=== PATIENT | female | born 1940 | race Caucasian/White ===

== ENCOUNTER 2016-10-20 21:30 | Inpatient (IN) ==
[2016-10-20] MEDS ORDERED: Ipratropium/Albuterol Neb 3 ML IH ONE (21:34)
[2016-10-20] MEDS ORDERED: methylPREDNISolone 125 MG/2 ML VIAL IV ONE (21:34)
--- NOTE | 2016-10-20 21:37 | Emergency Department Note ---
Disposition Clinical Impression: Acute exacerbation of chronic obstructive airways disease, Afib, ESRD (end stage renal disease), Dyspnea, Hypoxia Disposition: Admitted As Inpatient Condition: Good Referrals: NO,PCP [Non-Partnered Physician] - Forms: ED Satisfaction Letter Time of Disposition: 22:23 SOB HPI - General Chief Complaint: ED Shortness of Breath/Dyspnea Stated Complaint: MILDRED Time Seen by Provider: 10/20/16 21:35 Source: patient, EMS Mode of arrival: EMS Limitations: no limitations Nursing Notes Reviewed: Yes Vital Signs Reviewed: Yes - History of Present Illness This is a 76-year-old female who presents with increased shortness of breath for the last day. Patient does have a history of COPD and is a current cigarette smoker. Patient states she has been coughing up phlegm but denies any fevers. Patient states she does get dialysis on and she got a treatment today and states getting the fluid off helped slightly but she got short of breath again a few hours after dialysis. Patient is not having abdominal pain, vomiting, diarrhea, or chest pain. Pt Subjective Complaint: shortness of breath, cough Onset (ago): day(s) (1) - Related Data Home Medications Medication Instructions Recorded Confirmed CloNIDine HCl [Clonidine HCl] 0.2 mg PO BID #0 11/12/15 10/20/16 Aspirin Enteric Coated [Aspirin EC] 81 mg PO DAILY #0 02/29/16 10/20/16 Albuterol Sulfate [Proair Hfa] 2 puff IH Q4H PRN 03/23/16 10/20/16 Budesonide/Formoterol 160/4.5 2 puff IH BIDR 03/23/16 10/20/16 [Symbicort 160/4.5] Isosorbide MONOnitrate (24 HR) 60 mg PO DAILY 03/23/16 10/20/16 [Imdur] Oxygen 2 l .ROUTE AD 08/27/16 10/20/16 Furosemide [Lasix] 40 mg PO DAILY 10/20/16 10/20/16 Previous Rx's Medication Instructions Recorded Carvedilol [Coreg] 25 mg PO BID #60 tablet 06/03/16 Diltiazem CD (24hr) [Cardizem CD] 300 mg PO DAILY #30 cap.er.24h 06/03/16 HydrALAZINE 25 mg PO BID #60 tablet 06/03/16 Sevelamer [Renvela] 800 mg PO TIDWM #90 tablet 06/03/16 Allergies Allergy/AdvReac Type Severity Reaction Status Date / Time codeine Allergy Confusion Verified 08/03/16 12:42 All systems ED: reviewed and negative except as stated. Constitutional: Denies: fever, chills, weakness, weight change Eyes: Denies: eye pain, eye discharge, vision change ENT ED: Denies: ear pain, throat pain, dental pain, hearing loss, epistaxis, congestion, dysphagia Cardiovascular: Denies: chest pain, palpitations, dyspnea on exertion, edema, syncope Respiratory: Reports: cough, dyspnea. Denies: wheezes, hemoptysis, stridor Gastrointestinal: Denies: abdominal pain, nausea, vomiting, diarrhea, constipation, hematemesis, melena, hematochezia Genitourinary: Denies: dysuria, frequency, hematuria, discharge Musculoskeletal: Denies: back pain, neck pain, arthralgia, myalgia Integumentary: Denies: rash, abrasion, lesions Neurological: Denies: headache, weakness, numbness, paresthesias, confusion, abnormal gait, vertigo Psychiatric: Denies: anxiety, depression, suicidal thoughts, homicidal thoughts , auditory hallucinations, visual hallucinations Endocrine: Denies: fatigue Hematological/Lymphatic: Denies: easy bleeding, easy bruising Allergic/Immunologic: Denies: facial swelling, urticaria Past Medical History - Past Medical History Attestation: Yes The following information was validated with the patient. Source: patient Medical history: Reports: atrial fibrillation, cancer, CHF, COPD, dialysis, GERD , hypertension, renal disease, other Surgical history: Reports: hysterectomy, other Psychiatric history: Reports: no psych history - Social History Smoking Status: Current every day smoker Smokeless Tobacco Status: No Alcohol use: Reports: none Drug use: Reports: none Physical Exam - General Limitations: no limitations General appearance: alert, in distress - Head Head exam: atraumatic, normocephalic, normal inspection - Eye Eye exam: Present: normal appearance, PERRL, EOMI - ENT ENT exam: normal exam, normal oropharynx, mucous membranes moist - Expanded ENT Exam External ear exam: Present: normal external inspection Mouth exam: Present: normal external inspection Teeth exam: Present: normal inspection Throat exam: Present: normal inspection - Neck Neck exam: Present: normal inspection, full ROM, trachea midline - Chest Chest inspection: Present: normal inspection, symmetric chest wall rise - Respiratory Respiratory exam: Present: other (diminshed b/l) - Cardiovascular Cardiovascular exam: Present: regular rate, normal rhythm, normal heart sounds - Abdominal Exam Abdominal exam: Present: soft, Non-Tender. Absent: tenderness, distention, guarding, rebound, rigidity - Extremities Exam Extremities exam: Present: normal inspection, full ROM. Absent: tenderness, pedal edema - Expanded Upper Extremity Exam Shoulder exam: Present: normal inspection, full ROM Arm exam: Present: normal inspection, full ROM Elbow exam: Present: normal inspection, full ROM Forearm/Wrist exam: Present: normal inspection, full ROM, other (fistula to the L) Hand exam: Present: normal inspection, full ROM Vascular exam: Normal: capillary refill, radial pulse - Expanded Lower Extremity Exam Hip/Pelvis exam: Present: normal inspection, full ROM Upper leg exam: Present: normal inspection, full ROM Knee exam: Present: normal inspection, full ROM Lower leg exam: Present: normal inspection, full ROM Ankle exam: Present: normal inspection, full ROM Foot/toe exam: Present: normal inspection, full ROM Neurovascular/Tendon exam: Absent: motor deficit, sensory deficit, tendon deficit - Back Exam Back exam: Present: normal inspection, full ROM. Absent: tenderness - Neurological Exam Neurological exam: Present: alert, oriented X3 - Expanded Neurological Exam Patient oriented to: Present: person, place, time Coma Scale Eye Opening: Spontaneous Coma Scale Motor Response: Obeys Commands Coma Scale Verbal Response: Oriented Coma Scale Total: 15 - Psychiatric Psychiatric exam: Present: normal affect, normal mood - Skin Skin exam: Present: warm, dry, intact, normal color Course - Consultations Consultation #1: I spoke with Dr. Neel peguero to admit. Time: 22:46 Vital Signs Temperature 98.2 F 10/20/16 21:44 Pulse Rate 81 10/20/16 21:44 Respiratory Rate 10/20/16 21:44 Blood Pressure 148/115 10/20/16 21:44 O2 Sat by Pulse Oximetry 96 10/20/16 21:44 Temperature 98.2 F 10/20/16 21:44 Pulse Rate 81 10/20/16 21:44 Respiratory Rate 10/20/16 21:44 Blood Pressure 148/115 10/20/16 21:44 O2 Sat by Pulse Oximetry 96 10/20/16 21:44 Oxygen Delivery Oxygen Delivery Nasal Cannula Shortness of Breath/Dyspnea - Medical Records Medical records reviewed: Yes I reviewed the patient's medical records. - Lab Data Lab results reviewed: Yes I reviewed the patient's lab results. Result diagrams: 10/20/16 21:53 10/20/16 21:53 Lab Results 10/20/16 10/20/16 10/20/16 Range/Units 21:53 21:53 21:53 WBC 6.7 (4.3-11.1) K/mcL RBC 3.31 L (3.82-4.97) M/mcL Hgb 10.1 L (11.5-15.4) g/dL Hct 31.9 L (35.3-44.9) % MCV 96.4 (83.0-100.0) fL MCH 30.5 (28.0-33.3) pg MCHC 31.7 (31.6-35.5) g/dL RDW 14.1 (11.5-14.5) % Plt Count 161 (140-400) K/mcL MPV 11.3 (9.4-12.4) fL Immature Gran % 0.6 (0-4) % Seg Neutrophils % 80.2 % Lymphocytes % 5.9 % Monocytes % 11.7 % Eosinophils % 1.3 % Basophils % 0.3 % Neutrophils # 5.4 (1.6-8.9) K/mcL Lymphocytes # 0.4 L (0.6-4.6) K/mcL Monocytes # 0.8 (0.0-1.3) K/mcL Eosinophils # 0.1 (0.0-0.6) K/mcL Basophils # 0.0 (0.0-0.2) K/mcL PT 13.6 H (9.4-12.1) Seconds INR 1.3 APTT 33.9 (26.0-36.0) Seconds Sodium 138 (136-145) mEq/L Potassium 4.1 (3.5-4.5) mEq/L Chloride 97 L (98-109) mEq/L Carbon Dioxide 27 (19-29) mEq/L BUN 36 H (7-20) mg/dL Creatinine 4.75 H (0.57-1.11) mg/dL Est GFR ( Amer) 11 L (> 60) Est GFR (Non-Af Amer) 9 L (> 60) BUN/Creatinine Ratio 8 (6-26) Glucose 104 H (70-99) mg/dL Calculated Osmolality 295 (280-300) Calcium 8.9 (8.6-10.8) mg/dL Troponin I (0-0.03) ng/mL B-Natriuretic Peptide (0-100) pg/mL 10/20/16 10/20/16 Range/Units 21:53 21:53 WBC (4.3-11.1) K/mcL RBC (3.82-4.97) M/mcL Hgb (11.5-15.4) g/dL Hct (35.3-44.9) % MCV (83.0-100.0) fL MCH (28.0-33.3) pg MCHC (31.6-35.5) g/dL RDW (11.5-14.5) % Plt Count (140-400) K/mcL MPV (9.4-12.4) fL Immature Gran % (0-4) % Seg Neutrophils % % Lymphocytes % % Monocytes % % Eosinophils % % Basophils % % Neutrophils # (1.6-8.9) K/mcL Lymphocytes # (0.6-4.6) K/mcL Monocytes # (0.0-1.3) K/mcL Eosinophils # (0.0-0.6) K/mcL Basophils # (0.0-0.2) K/mcL PT (9.4-12.1) Seconds INR APTT (26.0-36.0) Seconds Sodium (136-145) mEq/L Potassium (3.5-4.5) mEq/L Chloride (98-109) mEq/L Carbon Dioxide (19-29) mEq/L BUN (7-20) mg/dL Creatinine (0.57-1.11) mg/dL Est GFR ( Amer) (> 60) Est GFR (Non-Af Amer) (> 60) BUN/Creatinine Ratio (6-26) Glucose (70-99) mg/dL Calculated Osmolality (280-300) Calcium (8.6-10.8) mg/dL Troponin I 0.16 H* (0-0.03) ng/mL B-Natriuretic Peptide 4273 H (0-100) pg/mL - Radiology Data Radiology results reviewed: Yes I reviewed the patient's radiology results. - EKG Data EKG attestation: Yes I reviewed and interpreted this EKG. Rate: Reports: normal Rhythm: Reports: A.Fib [place]/QRS: Reports: normal When compared to previous EKG there are: no significant changes Interpretation: Reports: no acute changes
[2016-10-20 22:08] LABS: Basophils % 0.3 %; Eosinophils # 0.1 K/mcL (0.0-0.6); Eosinophils % 1.3 %; Hematocrit 31.9 % (35.3-44.9); Hemoglobin 10.1 g/dL (11.5-15.4); Immature Granulocytes % 0.6 % (0-4); Lymphocytes # 0.4 K/mcL (0.6-4.6); Lymphocytes % 5.9 %; Mean Corpuscular HGB Conc 31.7 g/dL (31.6-35.5); Mean Corpuscular Hemoglobin 30.5 pg (28.0-33.3); Mean Corpuscular Volume 96.4 fL (83.0-100.0); Mean Platelet Volume 11.3 fL (9.4-12.4); Monocytes # 0.8 K/mcL (0.0-1.3); Monocytes % 11.7 %; Neutrophils # 5.4 K/mcL (1.6-8.9); Platelet Count 161 K/mcL (140-400); Red Blood Count 3.31 M/mcL (3.82-4.97); Red Cell Distribution Width 14.1 % (11.5-14.5); Segmented Neutrophils % 80.2 %
[2016-10-20 22:14] LABS: INR 1.3; Prothrombin Time 13.6 Seconds (9.4-12.1)
[2016-10-20 22:17] LABS: Activated Partial Thrombo Time 33.9 Seconds (26.0-36.0)
[2016-10-20 22:21] LABS: Calcium 8.9 mg/dL (8.6-10.8); Potassium 4.1 mEq/L (3.5-4.5)
[2016-10-20] MEDS ORDERED: Levofloxacin 500 MG/100 ML 500 MG/100 ML BAG IVPB ONE (22:46)
[2016-10-21] MEDS ORDERED: Naloxone 0.4 MG/ML INJ IVP PRN (00:21)
[2016-10-21] MEDS ORDERED: Albuterol 2.5 MG/3 ML NEBULIZER IH PRN (00:46)
[2016-10-21] MEDS: Pantoprazole 40 MG VIAL IVP SCH ×2 (01:03→09:07)
--- NOTE | 2016-10-21 01:07 | Internal Med History&Physical ---
Date of Encounter: 10/21/16 Time of Encounter: 00:15 Assessment and Plan (1) Acute exacerbation of chronic obstructive pulmonary disease (COPD) Current visit: No Status: Acute Acute on chronic respiratory failure. COPD exacerbation. Patient was given Duo Neb in the ED as well as solumedrol 125mg and a dose of Levofloxacin. Continue Solumedrol 40mg Q8hr Continue duoneb treatments QIDR Albuterol Q4hr PRN Will monitor off antibiotics at this time as the patient is afebrile and has no white count. (2) Chronic diastolic (congestive) heart failure Current visit: No Status: Acute Not in acute exacerbation. Patient has no pedal edema and no JVD. Continue home lasix 40mg QD (3) HTN (hypertension) Current visit: No Status: Acute Continue home medications Qualifiers: Hypertension type: essential hypertension Qualified Code(s): I10 - Essential (primary) hypertension (4) ESRD (end stage renal disease) Current visit: Yes Status: Acute Patient continues to make urine. ESRD status post left nephrectomy. Continue with scheduled dialysis Sun, Sun, Sun. Consult nephrology on Sunday if patient will not be discharged before her scheduled dialysis on Sunday. (5) Afib Current visit: Yes Status: Chronic Currenly rate controlled with normal rhythm. Continue Cardizem 300mg Qualifiers: Atrial fibrillation type: chronic Qualified Code(s): I48.2 - Chronic atrial fibrillation (6) Renal cancer Current visit: Yes Status: Acute History of renal cancer of the left kidney. Status post nephrectomy. Qualifiers: Laterality: left Qualified Code(s): C64.2 - Malignant neoplasm of left kidney, except renal pelvis (7) Tobacco abuse Current visit: No Status: Chronic Nicotine patches PRN. Counseled on smoking cessation. Patient states that she will quit on her own when she wants to. Smoking cessation education ordered. (8) DVT prophylaxis Current visit: No Status: Resolved Heparin SQ GI prophylaxis: Protonix Internal Medicine - H&P: HPI Chief complaint: dyspnea Admitted From: Emergency Dept Plans for Post Hospital Care: Home History of present illness: Ms. Hedrick is a 76 year old female with PMH of ESRD on dialysis, COPD, A. Fib, renal cancer, CHF, GERD, and HTN who presented to the Emergency Department for shortness of breath. She states that her symptoms started 10/19/15 and she developed a worsening cough that was productive of clear sputum. She received dialysis as scheduled on Sunday morning and states that her symptoms improved slightly, but then returned. She denies chest pain, abdominal pain, nausea, vomiting, diarrhea, and any recent weight changes. She is oxygen dependent at home and recently had to increase to 3L from 2L previously. She continues to smoke a little less than a pack of cigarettes per day, but states that on Sunday she was only able to smoke one cigarette due to her shortness of breath. The patient also complained about a chronic nonhealing wound on her left lower extremity that she states has been there for 2 months. She states she had an arterial study done and will find out the results this coming Sunday. Past Med Surg Social Fam HX - Past Medical History Medical history: atrial fibrillation, cancer (renal), CHF, COPD, dialysis, GERD , hypertension, renal disease, other Psychiatric history: no psych history - Past Surgical History Surgical History: hysterectomy, other (left nephrectomy) - Social History Smoking Status: Current every day smoker Smokeless Tobacco Status: No Alcohol use: none Drug use: none - Family History Mother Living Status: Father Living Status: Hx Family Respiratory Disorders: Yes (emphysema) Brother Living Status: Hx Family Cancer: Yes Internal Medicine - H&P: Meds CloNIDine HCl [Clonidine HCl] 0.2 mg PO BID #0 11/12/15 [History] Aspirin Enteric Coated [Aspirin EC] 81 mg PO DAILY #0 02/29/16 [History] Albuterol Sulfate [Proair Hfa] 2 puff IH Q4H PRN 03/23/16 [History] Budesonide/Formoterol 160/4.5 [Symbicort 160/4.5] 2 puff IH BIDR 03/23/16 [ History] Isosorbide MONOnitrate (24 HR) [Imdur] 60 mg PO DAILY 03/23/16 [History] Carvedilol [Coreg] 25 mg PO BID #60 tablet 06/03/16 [Rx] Diltiazem CD (24hr) [Cardizem CD] 300 mg PO DAILY #30 cap.er.24h 06/03/16 [Rx] HydrALAZINE 25 mg PO BID #60 tablet 06/03/16 [Rx] Sevelamer [Renvela] 800 mg PO TIDWM #90 tablet 06/03/16 [Rx] Oxygen 2 l .ROUTE AD 08/27/16 [History] Furosemide [Lasix] 40 mg PO DAILY 10/20/16 [History] Allergies codeine Allergy (Verified 08/03/16 12:42) Confusion All Systems PM: A 10-system review of systems was performed and is negative for pertinent findings except as documented above in the HPI. - Constitutional Constitutional: no chills, no fever(s), no night sweats - EENT Eyes: no change in vision, no discharge, no pain, no photophobia Ears: no ear discharge, no ear pain, no tinnitus Nose, mouth and throat: no dysphagia, no nasal discharge, no neck pain, no sore throat - Cardiovascular Cardiovascular ROS IM: orthopnea, no chest pain, no diaphoresis, no lightheadedness, no palpitations, no syncope - Respiratory Respiratory: cough, dyspnea, dyspnea on exertion, no hemoptysis, no wheezing, no excessive phlegm production - Gastrointestinal Gastrointestinal: no abdominal pain, no diarrhea, no hematemesis, no hematochezia, no melena, no nausea, no vomiting - Genitourinary Genitourinary: no change in urinary stream, no dysuria, no flank pain, no hematuria - Musculoskeletal Musculoskeletal ROS IM: no numbness, no tingling - Integumentary Integumentary IM: sores (left lower extremity), no rash, no unusual bruising - Neurological Neurological ROS: no confusion, no convulsions, no focal weakness, no numbness, no tingling, no tremor(s) - Hematologic/Lymphatic Hematologic/Lymphatic: no easy bruising - Constitutional Vitals: Temp Pulse Resp BP Pulse Ox 97.6 F 80 18 177/75 92 L 10/20/16 23:59 10/20/16 23:59 10/20/16 23:59 10/20/16 23:59 10/20/16 23:59 General appearance: Present: cachectic, A&O X 3, no acute distress - Head Head exam: Present: atraumatic, normocephalic - Eye Eye exam: Present: EOMI, PERRL, conjuntiva pink, sclera anicteric Pupils: Present: PERRL - Neck Neck exam general surgery: Present: supple, trachea midline. Absent: lymphadenopathy - Respiratory Respiratory exam: Present: decreased breath sounds. Absent: accessory muscle use, rales, rhonchi, wheezes - Cardiovascular Cardiovascular exam: Present: RRR, +S1, +S2. Absent: diastolic murmur, gallop, rubs, systolic murmur - GI/Abdominal GI/Abdominal exam: Present: normal bowel sounds, soft, no peritoneal signs. Absent: distended, tenderness - Extremities Exam Extremities exam: Present: warm, radial pulses palpable and symetrical. Absent : calf tenderness, cyanotic, pedal edema - Neurological Exam Neurological exam: Present: CN II-XII intact, oriented X3, no focal deficits. Absent: pronater drift, facial droop, speech deficit - Skin Skin exam: Present: dry Additional comments: Chronic nonhealing ulcer of the left lower extremity. Internal Med - H&P Results - Labs CBC & Chem 7: 10/20/16 21:53 10/20/16 21:53 - Attending Attestation I examined this patient and my medical decision-making was reviewed with the PROPERTY MAINTENANCE TECHNICIAN/PA/Advanced Practice Nurse/Resident Physician. I agree with the documented findings, disposition and treatment plan as described except to the extent set forth below.
[2016-10-21] MEDS ORDERED: Nicotine 14 MG PATCH.TD24 TD PRN (01:27)
[2016-10-21] MEDS: Ipratropium/Albuterol Neb 3 ML IH SCH ×4 (03:51→22:40)
[2016-10-21] MEDS ORDERED: Ipratropium/Albuterol Neb 3 ML IH SCH (04:00)
[2016-10-21] MEDS: *HR* Heparin 5,000 UNIT/ML VIAL SQ SCH ×2 (06:14→17:12)
[2016-10-21 07:25] LABS: Calcium 8.6 mg/dL (8.6-10.8); Phosphorous 7.1 mg/dL (2.3-4.7); Potassium 4.7 mEq/L (3.5-4.5)
[2016-10-21] MEDS: Isosorbide MONOnitrate (24 HR) 60 MG TAB.ER.24H PO SCH (09:06)
[2016-10-21] MEDS: MethylPREDNISolone 40 MG/ML VIAL IVP SCH ×2 (09:06→17:12)
[2016-10-21] MEDS: Diltiazem CD (24hr) 300 MG CAPSULE PO SCH (09:06)
[2016-10-21] MEDS: Aspirin Enteric Coated 81 MG Tablet PO SCH (09:07)
[2016-10-21] MEDS: hydrALAZINE 25 MG TABLET PO SCH ×2 (09:07→22:10)
[2016-10-21] MEDS: Furosemide 20 MG TABLET PO SCH (09:07)
[2016-10-21] MEDS: cloNIDine HCl 0.1 MG TABLET PO SCH ×2 (09:07→22:10)
--- NOTE | 2016-10-21 09:43 | Event Note ---
<David Muñoz - Last Filed: 10/21/16 12:34> Date of Encounter: 10/21/16 Time of Encounter: 09:29 Patient seen/eval at bedside, H&P and interval events reviewed, discussed with night resident Dr. Ritchie. Briefly, 76 yoF PMH ESRD on HD MWF with Dr. Duran group, RCC s/p Left nephrectomy, COPD on LTOT 2LNC, HFpEF, HTN current smoker. She would present following her HD session Sunday (completed full course), then experienced productive cough with subjective chills, dyspnea over her normal 2L NC, prompting admission at [facility]. She endorses events per above, lives at home with 2 sons, no recent sick contacts. Exam elderly lady appears stated age, NAD, NCAT, mmm, no lesions. Resp with dry crackles all gutirerez, no wheeze or ronchi, no acc muscle use CV S1 S2, no JVD, right forearm AVF with continuous bruit Abd soft nt nd Ext mild chyna LE pitting edema. Left ankle lateral malleolus mild erythema, shallow stage 2 ulcer, appears with signs chronic venous stasis, varicosities, no oozing or exudate. A/P COPD exacerbation Suggested by worsening dyspnea and productive cough. 2-V CXR reviewed, prior RLL blunted, likely scarring. No focal infiltrate, no leukocytosis Cont solumedrol, taper as indicated. ESRD on HD She completed her session on Sunday, is MWF. Would consult Dr. Duran on Sun for regularly scheduled dialysis, sooner if acute electrolye abnormalities arise. Left venous stasis ulcer From 09/28/16, chyna LE venous dopplers negative for DVT. From 10/13/16, Right VON 1.52, Left VON 1.27. bilateral LE moderately abnormal, recommend for risk factor reduction. Clinically appears with chronic venous stasis, she also continues to smoke which impairs wound healing. Cont topical neosporin. <Roderick Anderson - Last Filed: 10/21/16 13:50> Date of Encounter: 10/21/16 I examined this patient and my medical decision-making was reviewed with the AIR QUALITY TECHNICIAN/PA/Advanced Practice Nurse/Resident Physician. I agree with the documented findings, disposition and treatment plan as described except to the extent set forth below. COPD exacerbation, will ocntinue with current management. HD as per nephrology.
[2016-10-21] MEDS: Neosporin OINT 15 GM TUBE TP SCH ×2 (13:33→17:13)
[2016-10-22] MEDS: MethylPREDNISolone 40 MG/ML VIAL IVP SCH ×3 (01:55→17:22)
[2016-10-22] MEDS: Ipratropium/Albuterol Neb 3 ML IH SCH ×4 (04:31→23:38)
[2016-10-22 05:57] LABS: Hematocrit 29.1 % (35.3-44.9); Hemoglobin 9.3 g/dL (11.5-15.4); Immature Granulocytes % 0.6 % (0-4); Lymphocytes # 0.3 K/mcL (0.6-4.6); Lymphocytes % 3.4 %; Mean Corpuscular Hemoglobin 30.6 pg (28.0-33.3); Mean Corpuscular Volume 95.7 fL (83.0-100.0); Mean Platelet Volume 11.5 fL (9.4-12.4); Monocytes # 0.6 K/mcL (0.0-1.3); Monocytes % 7.1 %; Neutrophils # 7.4 K/mcL (1.6-8.9); Platelet Count 170 K/mcL (140-400); Red Blood Count 3.04 M/mcL (3.82-4.97); Red Cell Distribution Width 14.1 % (11.5-14.5); Segmented Neutrophils % 88.9 %
[2016-10-22 06:16] LABS: Calcium 8.9 mg/dL (8.6-10.8); Magnesium 2.1 mg/dL (1.6-2.6); Potassium 5.5 mEq/L (3.5-4.5)
[2016-10-22] MEDS ORDERED: Calcium Gluconate 2,000 MG in D5% in Water 100 ML IVPB ONE (08:49)
[2016-10-22] MEDS: *HR* Heparin 5,000 UNIT/ML VIAL SQ SCH ×2 (09:03→17:22)
[2016-10-22] MEDS: Neosporin OINT 15 GM TUBE TP SCH ×4 (09:03→21:20)
[2016-10-22] MEDS: Pantoprazole 40 MG VIAL IVP SCH (09:04)
[2016-10-22] MEDS: Furosemide 20 MG TABLET PO SCH (09:04)
[2016-10-22] MEDS: Diltiazem CD (24hr) 300 MG CAPSULE PO SCH (09:04)
[2016-10-22] MEDS: hydrALAZINE 25 MG TABLET PO SCH ×2 (09:04→21:16)
[2016-10-22] MEDS: Aspirin Enteric Coated 81 MG Tablet PO SCH (09:05)
[2016-10-22] MEDS: cloNIDine HCl 0.1 MG TABLET PO SCH ×2 (09:05→21:16)
[2016-10-22] MEDS: Isosorbide MONOnitrate (24 HR) 60 MG TAB.ER.24H PO SCH (09:05)
--- NOTE | 2016-10-22 09:28 | Internal Med Progress Note ---
<David Muñoz - Last Filed: 10/22/16 13:44> Date of Encounter: 10/22/16 Time of Encounter: 09:20 - Assessment and plan (1) Acute exacerbation of chronic obstructive airways disease Current Visit: Yes Status: Acute Assessment and plan: Suggested by worsening dyspnea and productive cough. 2-V CXR reviewed, prior RLL blunted, likely scarring. No focal infiltrate, no leukocytosis Cont solumedrol, taper as indicated. (2) ESRD (end stage renal disease) Current Visit: Yes Status: Acute Assessment and plan: ESRD on HD MWF followed by Dr. Duran group. Discussed with Dr. Duran, to resume HD on Sunday. (3) Venous stasis dermatitis Current Visit: Yes Status: Acute Assessment and plan: From 09/28/16, chyna LE venous dopplers negative for DVT. From 10/13/16, Right VON 1.52, Left VON 1.27. bilateral LE moderately abnormal, recommend for risk factor reduction. Clinically appears with chronic venous stasis, she also continues to smoke which impairs wound healing. Cont topical neosporin. Wound care c/s Qualifiers: Laterality: left Qualified Code(s): I83.12 - Varicose veins of left lower extremity with inflammation (4) DVT prophylaxis Current Visit: No Status: Resolved Assessment and plan: Hep 5000 U SC BID - Subjective Interval history: Patient seen/eval, she would relate that her breathing and cough are improved. She denies any chest pain/pressure/palpitations/pause. No pleurisy or chest tightness. Denies any abdominal pain. Denies any undue fatigue, nausea, diaphoresis. Interval EKG obtained for K+ 5.5 would reveal pronouncement of T waves, shifting baseline. - Constitutional Vitals: Temp Pulse Resp BP Pulse Ox 97.5 F L 83 20 150/66 95 10/22/16 06:43 10/22/16 06:43 10/22/16 06:43 10/22/16 06:43 10/22/16 06:43 General appearance: Present: cachectic, A&O X 3, no acute distress - Head Head exam: Present: atraumatic, normocephalic - Eye Eye exam: Present: EOMI, sclera anicteric - ENT ENT exam: Present: mucous membranes moist - Neck Neck exam general surgery: Present: supple, trachea midline - Respiratory Respiratory exam: Present: prolonged expiratory phase, rhonchi (scant end exp ronchi, with dry crackles. Minimal wheeze), wheezes - Cardiovascular Cardiovascular exam: Present: +S1, +S2. Absent: JVD - GI/Abdominal GI/Abdominal exam: Present: soft, no peritoneal signs. Absent: tenderness - Extremities Exam Extremities exam: Present: pedal edema (1+ pitting, left LE lateral malleolus shallow venous stasis ulcer, bandaged), warm, radial pulses palpable and symetrical Additional comments: RFA AVF Internal Medicine: Result - Labs CBC & Chem 7: 10/22/16 05:24 10/22/16 05:24 Labs: Short CBC 10/22/16 Range/Units 05:24 WBC 8.3 (4.3-11.1) K/mcL Hgb 9.3 L (11.5-15.4) g/dL Hct 29.1 L (35.3-44.9) % Plt Count 170 (140-400) K/mcL Neutrophils # 7.4 (1.6-8.9) K/mcL BMP 10/22/16 05:24 Sodium 132 L Potassium 5.5 H Chloride 94 L Carbon Dioxide 22 BUN 69 H D Creatinine 6.42 H Glucose 145 H Calcium 8.9 - ABG Interpretation ABG results: PT/INR, D-dimer PT 13.6 Seconds (9.4-12.1) H 10/20/16 21:53 Consult Discharge Plan - Plan Referrals: Eileen House, PRODUCTION CLOTH CUTTER [Primary Care Provider] - (WEB REQUEST PLACED ON 10/21/16 ) <Roderick Anderson - Last Filed: 10/22/16 15:53> Date of Encounter: 10/22/16 - Constitutional Vitals: Temp Pulse Resp BP Pulse Ox 97.4 F L 88 20 139/77 90 L 10/22/16 11:32 10/22/16 11:32 10/22/16 11:32 10/22/16 11:32 10/22/16 11:32 Internal Medicine: Result - Labs CBC & Chem 7: 10/22/16 05:24 10/22/16 05:24 Labs: Short CBC 10/22/16 Range/Units 05:24 WBC 8.3 (4.3-11.1) K/mcL Hgb 9.3 L (11.5-15.4) g/dL Hct 29.1 L (35.3-44.9) % Plt Count 170 (140-400) K/mcL Neutrophils # 7.4 (1.6-8.9) K/mcL BMP 10/22/16 05:24 Sodium 132 L Potassium 5.5 H Chloride 94 L Carbon Dioxide 22 BUN 69 H D Creatinine 6.42 H Glucose 145 H Calcium 8.9 Cardiac Enzymes 10/22/16 Range/Units 05:24 Troponin I 0.09 H* (0-0.03) ng/mL - ABG Interpretation ABG results: PT/INR, D-dimer PT 13.6 Seconds (9.4-12.1) H 10/20/16 21:53 - Attending Attestation I examined this patient and my medical decision-making was reviewed with the COPY MESSENGER/PA/Advanced Practice Nurse/Resident Physician. I agree with the documented findings, disposition and treatment plan as described except to the extent set forth below. Patient is getting treatment for her COPD exacerbation. Anticipate discharge tomorrow.
[2016-10-22] MEDS ORDERED: Menthol 9.1 MG LOZENGE PO PRN (13:43)
[2016-10-22] MEDS: Chloraseptic Spray 177 ML BOTTLE MM PRN (15:48)
[2016-10-22] MEDS ORDERED: Acetaminophen 325 MG TABLET PO ONE (21:06)
[2016-10-23 04:05] LABS: Hematocrit 29.3 % (35.3-44.9); Hemoglobin 9.3 g/dL (11.5-15.4); Immature Granulocytes % 0.5 % (0-4); Lymphocytes # 0.4 K/mcL (0.6-4.6); Lymphocytes % 3.5 %; Mean Corpuscular HGB Conc 31.7 g/dL (31.6-35.5); Mean Corpuscular Hemoglobin 30.2 pg (28.0-33.3); Mean Corpuscular Volume 95.1 fL (83.0-100.0); Mean Platelet Volume 11.4 fL (9.4-12.4); Monocytes # 0.5 K/mcL (0.0-1.3); Monocytes % 4.5 %; Neutrophils # 9.6 K/mcL (1.6-8.9); Platelet Count 199 K/mcL (140-400); Red Blood Count 3.08 M/mcL (3.82-4.97); Segmented Neutrophils % 91.5 %
[2016-10-23 04:20] LABS: Calcium 8.1 mg/dL (8.6-10.8); Magnesium 2.2 mg/dL (1.6-2.6); Potassium 4.8 mEq/L (3.5-4.5)
[2016-10-23] MEDS: Ipratropium/Albuterol Neb 3 ML IH SCH ×2 (04:22→10:53)
[2016-10-23] MEDS ORDERED: Acetaminophen 325 MG TABLET PO ONE (04:23)
[2016-10-23] MEDS: *HR* Heparin 5,000 UNIT/ML VIAL SQ SCH (06:37)
[2016-10-23] MEDS: MethylPREDNISolone 40 MG/ML VIAL IVP SCH (06:37)
--- NOTE | 2016-10-23 08:04 | Nephrology Consult Note ---
Date of Encounter: 10/23/16 Time of Encounter: 08:02 Assessment and Plan (1) ESRD (end stage renal disease) Current Visit: Yes Status: Acute Patient is end-stage renal disease. She will receive her usual dialysis today. She is on Aranesp for her anemia. We will attempt 4 kg removal to try and improve her lower extremity swelling. She has a ulceration of the left lower extremity which appears to be improving. She is currently on Sensipar for a concern of possible calciphylaxis. Noninvasive vascular studies have been unremarkable. (2) Benign hypertension with chronic kidney disease, stage IV Current Visit: Yes Status: Acute (3) Acute exacerbation of chronic obstructive airways disease Current Visit: Yes Status: Acute (4) Anemia in chronic kidney disease (CKD) Current Visit: No Status: Acute (5) Chronic atrial fibrillation Current Visit: No Status: Acute History of Present Illness - Reason for Consult Consult date: 10/23/16 - History of Present Illness This is a 76-year-old female with end-stage renal disease related to hypertension who receives dialysis injection every Sunday. Patient was admitted with worsening shortness of breath. She had sputum production although her phlegm was clear. She did have some coughing. She has some lower extremity swelling. She is being treated for COPD exacerbation. Patient has a history of recurrent hospital admissions for exacerbation of COPD sometimes associated with pneumonia. Currently says she is feeling better. She was experiencing a sore throat and difficulty swallowing yesterday although today she says that has improved. She is scheduled for her usual dialysis today. Patient has a history of a ulcer on the lateral aspect of the left lower extremity. ABIs were unremarkable. There was concern for calciphylaxis. Patient had been placed on Sensipar as an outpatient. On exam today the ulcer looks like it is improving. Past Med Surg Social Fam HX - Past Medical History Medical history: atrial fibrillation, cancer (renal), CHF, COPD, dialysis, GERD , hypertension, renal disease, other Psychiatric history: no psych history - Past Surgical History Surgical History: hysterectomy, other (left nephrectomy) - Social History Smoking Status: Current every day smoker Packs per day: less than 1 PPD Smokeless Tobacco Status: No Alcohol use: none Drug use: none - Family History Mother Living Status: Father Living Status: Hx Family Respiratory Disorders: Yes (emphysema) Brother Living Status: Hx Family Cancer: Yes Medications and Allergies CloNIDine HCl [Clonidine HCl] 0.2 mg PO BID #0 11/12/15 [History] Aspirin Enteric Coated [Aspirin EC] 81 mg PO DAILY #0 02/29/16 [History] Albuterol Sulfate [Proair Hfa] 2 puff IH Q4H PRN 03/23/16 [History] Budesonide/Formoterol 160/4.5 [Symbicort 160/4.5] 2 puff IH BIDR 03/23/16 [ History] Isosorbide MONOnitrate (24 HR) [Imdur] 60 mg PO DAILY 03/23/16 [History] Carvedilol [Coreg] 25 mg PO BID #60 tablet 06/03/16 [Rx] Diltiazem CD (24hr) [Cardizem CD] 300 mg PO DAILY #30 cap.er.24h 06/03/16 [Rx] HydrALAZINE 25 mg PO BID #60 tablet 06/03/16 [Rx] Sevelamer [Renvela] 800 mg PO TIDWM #90 tablet 06/03/16 [Rx] Oxygen 2 l .ROUTE AD 08/27/16 [History] Furosemide [Lasix] 40 mg PO DAILY 10/20/16 [History] Allergies codeine Allergy (Verified 08/03/16 12:42) Confusion Review of Systems Constitutional: as per HPI Eyes: bilateral: blurred vision (patient denies), diplopia (patient denies) Nose, mouth and throat: no dizziness, no headache(s) Cardiovascular: as per HPI, dyspnea, dyspnea on exertion, edema, irregular heart rhythm Respiratory: cough, dyspnea, dyspnea on exertion, excessive phlegm production Gastrointestinal: no abdominal pain, no change in bowel habits Musculoskeletal: no muscle weakness, no numbness Integumentary: as per HPI, wounds Neurological: as per HPI Psychiatric: no depression, no difficulty concentrating Endocrine: as per HPI Hematologic/Lymphatic: no easy bruising, no lymphadenopathy Exam - Vital Signs Vital signs: Initial Vital Signs Temp Pulse Resp BP Pulse Ox 98.2 F 81 26 148/115 96 10/20/16 21:44 10/20/16 21:44 10/20/16 21:44 10/20/16 21:44 10/20/16 21:44 Vital Signs - Last 8 Hours Temp Pulse Resp BP Pulse Ox 10/23/16 07:29 97.3 F L 81 20 168/73 96 10/23/16 04:23 18 96 10/23/16 03:58 98.1 F 78 18 167/74 97 10/23/16 00:09 97.8 F 81 20 161/76 96 Intake and Output 10/22/16 10/23/16 10/23/16 23:59 07:59 15:59 Intake Total 120 / 120 Balance 120 / 120 Intake: Oral 120 / 120 Other: Meal Dinner Percent of Meal Consumed 50% # Voids 1 # Bowel Movements 1 Weight 79.9 kg Patient Weight 10/23/16 23:59 Weight 79.9 kg - General Appearance Exam: Patient is sitting on the edge of bed eating breakfast. She is in no acute distress. Neck is supple. Carotids no bruits. Lungs diminished breath sounds bilaterally. No wheezing rales or rhonchi. Heart irregular rate and rhythm consistent with atrial fibrillation. Abdomen shows normal bowel sounds bruits masses in a megaly or tenderness. Lower extremities show 1+ lower extremity swelling bilaterally. There is a superficial ulceration on the lateral aspect of the left lower extremity which appears better compared to when it was last seen as an outpatient. There is a functioning AV fistula in the right upper extremity. Results - Lab Results 10/23/16 03:42 10/23/16 03:42 Most recent lab results Calcium 8.1 mg/dL (8.6-10.8) L 10/23/16 03:42 Phosphorus 7.1 mg/dL (2.3-4.7) H 10/21/16 07:05 Magnesium 2.2 mg/dL (1.6-2.6) 10/23/16 03:42 Consult Discharge Plan - Plan Referrals: Eileen House, MOPPER [Primary Care Provider] - (WEB REQUEST PLACED ON 10/21/16 )
[2016-10-23] MEDS ORDERED: 0.9 % Sodium Chloride 250 ML IV PRN (08:07)
[2016-10-23] MEDS: Pantoprazole 40 MG VIAL IVP SCH (08:16)
[2016-10-23] MEDS: Isosorbide MONOnitrate (24 HR) 60 MG TAB.ER.24H PO SCH (08:17)
[2016-10-23] MEDS: Aspirin Enteric Coated 81 MG Tablet PO SCH (08:17)
[2016-10-23] MEDS: Diltiazem CD (24hr) 300 MG CAPSULE PO SCH (08:17)
[2016-10-23] MEDS: hydrALAZINE 25 MG TABLET PO SCH (08:18)
[2016-10-23] MEDS: cloNIDine HCl 0.1 MG TABLET PO SCH (08:18)
[2016-10-23] MEDS: Furosemide 20 MG TABLET PO SCH (08:18)
[2016-10-23] MEDS: Chloraseptic Spray 177 ML BOTTLE MM PRN (08:19)
[2016-10-23] MEDS: Neosporin OINT 15 GM TUBE TP SCH (08:19)
--- NOTE | 2016-10-23 08:55 | Discharge Summary ---
<David Muñoz - Last Filed: 10/23/16 13:05> Date of Encounter: 10/23/16 Time of Encounter: 08:30 - Discharge Diagnosis (1) Acute exacerbation of chronic obstructive airways disease Priority: Primary Status: Acute (2) ESRD (end stage renal disease) Priority: Primary Status: Chronic (3) Venous stasis dermatitis Priority: Secondary Status: Chronic Qualifiers: Laterality: left Qualified Code(s): I83.12 - Varicose veins of left lower extremity with inflammation - Discharge Medications Prescriptions: Albuterol Neb [Proventil Neb] 2.5 mg IH [id number] PRN #1 inhsol PRN Reason: Shortness Of Breath/Wheezing Budesonide/Formoterol 160/4.5 [Symbicort 160/4.5] 2 puff IH BIDR #1 inhaler Furosemide [Lasix] 40 mg PO DAILY #30 tablet Mario/Poly/Wandy OINT [Triple Antibiotic Ointment] 1 appl TP TID #1 tube Nicotine Patch [Nicoderm] 14 mg TD DAILY PRN #30 patch.td24 PRN Reason: nicotine withdrawal PredniSONE 40 mg PO DAILY #4 tablet Home Medications: CloNIDine HCl [Clonidine HCl] 0.2 mg PO BID #0 11/12/15 [History] Aspirin Enteric Coated [Aspirin EC] 81 mg PO DAILY #0 02/29/16 [History] Albuterol Sulfate [Proair Hfa] 2 puff IH Q4H PRN 03/23/16 [History] Isosorbide MONOnitrate (24 HR) [Imdur] 60 mg PO DAILY 03/23/16 [History] Carvedilol [Coreg] 25 mg PO BID #60 tablet 06/03/16 [Rx] Diltiazem CD (24hr) [Cardizem CD] 300 mg PO DAILY #30 cap.er.24h 06/03/16 [Rx] HydrALAZINE 25 mg PO BID #60 tablet 06/03/16 [Rx] Sevelamer [Renvela] 800 mg PO TIDWM #90 tablet 06/03/16 [Rx] Oxygen 2 l .ROUTE AD 08/27/16 [History] Albuterol Neb [Proventil Neb] 2.5 mg IH [id number] PRN #1 inhsol 10/23/16 [Rx] Budesonide/Formoterol 160/4.5 [Symbicort 160/4.5] 2 puff IH BIDR #1 inhaler 07/01 [Rx] Furosemide [Lasix] 40 mg PO DAILY #30 tablet 10/23/16 [Rx] Mario/Poly/Wandy OINT [Triple Antibiotic Ointment] 1 appl TP TID #1 tube 10/23/16 [ Rx] Nicotine Patch [Nicoderm] 14 mg TD DAILY PRN #30 patch.td24 10/23/16 [Rx] PredniSONE 40 mg PO DAILY #4 tablet 10/23/16 [Rx] Allergies/Adverse Reactions: Allergies codeine Allergy (Verified 08/03/16 12:42) Confusion Procedures/tests Complete & Pending: Procedures Performed prior 72 hours Category Date Time Status EKG [ECG 12 lead ECG] [ECG] Stat Y 10/22/16 08:18 Ordered Date of admission: 10/21/16 17:46 Primary care physician: Eileen House CNP Consults: 10/22/16 13:40 Consult to Nephrology [CONS] Routine Consulting Provider: [facility] Vasu REY Reason for Consult: ESRD on HD MWF, for scheduled dialysis. Here for COPD exacerbation. Discussed with Dr. Rey. Time Notified: 13:30 Call Completed: Yes 10/22/16 13:52 Consult to Wound Care [CONS] Routine Reason for Consult: Left LE venous stasis ulcer, appreciate recs Call Completed: No 10/23/16 08:15 Consult to Dialysis [CONS] ONCE Discharging clinician: Roderick Anderson Anticipated date of discharge: 10/23/16 - Patient Status Disposition: Home, Self-Care Condition: Good Functional capacity at discharge: uses cane/walker Overall status at discharge: patient is progressing back to baseline - Discharge Instructions Instructions: How to Stop Smoking (DC), Chronic Obstructive Pulmonary Disease ( DC), Pneumonia (DC) Follow Up With: Bhaskar Stinson MD [Partnered Physician] - 10/30/16 1:00 pm (Dr. Stinson to see you in the [facility] outpatient wound care clinic to address your left lower leg ulcer. Please call if you cannot make this appointment.) Eileen House CNP [Primary Care Provider] - 10/27/16 1:00 pm (WEB REQUEST PLACED ON 10/21/16 ) Additional Instructions: Wound care orders: Cleanse area with microklenz daily and pat dry. Apply santyl medicated ointment to wound only (not surrounding skin) daily. Cover with allevyn dressing. Follow-up with outpatient wound care as scheduled for October 30. - Diet and Activity Activity: increase activity as tolerated, wear oxygen at all times Diet: low salt diet, other (renal diet) Hospital course: Ms. Hedrick is a 76 year old female. Patient would present to [facility] with chief concern productive cough with subjective chills, dyspnea over her normal 2L NC, prompting admission at [facility] on 10/20/16. Comorbidities would include ESRD on HD MWF with Dr. Rey group, RCC s/p Left nephrectomy, COPD on LTOT 2LNC, HFpEF, HTN current smoker. Impression was COPD exacerbation. She was started on systemic steroids, with improvement in breathing. She was unable to produce any sputum. She remained afebrile, without leukocytosis, and improved during her stay. Hospital course would include temporizing measures for her hyperkalemia prior to resuming her scheduled HD MWF with Dr. Rey. She has pre-existing left ankle malleolar shallow venous stasis ulcer, which was addressed with neosporin and wound care. She had prior VON's From 09/28/16, chyna LE venous dopplers negative for DVT. From 10/13/16, Right VON 1.52, Left VON 1.27. bilateral LE moderately abnormal, recommend for risk factor reduction. She was counseled extensively regarding smoking cessation and did agree to NRT. She was advised that when she continues to smoke which impairs wound healing. The venous stasis ulcer was evaluated on date of discharge, and did appear improved prior to admission. There were no cellulitic changes. She will have her scheduled dialysis today, to improve to dry weight and electrolytes prior to discharge. At time of discharge, patient was clinically improved, hemodynamically stable, progressing to baseline, and agreeable with plan of care. Patient was advised to seek immediate medical attention for any new or worsening symptoms including but not limited to fever, chills, chest pain, chest pressure, dyspnea, cough, abdominal pain, nausea, vomiting, diarrhea, bloody stool, urine and the patient voiced understanding. Patient will follow-up with primary care physician Eileen House, resuming scheduled HD sessions MWF with Dr. Rey group. She will finish 2 more days of prednisone therapy for her COPD exacerbation. Time spent discussing smoking cessation with patient: more than 10 minutes - Time Spent with Patient Total time spent providing and/or coordinating discharge services: Greater than 30 minutes - Constitutional Vitals: Temp Pulse Resp BP Pulse Ox 97.3 F L 81 20 168/73 96 10/23/16 07:29 10/23/16 07:29 10/23/16 07:29 10/23/16 07:29 10/23/16 07:29 General appearance: Present: cachectic, A&O X 3, no acute distress - Head Head exam: Present: atraumatic, normocephalic - Eye Eye exam: Present: EOMI, sclera anicteric - ENT ENT exam: Present: mucous membranes moist - Neck Neck exam general surgery: Present: supple, trachea midline - Respiratory Respiratory exam: Present: CTAB. Absent: rales, wheezes - Cardiovascular Cardiovascular exam: Present: +S1, +S2. Absent: JVD - GI/Abdominal GI/Abdominal exam: Present: soft, no peritoneal signs - Extremities Exam Extremities exam: Present: pedal edema (mild, no pain or erythema), warm, radial pulses palpable and symetrical. Absent: mottling Additional comments: RFA AVF Left malleolar venous stasis ulcer appears improved from previous, no drainage or discharge. - Neurological Exam Neurological exam: Absent: facial droop, speech deficit <Roderick Anderson - Last Filed: 10/23/16 17:25> Date of Encounter: 10/23/16 Procedures/tests Complete & Pending: Procedures Performed prior 72 hours Category Date Time Status EKG [ECG 12 lead ECG] [ECG] Stat Y 10/22/16 08:18 Completed Date of admission: 10/21/16 17:46 Primary care physician: Eileen House CNP Consults: 10/22/16 13:40 Consult to Nephrology [CONS] Routine Consulting Provider: [facility] Vasu REY Reason for Consult: ESRD on HD MWF, for scheduled dialysis. Here for COPD exacerbation. Discussed with Dr. Rey. Time Notified: 13:30 Call Completed: Yes 10/22/16 13:52 Consult to Wound Care [CONS] Routine Reason for Consult: Left LE venous stasis ulcer, appreciate recs Call Completed: No 10/23/16 08:15 Consult to Dialysis [CONS] ONCE Hospital course: Ms. Hedrick is a 76 year old female - Time Spent with Patient Total time spent providing and/or coordinating discharge services: - Constitutional Vitals: Temp Pulse Resp BP Pulse Ox 97.3 F L 87 17 187/113 96 10/23/16 07:29 10/23/16 11:00 10/23/16 11:00 10/23/16 11:00 10/23/16 07:29 - Attending Attestation I examined this patient and my medical decision-making was reviewed with the PHOTOGRAPHER SCIENTIFIC/PA/Advanced Practice Nurse/Resident Physician. I agree with the documented findings, disposition and treatment plan as described except to the extent set forth below. COPD exacerbation, ESRD HD, for d/c today.
--- NOTE | 2016-10-23 11:58 | Physician Discharge Referral ---
<David Muñoz - Last Filed: 10/23/16 11:57> Home Health/Hosp Referral Info Transfer to: Home Health Attending Provider: Monica Provider in Charge Post Discharge: PCP - Diagnosis (1) Acute exacerbation of chronic obstructive airways disease Priority: Primary Status: Acute (2) ESRD (end stage renal disease) Priority: Secondary Status: Chronic (3) Venous stasis dermatitis Priority: Primary Status: Chronic - Respiratory Orders Oxygen / L per min (2-3) Smoking Cessation: Smoking cessation has been advised. For more information, call the [place] Tobacco Quit Line at 7-616-XXIA-NOW. - Diet/Nutrition Diet/Nutrition Orders: No Added Salt (DAYANA), Renal - Activity Activity Orders: Ambulate - Services Needed Following services are medically necessary services: Home Health Aide, Physical Therapy, Occupational Therapy - Transfer Medications Prescriptions: Albuterol Neb [Proventil Neb] 2.5 mg IH [id number] PRN #1 inhsol PRN Reason: Shortness Of Breath/Wheezing Budesonide/Formoterol 160/4.5 [Symbicort 160/4.5] 2 puff IH BIDR #1 inhaler Furosemide [Lasix] 40 mg PO DAILY #30 tablet Mario/Poly/Wandy OINT [Triple Antibiotic Ointment] 1 appl TP TID #1 tube Nicotine Patch [Nicoderm] 14 mg TD DAILY PRN #30 patch.td24 PRN Reason: nicotine withdrawal PredniSONE 40 mg PO DAILY #4 tablet Home Medications: CloNIDine HCl [Clonidine HCl] 0.2 mg PO BID #0 11/12/15 [History] Aspirin Enteric Coated [Aspirin EC] 81 mg PO DAILY #0 02/29/16 [History] Albuterol Sulfate [Proair Hfa] 2 puff IH Q4H PRN 03/23/16 [History] Isosorbide MONOnitrate (24 HR) [Imdur] 60 mg PO DAILY 03/23/16 [History] Carvedilol [Coreg] 25 mg PO BID #60 tablet 06/03/16 [Rx] Diltiazem CD (24hr) [Cardizem CD] 300 mg PO DAILY #30 cap.er.24h 06/03/16 [Rx] HydrALAZINE 25 mg PO BID #60 tablet 06/03/16 [Rx] Sevelamer [Renvela] 800 mg PO TIDWM #90 tablet 06/03/16 [Rx] Oxygen 2 l .ROUTE AD 08/27/16 [History] Albuterol Neb [Proventil Neb] 2.5 mg IH [id number] PRN #1 inhsol 10/23/16 [Rx] Budesonide/Formoterol 160/4.5 [Symbicort 160/4.5] 2 puff IH BIDR #1 inhaler 07/01 [Rx] Furosemide [Lasix] 40 mg PO DAILY #30 tablet 10/23/16 [Rx] Mario/Poly/Wandy OINT [Triple Antibiotic Ointment] 1 appl TP TID #1 tube 10/23/16 [ Rx] Nicotine Patch [Nicoderm] 14 mg TD DAILY PRN #30 patch.td24 10/23/16 [Rx] PredniSONE 40 mg PO DAILY #4 tablet 10/23/16 [Rx] Allergies/Adverse Reactions: Allergies codeine Allergy (Verified 08/03/16 12:42) Confusion Certification: Further, I certify that my clinical findings support that this patient is homebound (i.e. absences from home require considerable and taxing effort and are for medical reasons or bahai services or infrequently or short duration when for other reasons) because: Homebound Reason: Severity of cardiac or pulmonary status limits activity tolerance Attestation: My signature below is to certify that this patient is under my care and that I, or nurse practitioner, or a physician's optometric assistant working with me, has a face-to -face encounter with this patient. <Roderick Anderson - Last Filed: 10/23/16 17:26> - Respiratory Orders Smoking Cessation: Smoking cessation has been advised. For more information, call the [place] Tobacco Quit Line at 3-762-YPGW-NOW. Certification: Further, I certify that my clinical findings support that this patient is homebound (i.e. absences from home require considerable and taxing effort and are for medical reasons or bahai services or infrequently or short duration when for other reasons) because: Attestation: My signature below is to certify that this patient is under my care and that I, or nurse practitioner, or a physician's optometric assistant working with me, has a face-to -face encounter with this patient.
[2016-10-23 13:12] LABS: Hepatitis B Surface Antibody 0.48 mIU/mL; Hepatitis B Surface Antigen Nonreactive (Nonreactive)
--- NOTE | 2016-10-23 13:50 | Electrocardiograph Report ---
[facility] Test Date: 2016-10-22 Pat Name: Hilary Hedrick Department: 112 Room: 2A43 Gender: F [place] Repairer: RELL : 1940 Requested By: David Muñoz Order Number: [id number] Reading MD: Margarito Smith DO Measurements Intervals [place] Rate: 84 P: [place]: 0 QRS: 99 QRSD: 106 T: 55 QT: 377 QTc: 419 Interpretive Statements Atrial fibrillation Right axis deviation Electronically Signed On 10-23-16 13:49:17 EST by Margarito Smith DO
[2016-10-23 21:28] VITALS: BP 181/81
--- NOTE | 2016-10-24 13:58 | Electrocardiograph Report ---
Test Date: 2016-10-20 Pat Name: Hilary Hedrick Department: 105 Room: 2A43 Gender: F Computer Numeric Control Setter: KVNG : 1940 Requested By: Ashley Urbina Order Number: [id number] Reading MD: Ravi Dupont MD Measurements Intervals [place] Rate: 82 P: NC: 0 QRS: 90 QRSD: 115 T: 71 QT: 377 QTc: 415 Interpretive Statements ATRIAL FIBRILLATION MODERATE INTRAVENTRICULAR CONDUCTION DELAY [110+ ms QRS DURATION] ABNORMAL RHYTHM ECG Electronically Signed On 10-24-16 13:57:19 EST by Ravi Dupont MD
--- NOTE | 2016-10-24 14:23 | Electrocardiograph Report ---
[facility] Test Date: 2016-10-23 Pat Name: CRIS MONCADA Department: 112 Room: 2A43 Gender: F Assembly Line Supervisor: [facility] : 1940 Requested By: Roderick Anderson Order Number: [id number] Reading MD: Eileen Ann Measurements Intervals [place] Rate: 80 P: NM: 0 QRS: 98 QRSD: 100 T: 58 QT: 390 QTc: 426 Interpretive Statements ATRIAL FIBRILLATION BORDERLINE RIGHT AXIS DEVIATION ABNORMAL RHYTHM ECG Electronically Signed On 10-24-16 14:18:13 EST by Eileen Ann
== END 2016-10-23 14:37 | disposition home or self-care (01) | DRG 190 ==
LOC: 3BNU 21:30 → EMEROO 21:30 → SUATTDRO 22:52 → 2ANU 23:27
PROVIDERS: ADMIT Internal Medicine; ATTEND Internal Medicine

== ENCOUNTER 2016-11-19 06:01 | Inpatient (IN) ==
[2016-11-19] MEDS ORDERED: Ondansetron 4 MG/2 ML VIAL IVP PRN (08:19)
[2016-11-19] MEDS ORDERED: Acetaminophen 325 MG TABLET PO PRN (08:19)
--- NOTE | 2016-11-19 08:37 | Internal Med History&Physical ---
Date of Encounter: 11/19/16 Time of Encounter: 08:10 Assessment and Plan (1) Volume overload Current visit: Yes Status: Acute Secondary to acute diastolic heart failure and end-stage renal disease on dialysis. Patient known to be noncompliant with dietary restrictions and medications. I spoke with nephrology service, MEET Dick, and she will arrange dialysis for today. Qualifiers: Hypervolemia type: other Qualified Code(s): E87.79 - Other fluid overload (2) Hyperkalemia Current visit: Yes Status: Acute Potassium 6.6 at outside ED. She received Kayexalate, IV insulin, and calcium chloride. EKG reviwed and showed afib HR 91, garcia cute changes. Stat potassium. Nephrology consulted for dialysis. (3) Acute diastolic (congestive) heart failure Current visit: Yes Status: Acute Echo 06/2016: LVEF 50-55%. Moderate MR. plan as above (4) ESRD (end stage renal disease) on dialysis Current visit: Yes Status: Chronic HD MWF. plan as above. (5) Chronic respiratory failure with hypoxia Current visit: Yes Status: Acute Patient is noncompliant with oxygen at home. She is supposed to use 3 L of oxygen via nasal cannula all day but she only uses when she feels that she needs it. 3. Hypoxia via nasal cannula now. Continue nebs. Dialysis. (6) COPD (chronic obstructive pulmonary disease) Current visit: No Status: Chronic nebs. symbicort. mucinex. Qualifiers: COPD type: unspecified COPD Qualified Code(s): J44.9 - Chronic obstructive pulmonary disease, unspecified (7) Chronic atrial fibrillation Current visit: No Status: Acute HR is adequate. Continue rate control with carvedilol and diltiazem. Not on anticoagulation due to episode hemoptysis while she was on Coumadin. Aspirin for stroke prevention (8) CAD (coronary artery disease) Current visit: No Status: Acute stable. asa. IMDUR. Qualifiers: Coronary Disease-Associated Artery/Lesion type: [place] artery [place] vs. transplanted heart: unspecified whether [place] or transplanted heart Associated angina: without angina Qualified Code(s): I25.10 - Atherosclerotic heart disease of [place] coronary artery without angina pectoris (9) Elevated troponin Current visit: No Status: Chronic Likely secondary to end-stage renal disease and fluid overload. (10) HTN (hypertension) Current visit: No Status: Acute Qualifiers: Hypertension type: essential hypertension Qualified Code(s): I10 - Essential (primary) hypertension (11) Tobacco abuse Current visit: No Status: Chronic Nicotine patch. Patient counseled to quit, unfortunately she knows the importance of quitting smoking but she states it will be very difficult. Internal Medicine - H&P: HPI Chief complaint: worsening of LE edema for 2 days Admitted From: Home Plans for Post Hospital Care: Home History of present illness: Ms. Hedrick is a 76 year old female with past medical history of COPD on 3 L of oxygen via NC, end-stage renal disease on hemodialysis MWF, diastolic HF, atrial fibrillation, HTN, CAD, and tobacco abuse who was transferred from an outside ED where she presented with LE swelling. Positive shortness of breath, orthopnea, PND and dry cough. no fever. no chest pain. no syncope. Palpitations. No abdominal pain. She does not make much urine. No change in bowel movements. Headache. No focal deficits. No bleeding. She admits to be non-compliant with dietary restrictions and medicarions. She ran out of her imdur 2 dasy ago. She took hydarlazine and clonidine at 2 am this morning. In ED , she was fluid overload and K was 6.6. troponin 0.185. Hgb 9.1. She received kayexalate, insulin, calcium chloride and was transferred to our hospital for further service. Past Med Surg Social Fam HX - Past Medical History Medical history: atrial fibrillation, cancer (renal), CHF, COPD, dialysis, GERD , hypertension, renal disease, other Psychiatric history: no psych history - Past Surgical History Surgical History: hysterectomy, other (left nephrectomy) - Social History Smoking Status: Current every day smoker Smokeless Tobacco Status: No Alcohol use: none Drug use: none - Family History Mother Living Status: Father Living Status: Hx Family Respiratory Disorders: Yes (emphysema) Brother Living Status: Hx Family Cancer: Yes Internal Medicine - H&P: Meds CloNIDine HCl [Clonidine HCl] 0.2 mg PO BID #0 11/12/15 [History] Aspirin Enteric Coated [Aspirin EC] 81 mg PO DAILY #0 02/29/16 [History] Albuterol Sulfate [Proair Hfa] 2 puff IH Q4H PRN 03/23/16 [History] Isosorbide MONOnitrate (24 HR) [Imdur] 60 mg PO DAILY 03/23/16 [History] Carvedilol [Coreg] 25 mg PO BID #60 tablet 06/03/16 [Rx] Diltiazem CD (24hr) [Cardizem CD] 300 mg PO DAILY #30 cap.er.24h 06/03/16 [Rx] HydrALAZINE 25 mg PO BID #60 tablet 06/03/16 [Rx] Sevelamer [Renvela] 800 mg PO TIDWM #90 tablet 06/03/16 [Rx] Oxygen 2 l .ROUTE AD 08/27/16 [History] Albuterol Neb [Proventil Neb] 2.5 mg IH [id number] PRN #1 inhsol 10/23/16 [Rx] Budesonide/Formoterol 160/4.5 [Symbicort 160/4.5] 2 puff IH BIDR #1 inhaler 07/01 [Rx] Furosemide [Lasix] 40 mg PO DAILY #30 tablet 10/23/16 [Rx] Mario/Poly/Wandy OINT [Triple Antibiotic Ointment] 1 appl TP TID #1 tube 10/23/16 [ Rx] Nicotine Patch [Nicoderm] 14 mg TD DAILY PRN #30 patch.td24 10/23/16 [Rx] PredniSONE 40 mg PO 2XW 11/19/16 [History] Allergies codeine Allergy (Verified 08/03/16 12:42) Confusion All Systems PM: A 10-system review of systems was performed and is negative for pertinent findings except as documented above in the HPI. - Constitutional Vitals: Temp Pulse Resp BP Pulse Ox 97.3 F L 97 18 159/88 97 11/19/16 08:06 11/19/16 08:06 11/19/16 08:06 11/19/16 08:06 11/19/16 08:06 General appearance: Present: cooperative, mild distress, A&O X 3, pleasant, answers questions appropriately - Eye Eye exam: Present: PERRL, sclera anicteric - ENT ENT exam: Present: mucous membranes dry - Neck Neck exam general surgery: Present: supple, trachea midline. Absent: lymphadenopathy - Respiratory Respiratory exam: Present: decreased breath sounds - Cardiovascular Cardiovascular exam: Present: irregular rhythm - GI/Abdominal GI/Abdominal exam: Present: normal bowel sounds, soft. Absent: distended, tenderness - Extremities Exam Extremities exam: Present: pedal edema (2+ LE pitting edema) - Back Exam Back exam: Absent: CVA tenderness (L), CVA tenderness (R) - Neurological Exam Neurological exam: Present: alert, oriented X3, no focal deficits, strengths equal and symetr throughout. Absent: facial droop, speech deficit - Skin Skin exam: Present: dry. Absent: rash
[2016-11-19 08:51] LABS: Calcium 9.2 mg/dL (8.6-10.8); Potassium 5.7 mEq/L (3.5-4.5)
--- NOTE | 2016-11-19 10:38 | Nephrology Consult Note ---
Date of Encounter: 11/19/16 Time of Encounter: 09:50 Assessment and Plan (1) ESRD (end stage renal disease) on dialysis Current Visit: Yes Status: Chronic ESRD on dialysis. Fluid overload, hyperkalemia in setting of chronic non compliance related to increased IDWG and high dietary potassium intake. Will do HD today, orders given. History of Present Illness - Reason for Consult end stage renal disease - History of Present Illness Ms. Hedrick is a 76 year old female with ESRD who dialyzes in [place] on MWF, last dialysis on Sunday. She is chronically non compliant with fluid intake and high dietary potassium intake. Other PMH diastolic CHF, ch Afib, COPD, HTN and current smoker. Also currently being seen by wound care for ulceration left lateral LE. Ms. Hedrick was transferred from [place] ER for SOB, LE swelling, Hyperkalemic K+ 6.6, she was given Kaexylate, Insulin and calcium chloride. Outside CXR showed chronic interstitial changes from chronic fluid overload. Repeat K+ 5.7. This morning Ms. Hedrick staes not really breathing much better today, somewhat tachypneic with mild conversational SOB. Past Med Surg Social Fam HX - Past Medical History Medical history: atrial fibrillation, cancer (renal), CHF, COPD, dialysis, GERD , hypertension, renal disease, other Psychiatric history: no psych history - Past Surgical History Surgical History: hysterectomy, other (left nephrectomy) - Social History Smoking Status: Current every day smoker Packs per day: 2 Smokeless Tobacco Status: No Alcohol use: none Drug use: none - Family History Mother Living Status: Father Living Status: Hx Family Respiratory Disorders: Yes (emphysema) Brother Living Status: Hx Family Cancer: Yes Medications and Allergies CloNIDine HCl [Clonidine HCl] 0.2 mg PO BID #0 11/12/15 [History] Aspirin Enteric Coated [Aspirin EC] 81 mg PO DAILY #0 02/29/16 [History] Albuterol Sulfate [Proair Hfa] 2 puff IH Q4H PRN 03/23/16 [History] Isosorbide MONOnitrate (24 HR) [Imdur] 60 mg PO DAILY 03/23/16 [History] Carvedilol [Coreg] 25 mg PO BID #60 tablet 06/03/16 [Rx] Diltiazem CD (24hr) [Cardizem CD] 300 mg PO DAILY #30 cap.er.24h 06/03/16 [Rx] HydrALAZINE 25 mg PO BID #60 tablet 06/03/16 [Rx] Sevelamer [Renvela] 800 mg PO TIDWM #90 tablet 06/03/16 [Rx] Oxygen 2 l .ROUTE AD 08/27/16 [History] Albuterol Neb [Proventil Neb] 2.5 mg IH [id number] PRN #1 inhsol 10/23/16 [Rx] Budesonide/Formoterol 160/4.5 [Symbicort 160/4.5] 2 puff IH BIDR #1 inhaler 07/01 [Rx] Furosemide [Lasix] 40 mg PO DAILY #30 tablet 10/23/16 [Rx] Mario/Poly/Wandy OINT [Triple Antibiotic Ointment] 1 appl TP TID #1 tube 10/23/16 [ Rx] Nicotine Patch [Nicoderm] 14 mg TD DAILY PRN #30 patch.td24 10/23/16 [Rx] PredniSONE 40 mg PO 2XW 11/19/16 [History] Allergies codeine Allergy (Verified 08/03/16 12:42) Confusion Review of Systems All Systems: reviewed and no additional remarkable complaints except as stated Exam - Vital Signs Vital signs: Initial Vital Signs Temp Pulse Resp BP Pulse Ox 97.3 F L 97 18 159/88 97 11/19/16 08:06 11/19/16 08:06 11/19/16 08:06 11/19/16 08:06 11/19/16 08:06 Vital Signs - Last 8 Hours Temp Pulse Resp BP Pulse Ox 11/19/16 08:06 97.3 F L 97 18 159/88 97 Intake and Output 11/18/16 11/19/16 11/19/16 23:59 07:59 15:59 Intake Total 480 / 480 Balance 480 / 480 Intake: Oral 480 / 480 Other: Meal Breakfast Percent of Meal Consumed 100% Weight 70.477 kg Patient Weight 11/19/16 23:59 Weight 70.477 kg - General Appearance General appearance: well-developed, well-nourished, appears started age, chronically ill EENT: mucous membranes moist Neck: no JVD Additional Comments: diminished breath sounds Cardiology: regular rate, regular rhythm, irregular rhythm Additional Comments: moderate pitting edema knees down Gastrointestinal: normoactive bowel sounds, no tenderness Integumentary: warm and dry Neurologic: alert and oriented x3 Results - Lab Results 11/19/16 08:29 Most recent lab results Calcium 9.2 mg/dL (8.6-10.8) 11/19/16 08:29 Consult Discharge Plan - Plan Referrals: Eileen House CNP [Primary Care Provider] -
[2016-11-19] MEDS: Nicotine 14 MG PATCH.TD24 TD SCH (11:12)
[2016-11-19] MEDS: Budesonide/Formoterol 80/4.5 MDI IH SCH ×2 (11:23→21:33)
[2016-11-19] MEDS: Ipratropium/Albuterol Neb 3 ML IH SCH ×4 (11:23→21:33)
[2016-11-19] MEDS ORDERED: 0.9 % Sodium Chloride 250 ML IV PRN (12:12)
[2016-11-19] MEDS ORDERED: *HR* Metoprolol 5 MG/5 ML VIAL IVP STA (17:23)
[2016-11-19] MEDS ORDERED: Isosorbide MONOnitrate (24 HR) 60 MG TAB.ER.24H PO STA (17:28)
[2016-11-19] MEDS: hydrALAZINE 25 MG TABLET PO SCH (20:16)
[2016-11-20] MEDS: Ipratropium/Albuterol Neb 3 ML IH SCH ×4 (01:09→11:15)
[2016-11-20 04:37] LABS: Basophils % 0.2 %; Eosinophils # 0.2 K/mcL (0.0-0.6); Eosinophils % 3.1 %; Hematocrit 29.9 % (35.3-44.9); Hemoglobin 9.3 g/dL (11.5-15.4); Immature Granulocytes % 0.2 % (0-4); Lymphocytes # 0.8 K/mcL (0.6-4.6); Lymphocytes % 12.8 %; Mean Corpuscular HGB Conc 31.1 g/dL (31.6-35.5); Mean Corpuscular Volume 96.5 fL (83.0-100.0); Mean Platelet Volume 11.4 fL (9.4-12.4); Monocytes # 0.6 K/mcL (0.0-1.3); Monocytes % 9.5 %; Neutrophils # 4.7 K/mcL (1.6-8.9); Platelet Count 135 K/mcL (140-400); Red Cell Distribution Width 15.7 % (11.5-14.5); Segmented Neutrophils % 74.2 %
[2016-11-20 04:52] LABS: Calcium 8.4 mg/dL (8.6-10.8); Phosphorous 4.1 mg/dL (2.3-4.7); Potassium 4.8 mEq/L (3.5-4.5)
--- NOTE | 2016-11-20 08:29 | Nephrology Progress Note ---
Date of Encounter: 11/20/16 Time of Encounter: 08:27 - Assessment and Plan (1) ESRD (end stage renal disease) on dialysis Current Visit: Yes Status: Chronic Patient will undergo dialysis again today. She needs aggressive volume removal. She may require additional ultrafiltration tomorrow. She will be placed on Aranesp for her anemia. She may require some adjustments in her medications to better control her ventricular response in the setting of chronic atrial fibrillation. (2) Volume overload Current Visit: Yes Status: Acute Qualifiers: Hypervolemia type: other Qualified Code(s): E87.79 - Other fluid overload (3) Anemia in chronic kidney disease (CKD) Current Visit: No Status: Acute (4) Atrial fibrillation with RVR Current Visit: No Status: Acute Subjective Interval history: The patient reports her breathing is better. She did undergo urgent dialysis yesterday because of volume overload shortness of breath and mild hyperkalemia. She still has significant lower extremity swelling. Blood pressure is elevated. She has chronic A. fib. Ventricular rate currently is in the range of 110-120. Objective - Vital Signs Vital signs: Vital Signs Temp Pulse Resp BP Pulse Ox 11/20/16 07:51 18 94 L 11/20/16 06:38 97.7 F 120 18 164/87 94 L 11/20/16 05:52 116 20 173/84 92 L 11/20/16 04:37 20 100 11/20/16 00:31 97.7 F 123 16 181/87 99 11/19/16 21:33 20 100 11/19/16 21:30 97.8 F 120 20 179/81 99 11/19/16 16:28 22 161/104 11/19/16 16:00 161/104 11/19/16 15:45 158/98 11/19/16 15:30 156/96 11/19/16 15:15 148/100 11/19/16 15:00 158/102 11/19/16 14:45 161/98 11/19/16 14:30 159/93 11/19/16 14:15 154/96 11/19/16 14:00 155/93 11/19/16 13:45 170/92 11/19/16 13:30 164/93 11/19/16 13:15 151/81 11/19/16 13:00 16 196/86 11/19/16 11:23 16 96 11/19/16 10:32 97.7 F 96 16 192/91 94 L Intake and Output 11/19/16 11/20/16 11/20/16 23:59 07:59 15:59 Intake Total 240 / 240 Output Total 4600 / 4600 200 / 200 Balance -4360 / -4360 -200 / -200 Intake: Oral 240 / 240 Output: Urine 0 / 0 200 / 200 Total Dialysis Output 4600 / 4600 Other: Meal Dinner Percent of Meal Consumed 50% Weight 67.495 kg Hemodialysis Net Fluid 4000 Removed (mL) Patient Weight 11/20/16 23:59 Weight 67.495 kg - General Appearance Exam: Patient is sitting on the edge of the bed eating breakfast. She is in no acute distress. Lung sounds. No rales or wheezing or rhonchi. Heart irregular rate and rhythm consistent with atrial fibrillation. 2/6 systolic murmur. Abdomen is benign. There is 2+ lower extremity swelling. There is a venous stasis ulcer of the left lower extremity. There is a functioning AV fistula in the right arm. - Lab 11/20/16 04:26 11/20/16 04:26 Most recent lab results Calcium 8.4 mg/dL (8.6-10.8) L 11/20/16 04:26 Phosphorus 4.1 mg/dL (2.3-4.7) 11/20/16 04:26 Consult Discharge Plan - Plan Referrals: Eileen House, WOOD INSPECTOR [Primary Care Provider] -
[2016-11-20] MEDS ORDERED: 0.9 % Sodium Chloride 250 ML IV PRN (08:30)
[2016-11-20] MEDS: Nicotine 14 MG PATCH.TD24 TD SCH (08:45)
[2016-11-20] MEDS: Diltiazem CD (24hr) 300 MG CAPSULE PO SCH (08:45)
[2016-11-20] MEDS: hydrALAZINE 25 MG TABLET PO SCH ×2 (08:45→20:48)
[2016-11-20] MEDS: Isosorbide MONOnitrate (24 HR) 60 MG TAB.ER.24H PO SCH (08:46)
[2016-11-20 09:56] LABS: Hepatitis B Surface Antibody 0.29 mIU/mL; Hepatitis B Surface Antigen Nonreactive (Nonreactive)
[2016-11-20] MEDS: Budesonide/Formoterol 80/4.5 MDI IH SCH ×2 (11:00→21:17)
--- NOTE | 2016-11-20 11:45 | Internal Med Progress Note ---
Date of Encounter: 11/20/16 Time of Encounter: 11:44 - Assessment and plan (1) Acute diastolic (congestive) heart failure Current Visit: Yes Status: Acute Assessment and plan: Acute diastolic CHF exacerbation secondary to volume overload related to end- stage renal disease Continue hemodialysis today, the patient had hemodialysis yesterday and most likely will be scheduled to have it tomorrow Followed by nephrology The patient does not produce urine Dr. Duran to repeat ultrafiltration tomorrow again (2) Hyperkalemia Current Visit: Yes Status: Acute Assessment and plan: Improving, According to the records her potassium was 6.6 at another facility, today is 4.8 (3) Volume overload Current Visit: Yes Status: Acute Qualifiers: Hypervolemia type: other Qualified Code(s): E87.79 - Other fluid overload (4) ESRD (end stage renal disease) on dialysis Current Visit: Yes Status: Chronic (5) Anemia in chronic kidney disease (CKD) Current Visit: No Status: Acute Assessment and plan: Monitor CBC (6) Afib Current Visit: No Status: Chronic Assessment and plan: Controlled on Cardizem and Coreg history of prior episodes of A. fib with RVR Qualifiers: Atrial fibrillation type: chronic Qualified Code(s): I48.2 - Chronic atrial fibrillation (7) Hypertension Current Visit: No Status: Chronic Qualifiers: Hypertension type: essential hypertension Qualified Code(s): I10 - Essential (primary) hypertension (8) Tobacco abuse Current Visit: No Status: Chronic Assessment and plan: Smoking cessation counseling given for 5 minutes Nicotine patch offered (9) Venous stasis dermatitis Current Visit: No Status: Chronic Qualifiers: Laterality: left Qualified Code(s): I83.12 - Varicose veins of left lower extremity with inflammation - Time Spent With Patient Greater than 35 minutes - Subjective Interval history: The patient feels less short of breath than yesterday, her legs are still extremely swollen, denies any chest pain, no abdominal pain, is bringing up minimal phlegm/whitish. Denies any diarrhea. Does not make urine. No fevers - Constitutional Vitals: Temp Pulse Resp BP Pulse Ox 97.9 F 100 18 154/79 94 L 11/20/16 11:07 11/20/16 11:07 11/20/16 11:07 11/20/16 11:07 02/06/17 11:02 General appearance: Present: cooperative, mild distress, A&O X 3, pleasant, answers questions appropriately - Head Head exam: Present: atraumatic, normocephalic - Eye Eye exam: Present: PERRL, conjuntiva pink, sclera anicteric Pupils: Present: PERRL - Neck Neck exam general surgery: Present: supple, trachea midline. Absent: lymphadenopathy - Respiratory Respiratory exam: Present: CTAB, rales (Fine bibasilar crackles). Absent: accessory muscle use, rhonchi, wheezes - Cardiovascular Cardiovascular exam: Present: RRR, +S1, +S2. Absent: diastolic murmur, gallop, rubs, systolic murmur - GI/Abdominal GI/Abdominal exam: Present: normal bowel sounds, soft, no peritoneal signs. Absent: distended, tenderness - Extremities Exam Extremities exam: Present: pedal edema (+ 1 pitting edema in both lower extremities, small ulcer in the left ankle covered by dressing, no signs of infection), warm, radial pulses palpable and symetrical. Absent: calf tenderness, cyanotic - Neurological Exam Neurological exam: Present: CN II-XII intact, oriented X3, no focal deficits. Absent: pronater drift, facial droop, speech deficit - Skin Skin exam: Present: dry, intact Internal Medicine: Result - Labs CBC & Chem 7: 11/20/16 04:26 11/20/16 04:26 Labs: Short CBC 11/20/16 Range/Units 04:26 WBC 6.4 (4.3-11.1) K/mcL Hgb 9.3 L (11.5-15.4) g/dL Hct 29.9 L (35.3-44.9) % Plt Count 135 L (140-400) K/mcL Neutrophils # 4.7 (1.6-8.9) K/mcL BMP 11/20/16 04:26 Sodium 136 Potassium 4.8 H Chloride 97 L Carbon Dioxide 26 BUN 38 H D Creatinine 4.33 H Glucose 88 Calcium 8.4 L Cardiac Enzymes 11/20/16 Range/Units 04:26 Troponin I 0.16 H* (0-0.03) ng/mL Consult Discharge Plan - Plan Referrals: Eileen House, CERTIFIED HYPERBARIC TECHNICIAN [Primary Care Provider] - 11/28/16 1:00 pm (Please follow up as schedule...)
--- NOTE | 2016-11-20 17:32 | Electrocardiograph Report ---
[place] [id number] Test Date: 2016-11-19 Pat Name: Hilary Hedrick Department: 112 Room: 2A Gender: F Enameler: : 1940 Requested By: Dee Glaser Order Number: [id number] Reading MD: Adeola Cason Measurements Intervals [place] Rate: 101 P: MS: 0 QRS: 84 QRSD: 115 T: 49 QT: 356 QTc: 414 Interpretive Statements ATRIAL FIBRILLATION WITH RAPID VENTRICULAR RESPONSE INTRAVENTRICULAR CONDUCTION DELAY ABNORMAL RHYTHM ECG Electronically Signed On 11-20-2016 17:30:11 EST by Adeola Cason
[2016-11-20] MEDS: *HR* Heparin 5,000 UNIT/ML VIAL SQ SCH (19:05)
[2016-11-20] MEDS: Ipratropium/Albuterol Neb 3 ML IH PRN (21:16)
[2016-11-21 04:33] LABS: Hematocrit 30.4 % (35.3-44.9); Hemoglobin 9.7 g/dL (11.5-15.4); Mean Corpuscular HGB Conc 31.9 g/dL (31.6-35.5); Mean Corpuscular Hemoglobin 30.9 pg (28.0-33.3); Mean Corpuscular Volume 96.8 fL (83.0-100.0); Mean Platelet Volume 11.7 fL (9.4-12.4); Platelet Count 136 K/mcL (140-400); Red Blood Count 3.14 M/mcL (3.82-4.97); Red Cell Distribution Width 15.7 % (11.5-14.5)
[2016-11-21 05:01] LABS: Calcium 8.3 mg/dL (8.6-10.8); Potassium 4.5 mEq/L (3.5-4.5)
[2016-11-21] MEDS: *HR* Heparin 5,000 UNIT/ML VIAL SQ SCH (06:28)
[2016-11-21] MEDS ORDERED: 0.9 % Sodium Chloride 250 ML IV PRN (07:58)
--- NOTE | 2016-11-21 07:58 | Nephrology Progress Note ---
Date of Encounter: 11/21/16 Time of Encounter: 07:56 - Assessment and Plan (1) ESRD (end stage renal disease) on dialysis Current Visit: Yes Status: Chronic Patient will undergo additional ultrafiltration today because of persistent lower extremity swelling and elevated blood pressure. (2) Volume overload Current Visit: Yes Status: Acute Qualifiers: Hypervolemia type: other Qualified Code(s): E87.79 - Other fluid overload (3) Anemia in chronic kidney disease (CKD) Current Visit: No Status: Acute (4) Atrial fibrillation with RVR Current Visit: No Status: Acute Subjective Interval history: The patient reports she is breathing better. She underwent dialysis yesterday. Lower extremity swelling is improved but she still has some present. Blood pressure remains elevated. Objective - Vital Signs Vital signs: Vital Signs Temp Pulse Resp BP Pulse Ox 11/21/16 06:55 105 160/88 11/21/16 05:17 106 177/82 11/21/16 03:19 97.5 F L 92 16 194/83 97 11/21/16 02:20 101 172/81 11/21/16 01:56 197/95 11/21/16 00:07 160/69 11/20/16 23:57 97.6 F 78 16 163/70 98 11/20/16 21:19 16 98 11/20/16 21:11 98 11/20/16 19:38 97.3 F L 97 16 148/68 94 L 11/20/16 18:15 182/90 11/20/16 18:00 182/90 11/20/16 17:45 177/92 11/20/16 17:30 178/68 11/20/16 17:15 172/77 11/20/16 17:00 184/96 11/20/16 16:45 184/93 11/20/16 16:30 191/96 11/20/16 16:15 181/98 11/20/16 16:00 169/88 11/20/16 15:45 161/74 11/20/16 15:30 165/79 11/20/16 15:15 22 178/68 11/20/16 15:05 97.9 F 18 148/81 11/20/16 11:07 97.9 F 100 18 154/79 11/20/16 11:02 18 94 L Intake and Output 11/20/16 11/20/16 11/21/16 15:59 23:59 07:59 Intake Total 1690 / 1690 360 / 360 Output Total 5500 / 5500 Balance -3810 / -3810 360 / 360 Intake: Oral 490 / 490 360 / 360 Intake, Rinseback and 1200 / 1200 Flushes Output: Urine 900 / 900 Total Dialysis Output 4600 / 4600 Other: Meal Breakfast Dinner Percent of Meal Consumed 50% 100% Weight 67.495 kg 65.045 kg Hemodialysis Net Fluid 800 4600 Removed (mL) Patient Weight 11/21/16 23:59 Weight 65.045 kg - General Appearance Exam: Patient is alert and oriented. She is in no acute distress. Lungs diminished breath sounds otherwise clear. Heart irregular rate and rhythm consistent with atrial fibrillation. Abdomen was benign. She continues to have lower extremity swelling below the knees. There is a functioning AV fistula in the left arm. - Lab 11/21/16 03:56 11/21/16 03:56 Most recent lab results Calcium 8.3 mg/dL (8.6-10.8) L 11/21/16 03:56 Phosphorus 4.1 mg/dL (2.3-4.7) 11/20/16 04:26 Consult Discharge Plan - Plan Referrals: Eileen House CNP [Primary Care Provider] - 11/28/16 1:00 pm (Please follow up as schedule...)
[2016-11-21] MEDS: Ipratropium/Albuterol Neb 3 ML IH PRN (08:18)
[2016-11-21] MEDS: Budesonide/Formoterol 80/4.5 MDI IH SCH (08:18)
[2016-11-21] MEDS ORDERED: hydrALAZINE 25 MG TABLET PO SCH (09:00)
[2016-11-21] MEDS: Isosorbide MONOnitrate (24 HR) 60 MG TAB.ER.24H PO SCH (09:04)
[2016-11-21] MEDS: Nicotine 14 MG PATCH.TD24 TD SCH (09:04)
[2016-11-21] MEDS: Diltiazem CD (24hr) 300 MG CAPSULE PO SCH (09:04)
--- NOTE | 2016-11-21 10:16 | Discharge Summary ---
Date of Encounter: 11/21/16 Time of Encounter: 10:14 - Discharge Diagnosis (1) Chronic diastolic (congestive) heart failure Priority: Primary Status: Acute (2) Hyperkalemia Priority: Primary Status: Acute (3) Volume overload Priority: Primary Status: Acute Qualifiers: Hypervolemia type: other Qualified Code(s): E87.79 - Other fluid overload (4) ESRD (end stage renal disease) on dialysis Priority: Primary Status: Chronic - Discharge Medications Home Medications: CloNIDine HCl [Clonidine HCl] 0.2 mg PO BID #0 11/12/15 [History] Aspirin Enteric Coated [Aspirin EC] 81 mg PO DAILY #0 02/29/16 [History] Albuterol Sulfate [Proair Hfa] 2 puff IH Q4H PRN 03/23/16 [History] Isosorbide MONOnitrate (24 HR) [Imdur] 60 mg PO DAILY 03/23/16 [History] Carvedilol [Coreg] 25 mg PO BID #60 tablet 06/03/16 [Rx] Diltiazem CD (24hr) [Cardizem CD] 300 mg PO DAILY #30 cap.er.24h 06/03/16 [Rx] HydrALAZINE 25 mg PO BID #60 tablet 06/03/16 [Rx] Sevelamer [Renvela] 800 mg PO TIDWM #90 tablet 06/03/16 [Rx] Oxygen 2 l .ROUTE AD 08/27/16 [History] Budesonide/Formoterol 160/4.5 [Symbicort 160/4.5] 2 puff IH BIDR #1 inhaler 07/01 [Rx] Furosemide [Lasix] 40 mg PO DAILY #30 tablet 10/23/16 [Rx] Mario/Poly/Wandy OINT [Triple Antibiotic Ointment] 1 appl TP TID #1 tube 10/23/16 [ Rx] Albuterol Neb [Proventil Neb] 2.5 mg IH Q4H PRN 11/19/16 [History] Allergies/Adverse Reactions: Allergies codeine Allergy (Verified 08/03/16 12:42) Confusion Procedures/tests Complete & Pending: Procedures Performed prior 72 hours Category Date Time Status ECG 12 lead ECG [ECG] Routine Y 11/19/16 08:19 Completed Date of admission: 11/20/16 13:23 Primary care physician: Eileen House CNP Consults: 11/19/16 08:19 Consult to Nephrology [CONS] Routine Consulting Provider: [facility] REY Reason for Consult: esrd HD. fluid overload Call Completed: Yes 11/19/16 12:15 Consult to Dialysis [CONS] ONCE 11/20/16 08:45 Consult to Dialysis [CONS] ONCE 11/21/16 08:00 Consult to Dialysis [CONS] ONCE Discharging clinician: Jonathan Velez Anticipated date of discharge: 11/21/16 - Patient Status Disposition: Home, Self-Care Condition: Fair Functional capacity at discharge: independent ambulation Overall status at discharge: patient is back to baseline - Discharge Instructions Instructions: Heart Failure (DC), Hemodialysis (DC) Follow Up With: Eileen House CNP [Primary Care Provider] - 11/28/16 1:00 pm (Please follow up as schedule...) - Diet and Activity Activity: resume usual activities as tolerated Diet: other (renal diet) Interval History: Ms. Hedrick is a 76 year old female with past medical history of COPD on 3 L of oxygen via NC, end-stage renal disease on hemodialysis MWF, diastolic HF, atrial fibrillation, HTN, CAD, and tobacco abuse who was transferred from an outside ED where she presented with LE swelling. Positive shortness of breath, orthopnea, PND and dry cough. no fever. no chest pain. no syncope. Palpitations. No abdominal pain. She does not make much urine. No change in bowel movements. Headache. No focal deficits. No bleeding. She admits to be non-compliant with dietary restrictions and medicarions. She ran out of her imdur 2 dasy ago. She took hydarlazine and clonidine at 2 am this morning. In ED , she was fluid overload and K was 6.6. troponin 0.185. Hgb 9.1. She received kayexalate, insulin, calcium chloride and was transferred to our hospital for further service. Hospital course: nephrology was consulted and she underwent HD. she was admitted for Acute diastolic CHF exacerbation secondary to volume overload related to end-stage renal diseaseshe needed aggresive HD with additional UFgiver her persistent lower leg swelling. she was noted to be hypertensive on presentaion, which imporved with HD. She was noted to be on max doses of Cardizem and carvedilol which was continued. she has remianed hemodynamically stable and is being discharged today in stable condition . she will follow upas OP with HD and renal. Time spent discussing smoking cessation with patient: more than 10 minutes - Time Spent with Patient Total time spent providing and/or coordinating discharge services: Greater than 30 minutes - Constitutional Vitals: Temp Pulse Resp BP Pulse Ox 97.5 F L 105 18 160/88 97 11/21/16 03:19 11/21/16 06:55 11/21/16 08:21 11/21/16 06:55 11/21/16 08:21 General appearance: Present: cooperative, A&O X 3, pleasant, answers questions appropriately Exam: General appearance: Present: cooperative, mild distress, A&O X 3, pleasant, answers questions appropriately - Head Head exam: Present: atraumatic, normocephalic - Eye Eye exam: Present: PERRL, conjuntiva pink, sclera anicteric Pupils: Present: PERRL - Neck Neck exam general surgery: Present: supple, trachea midline. Absent: lymphadenopathy - Respiratory Respiratory exam: Present: CTAB, rales (Fine bibasilar crackles). Absent: accessory muscle use, rhonchi, wheezes - Cardiovascular Cardiovascular exam: Present: RRR, +S1, +S2. Absent: diastolic murmur, gallop, rubs, systolic murmur - GI/Abdominal GI/Abdominal exam: Present: normal bowel sounds, soft, no peritoneal signs. Absent: distended, tenderness - Extremities Exam Extremities exam: Present: pedal edema (+ 1 pitting edema in both lower extremities, small ulcer in the left ankle covered by dressing, no signs of infection), warm, radial pulses palpable and symetrical. Absent: calf tenderness, cyanotic - Neurological Exam Neurological exam: Present: CN II-XII intact, oriented X3, no focal deficits. Absent: pronater drift, facial droop, speech deficit - Skin Skin exam: Present: dry, intact
--- NOTE | 2016-11-21 13:16 | Physician Discharge Referral ---
Home Health/Hosp Referral Info Transfer to: Home Health Attending Provider: sebastian lorenzo - Diagnosis (1) Chronic diastolic (congestive) heart failure Status: Acute (2) Hyperkalemia Status: Acute (3) Volume overload Status: Acute (4) ESRD (end stage renal disease) on dialysis Status: Chronic - Respiratory Orders Oxygen / L per min (3l) Smoking Cessation: Smoking cessation has been advised. For more information, call the [employer] Tobacco Quit Line at 9-228-AUUI-NOW. - Diet/Nutrition Diet/Nutrition Orders: Regular - Activity Activity Orders: Ambulate, Chair, Walker - Services Needed Following services are medically necessary services: Nursing, Home Health Aide, Physical Therapy, Occupational Therapy - Transfer Medications Home Medications: CloNIDine HCl [Clonidine HCl] 0.2 mg PO BID #0 11/12/15 [History] Aspirin Enteric Coated [Aspirin EC] 81 mg PO DAILY #0 02/29/16 [History] Albuterol Sulfate [Proair Hfa] 2 puff IH Q4H PRN 03/23/16 [History] Isosorbide MONOnitrate (24 HR) [Imdur] 60 mg PO DAILY 03/23/16 [History] Carvedilol [Coreg] 25 mg PO BID #60 tablet 06/03/16 [Rx] Diltiazem CD (24hr) [Cardizem CD] 300 mg PO DAILY #30 cap.er.24h 06/03/16 [Rx] HydrALAZINE 25 mg PO BID #60 tablet 06/03/16 [Rx] Sevelamer [Renvela] 800 mg PO TIDWM #90 tablet 06/03/16 [Rx] Oxygen 2 l .ROUTE AD 08/27/16 [History] Budesonide/Formoterol 160/4.5 [Symbicort 160/4.5] 2 puff IH BIDR #1 inhaler 07/01 [Rx] Furosemide [Lasix] 40 mg PO DAILY #30 tablet 10/23/16 [Rx] Mario/Poly/Wandy OINT [Triple Antibiotic Ointment] 1 appl TP TID #1 tube 10/23/16 [ Rx] Albuterol Neb [Proventil Neb] 2.5 mg IH Q4H PRN 11/19/16 [History] Allergies/Adverse Reactions: Allergies codeine Allergy (Verified 08/03/16 12:42) Confusion Certification: Further, I certify that my clinical findings support that this patient is homebound (i.e. absences from home require considerable and taxing effort and are for medical reasons or jehovah's witness services or infrequently or short duration when for other reasons) because: Homebound Reason: Patient requires assistance of a person or device to safely leave home Attestation: My signature below is to certify that this patient is under my care and that I, or nurse practitioner, or a physician's social service assistant working with me, has a face-to -face encounter with this patient.
[2016-11-21 14:22] VITALS: BP 157/84
== END 2016-11-21 14:59 | disposition home or self-care (01) | DRG 291 ==
LOC: 2ANU → SUATTDRO 11-20 13:23
PROVIDERS: ADMIT Pediatrics; ATTEND Internal Medicine Endocrinology, Diabetes & Metabolism

== ENCOUNTER 2017-06-23 15:46 | Inpatient (IN) ==
[2017-06-23] MEDS ORDERED: Ipratropium/Albuterol Neb 3 ML IH ONE (15:57)
--- NOTE | 2017-06-23 16:25 | Emergency Department Note ---
Addendum entered and electronically signed by Nasir Gibbons DO 06/23/17 17:36: Insert EKG under MDM: 06/23/2017 16:05 Ventricular rate 124 bpm, SD interval: No P waves, QRS duration 102 ms, QT 283 ms, QTC 356 ms, normal axis. Atrial fibrillation with rapid ventricular response. There are no new ischemic ST changes in comparison with the EKG performed on 04/01/2017 Original Note: Disposition Clinical Impression: COPD exacerbation, Shortness of breath, Acute respiratory failure with hypoxia Pneumonia Qualifiers: Pneumonia type: due to unspecified organism Laterality: right Lung location: lower lobe of lung Qualified Code(s): J18.1 - Lobar pneumonia, unspecified organism Disposition: Admitted As Inpatient Condition: Fair Referrals: NONE,PCP [Non-Partnered Physician] - Forms: ED Satisfaction Letter Time of Disposition: 17:35 SOB HPI - General Chief Complaint: ED Shortness of Breath/Dyspnea Stated Complaint: MILDRED Time Seen by Provider: 06/23/17 15:56 Source: patient Limitations: no limitations Nursing Notes Reviewed: Yes Vital Signs Reviewed: Yes - History of Present Illness This is a 77-year-old female with a past medical is her COPD, CHF, chronic kidney disease requiring dialysis who presents to the emergency department today with a 3 day history of cough productive of sputum, fever, nausea or vomiting, and shortness of breath. The last time that she had this she was admitted and had placement in the intensive care unit. Her last dialysis was yesterday. - Related Data Home Medications Medication Instructions Recorded Confirmed Aspirin Enteric Coated [Aspirin EC] 81 mg PO DAILY #0 02/29/16 04/01/17 Albuterol Sulfate [Proair Hfa] 2 puff IH Q4H PRN 03/23/16 04/01/17 Oxygen 2 l .ROUTE AD 08/27/16 04/01/17 Previous Rx's Medication Instructions Recorded Budesonide/Formoterol 160/4.5 2 puff IH BIDR #1 inhaler 10/23/16 [Symbicort 160/4.5] Acetaminophen [Tylenol] 650 mg PO Q6HR PRN #0 tablet 04/16/17 Ipratropium/Albuterol Neb [Duoneb] 3 ml IH [id number] inhsol 04/16/17 Isosorbide MONOnitrate (24 HR) 30 mg PO DAILY tab.er.24h 04/16/17 [Imdur] Losartan [Cozaar] 50 mg PO BID tablet 04/16/17 Metoprolol [Lopressor] 75 mg PO BID tablet 04/16/17 Omeprazole [PriLOSEC] 40 mg PO DAILY capsule. 04/16/17 Silvasorb 1 appl TP DAILY tube 04/16/17 amLODIPine [Norvasc] 10 mg PO BID tablet 04/16/17 cloNIDine HCl [CloNIDine HCl] 0.2 mg PO TID tablet 04/16/17 hydrALAZINE [HydrALAZINE] 25 mg PO Q8HR tablet 04/16/17 Allergies Allergy/AdvReac Type Severity Reaction Status Date / Time codeine Allergy Confusion Verified 03/24/17 21:00 All systems ED: reviewed and negative except as stated. Constitutional: Reports: fever, chills Cardiovascular: Reports: chest pain, dyspnea on exertion Respiratory: Reports: dyspnea Past Medical History - Past Medical History Medical history: Reports: atrial fibrillation, cancer, CHF, COPD, dialysis, GERD , hypertension, renal disease, other Surgical history: Reports: hysterectomy, other Psychiatric history: Reports: no psych history PHYSICAL GEOGRAPHER history: Reports: no PHYSICAL GEOGRAPHER history - Social History Smoking Status: Former smoker Smokeless Tobacco Status: No Alcohol use: Reports: none Drug use: Reports: none Physical Exam - General Limitations: no limitations, other (77-year-old female cachectic, hunched over, appearing moderately short of breath.) General appearance: alert - Head Head exam: atraumatic, normocephalic - Eye Eye exam: Absent: scleral icterus, conjunctival injection - ENT ENT exam: mucous membranes dry - Neck Neck exam: Present: trachea midline. Absent: tenderness, meningismus - Chest Chest inspection: Present: symmetric chest wall rise - Respiratory Respiratory exam: Present: respiratory distress, wheezes, accessory muscle use - Cardiovascular Cardiovascular exam: Present: tachycardia, irregular rhythm (Telemetry atrial fibrillation with RVR with a rate at 128) - Abdominal Exam Abdominal exam: Present: soft, Non-Tender. Absent: distention, guarding, rebound - Neurological Exam Neurological exam: Present: alert, oriented X3 - Psychiatric Psychiatric exam: Present: normal affect, normal mood Course Course Narrative: This is a 77 year old female with a past medical history CHF, COPD, chronic kidney disease requiring dialysis who presents to the emergency department dyspneic, coughing, having temperatures in the 100. This patient is tachypnic, febrile, tachycardic. She meets serious criteria. Vital Signs Temperature 100.4 F H 06/23/17 15:47 Pulse Rate 128 06/23/17 15:47 Respiratory Rate 30 06/23/17 15:47 Blood Pressure 205/48 06/23/17 15:47 O2 Sat by Pulse Oximetry 94 06/23/17 15:47 Temperature 100.4 F H 06/23/17 15:47 Pulse Rate 128 06/23/17 15:47 Respiratory Rate 26 06/23/17 16:35 Blood Pressure 205/48 06/23/17 15:47 O2 Sat by Pulse Oximetry 93 06/23/17 16:35 Oxygen Delivery Oxygen Delivery Nasal Cannula Chest X-Ray 06/23/17 16:10 IMPRESSION: 1. Unchanged right lower lobe airspace disease concerning for pneumonia. 2. Underlying congestive heart failure. D/ / Lisandro Severino MD / Lisandro Severino MD Interpreting Provider: Lisandro Severino MD - Reevaluation(s) Reevaluation #1: Patient is currently 98% on 5 L of oxygen. She states that her sugar shortness of breath has improved a lot after her nebulized treatments. This patient has a leukocytosis, BNP greater than 5000 (this is chronic for her), and chest x- ray suspicious for right lower lobe pneumonia. At this time, I think we can hold off on administering BiPAP for this patient as she is improving with the aerosol treatments. We have started Zosyn, Levaquin, vancomycin for antimicrobials. Her heart rate is decreased from 130 bpm to the high 90s. I spoke to the hospitalist on the phone and they agreed to accept the admission for right lower lobe pneumonia, COPD exacerbation, acute respiratory failure. Time: 17:34 Vital Signs Temperature 100.4 F H 06/23/17 15:47 Pulse Rate 128 06/23/17 15:47 Respiratory Rate 30 06/23/17 15:47 Blood Pressure 205/48 06/23/17 15:47 O2 Sat by Pulse Oximetry 94 06/23/17 15:47 Temperature 100.4 F H 06/23/17 15:47 Pulse Rate 128 06/23/17 15:47 Respiratory Rate 26 06/23/17 16:35 Blood Pressure 205/48 06/23/17 15:47 O2 Sat by Pulse Oximetry 93 06/23/17 16:35 Oxygen Delivery Oxygen Delivery Nasal Cannula Shortness of Breath/Dyspnea - Lab Data Result diagrams: 06/23/17 16:52 06/23/17 16:52 Lab Results 06/23/17 06/23/17 06/23/17 Range/Units 16:39 16:52 16:52 WBC 14.2 H (4.3-11.1) K/mcL RBC 3.42 L (3.82-4.97) M/mcL Hgb 10.7 L (11.5-15.4) g/dL Hct 34.1 L (35.3-44.9) % MCV 99.7 (83.0-100.0) fL MCH 31.3 (28.0-33.3) pg MCHC 31.4 L (31.6-35.5) g/dL RDW 13.9 (11.5-14.5) % Plt Count 243 (140-400) K/mcL MPV 11.0 (9.4-12.4) fL Immature Gran % 0.4 (0-4) % Seg Neutrophils % 85.8 % Lymphocytes % 3.8 % Monocytes % 9.4 % Eosinophils % 0.4 % Basophils % 0.2 % Neutrophils # 12.1 H (1.6-8.9) K/mcL Lymphocytes # 0.5 L (0.6-4.6) K/mcL Monocytes # 1.3 (0.0-1.3) K/mcL Eosinophils # 0.1 (0.0-0.6) K/mcL Basophils # 0.0 (0.0-0.2) K/mcL ABG pH 7.46 H (7.32-7.45) pH Units ABG pCO2 45 (35-45) mmHg ABG pO2 136 H (85-104) mmHg ABG HCO3 32 H (21-27) mEq/L ABG Total CO2 33.4 H (20-26) mEq/L ABG O2 Saturation 99 H (95-98) % ABG Base Excess 7.3 H (-2.0 to 3.0) mEq/L Blood Gas Modality NC Inspired O2 44 % Sodium 136 (136-145) mEq/L Potassium 5.1 H (3.5-4.5) mEq/L Chloride 93 L (98-109) mEq/L Carbon Dioxide 30 H (19-29) mEq/L BUN 28 H (7-20) mg/dL Creatinine 3.93 H (0.57-1.11) mg/dL Est GFR ( Amer) 13 L (> 60) Est GFR (Non-Af Amer) 11 L (> 60) BUN/Creatinine Ratio 7 (6-26) Glucose 95 (70-99) mg/dL Calculated Osmolality 287 (280-300) Lactic Acid (0.5-2.2) mmol/L Calcium 9.6 (8.6-10.8) mg/dL Magnesium 1.4 L (1.6-2.6) mg/dL Total Bilirubin 0.3 (0.2-1.2) mg/dL AST 18 (5-34) Units/L ALT 9 (0-55) Units/L Alkaline Phosphatase 49 (38-126) Units/L Troponin I (0-0.03) ng/mL B-Natriuretic Peptide (0-100) pg/mL Serum Total Protein 7.0 (6.0-8.3) g/dL Albumin 2.8 L (3.5-5.0) g/dL Globulin 4.2 H (2.4-3.5) g/dL Albumin/Globulin Ratio 0.7 L (1.1-2.2) 06/23/17 06/23/17 06/23/17 Range/Units 16:52 16:52 16:52 WBC (4.3-11.1) K/mcL RBC (3.82-4.97) M/mcL Hgb (11.5-15.4) g/dL Hct (35.3-44.9) % MCV (83.0-100.0) fL MCH (28.0-33.3) pg MCHC (31.6-35.5) g/dL RDW (11.5-14.5) % Plt Count (140-400) K/mcL MPV (9.4-12.4) fL Immature Gran % (0-4) % Seg Neutrophils % % Lymphocytes % % Monocytes % % Eosinophils % % Basophils % % Neutrophils # (1.6-8.9) K/mcL Lymphocytes # (0.6-4.6) K/mcL Monocytes # (0.0-1.3) K/mcL Eosinophils # (0.0-0.6) K/mcL Basophils # (0.0-0.2) K/mcL ABG pH (7.32-7.45) pH Units ABG pCO2 (35-45) mmHg ABG pO2 (85-104) mmHg ABG HCO3 (21-27) mEq/L ABG Total CO2 (20-26) mEq/L ABG O2 Saturation (95-98) % ABG Base Excess (-2.0 to 3.0) mEq/L Blood Gas Modality Inspired O2 % Sodium (136-145) mEq/L Potassium (3.5-4.5) mEq/L Chloride (98-109) mEq/L Carbon Dioxide (19-29) mEq/L BUN (7-20) mg/dL Creatinine (0.57-1.11) mg/dL Est GFR ( Amer) (> 60) Est GFR (Non-Af Amer) (> 60) BUN/Creatinine Ratio (6-26) Glucose (70-99) mg/dL Calculated Osmolality (280-300) Lactic Acid 1.3 (0.5-2.2) mmol/L Calcium (8.6-10.8) mg/dL Magnesium (1.6-2.6) mg/dL Total Bilirubin (0.2-1.2) mg/dL AST (5-34) Units/L ALT (0-55) Units/L Alkaline Phosphatase (38-126) Units/L Troponin I 0.07 H* (0-0.03) ng/mL B-Natriuretic Peptide > 5000 H (0-100) pg/mL Serum Total Protein (6.0-8.3) g/dL Albumin (3.5-5.0) g/dL Globulin (2.4-3.5) g/dL Albumin/Globulin Ratio (1.1-2.2) Critical Care Time Critical Care Time: Yes Total Critical Care Time: 35 Attestation: Physical care time 35 minutes managing patient's pneumonia with COPD exacerbation. Attestation Statement - Attestation Attestation: Patient was seen with resident physician. I reviewed the history, physical, assessment and plan, and agree with the findings. I also personally evaluated this patient and had [id number] time with this patient. 77-year-old female the history of COPD presents to emergency department with acute shortness of breath. Patient states she has been feeling bad for the last couple days gotten progressively worse today. She is on intermittent home O2 and does take breathing treatments which has not been helping. Comes in via EMS for help with her difficulty breathing. Patient also has productive cough. She has had several episodes of emesis. On exam vital signs mild fever, tachycardic, blood pressure was stable. Patient is also tachypnea. Heart was tachycardic on exam lungs poor air exchange with diffuse wheezing. Abdomen is soft and nontender. Extremities unremarkable. Neurologically patient is alert and oriented. ED course patient was started on aggressive bronco therapy, as well as steroids and some nausea medicine. She responded well to these and on repeat exam she still wheezing but was considerably more comfortable and had increased air exchange. Chest x-ray revealed probable pneumonia. Labs are also consistent with this finding. She is a dialysis patient was started on multiple antibiotics. We did not do BiPAP as the patient responded fairly well with the breathing treatments. Contact the hospitalist service to arrange for admission. Patient was stable for transport to the floor. Critical care time 35 minutes.
[2017-06-23] MEDS ORDERED: 0.9 % Sodium Chloride 1,000 ML IVC ONE (16:28)
[2017-06-23] MEDS ORDERED: predniSONE 20 MG TABLET PO ONE (16:37)
[2017-06-23] MEDS ORDERED: methylPREDNISolone 125 MG/2 ML VIAL IVP ONE (16:40)
[2017-06-23] MEDS ORDERED: Ondansetron 4 MG/2 ML VIAL IVP ONE (16:40)
[2017-06-23 16:50] LABS: ABG Base Excess 7.3 mEq/L (-2.0 to 3.0); ABG HCO3 32 mEq/L (21-27); ABG Oxygen Saturation 99 % (95-98); ABG PCO2 45 mmHg (35-45); ABG PH 7.46 pH Units (7.32-7.45); ABG PO2 136 mmHg (85-104); ABG TCO2 33.4 mEq/L (20-26); Blood Gas FiO2 44 %
[2017-06-23 16:59] LABS: Basophils % 0.2 %; Eosinophils # 0.1 K/mcL (0.0-0.6); Eosinophils % 0.4 %; Hematocrit 34.1 % (35.3-44.9); Hemoglobin 10.7 g/dL (11.5-15.4); Immature Granulocytes % 0.4 % (0-4); Lymphocytes # 0.5 K/mcL (0.6-4.6); Lymphocytes % 3.8 %; Mean Corpuscular HGB Conc 31.4 g/dL (31.6-35.5); Mean Corpuscular Hemoglobin 31.3 pg (28.0-33.3); Mean Corpuscular Volume 99.7 fL (83.0-100.0); Monocytes # 1.3 K/mcL (0.0-1.3); Monocytes % 9.4 %; Neutrophils # 12.1 K/mcL (1.6-8.9); Platelet Count 243 K/mcL (140-400); Red Blood Count 3.42 M/mcL (3.82-4.97); Red Cell Distribution Width 13.9 % (11.5-14.5); Segmented Neutrophils % 85.8 %
[2017-06-23] MEDS ORDERED: Piperacillin/Tazobactam 4.5 GM in D5% in Water (Mini-Bag+) 100 ML IVPB ONE (17:00)
[2017-06-23] MEDS ORDERED: Levofloxacin 750 MG/150 ML 750 MG/150 ML BAG IVPB ONE (17:02)
[2017-06-23] MEDS ORDERED: Vancomycin 750 MG in D5% in Water 250 ML IVPB ONE ×3 (17:05→20:15)
[2017-06-23 17:14] LABS: Albumin 2.8 g/dL (3.5-5.0); Albumin/Globulin Ratio 0.7 (1.1-2.2); Bilirubin,Total 0.3 mg/dL (0.2-1.2); Calcium 9.6 mg/dL (8.6-10.8); Globulin 4.2 g/dL (2.4-3.5); Magnesium 1.4 mg/dL (1.6-2.6); Potassium 5.1 mEq/L (3.5-4.5)
[2017-06-23] MEDS ORDERED: Naloxone 0.4 MG/ML INJ IVP PRN (18:30)
[2017-06-23] MEDS ORDERED: Ondansetron 4 MG/2 ML VIAL IVP PRN (18:30)
[2017-06-23] MEDS ORDERED: Acetaminophen 325 MG TABLET PO PRN (18:30)
[2017-06-23] MEDS ORDERED: Albuterol 2.5 MG/3 ML NEBULIZER IH PRN (18:40)
[2017-06-23] MEDS: Nicotine 14 MG PATCH.TD24 TD SCH (18:57)
--- NOTE | 2017-06-23 20:03 | Event Note ---
Date of Encounter: 06/23/17 Time of Encounter: 20:02 Patient seen and examined. Agree with assessment and plan
--- NOTE | 2017-06-23 20:11 | Internal Med History&Physical ---
Date of Encounter: 06/23/17 Time of Encounter: 19:57 Assessment and Plan (1) Acute and chronic respiratory failure Current visit: Yes Status: Acute Patient has COPD and CHF and wears 2-3L at home PRN. She has pneumonia and COPD exacerbation today, and has increased oxygen requirements. Treat pneumonia and COPD exacerbation Titrate oxygent to maintain saturation > 90%. Qualifiers: Respiratory failure complication: hypoxia and hypercapnia Qualified Code(s) : J96.21 - Acute and chronic respiratory failure with hypoxia; J96.22 - Acute and chronic respiratory failure with hypercapnia (2) HCAP (healthcare-associated pneumonia) Current visit: Yes Status: Acute Patient presented with shortness of breath, productive cough, fever and chills. CXR showed right lower lobe airspace disease concerning for pneumonia. Patient is a dialysis patient and therefore will treat this as HCAP. sputum culture and blood cultures sent. Levaquin, vancomycin, and zosyn IVPB (renally dosed) Duoneb treatments QID. (3) Sepsis Current visit: Yes Status: Acute Qualifiers: Sepsis type: sepsis due to unspecified organism Qualified Code(s): A41.9 - Sepsis, unspecified organism (4) Hypertension Current visit: Yes Status: Chronic Continue home doses of amlodipine, clonidine, losartan, metoprolol, and hydralazine. Qualifiers: Hypertension type: essential hypertension Qualified Code(s): I10 - Essential (primary) hypertension (5) ESRD (end stage renal disease) on dialysis Current visit: Yes Status: Chronic Patient has ESRD on HD MWF, last dialysis was yesterday and she reports she was at her dry weight on discharge yesterday. Her behavioral sciences instructor is Dr. Koo. She has mild hyperkalemia with potassium of 5.1. No emergent need for dialysis now. Consult to nephrology/Dr. Koo ordered, will need to be contacted in the morning. (6) Tobacco abuse Current visit: No Status: Chronic (7) Afib Current visit: Yes Status: Chronic Patient has history of afib, is not on any anti-coagulation, is on metoprolol for rate control. She was in Afib with RVR on presentation to ED with HR in 130s. HR improved to 80s after 1L of fluid. Continuous cardiac rehabilitation program director continue home dose of metoprolol. Qualifiers: Atrial fibrillation type: chronic Qualified Code(s): I48.2 - Chronic atrial fibrillation (8) Hyperkalemia Current visit: Yes Status: Acute Potassium of 5.1. Will give one dose of kayexalate and check chemistry in the morning. (9) Acute exacerbation of chronic obstructive pulmonary disease (COPD) Current visit: Yes Status: Acute Patient with productive cough, wheezing and shortness of breath. CXR consistent with pneumonia. Duonebs QIDR albuterol nebulizer Q2hr PRN solumedrol 125mg IVP given in ED, continue with 40mg IVP TID Treat pneumonia with IV antibiotics. (10) Smoker Current visit: Yes Status: Acute Patient continues to smoke despite multiple health issues. Discussed and encouraged smoking cessation. Nicotine patch and smoking cessation education ordered. (11) Chronic diastolic (congestive) heart failure Current visit: Yes Status: Chronic Patient with Chronic diastolic CHF. She is short of breath today, and BNP is elevated, but presentation more consistent with pneumonia and COPD exacerbation. Cardiac/renal diet. Daily weights and I/Os. (12) Elevated troponin Current visit: Yes Status: Acute Troponin of 0.07 in the setting of ESRD. Will trend. (13) DVT prophylaxis Current visit: Yes Status: Acute anti-embolic stockings heparin TID Internal Medicine - H&P: HPI Chief complaint: shortness of breath Admitted From: Emergency Dept Plans for Post Hospital Care: Home History of present illness: Ms. Hedrick is a 77 year old female with ESRD on HD MWF, CHF, COPD, afib, HTN, presented to the ED today with complaints of shortness of breath and productive cough. Patient reported that earlier this week she had some nausea and vomiting. She developed a productive cough and shortness of breath the last few days, and reports having a fever, chills, wheezing. She denies headache, chest pain, palpitations, abdominal pain or diarrhea. On presentation to the ED , she was in afib with RVR with HR in 130s. She was hypoxic and required 5-6L NC to maintain saturation. CXR showed Right lower lobe airspace disease concerning for pneumonia and underlying CHF. WBC count was elevated to 14.2. Troponin was elevated at 0.07 in the setting of ESRD. BNP was > 5,000. She met sepsis criteria with pneumonia, elevated WBC, tachycardia, and tachypnea. Lactate was normal at 1.3. Blood cultures and sputum cultures were sent and she was started on vanc, zosyn and levaquin. She was also given duoneb treatments, 1 L bolus and 125mg of IVP solumedrol. On exam. patient was alert and oriented, reporting feeling somewhat better after nebulizers. Lungs with diffuse rhonchi, and rales. Heart had irregular rhythm with normal rate in the 80s. Trace BLE edema. Past Med Surg Social Fam HX - Past Medical History Medical history: atrial fibrillation, cancer, CHF, COPD, dialysis, GERD, hypertension, renal disease, other Psychiatric history: no psych history - Past Surgical History Surgical History: hysterectomy, other - Social History Smoking Status: Former smoker Smokeless Tobacco Status: No Alcohol use: none Drug use: none - Family History Sister Living Status: Still Living Hx Family Cancer: Yes (colon cancer) Mother Living Status: Hx Family Cardiac Disorders: (angina) Father Living Status: Hx Family Respiratory Disorders: (pneumonia) Brother Living Status: Hx Family Cancer: Yes Internal Medicine - H&P: Meds Aspirin Enteric Coated [Aspirin EC] 81 mg PO DAILY #0 02/29/16 [History] Albuterol Sulfate [Proair Hfa] 2 puff IH Q4H PRN 03/23/16 [History] Oxygen 2 l .ROUTE AD 08/27/16 [History] Budesonide/Formoterol 160/4.5 [Symbicort 160/4.5] 2 puff IH BIDR #1 inhaler 07/01 [Rx] Acetaminophen [Tylenol] 650 mg PO Q6HR PRN #0 tablet 04/16/17 [Rx] Ipratropium/Albuterol Neb [Duoneb] 3 ml IH [id number] inhsol 04/16/17 [Rx] Isosorbide MONOnitrate (24 HR) [Imdur] 30 mg PO DAILY tab.er.24h 04/16/17 [Rx] Losartan [Cozaar] 50 mg PO BID tablet 04/16/17 [Rx] Metoprolol [Lopressor] 75 mg PO BID tablet 04/16/17 [Rx] Omeprazole [PriLOSEC] 40 mg PO DAILY capsule. 04/16/17 [Rx] Silvasorb 1 appl TP DAILY tube 04/16/17 [Rx] amLODIPine [Norvasc] 10 mg PO BID tablet 04/16/17 [Rx] cloNIDine HCl [CloNIDine HCl] 0.2 mg PO TID tablet 04/16/17 [Rx] hydrALAZINE [HydrALAZINE] 25 mg PO Q8HR tablet 04/16/17 [Rx] 3 Allergy/AdvReac Type Severity Reaction Status Date / Time codeine Allergy Confusion Verified 03/24/17 21:00 All Systems PM: A 10-system review of systems was performed and is negative for pertinent findings except as documented above in the HPI. - Constitutional Constitutional: chills, fever(s), no night sweats - EENT Eyes: no change in vision, no discharge, no pain, no photophobia Ears: no ear discharge, no ear pain, no tinnitus Nose, mouth and throat: no dysphagia, no nasal discharge, no neck pain, no sore throat - Cardiovascular Cardiovascular ROS IM: dyspnea, no chest pain, no diaphoresis, no lightheadedness, no palpitations, no syncope - Respiratory Respiratory: cough, dyspnea, wheezing, excessive phlegm production - Gastrointestinal Gastrointestinal: nausea, vomiting, no abdominal pain, no diarrhea, no hematemesis, no hematochezia, no melena - Genitourinary Genitourinary: no change in urinary stream, no dysuria, no flank pain, no hematuria - Musculoskeletal Musculoskeletal ROS IM: no numbness, no tingling - Integumentary Integumentary IM: no rash, no unusual bruising - Neurological Neurological ROS: no confusion, no convulsions, no focal weakness, no numbness, no tingling, no tremor(s) - Hematologic/Lymphatic Hematologic/Lymphatic: no easy bruising - Constitutional Vitals: Temp Pulse Resp BP Pulse Ox 99.2 F 71 18 149/65 92 06/23/17 19:15 06/23/17 19:15 06/23/17 19:15 06/23/17 19:15 06/23/17 19:15 General appearance: Present: A&O X 3, pleasant, no acute distress - Head Head exam: Present: atraumatic, normocephalic - Eye Eye exam: Present: PERRL, conjuntiva pink, sclera anicteric Pupils: Present: PERRL - Neck Neck exam general surgery: Present: supple, trachea midline. Absent: lymphadenopathy - Respiratory Respiratory exam: Present: rales, rhonchi, wheezes. Absent: accessory muscle use - Cardiovascular Cardiovascular exam: Present: irregular rhythm, +S1, +S2. Absent: diastolic murmur, gallop, rubs, systolic murmur - GI/Abdominal GI/Abdominal exam: Present: normal bowel sounds, soft, no peritoneal signs. Absent: distended, tenderness - Extremities Exam Extremities exam: Present: pedal edema (trace bilateral), warm, radial pulses palpable and symmetrical. Absent: calf tenderness, cyanotic - Neurological Exam Neurological exam: Present: CN II-XII intact, oriented X3, no focal deficits. Absent: pronater drift, facial droop, speech deficit - Skin Skin exam: Present: dry, intact Internal Med - H&P Results - Labs CBC & Chem 7: 06/23/17 16:52 06/23/17 16:52 Labs: All Lab Results (24 Hours) 06/23/17 06/23/17 06/23/17 Range/Units 16:39 16:52 16:52 WBC 14.2 H (4.3-11.1) K/mcL RBC 3.42 L (3.82-4.97) M/mcL Hgb 10.7 L (11.5-15.4) g/dL Hct 34.1 L (35.3-44.9) % MCV 99.7 (83.0-100.0) fL MCH 31.3 (28.0-33.3) pg MCHC 31.4 L (31.6-35.5) g/dL RDW 13.9 (11.5-14.5) % Plt Count 243 (140-400) K/mcL MPV 11.0 (9.4-12.4) fL Immature Gran % 0.4 (0-4) % Seg Neutrophils % 85.8 % Lymphocytes % 3.8 % Monocytes % 9.4 % Eosinophils % 0.4 % Basophils % 0.2 % Neutrophils # 12.1 H (1.6-8.9) K/mcL Lymphocytes # 0.5 L (0.6-4.6) K/mcL Monocytes # 1.3 (0.0-1.3) K/mcL Eosinophils # 0.1 (0.0-0.6) K/mcL Basophils # 0.0 (0.0-0.2) K/mcL ABG pH 7.46 H (7.32-7.45) pH Units ABG pCO2 45 (35-45) mmHg ABG pO2 136 H (85-104) mmHg ABG HCO3 32 H (21-27) mEq/L ABG Total CO2 33.4 H (20-26) mEq/L ABG O2 Saturation 99 H (95-98) % ABG Base Excess 7.3 H (-2.0 to 3.0) mEq/L Blood Gas Modality NC Inspired O2 44 % Sodium 136 (136-145) mEq/L Potassium 5.1 H (3.5-4.5) mEq/L Chloride 93 L (98-109) mEq/L Carbon Dioxide 30 H (19-29) mEq/L BUN 28 H (7-20) mg/dL Creatinine 3.93 H (0.57-1.11) mg/dL Est GFR ( Amer) 13 L (> 60) Est GFR (Non-Af Amer) 11 L (> 60) BUN/Creatinine Ratio 7 (6-26) Glucose 95 (70-99) mg/dL Calculated Osmolality 287 (280-300) Lactic Acid (0.5-2.2) mmol/L Calcium 9.6 (8.6-10.8) mg/dL Magnesium 1.4 L (1.6-2.6) mg/dL Total Bilirubin 0.3 (0.2-1.2) mg/dL AST 18 (5-34) Units/L ALT 9 (0-55) Units/L Alkaline Phosphatase 49 (38-126) Units/L Troponin I (0-0.03) ng/mL B-Natriuretic Peptide (0-100) pg/mL Serum Total Protein 7.0 (6.0-8.3) g/dL Albumin 2.8 L (3.5-5.0) g/dL Globulin 4.2 H (2.4-3.5) g/dL Albumin/Globulin Ratio 0.7 L (1.1-2.2) 06/23/17 06/23/17 06/23/17 Range/Units 16:52 16:52 16:52 WBC (4.3-11.1) K/mcL RBC (3.82-4.97) M/mcL Hgb (11.5-15.4) g/dL Hct (35.3-44.9) % MCV (83.0-100.0) fL MCH (28.0-33.3) pg MCHC (31.6-35.5) g/dL RDW (11.5-14.5) % Plt Count (140-400) K/mcL MPV (9.4-12.4) fL Immature Gran % (0-4) % Seg Neutrophils % % Lymphocytes % % Monocytes % % Eosinophils % % Basophils % % Neutrophils # (1.6-8.9) K/mcL Lymphocytes # (0.6-4.6) K/mcL Monocytes # (0.0-1.3) K/mcL Eosinophils # (0.0-0.6) K/mcL Basophils # (0.0-0.2) K/mcL ABG pH (7.32-7.45) pH Units ABG pCO2 (35-45) mmHg ABG pO2 (85-104) mmHg ABG HCO3 (21-27) mEq/L ABG Total CO2 (20-26) mEq/L ABG O2 Saturation (95-98) % ABG Base Excess (-2.0 to 3.0) mEq/L Blood Gas Modality Inspired O2 % Sodium (136-145) mEq/L Potassium (3.5-4.5) mEq/L Chloride (98-109) mEq/L Carbon Dioxide (19-29) mEq/L BUN (7-20) mg/dL Creatinine (0.57-1.11) mg/dL Est GFR ( Amer) (> 60) Est GFR (Non-Af Amer) (> 60) BUN/Creatinine Ratio (6-26) Glucose (70-99) mg/dL Calculated Osmolality (280-300) Lactic Acid 1.3 (0.5-2.2) mmol/L Calcium (8.6-10.8) mg/dL Magnesium (1.6-2.6) mg/dL Total Bilirubin (0.2-1.2) mg/dL AST (5-34) Units/L ALT (0-55) Units/L Alkaline Phosphatase (38-126) Units/L Troponin I 0.07 H* (0-0.03) ng/mL B-Natriuretic Peptide > 5000 H (0-100) pg/mL Serum Total Protein (6.0-8.3) g/dL Albumin (3.5-5.0) g/dL Globulin (2.4-3.5) g/dL Albumin/Globulin Ratio (1.1-2.2) - Diagnostic Studies Chest x-ray Additional comments: Chest X-Ray 06/23/17 16:10 IMPRESSION: 1. Unchanged right lower lobe airspace disease concerning for pneumonia. 2. Underlying congestive heart failure. D/ / Lisandro Severino MD / Lisandro Severino MD Interpreting Provider: Lisandro Severino MD
[2017-06-23] MEDS ORDERED: Vancomycin 750 MG in D5% in Water (Mini-Bag+) 100 ML IVPB ONE (20:15)
[2017-06-23] MEDS: amLODIPine 5 MG TABLET PO SCH (20:50)
[2017-06-23] MEDS: cloNIDine HCl 0.1 MG TABLET PO SCH (20:50)
[2017-06-23] MEDS: Budesonide/Formoterol 160/4.5 MDI IH SCH (23:15)
[2017-06-23] MEDS: Ipratropium/Albuterol Neb 3 ML IH SCH (23:16)
[2017-06-24] MEDS: MethylPREDNISolone 40 MG/ML VIAL IVP SCH ×3 (00:42→15:49)
[2017-06-24] MEDS: *HR* Heparin 5,000 UNIT/ML VIAL SQ SCH ×3 (00:42→15:49)
[2017-06-24] MEDS: hydrALAZINE 25 MG TABLET PO SCH ×3 (00:42→15:49)
[2017-06-24] MEDS: Ipratropium/Albuterol Neb 3 ML IH SCH ×4 (04:11→22:57)
[2017-06-24] MEDS: Piperacillin/Tazobactam 3.375 GM in D5% in Water (Mini-Bag+) 100 ML IVPB SCH ×2 (05:37→17:46)
[2017-06-24 07:07] LABS: Basophils % 0.1 %; Hematocrit 30.5 % (35.3-44.9); Hemoglobin 9.9 g/dL (11.5-15.4); Immature Granulocytes % 1.1 % (0-4); Lymphocytes # 0.4 K/mcL (0.6-4.6); Lymphocytes % 2.8 %; Mean Corpuscular HGB Conc 32.5 g/dL (31.6-35.5); Mean Corpuscular Hemoglobin 31.7 pg (28.0-33.3); Mean Corpuscular Volume 97.8 fL (83.0-100.0); Mean Platelet Volume 11.3 fL (9.4-12.4); Monocytes # 0.5 K/mcL (0.0-1.3); Monocytes % 3.1 %; Neutrophils # 14.5 K/mcL (1.6-8.9); Platelet Count 177 K/mcL (140-400); Red Blood Count 3.12 M/mcL (3.82-4.97); Red Cell Distribution Width 13.8 % (11.5-14.5); Segmented Neutrophils % 92.9 %
[2017-06-24] MEDS: Aspirin Enteric Coated 81 MG Tablet PO SCH (07:48)
[2017-06-24] MEDS: cloNIDine HCl 0.1 MG TABLET PO SCH ×3 (07:48→20:41)
[2017-06-24] MEDS: Isosorbide MONOnitrate (24 HR) 30 MG TAB.ER.24H PO SCH (07:48)
[2017-06-24] MEDS: amLODIPine 5 MG TABLET PO SCH ×2 (07:48→20:41)
[2017-06-24] MEDS: Nicotine 14 MG PATCH.TD24 TD SCH (07:49)
[2017-06-24 07:56] LABS: Calcium 8.9 mg/dL (8.6-10.8); Potassium 4.3 mEq/L (3.5-4.5)
[2017-06-24] MEDS ORDERED: Vancomycin 750 MG in D5% in Water 250 ML IVPB SCH (09:00)
--- NOTE | 2017-06-24 09:29 | Nephrology Consult Note ---
Date of Encounter: 06/24/17 Time of Encounter: 08:25 Assessment and Plan (1) ESRD (end stage renal disease) on dialysis Current Visit: Yes Status: Chronic HCAP on antibiotic coverage. Cultures pending. No immediate need for HD. Will do HD tomorrow, keeping with [facility] schedule. History of Present Illness - Reason for Consult end stage renal disease - History of Present Illness Ms. Hedrick is a 77 year old female with ESRD on dialysis. Dialyzes at [facility] , last dialysis on Sunday. Other PMH-atrial fibrillation, cancer, CHF, COPD, dialysis, GERD, hypertension. Presented to [place] ER yesterday with worsening shortness of breath. Admitted with RLL pneumonia, underlying CHF on xray and exacerbation COPD. Sputum and blood cultures pending. Started on levaquin, Vanco and Zosyn. This morning sitting on edge of bed on 4L/nc, eating breakfast. States feeling somewhat better. Patient well known and actually looks good for her chronicity. States is smoking 2-3 cigarettes a day. Past Med Surg Social Fam HX - Past Medical History Medical history: atrial fibrillation, cancer, CHF, COPD, dialysis, GERD, hypertension, renal disease, other Psychiatric history: no psych history - Past Surgical History Surgical History: hysterectomy, other - Social History Smoking Status: Former smoker Smokeless Tobacco Status: No Alcohol use: none Drug use: none - Family History Sister Living Status: Still Living Hx Family Cancer: Yes (colon cancer) Mother Living Status: Hx Family Cardiac Disorders: (angina) Father Living Status: Hx Family Respiratory Disorders: (pneumonia) Brother Living Status: Hx Family Cancer: Yes Medications and Allergies Aspirin Enteric Coated [Aspirin EC] 81 mg PO DAILY #0 02/29/16 [History] Albuterol Sulfate [Proair Hfa] 2 puff IH Q4H PRN 03/23/16 [History] Oxygen 2 l .ROUTE AD 08/27/16 [History] Budesonide/Formoterol 160/4.5 [Symbicort 160/4.5] 2 puff IH BIDR #1 inhaler 07/01 [Rx] Acetaminophen [Tylenol] 650 mg PO Q6HR PRN #0 tablet 04/16/17 [Rx] Ipratropium/Albuterol Neb [Duoneb] 3 ml IH [id number] inhsol 04/16/17 [Rx] Isosorbide MONOnitrate (24 HR) [Imdur] 30 mg PO DAILY tab.er.24h 04/16/17 [Rx] Losartan [Cozaar] 50 mg PO BID tablet 04/16/17 [Rx] Metoprolol [Lopressor] 75 mg PO BID tablet 04/16/17 [Rx] Omeprazole [PriLOSEC] 40 mg PO DAILY capsule. 04/16/17 [Rx] Silvasorb 1 appl TP DAILY tube 04/16/17 [Rx] amLODIPine [Norvasc] 10 mg PO BID tablet 04/16/17 [Rx] cloNIDine HCl [CloNIDine HCl] 0.2 mg PO TID tablet 04/16/17 [Rx] hydrALAZINE [HydrALAZINE] 25 mg PO Q8HR tablet 04/16/17 [Rx] 3 Allergy/AdvReac Type Severity Reaction Status Date / Time codeine Allergy Confusion Verified 03/24/17 21:00 Exam - Vital Signs Vital signs: Initial Vital Signs Temp Pulse Resp BP Pulse Ox 100.4 F H 128 30 205/48 94 06/23/17 15:47 06/23/17 15:47 06/23/17 15:47 06/23/17 15:47 06/23/17 15:47 Vital Signs - Last 8 Hours Temp Pulse Resp BP Pulse Ox 06/24/17 08:07 93 06/24/17 07:30 97.6 F 88 19 183/77 93 06/24/17 04:11 18 96 06/24/17 02:50 97.8 F 76 17 172/73 90 Intake and Output 06/23/17 06/24/17 06/24/17 23:59 07:59 15:59 Intake Total 100 / 100 250 / 250 Output Total 0 / 0 0 / 0 Balance 100 / 100 250 / 250 0 / 0 Intake: IV Fluids 100 / 100 250 / 250 Levaquin Premix 750mg/150 150 / 150 mL 750 mg In 150 ml @ 100 mls/hr IVPB ONCE ONE Rx#:[id number] Zosyn 4.5 GM In Dextrose 100 / 100 5% (Minibag+) 100 ML 100 ML @ 100 mls/hr IVPB ONCE ONE Rx#:[id number] Vancocin 750 MG In 100 / 100 Dextrose 5% (Minibag+) 100 ML 100 ML @ 100 mls/ hr IVPB ONCE ONE Rx#: [id number] Output: Urine 0 / 0 0 / 0 Other: Meal Breakfast Percent of Meal Consumed 100% Stool Consistency liquid # Voids 1 # Bowel Movements 1 Weight 58.99 kg Patient Weight 06/24/17 23:59 Weight 58.99 kg - General Appearance General appearance: well-developed, well-nourished, appears started age EENT: mucous membranes moist Neck: no JVD Additional Comments: diminished throughout Cardiology: no edema, irregular rhythm Gastrointestinal: normoactive bowel sounds, no tenderness Integumentary: warm and dry Neurologic: alert and oriented x3 Psychiatric: mood/affect appropriate, cooperative Results - Lab Results 06/24/17 06:53 06/24/17 06:53 Most recent lab results ABG pH 7.46 pH Units (7.32-7.45) H 06/23/17 16:39 ABG pCO2 45 mmHg (35-45) 06/23/17 16:39 ABG pO2 136 mmHg (85-104) H 06/23/17 16:39 ABG HCO3 32 mEq/L (21-27) H 06/23/17 16:39 ABG O2 Saturation 99 % (95-98) H 06/23/17 16:39 Calcium 8.9 mg/dL (8.6-10.8) 06/24/17 06:53 Magnesium 1.4 mg/dL (1.6-2.6) L 06/23/17 16:52 Consult Discharge Plan - Plan Referrals: Eileen House, [facility] [Primary Care Provider] -
[2017-06-24] MEDS: Budesonide/Formoterol 160/4.5 MDI IH SCH ×2 (10:21→22:57)
[2017-06-24 11:09] LABS: Acinetobacter baumannii by PCR Not Detected (Not Detect); Candida albicans by PCR Not Detected (Not Detect); Candida glabrata by PCR Not Detected (Not Detect); Candida krusei by PCR Not Detected (Not Detect); Candida parapsilosis by PCR Not Detected (Not Detect); Candida tropicalis by PCR Not Detected (Not Detect); Enterococcus by PCR Not Detected (Not Detect); Escherichia coli by PCR Not Detected (Not Detect); Klebsiella oxytoca by PCR Not Detected (Not Detect); Klebsiella pneumoniae by PCR Not Detected (Not Detect); Pseudomonas aeruginosa by PCR ***DETECTED*** (Not Detect); Serratia marcescens by PCR Not Detected (Not Detect); Staphylococcus aureus by PCR Not Detected (Not Detect); Streptococcus agalactiae(B)PCR Not Detected (Not Detect); Streptococcus by PCR Not Detected (Not Detect); Streptococcus pneumoniae PCR Not Detected (Not Detect); Streptococcus pyogenes (A) PCR Not Detected (Not Detect); blaKPC Carbapenem-Resist Gene Not Detected (Not Detect)
--- NOTE | 2017-06-24 12:34 | Internal Med Progress Note ---
Date of Encounter: 06/24/17 Time of Encounter: 11:00 - Assessment and plan (1) Sepsis Current Visit: Yes Status: Acute Assessment and plan: Blood cultures positive for pseudomonas. On IV abx at this time including double PSDA coverage. Repeat cultures tomorrow. Qualifiers: Sepsis type: Pseudomonas Qualified Code(s): A41.52 - Sepsis due to Pseudomonas (2) Respiratory failure Current Visit: Yes Status: Acute Assessment and plan: Oxygen supplementation. Has been titrated down some since last night. Qualifiers: Chronicity: acute on chronic Respiratory failure complication: hypoxia Qualified Code(s): J96.21 - Acute and chronic respiratory failure with hypoxia (3) Pneumonia Current Visit: Yes Status: Suspected Assessment and plan: Blood cx positive for PSDA. Continue IV abx and supportive care. Qualifiers: Pneumonia type: due to Pseudomonas Laterality: right Lung location: lower lobe of lung Qualified Code(s): J15.1 - Pneumonia due to Pseudomonas (4) Hypertension Current Visit: Yes Status: Chronic Assessment and plan: Continue to monitor and continue home meds. Qualifiers: Hypertension type: essential hypertension Qualified Code(s): I10 - Essential (primary) hypertension (5) Anemia in chronic kidney disease (CKD) Current Visit: Yes Status: Chronic Assessment and plan: Nephrology consult and continue home meds. Qualifiers: Chronic kidney disease stage: on chronic dialysis Qualified Code(s): N18.6 - End stage renal disease; D63.1 - Anemia in chronic kidney disease; Z99.2 - Dependence on renal dialysis (6) Afib Current Visit: Yes Status: Chronic Assessment and plan: Rate controlled at this time. Qualifiers: Atrial fibrillation type: chronic Qualified Code(s): I48.2 - Chronic atrial fibrillation (7) COPD (chronic obstructive pulmonary disease) Current Visit: No Status: Chronic Assessment and plan: Chronic issue. Continue aerosols and chronic meds. Qualifiers: COPD type: emphysema Emphysema type: centrilobular Qualified Code(s): J43.2 - Centrilobular emphysema (8) Tobacco abuse Current Visit: No Status: Chronic Assessment and plan: Cessation counselling. - Subjective Interval history: Ms Hedrick is currently admitted for acute on chronic resp failure and pneumonia. She remains moderate to high risk due to potential for worsening respiratory status. Ms Hedrick is resting comfortably at this time. No fever or chills at this time. Less dyspneic this AM. No abd pain. Tolerating diet. - Constitutional Vitals: Temp Pulse Resp BP Pulse Ox 97.4 F L 83 17 163/72 90 06/24/17 11:28 06/24/17 11:28 06/24/17 11:28 06/24/17 11:28 06/24/17 11:28 General appearance: Present: A&O X 3, pleasant, answers questions appropriately - Head Head exam: Present: normocephalic - Eye Eye exam: Present: EOMI, conjuntiva pink - ENT ENT exam: Present: mucous membranes dry - Respiratory Respiratory exam: Present: decreased breath sounds, CTAB. Absent: rales, rhonchi, wheezes - Cardiovascular Cardiovascular exam: Present: irregular rhythm. Absent: tachycardia - GI/Abdominal GI/Abdominal exam: Present: soft. Absent: tenderness - Extremities Exam Extremities exam: Present: warm. Absent: tenderness - Neurological Exam Neurological exam: Present: alert, oriented X3 - Skin Skin exam: Present: dry, warm. Absent: rash Internal Medicine: Result - Labs CBC & Chem 7: 06/24/17 06:53 06/24/17 06:53 Labs: Short CBC 06/24/17 Range/Units 06:53 WBC 15.6 H (4.3-11.1) K/mcL Hgb 9.9 L (11.5-15.4) g/dL Hct 30.5 L (35.3-44.9) % Plt Count 177 (140-400) K/mcL Neutrophils # 14.5 H (1.6-8.9) K/mcL BMP 06/24/17 06:53 Sodium 135 L Potassium 4.3 Chloride 94 L Carbon Dioxide 28 BUN 36 H Creatinine 4.42 H Glucose 168 H Calcium 8.9 Cardiac Enzymes 06/23/17 06/24/17 Range/Units 22:49 06:53 Troponin I 0.06 H* 0.06 H* (0-0.03) ng/mL - ABG Interpretation ABG results: ABG ABG pH 7.46 pH Units (7.32-7.45) H 06/23/17 16:39 ABG pCO2 45 mmHg (35-45) 06/23/17 16:39 ABG pO2 136 mmHg (85-104) H 06/23/17 16:39 ABG O2 Saturation 99 % (95-98) H 06/23/17 16:39 - VTE Documentation of Mechanical Device: Graduated compression elastic hosiery Consult Discharge Plan - Plan Referrals: Eileen House, [employer] [Primary Care Provider] - (web request 06/24/2017)
[2017-06-24] MEDS ORDERED: Aminoglycoside Consult 1 EACH MC ONE (13:03)
[2017-06-25] MEDS: *HR* Heparin 5,000 UNIT/ML VIAL SQ SCH ×3 (00:29→16:03)
[2017-06-25] MEDS: hydrALAZINE 25 MG TABLET PO SCH ×3 (00:29→16:03)
[2017-06-25] MEDS: MethylPREDNISolone 40 MG/ML VIAL IVP SCH ×3 (00:29→16:03)
[2017-06-25 03:17] LABS: Hematocrit 29.2 % (35.3-44.9); Hemoglobin 9.5 g/dL (11.5-15.4); Mean Corpuscular HGB Conc 32.5 g/dL (31.6-35.5); Mean Corpuscular Hemoglobin 31.1 pg (28.0-33.3); Mean Corpuscular Volume 95.7 fL (83.0-100.0); Mean Platelet Volume 11.3 fL (9.4-12.4); Platelet Count 201 K/mcL (140-400); Red Blood Count 3.05 M/mcL (3.82-4.97); Red Cell Distribution Width 13.6 % (11.5-14.5)
[2017-06-25 03:31] LABS: Calcium 8.5 mg/dL (8.6-10.8); Potassium 4.4 mEq/L (3.5-4.5)
[2017-06-25] MEDS: Piperacillin/Tazobactam 3.375 GM in D5% in Water (Mini-Bag+) 100 ML IVPB SCH ×2 (04:57→17:31)
[2017-06-25] MEDS: Ipratropium/Albuterol Neb 3 ML IH SCH ×4 (05:05→22:09)
[2017-06-25] MEDS: amLODIPine 5 MG TABLET PO SCH ×2 (07:48→20:08)
[2017-06-25] MEDS: Isosorbide MONOnitrate (24 HR) 30 MG TAB.ER.24H PO SCH (07:48)
[2017-06-25] MEDS: Nicotine 14 MG PATCH.TD24 TD SCH (07:49)
[2017-06-25] MEDS: Aspirin Enteric Coated 81 MG Tablet PO SCH (07:49)
[2017-06-25] MEDS: cloNIDine HCl 0.1 MG TABLET PO SCH ×3 (07:49→20:07)
--- NOTE | 2017-06-25 08:37 | Internal Med Progress Note ---
<Ryan Baeza - Last Filed: 06/25/17 11:26> Date of Encounter: 06/25/17 Time of Encounter: 08:15 - Assessment and plan (1) Sepsis Current Visit: Yes Status: Acute Assessment and plan: Bcx positive for pseudomonas. On IV Zosyn. Repeat cultures ordered for today. Qualifiers: Sepsis type: Pseudomonas Qualified Code(s): A41.52 - Sepsis due to Pseudomonas (2) Respiratory failure Current Visit: Yes Status: Acute Assessment and plan: Continue Oxygen supplementation. Has been titrated down to home O2 levels Qualifiers: Chronicity: acute on chronic Respiratory failure complication: hypoxia Qualified Code(s): J96.21 - Acute and chronic respiratory failure with hypoxia (3) Pneumonia Current Visit: Yes Status: Acute Assessment and plan: Bcx positive for Pseudomonous Sputum cx growing Gram negative lisandra Continue IV Levaquin and zosyn Qualifiers: Pneumonia type: due to unspecified organism Laterality: right Lung location: lower lobe of lung Qualified Code(s): J18.1 - Lobar pneumonia, unspecified organism (4) Hypertension Current Visit: Yes Status: Chronic Assessment and plan: Chronic, Stable. continue home meds. Continue to monitor Qualifiers: Hypertension type: essential hypertension Qualified Code(s): I10 - Essential (primary) hypertension (5) Anemia in chronic kidney disease (CKD) Current Visit: No Status: Acute Assessment and plan: Chronic, Stable Undergoing dialyssi today continue Aranesp. Qualifiers: Chronic kidney disease stage: on chronic dialysis Qualified Code(s): N18.6 - End stage renal disease; D63.1 - Anemia in chronic kidney disease; Z99.2 - Dependence on renal dialysis (6) Afib Current Visit: Yes Status: Chronic Assessment and plan: Chronic, Stable Rate controlled at this time. Continue to monitor Qualifiers: Atrial fibrillation type: chronic Qualified Code(s): I48.2 - Chronic atrial fibrillation (7) COPD (chronic obstructive pulmonary disease) Current Visit: No Status: Chronic Assessment and plan: Chronic, stable. Continue home meds Qualifiers: COPD type: emphysema Emphysema type: centrilobular Qualified Code(s): J43.2 - Centrilobular emphysema (8) Tobacco abuse Current Visit: No Status: Chronic Assessment and plan: Cessation counselling. Provided previously - Subjective Interval history: Patient reports that her breathing feels better and that she has been oxygenating well. She denies Chest Pain, Abd pain, N, V, D, Fevers, chills. - Constitutional Vitals: Temp Pulse Resp BP Pulse Ox 97.2 F L 97 16 168/76 93 06/25/17 07:37 06/25/17 07:37 06/25/17 07:37 06/25/17 07:37 06/25/17 08:03 General appearance: Present: A&O X 3, pleasant, answers questions appropriately - Head Head exam: Present: atraumatic, normocephalic - Eye Eye exam: Present: PERRL, conjuntiva pink, sclera anicteric Pupils: Present: PERRL - Neck Neck exam general surgery: Present: supple, trachea midline - Respiratory Respiratory exam: Present: rales, rhonchi. Absent: accessory muscle use, wheezes - Cardiovascular Cardiovascular exam: Present: RRR, +S1, +S2. Absent: diastolic murmur, gallop, rubs, systolic murmur - GI/Abdominal GI/Abdominal exam: Present: normal bowel sounds, soft, no peritoneal signs. Absent: distended, tenderness - Extremities Exam Extremities exam: Present: warm. Absent: calf tenderness, cyanotic, pedal edema Additional comments: Fistula R forearm - Neurological Exam Neurological exam: Present: alert, oriented X3. Absent: facial droop, speech deficit - Skin Skin exam: Present: dry, intact Internal Medicine: Result - Labs CBC & Chem 7: 06/25/17 02:55 06/25/17 02:55 Labs: Short CBC 06/25/17 Range/Units 02:55 WBC 12.2 H (4.3-11.1) K/mcL Hgb 9.5 L (11.5-15.4) g/dL Hct 29.2 L (35.3-44.9) % Plt Count 201 (140-400) K/mcL BMP 06/25/17 02:55 Sodium 133 L Potassium 4.4 Chloride 90 L Carbon Dioxide 26 BUN 51 H D Creatinine 5.46 H Glucose 142 H Calcium 8.5 L - ABG Interpretation ABG results: ABG ABG pH 7.46 pH Units (7.32-7.45) H 06/23/17 16:39 ABG pCO2 45 mmHg (35-45) 06/23/17 16:39 ABG pO2 136 mmHg (85-104) H 06/23/17 16:39 ABG O2 Saturation 99 % (95-98) H 06/23/17 16:39 - VTE Documentation of Mechanical Device: Graduated compression elastic hosiery Consult Discharge Plan - Plan Referrals: Eileen House, HORSE FARM MANAGER [Primary Care Provider] - (web request 06/24/2017) <Miah Mcmahon - Last Filed: 06/25/17 14:46> Date of Encounter: 06/25/17 - Assessment and plan (1) Sepsis Current Visit: Yes Status: Acute Qualifiers: Sepsis type: Pseudomonas Qualified Code(s): A41.52 - Sepsis due to Pseudomonas (2) Respiratory failure Current Visit: Yes Status: Acute Qualifiers: Chronicity: acute on chronic Respiratory failure complication: hypoxia Qualified Code(s): J96.21 - Acute and chronic respiratory failure with hypoxia (3) Pneumonia Current Visit: Yes Status: Suspected Qualifiers: Pneumonia type: due to Pseudomonas Laterality: right Lung location: lower lobe of lung Qualified Code(s): J15.1 - Pneumonia due to Pseudomonas (4) Hypertension Current Visit: Yes Status: Chronic Qualifiers: Hypertension type: essential hypertension Qualified Code(s): I10 - Essential (primary) hypertension (5) Anemia in chronic kidney disease (CKD) Current Visit: Yes Status: Chronic Qualifiers: Chronic kidney disease stage: on chronic dialysis Qualified Code(s): N18.6 - End stage renal disease; D63.1 - Anemia in chronic kidney disease; Z99.2 - Dependence on renal dialysis (6) Afib Current Visit: Yes Status: Chronic Qualifiers: Atrial fibrillation type: chronic Qualified Code(s): I48.2 - Chronic atrial fibrillation (7) COPD (chronic obstructive pulmonary disease) Current Visit: No Status: Chronic Qualifiers: COPD type: emphysema Emphysema type: centrilobular Qualified Code(s): J43.2 - Centrilobular emphysema (8) Tobacco abuse Current Visit: No Status: Chronic - Constitutional Vitals: Temp Pulse Resp BP Pulse Ox 97.6 F 97 15 162/81 93 06/25/17 12:50 06/25/17 07:37 06/25/17 12:50 06/25/17 12:50 06/25/17 08:03 Internal Medicine: Result - Labs CBC & Chem 7: 06/25/17 02:55 06/25/17 02:55 Labs: Short CBC 06/25/17 Range/Units 02:55 WBC 12.2 H (4.3-11.1) K/mcL Hgb 9.5 L (11.5-15.4) g/dL Hct 29.2 L (35.3-44.9) % Plt Count 201 (140-400) K/mcL BMP 06/25/17 02:55 Sodium 133 L Potassium 4.4 Chloride 90 L Carbon Dioxide 26 BUN 51 H D Creatinine 5.46 H Glucose 142 H Calcium 8.5 L - ABG Interpretation ABG results: ABG ABG pH 7.46 pH Units (7.32-7.45) H 06/23/17 16:39 ABG pCO2 45 mmHg (35-45) 06/23/17 16:39 ABG pO2 136 mmHg (85-104) H 06/23/17 16:39 ABG O2 Saturation 99 % (95-98) H 06/23/17 16:39 - Attending Attestation I examined this patient and my medical decision-making was reviewed with the Resident Physician on 06/25/17. I agree with the documented findings, disposition and treatment plan as described except to the extent set forth below. Ms. Hedrick is currently admitted for Pseudomonas bacteremia and pneumonia. She remains moderate to high risk due to potential for worsening respiratory and infectious issues. Ms. Hedrick is feeling OK today. She is congested but is to have dialysis this AM. No fever or chills. Slept OK and is eating OK. Exam Alert. Comfortable Mucus membranes dry Heart not tachy Lungs with rales and rhonchi bilaterally Abd soft I/P 1. Pseudomonal sepsis 2. Gram neg pneumonia Further diagnoses and plan as above.
[2017-06-25] MEDS ORDERED: 0.9 % Sodium Chloride 250 ML IVC PRN (08:40)
--- NOTE | 2017-06-25 08:40 | Nephrology Progress Note ---
Date of Encounter: 06/25/17 Time of Encounter: 08:37 - Assessment and Plan (1) ESRD (end stage renal disease) on dialysis Current Visit: Yes Status: Chronic Patient will undergo dialysis today. Hemoglobin is 9.5. She will be maintained on Aranesp. She continues on antibiotics for Pseudomonas bacteremia as well as pneumonia. (2) Bacteremia due to Gram-negative bacteria Current Visit: Yes Status: Acute (3) Pneumonia Current Visit: Yes Status: Suspected Qualifiers: Pneumonia type: due to Pseudomonas Laterality: right Lung location: lower lobe of lung Qualified Code(s): J15.1 - Pneumonia due to Pseudomonas (4) COPD (chronic obstructive pulmonary disease) Current Visit: No Status: Chronic Qualifiers: COPD type: emphysema Emphysema type: centrilobular Qualified Code(s): J43.2 - Centrilobular emphysema (5) Afib Current Visit: Yes Status: Chronic Qualifiers: Atrial fibrillation type: chronic Qualified Code(s): I48.2 - Chronic atrial fibrillation Subjective Interval history: The patient reports she is feeling better. She does continue to have a cough. She is scheduled for her usual dialysis today. She is currently on antibiotics for Pseudomonas bacteremia. Objective - Vital Signs Vital signs: Vital Signs Temp Pulse Resp BP Pulse Ox 06/25/17 08:03 93 06/25/17 07:37 97.2 F L 97 16 168/76 93 06/25/17 05:05 16 98 06/25/17 04:32 97.6 F 92 17 174/79 97 06/24/17 23:29 97.6 F 91 16 156/80 94 06/24/17 22:57 17 92 06/24/17 20:44 95 06/24/17 20:35 97.7 F 96 18 175/84 95 06/24/17 15:47 97.4 F L 105 18 163/74 98 06/24/17 15:31 18 100 06/24/17 11:28 97.4 F L 83 17 163/72 90 06/24/17 10:20 16 183/77 94 Intake and Output 06/24/17 06/25/17 06/25/17 23:59 07:59 15:59 Intake Total 580 / 580 500 / 500 Output Total 0 / 0 0 / 0 Balance 580 / 580 500 / 500 0 / 0 Intake: IV Fluids 100 / 100 Zosyn 3.375 GM In 100 / 100 Dextrose 5% (Minibag+) 100 ML 100 ML @ 25 mls/hr IVPB Q12H [facility] Rx#: [id number] Oral 480 / 480 500 / 500 Output: Urine 0 / 0 0 / 0 Other: Meal Dinner Percent of Meal Consumed 5% - General Appearance Exam: Patient is alert and oriented. She is in no acute distress. Lungs manage breath sounds bilaterally. Heart irregular rate and rhythm consistent with atrial fibrillation. Abdomen was benign. There is mild lower extremity swelling. There is a functioning AV fistula in the right upper extremity. - Lab 06/25/17 02:55 06/25/17 02:55 Most recent lab results ABG pH 7.46 pH Units (7.32-7.45) H 06/23/17 16:39 ABG pCO2 45 mmHg (35-45) 06/23/17 16:39 ABG pO2 136 mmHg (85-104) H 06/23/17 16:39 ABG HCO3 32 mEq/L (21-27) H 06/23/17 16:39 ABG O2 Saturation 99 % (95-98) H 06/23/17 16:39 Calcium 8.5 mg/dL (8.6-10.8) L 06/25/17 02:55 Magnesium 1.4 mg/dL (1.6-2.6) L 06/23/17 16:52 - VTE Documentation of Mechanical Device: Graduated compression elastic hosiery Consult Discharge Plan - Plan Referrals: Eileen House [employer] RO[employer] CALENDER OPERATOR [Primary Care Provider] - (web request 06/24/2017)
[2017-06-25] MEDS ORDERED: Levofloxacin 500 MG/100 ML 500 MG/100 ML BAG IVPB SCH ×2 (09:00→14:00)
[2017-06-25] MEDS: Budesonide/Formoterol 160/4.5 MDI IH SCH ×2 (10:29→22:09)
--- NOTE | 2017-06-25 17:25 | Electrocardiograph Report ---
[place] [id number] Test Date: 2017-06-23 Pat Name: Hilary Hedrick Department: 104 Room: 2A16 Gender: F Maintenance Coordinator: DONNELL : 1940 Requested By: Nasir Gibbons Order Number: [id number] Reading MD: Renan Rodrigues MD Measurements Intervals [place] Rate: 124 P: FL: 0 QRS: 88 QRSD: 102 T: 30 QT: 283 QTc: 356 Interpretive Statements ATRIAL FIBRILLATION WITH RAPID VENTRICULAR RESPONSE Electronically Signed On 06-25-2017 17:23:42 EDT by Renan Rodrigues MD
[2017-06-25] MEDS ORDERED: Saliva Stimulant 100ml BOTTLE PO PRN (18:33)
[2017-06-25] MEDS: Magnesium Oxide 400 MG TABLET PO SCH (20:07)
[2017-06-25 21:32] LABS: Hepatitis B Surface Antigen Nonreactive (Nonreactive)
[2017-06-25 22:49] LABS: Hepatitis B Surface Antibody 0.57 mIU/mL
[2017-06-26] MEDS: MethylPREDNISolone 40 MG/ML VIAL IVP SCH ×2 (00:08→07:58)
[2017-06-26] MEDS: *HR* Heparin 5,000 UNIT/ML VIAL SQ SCH ×3 (00:08→15:41)
[2017-06-26] MEDS: hydrALAZINE 25 MG TABLET PO SCH ×3 (00:08→15:41)
[2017-06-26 03:58] LABS: Hematocrit 28.5 % (35.3-44.9); Hemoglobin 9.4 g/dL (11.5-15.4); Mean Corpuscular Hemoglobin 31.9 pg (28.0-33.3); Mean Corpuscular Volume 96.6 fL (83.0-100.0); Platelet Count 208 K/mcL (140-400); Red Blood Count 2.95 M/mcL (3.82-4.97); Red Cell Distribution Width 13.6 % (11.5-14.5)
[2017-06-26 04:10] LABS: Calcium 8.3 mg/dL (8.6-10.8); Magnesium 1.6 mg/dL (1.6-2.6)
[2017-06-26] MEDS: Ipratropium/Albuterol Neb 3 ML IH SCH ×4 (04:36→23:01)
[2017-06-26] MEDS: Piperacillin/Tazobactam 3.375 GM in D5% in Water (Mini-Bag+) 100 ML IVPB SCH (05:46)
[2017-06-26] MEDS: Magnesium Oxide 400 MG TABLET PO SCH ×2 (07:57→20:19)
[2017-06-26] MEDS: Isosorbide MONOnitrate (24 HR) 60 MG TAB.ER.24H PO SCH (07:58)
[2017-06-26] MEDS: cloNIDine HCl 0.1 MG TABLET PO SCH ×3 (07:58→20:19)
[2017-06-26] MEDS: amLODIPine 5 MG TABLET PO SCH ×2 (07:58→20:20)
[2017-06-26] MEDS: Aspirin Enteric Coated 81 MG Tablet PO SCH (07:58)
[2017-06-26] MEDS: Nicotine 14 MG PATCH.TD24 TD SCH (08:00)
--- NOTE | 2017-06-26 08:09 | Nephrology Progress Note ---
Date of Encounter: 06/26/17 Time of Encounter: 08:07 - Assessment and Plan (1) ESRD (end stage renal disease) on dialysis Current Visit: Yes Status: Chronic Patient is stable from a renal perspective. She continues on antibiotics for Pseudomonas bacteremia. Likely source is her pneumonia. She also has cultured Pseudomonas in the sputum. She will continue to be supported with dialysis every Sunday. (2) Bacteremia due to Gram-negative bacteria Current Visit: Yes Status: Acute (3) Pneumonia Current Visit: Yes Status: Suspected Qualifiers: Pneumonia type: due to Pseudomonas Laterality: right Lung location: lower lobe of lung Qualified Code(s): J15.1 - Pneumonia due to Pseudomonas (4) COPD (chronic obstructive pulmonary disease) Current Visit: No Status: Chronic Qualifiers: COPD type: emphysema Emphysema type: centrilobular Qualified Code(s): J43.2 - Centrilobular emphysema (5) Afib Current Visit: Yes Status: Chronic Qualifiers: Atrial fibrillation type: chronic Qualified Code(s): I48.2 - Chronic atrial fibrillation Subjective Interval history: Patient has no new complaints. She reports her breathing is stable and her cough continues to improve. She underwent her dialysis yesterday. Objective - Vital Signs Vital signs: Vital Signs Temp Pulse Resp BP Pulse Ox 06/26/17 06:37 97.4 F L 99 17 150/79 93 06/26/17 05:14 97.4 F L 97 16 165/76 100 06/26/17 04:39 16 99 06/26/17 00:25 98.1 F 98 18 164/78 96 06/25/17 22:12 18 94 06/25/17 20:23 96 06/25/17 19:59 97.8 F 94 20 162/79 96 06/25/17 15:40 97.6 F 100 97 154/76 06/25/17 15:35 15 95 06/25/17 12:50 97.6 F 15 162/81 06/25/17 12:40 156/72 06/25/17 12:10 158/78 06/25/17 11:40 144/73 06/25/17 11:10 149/75 06/25/17 10:40 150/84 06/25/17 10:10 159/71 06/25/17 09:43 97.5 F L 06/25/17 09:40 97.8 F 15 151/73 Intake and Output 06/25/17 06/26/17 06/26/17 23:59 07:59 15:59 Intake Total 460 / 460 Balance 460 / 460 Intake: IV Fluids 100 / 100 Zosyn 3.375 GM In 100 / 100 Dextrose 5% (Minibag+) 100 ML 100 ML @ 25 mls/hr IVPB Q12H [facility] Rx#: [id number] Oral 360 / 360 Other: Meal Dinner Percent of Meal Consumed 100% # Urine Diapers 1 - General Appearance Exam: Patient is alert and oriented. She is in no acute distress. Lungs breath sounds otherwise clear. There is some mild rhonchi but improved compared to yesterday. Heart irregular rate and rhythm consistent with atrial fibrillation. Abdomen is benign. There is no lower extremity swelling. There is a functioning AV fistula in the right upper extremity. - Lab 06/26/17 03:45 06/26/17 03:45 Most recent lab results ABG pH 7.46 pH Units (7.32-7.45) H 06/23/17 16:39 ABG pCO2 45 mmHg (35-45) 06/23/17 16:39 ABG pO2 136 mmHg (85-104) H 06/23/17 16:39 ABG HCO3 32 mEq/L (21-27) H 06/23/17 16:39 ABG O2 Saturation 99 % (95-98) H 06/23/17 16:39 Calcium 8.3 mg/dL (8.6-10.8) L 06/26/17 03:45 Magnesium 1.6 mg/dL (1.6-2.6) 06/26/17 03:45 - VTE Documentation of Mechanical Device: Graduated compression elastic hosiery Consult Discharge Plan - Plan Referrals: Eileen House, SPRING FORGER [Primary Care Provider] - (web request 06/24/2017)
[2017-06-26] MEDS: Budesonide/Formoterol 160/4.5 MDI IH SCH ×2 (10:46→23:01)
--- NOTE | 2017-06-26 11:27 | Internal Med Progress Note ---
<Ryan Baeza - Last Filed: 06/26/17 11:24> Date of Encounter: 06/26/17 Time of Encounter: 10:00 - Assessment and plan (1) Sepsis Current Visit: Yes Status: Acute Assessment and plan: Bcx positive for pseudomonas. Continue IV cefepime and Levofloxacin. Qualifiers: Sepsis type: Pseudomonas Qualified Code(s): A41.52 - Sepsis due to Pseudomonas (2) Respiratory failure Current Visit: Yes Status: Acute Assessment and plan: Continue Oxygen supplementation. -Has been titrated down to home O2 levels Qualifiers: Chronicity: acute on chronic Respiratory failure complication: hypoxia Qualified Code(s): J96.21 - Acute and chronic respiratory failure with hypoxia (3) Pneumonia Current Visit: Yes Status: Acute Assessment and plan: Present upon admission. Health Care associated Pneumonia. Bcx positive for Pseudomonous -Sputum cx growing Gram negative lisandra -Continue IV Levaquin and cefepime Qualifiers: Pneumonia type: due to unspecified organism Laterality: right Lung location: lower lobe of lung Qualified Code(s): J18.1 - Lobar pneumonia, unspecified organism (4) Hypertension Current Visit: Yes Status: Chronic Assessment and plan: Chronic, Stable. -continue home meds. -Continue to monitor Qualifiers: Hypertension type: essential hypertension Qualified Code(s): I10 - Essential (primary) hypertension (5) Anemia in chronic kidney disease (CKD) Current Visit: No Status: Acute Assessment and plan: Chronic, Stable -Undergoing dialyssi today -continue Aranesp. Qualifiers: Chronic kidney disease stage: on chronic dialysis Qualified Code(s): N18.6 - End stage renal disease; D63.1 - Anemia in chronic kidney disease; Z99.2 - Dependence on renal dialysis (6) Afib Current Visit: Yes Status: Chronic Assessment and plan: Chronic, Stable -Rate controlled at this time. -Continue to monitor Qualifiers: Atrial fibrillation type: chronic Qualified Code(s): I48.2 - Chronic atrial fibrillation (7) COPD (chronic obstructive pulmonary disease) Current Visit: No Status: Chronic Assessment and plan: Chronic, stable. -Continue home meds Qualifiers: COPD type: emphysema Emphysema type: centrilobular Qualified Code(s): J43.2 - Centrilobular emphysema (8) Tobacco abuse Current Visit: No Status: Chronic Assessment and plan: -Cessation counselling. Provided previously - Subjective Interval history: Patient reports that her breathing feels better. She denies Chest Pain, Abd pain , N, V, D, Fevers, chills. - Constitutional Vitals: Temp Pulse Resp BP Pulse Ox 97.7 F 95 16 153/71 95 06/26/17 10:23 06/26/17 10:23 06/26/17 10:48 06/26/17 10:23 06/26/17 10:48 General appearance: Present: A&O X 3, pleasant, answers questions appropriately - Head Head exam: Present: atraumatic, normocephalic - Eye Eye exam: Present: PERRL, conjuntiva pink, sclera anicteric Pupils: Present: PERRL - Neck Neck exam general surgery: Present: supple, trachea midline - Respiratory Respiratory exam: Present: rales, rhonchi. Absent: accessory muscle use, wheezes - Cardiovascular Cardiovascular exam: Present: irregular rhythm, RRR, +S1, +S2. Absent: diastolic murmur, gallop, rubs, systolic murmur - GI/Abdominal GI/Abdominal exam: Present: normal bowel sounds, soft, no peritoneal signs. Absent: distended, tenderness - Extremities Exam Extremities exam: Present: warm. Absent: calf tenderness, cyanotic, pedal edema - Neurological Exam Neurological exam: Present: alert, oriented X3. Absent: facial droop, speech deficit - Psychiatric Psychiatric exam: Present: normal affect, normal mood - Skin Skin exam: Present: dry, intact Internal Medicine: Result - Labs CBC & Chem 7: 06/26/17 03:45 06/26/17 03:45 Labs: Short CBC 06/26/17 Range/Units 03:45 WBC 9.1 (4.3-11.1) K/mcL Hgb 9.4 L (11.5-15.4) g/dL Hct 28.5 L (35.3-44.9) % Plt Count 208 (140-400) K/mcL BMP 06/26/17 03:45 Sodium 133 L Potassium 5.0 H Chloride 95 L Carbon Dioxide 24 BUN 41 H D Creatinine 3.76 H Glucose 145 H Calcium 8.3 L - ABG Interpretation ABG results: ABG ABG pH 7.46 pH Units (7.32-7.45) H 06/23/17 16:39 ABG pCO2 45 mmHg (35-45) 06/23/17 16:39 ABG pO2 136 mmHg (85-104) H 06/23/17 16:39 ABG O2 Saturation 99 % (95-98) H 06/23/17 16:39 - VTE Documentation of Mechanical Device: Graduated compression elastic hosiery Consult Discharge Plan - Plan Referrals: Eileen House, MOBILE PAINT SPECIALIST [Primary Care Provider] - (web request 06/24/2017) <Ulices Henry - Last Filed: 06/26/17 17:52> Date of Encounter: 06/26/17 - Constitutional Vitals: Temp Pulse Resp BP Pulse Ox 97.5 F L 102 18 153/81 91 06/26/17 15:33 06/26/17 15:33 06/26/17 15:45 06/26/17 15:33 06/26/17 15:45 Internal Medicine: Result - Labs CBC & Chem 7: 06/26/17 03:45 06/26/17 03:45 Labs: Short CBC 06/26/17 Range/Units 03:45 WBC 9.1 (4.3-11.1) K/mcL Hgb 9.4 L (11.5-15.4) g/dL Hct 28.5 L (35.3-44.9) % Plt Count 208 (140-400) K/mcL BMP 06/26/17 03:45 Sodium 133 L Potassium 5.0 H Chloride 95 L Carbon Dioxide 24 BUN 41 H D Creatinine 3.76 H Glucose 145 H Calcium 8.3 L - ABG Interpretation ABG results: ABG ABG pH 7.46 pH Units (7.32-7.45) H 06/23/17 16:39 ABG pCO2 45 mmHg (35-45) 06/23/17 16:39 ABG pO2 136 mmHg (85-104) H 06/23/17 16:39 ABG O2 Saturation 99 % (95-98) H 06/23/17 16:39 - Attending Attestation I examined this patient and my medical decision-making was reviewed with the Resident Physician. I agree with the documented findings, disposition and treatment plan as described except to the extent set forth below. Home tomorrow with home health will d/w renal regarding Abx
[2017-06-26] MEDS: predniSONE 20 MG TABLET PO SCH (15:53)
[2017-06-26] MEDS ORDERED: Cefepime HCl 1,000 MG in D5% in Water (Mini-Bag+) 100 ML IVPB SCH (16:00)
[2017-06-27] MEDS: hydrALAZINE 25 MG TABLET PO SCH ×2 (00:25→07:49)
[2017-06-27] MEDS: *HR* Heparin 5,000 UNIT/ML VIAL SQ SCH ×2 (00:25→07:50)
[2017-06-27 03:27] LABS: Basophils % 0.1 %; Hematocrit 28.7 % (35.3-44.9); Hemoglobin 9.5 g/dL (11.5-15.4); Immature Granulocytes % 1.2 % (0-4); Lymphocytes # 0.5 K/mcL (0.6-4.6); Lymphocytes % 4.5 %; Mean Corpuscular HGB Conc 33.1 g/dL (31.6-35.5); Mean Corpuscular Hemoglobin 31.3 pg (28.0-33.3); Mean Corpuscular Volume 94.4 fL (83.0-100.0); Mean Platelet Volume 10.4 fL (9.4-12.4); Monocytes # 0.7 K/mcL (0.0-1.3); Monocytes % 6.5 %; Platelet Count 233 K/mcL (140-400); Red Blood Count 3.04 M/mcL (3.82-4.97); Red Cell Distribution Width 13.5 % (11.5-14.5); Segmented Neutrophils % 87.7 %
[2017-06-27 03:38] LABS: Calcium 8.6 mg/dL (8.6-10.8); Potassium 5.1 mEq/L (3.5-4.5)
[2017-06-27] MEDS: Ipratropium/Albuterol Neb 3 ML IH SCH ×3 (04:38→15:14)
[2017-06-27] MEDS: Aspirin Enteric Coated 81 MG Tablet PO SCH (07:49)
[2017-06-27] MEDS: amLODIPine 5 MG TABLET PO SCH (07:49)
[2017-06-27] MEDS: predniSONE 20 MG TABLET PO SCH (07:49)
[2017-06-27] MEDS: Nicotine 14 MG PATCH.TD24 TD SCH (07:49)
[2017-06-27] MEDS: cloNIDine HCl 0.1 MG TABLET PO SCH (07:49)
[2017-06-27] MEDS: Isosorbide MONOnitrate (24 HR) 60 MG TAB.ER.24H PO SCH (07:49)
[2017-06-27] MEDS: Magnesium Oxide 400 MG TABLET PO SCH (07:49)
[2017-06-27] MEDS ORDERED: 0.9 % Sodium Chloride 250 ML IVC PRN (08:23)
--- NOTE | 2017-06-27 08:23 | Nephrology Progress Note ---
Date of Encounter: 06/27/17 Time of Encounter: 08:22 - Assessment and Plan (1) ESRD (end stage renal disease) on dialysis Current Visit: Yes Status: Chronic Patient is stable from a renal perspective. Patient will undergo dialysis today. She has Pseudomonas bacteremia in the setting of Pseudomonas pneumonia. She is going to be discharged home today. We will continue gentamicin with dialysis as an outpatient for another 10 days to 2 weeks. (2) Bacteremia due to Gram-negative bacteria Current Visit: Yes Status: Acute (3) Pneumonia Current Visit: Yes Status: Suspected Qualifiers: Pneumonia type: due to Pseudomonas Laterality: right Lung location: lower lobe of lung Qualified Code(s): J15.1 - Pneumonia due to Pseudomonas (4) COPD (chronic obstructive pulmonary disease) Current Visit: No Status: Chronic Qualifiers: COPD type: emphysema Emphysema type: centrilobular Qualified Code(s): J43.2 - Centrilobular emphysema (5) Afib Current Visit: Yes Status: Chronic Qualifiers: Atrial fibrillation type: chronic Qualified Code(s): I48.2 - Chronic atrial fibrillation Subjective Interval history: Patient reports she has some reflux symptoms last night. Currently she feels well. She denies any shortness of breath. Vital signs are stable. She is scheduled for routine dialysis today. Objective - Vital Signs Vital signs: Vital Signs Temp Pulse Resp BP Pulse Ox 06/27/17 07:57 95 06/27/17 07:20 97.6 F 89 18 152/72 95 06/27/17 04:59 97.6 F 101 18 161/77 85 06/27/17 04:38 16 94 06/27/17 00:12 98.3 F 99 18 156/80 99 06/26/17 20:37 97 06/26/17 18:38 97.5 F L 106 18 143/86 96 06/26/17 15:45 18 91 06/26/17 15:33 97.5 F L 102 18 153/81 97 06/26/17 10:48 16 95 06/26/17 10:23 97.7 F 95 16 153/71 95 Intake and Output 06/26/17 06/27/17 06/27/17 23:59 07:59 15:59 Intake Total 0 / 0 Balance 0 / 0 Intake: Oral 0 / 0 Other: Meal Dinner Percent of Meal Consumed 100% Weight 58.8 kg Patient Weight 06/27/17 23:59 Weight 58.8 kg - General Appearance Exam: Patient is alert and oriented. She is in no acute distress. Lung sounds. No wheezing or rhonchi. Heart irregular rate and rhythm consistent with atrial fibrillation. Abdomen is benign. There is mild lower extremity swelling. There is a functioning AV fistula in the right upper extremity. - Lab 06/27/17 03:19 06/27/17 03:19 Most recent lab results ABG pH 7.46 pH Units (7.32-7.45) H 06/23/17 16:39 ABG pCO2 45 mmHg (35-45) 06/23/17 16:39 ABG pO2 136 mmHg (85-104) H 06/23/17 16:39 ABG HCO3 32 mEq/L (21-27) H 06/23/17 16:39 ABG O2 Saturation 99 % (95-98) H 06/23/17 16:39 Calcium 8.6 mg/dL (8.6-10.8) 06/27/17 03:19 Magnesium 1.6 mg/dL (1.6-2.6) 06/26/17 03:45 - VTE Documentation of Mechanical Device: Graduated compression elastic hosiery Consult Discharge Plan - Plan Referrals: Eileen House CNP [Primary Care Provider] - (web request 06/24/2017)
--- NOTE | 2017-06-27 08:23 | Discharge Summary ---
<Ryan Baeza - Last Filed: 06/27/17 16:38> Date of Encounter: 06/27/17 Time of Encounter: 08:15 - Discharge Diagnosis (1) Sepsis Priority: Primary Status: Acute Qualifiers: Sepsis type: Pseudomonas Qualified Code(s): A41.52 - Sepsis due to Pseudomonas (2) Respiratory failure Priority: Secondary Status: Acute Qualifiers: Chronicity: acute on chronic Respiratory failure complication: hypoxia Qualified Code(s): J96.21 - Acute and chronic respiratory failure with hypoxia (3) Pneumonia Priority: Secondary Status: Acute Qualifiers: Pneumonia type: due to unspecified organism Laterality: right Lung location: lower lobe of lung Qualified Code(s): J18.1 - Lobar pneumonia, unspecified organism (4) Hypertension Priority: Secondary Status: Chronic Qualifiers: Hypertension type: essential hypertension Qualified Code(s): I10 - Essential (primary) hypertension (5) Anemia in chronic kidney disease (CKD) Priority: Secondary Status: Acute Qualifiers: Chronic kidney disease stage: on chronic dialysis Qualified Code(s): N18.6 - End stage renal disease; D63.1 - Anemia in chronic kidney disease; Z99.2 - Dependence on renal dialysis (6) Afib Priority: Secondary Status: Chronic Qualifiers: Atrial fibrillation type: chronic Qualified Code(s): I48.2 - Chronic atrial fibrillation (7) COPD (chronic obstructive pulmonary disease) Priority: Secondary Status: Chronic Qualifiers: COPD type: emphysema Emphysema type: centrilobular Qualified Code(s): J43.2 - Centrilobular emphysema (8) Tobacco abuse Priority: Secondary Status: Chronic - Discharge Medications Prescriptions: levoFLOXacin [Levaquin] 750 mg PO DAILY #9 tablet Home Medications: Aspirin Enteric Coated [Aspirin EC] 81 mg PO DAILY #0 02/29/16 [History] Albuterol Sulfate [Proair Hfa] 2 puff IH Q4H PRN 03/23/16 [History] Oxygen 2 l .ROUTE AD 08/27/16 [History] Budesonide/Formoterol 160/4.5 [Symbicort 160/4.5] 2 puff IH BIDR #1 inhaler 07/01 [Rx] Ipratropium/Albuterol Neb [Duoneb] 3 ml IH [id number] inhsol 04/16/17 [Rx] Omeprazole [PriLOSEC] 40 mg PO DAILY capsule. 04/16/17 [Rx] hydrALAZINE [HydrALAZINE] 25 mg PO Q8HR tablet 04/16/17 [Rx] Carvedilol [Coreg] 25 mg PO BID 06/24/17 [History] Diltiazem CD (24hr) [Cardizem CD] 300 mg PO DAILY 06/24/17 [History] Furosemide [Lasix] 40 mg PO DAILY 06/24/17 [History] Isosorbide MONOnitrate (24 HR) [Imdur] 60 mg PO DAILY 06/24/17 [History] Losartan Potassium [Cozaar] 50 mg PO DAILY 06/24/17 [History] Losartan [Cozaar] 50 mg PO BID tab 06/27/17 [Rx] amLODIPine [Norvasc] 10 mg PO BID tab 06/27/17 [Rx] cloNIDine HCl [CloNIDine HCl] 0.2 mg PO TID tab 06/27/17 [Rx] levoFLOXacin [Levaquin] 750 mg PO DAILY #9 tablet 06/27/17 [Rx] Allergies/Adverse Reactions: 3 Allergy/AdvReac Type Severity Reaction Status Date / Time codeine Allergy Confusion Verified 03/24/17 21:00 Procedures/tests Complete & Pending: CXR: FINDINGS: No change in the right lower lobe airspace disease or small right pleural effusion. There is mild pulmonary vascular congestion. The cardiac silhouette is stable. There is no pneumothorax. The endotracheal nasogastric tubes been removed. XR/XR chest 1V portable IMPRESSION: 1. Unchanged right lower lobe airspace disease concerning for pneumonia. 2. Underlying congestive heart failure. Date of admission: 06/23/17 18:23 Primary care physician: Eileen House CNP Consults: 06/23/17 18:39 Consult to Nephrology [CONS] Routine Consulting Provider: Kidney & HTN Vasu REY Reason for Consult: 77F with ESRD on HD MWF, here with sepsis and pneumonia. Last HD Sunday. Call Completed: No 06/23/17 19:07 Consult to Nutrition [CONS] Routine Comment: Consulting Provider: NUTRITION Reason for Dietary Consult: MST Score 06/23/17 19:36 Consult to Valve Assembler [CONS] Routine Reason for SW Consult: [facility] and O2 06/25/17 08:45 Consult to Dialysis [CONS] ONCE Discharging clinician: Ryan Baeza Anticipated date of discharge: 06/27/17 - Patient Status Disposition: Home Health Service Condition: Fair Functional capacity at discharge: uses cane/walker Overall status at discharge: patient is progressing back to baseline - Discharge Instructions Instructions: Levofloxacin (By mouth), Chronic Obstructive Pulmonary Disease ( DC), Pneumonia (DC) Follow Up With: Eileen House CNP [Primary Care Provider] - 06/29/17 1:00 pm () Additional Instructions: Please follow up with your primary care provider within 1 week. Please continue to follow up with Dialysis on your regularly scheduled days. Please resume all your home medications as prescribed. Please take your antibiotic levaquin by mouth daily for the next 9 days. You will be receiving another antibiotic in Dialysis. Please return to the hospital if you experience any new or worsening symptoms. - Diet and Activity Activity: resume usual activities as tolerated Diet: other (Renal diet) Interval History: Patient reports breathing is back to baseline and feels fine. Explained plan for oral abx and IV abx with dialysis. Patient is eager to go home. Hospital course: Ms. Hedrick is a 77 year old female with PMhx of ESRD on HD MWF, CHF, COPD, afib, HTN, GERD who reports to the hospital c/o SOB and productive cough. Patient was hypoxic and in afib with RVR upon presentation. She was placed on oxygen and her rate wa brought under control. She had Bcx, Sputum Cx, and urine Cx drawn and was started on broad spectrum abx. Patient had a CXR done. Patient was found to have Pseudomonous bacteremia and sputum and was treated for Pseudomonous pneumonia. Abx were narrowed based on patient's cultures. Patient improved clinically with treatment and was discharged home on abx. - Time Spent with Patient Total time spent providing and/or coordinating discharge services: 40 minutes - Constitutional Vitals: Temp Pulse Resp BP Pulse Ox 97.6 F 89 18 152/72 95 06/27/17 07:20 06/27/17 07:20 06/27/17 07:20 06/27/17 07:20 06/27/17 07:57 General appearance: Present: A&O X 3, pleasant, answers questions appropriately - Head Head exam: Present: atraumatic, normocephalic - Eye Eye exam: Present: PERRL, conjuntiva pink, sclera anicteric Pupils: Present: PERRL - Neck Neck exam general surgery: Present: supple, trachea midline - Respiratory Respiratory exam: Present: decreased breath sounds, CTAB. Absent: accessory muscle use, rales, rhonchi, wheezes - Cardiovascular Cardiovascular exam: Present: irregular rhythm, +S1, +S2. Absent: diastolic murmur, gallop, rubs, systolic murmur - GI/Abdominal GI/Abdominal exam: Present: normal bowel sounds, soft, no peritoneal signs. Absent: distended, tenderness - Extremities Exam Extremities exam: Present: warm. Absent: calf tenderness, cyanotic, pedal edema Additional comments: AV fistula R forearm - Neurological Exam Neurological exam: Present: CN II-XII intact, oriented X3, no focal deficits. Absent: pronater drift, facial droop, speech deficit - Psychiatric Psychiatric exam: Present: normal affect, normal mood - Skin Skin exam: Present: dry, intact - VTE Documentation of Mechanical Device: Graduated compression elastic hosiery <Elaine,Ulices P - Last Filed: 06/27/17 18:12> Date of Encounter: 06/27/17 Date of admission: 06/23/17 18:23 Primary care physician: Eileen House CNP Consults: 06/23/17 18:39 Consult to Nephrology [CONS] Routine Consulting Provider: Kidney & HTN Vasu REY Reason for Consult: 77F with ESRD on HD MWF, here with sepsis and pneumonia. Last HD Sunday. Call Completed: No 06/23/17 19:07 Consult to Nutrition [CONS] Routine Comment: Consulting Provider: NUTRITION Reason for Dietary Consult: MST Score 06/23/17 19:36 Consult to Valve Assembler [CONS] Routine Reason for SW Consult: has [facility] and O2 06/25/17 08:45 Consult to Dialysis [CONS] ONCE 06/27/17 08:30 Consult to Dialysis [CONS] ONCE Hospital course: Ms. Hedrick is a 77 year old female - Time Spent with Patient Total time spent providing and/or coordinating discharge services: - Constitutional Vitals: Temp Pulse Resp BP Pulse Ox 97.4 F L 106 16 149/78 97 06/27/17 13:30 06/27/17 13:30 06/27/17 13:30 06/27/17 13:30 06/27/17 13:30 - Attending Attestation I examined this patient and my medical decision-making was reviewed with the Resident Physician. I agree with the documented findings, disposition and treatment plan as described except to the extent set forth below. I given handwritten prescription for levofloxacin 750 mg every 48 hours altogether 9 tablets
[2017-06-27] MEDS ORDERED: Ertapenem 1,000 MG in 0.9 % Sodium Chloride Mini Bag 100 ML IVPB SCH (09:00)
--- NOTE | 2017-06-27 09:13 | Physician Discharge Referral ---
<Ryan Baeza - Last Filed: 06/27/17 09:11> Home Health/Hosp Referral Info Transfer to: Home Health Provider in Charge Post Discharge: PCP - Diagnosis (1) Sepsis Priority: Primary Status: Acute (2) Respiratory failure Priority: Secondary Status: Acute (3) Pneumonia Priority: Secondary Status: Acute (4) Hypertension Priority: Secondary Status: Chronic (5) Anemia in chronic kidney disease (CKD) Priority: Secondary Status: Acute (6) Afib Priority: Secondary Status: Chronic (7) COPD (chronic obstructive pulmonary disease) Priority: Secondary Status: Chronic (8) Tobacco abuse Priority: Secondary Status: Chronic - Respiratory Orders Oxygen / L per min (2-3L) Smoking Cessation: Smoking cessation has been advised. For more information, call the [place] Quit Line at 3-897-MASK-NOW. - Diet/Nutrition Diet/Nutrition Orders: Renal - Activity Activity Orders: Up ad mar, Walker - Services Needed Following services are medically necessary services: Nursing, Physical Therapy - Transfer Medications Prescriptions: levoFLOXacin [Levaquin] 750 mg PO DAILY #9 tablet Home Medications: Aspirin Enteric Coated [Aspirin EC] 81 mg PO DAILY #0 02/29/16 [History] Albuterol Sulfate [Proair Hfa] 2 puff IH Q4H PRN 03/23/16 [History] Oxygen 2 l .ROUTE AD 08/27/16 [History] Budesonide/Formoterol 160/4.5 [Symbicort 160/4.5] 2 puff IH BIDR #1 inhaler 07/01 [Rx] Ipratropium/Albuterol Neb [Duoneb] 3 ml IH [id number] inhsol 04/16/17 [Rx] Omeprazole [PriLOSEC] 40 mg PO DAILY capsule. 04/16/17 [Rx] hydrALAZINE [HydrALAZINE] 25 mg PO Q8HR tablet 04/16/17 [Rx] Carvedilol [Coreg] 25 mg PO BID 06/24/17 [History] Diltiazem CD (24hr) [Cardizem CD] 300 mg PO DAILY 06/24/17 [History] Furosemide [Lasix] 40 mg PO DAILY 06/24/17 [History] Isosorbide MONOnitrate (24 HR) [Imdur] 60 mg PO DAILY 06/24/17 [History] Losartan Potassium [Cozaar] 50 mg PO DAILY 06/24/17 [History] Losartan [Cozaar] 50 mg PO BID tab 06/27/17 [Rx] amLODIPine [Norvasc] 10 mg PO BID tab 06/27/17 [Rx] cloNIDine HCl [CloNIDine HCl] 0.2 mg PO TID tab 06/27/17 [Rx] levoFLOXacin [Levaquin] 750 mg PO DAILY #9 tablet 06/27/17 [Rx] Allergies/Adverse Reactions: 3 Allergy/AdvReac Type Severity Reaction Status Date / Time codeine Allergy Confusion Verified 03/24/17 21:00 Certification: Further, I certify that my clinical findings support that this patient is homebound (i.e. absences from home require considerable and taxing effort and are for medical reasons or jehovah's witness services or infrequently or short duration when for other reasons) because: Homebound Reason: Patient requires assistance of a person or device to safely leave home, Leaving home requires considerable and taxing effort due to condition, Severity of cardiac or pulmonary status limits activity tolerance Attestation: My signature below is to certify that this patient is under my care and that I, or nurse practitioner, or a physician's offset assistant press operator working with me, has a face-to -face encounter with this patient. <Ulices Henry P - Last Filed: 06/27/17 18:13> - Respiratory Orders Smoking Cessation: Smoking cessation has been advised. For more information, call the [place] Tobacco Quit Line at 5-432-XWHP-NOW. Certification: Further, I certify that my clinical findings support that this patient is homebound (i.e. absences from home require considerable and taxing effort and are for medical reasons or jehovah's witness services or infrequently or short duration when for other reasons) because: Attestation: My signature below is to certify that this patient is under my care and that I, or nurse practitioner, or a physician's offset assistant press operator working with me, has a face-to -face encounter with this patient.
[2017-06-27] MEDS: Budesonide/Formoterol 160/4.5 MDI IH SCH (11:10)
[2017-06-27 13:31] VITALS: BP 149/78
== END 2017-06-27 14:30 | disposition home health service (06) | DRG 871 ==
LOC: EMEROO 15:46 → 2ANU 18:23 → SUATTDRO 18:23 → 2ANU 18:47
PROVIDERS: ADMIT Internal Medicine; ATTEND Internal Medicine

== ENCOUNTER 2018-02-19 10:25 | Inpatient (IN) ==
--- NOTE | 2018-02-19 10:47 | Anesthesia Evaluation PreOp ---
Date of Encounter: 02/19/18 Time of Encounter: 10:45 - Past History Planned Operation: left imple mastectomy Cardiac History: CHF, HTN, Arrhythmia (a-fib), Other (CAD(nonobstructive), severe Pulmonary HTN, nonischemic cardiomyopathy) Pulmonary History: Smoker, Pack/yr (50+), COPD ("severe" on PFTs, no response to bronchodilators, on home O2) ORDER ADMINISTRATOR History: Denies Any Significant HX Other Medical History: Renal (renal cell carcinoma, Stage 5 CKD on HD), GERD Anesthesia History: No Prior Anesthetic Complications, Past Anesthesia (GILDA, Left nephrectomy, appy, BPS, Fistula right arm) : No Alcohol Use: none Drug use: none Medications and Allergies Aspirin Enteric Coated [Aspirin EC] 81 mg PO DAILY #0 02/29/16 [History] Albuterol Sulfate [Proair Hfa] 2 puff IH Q4H PRN 03/23/16 [History] Oxygen 2 l .ROUTE AD 08/27/16 [History] Budesonide/Formoterol 160/4.5 [Symbicort 160/4.5] 2 puff IH BIDR #1 inhaler 07/01 [Rx] Ipratropium/Albuterol Neb [Duoneb] 3 ml IH [id number] inhsol 04/16/17 [Rx] Omeprazole [PriLOSEC] 40 mg PO DAILY capsule. 04/16/17 [Rx] hydrALAZINE [HydrALAZINE] 25 mg PO Q8HR tablet 04/16/17 [Rx] Carvedilol [Coreg] 25 mg PO BID 06/24/17 [History] Diltiazem CD (24hr) [Cardizem CD] 300 mg PO DAILY 06/24/17 [History] Furosemide [Lasix] 40 mg PO DAILY 06/24/17 [History] Isosorbide MONOnitrate (24 HR) [Imdur] 30 mg PO DAILY 06/24/17 [History] Losartan Potassium [Cozaar] 50 mg PO DAILY 06/24/17 [History] Guaifenesin [Mucinex] 600 mg PO BID 12/11/17 [History] Loratadine [Claritin] 10 mg PO DAILY 12/11/17 [History] cloNIDine HCl [CloNIDine HCl] 0.2 mg PO PRN PRN 01/30/18 [History] 3 Allergy/AdvReac Type Severity Reaction Status Date / Time codeine Allergy Confusion Verified 12/11/17 09:45 - Meds/Allergy Pre-op Review Medications Reviewed: Yes Allergies Reviewed: Yes Beta Blockers on Current Med List: Yes Anesthesia Results - Labs Laboratory Tests 09/24/14 01/30/18 01/30/18 Unknown 13:22 13:22 Hgb 9.9 L Hct 31.1 L Plt Count 197 Sodium 140 Potassium 4.9 BUN 24 H POC Creatinine 2.82 H Est GFR (Non-Af Amer) 20 L - Imaging Additional studies: echo 12-30: Impressions: LVEF 60%. Normal LV chamber size and function. Mild concentric left ventricular hypertrophy. Indeterminate diastolic function. Normal right ventricular structure and function. Severely dilated left atrium. Severely dilated right atrium. Mild mitral regurgitation. Mild mitral stenosis. Mean gradient 4 mmHg (HR 99 BPM). Mild tricuspid regurgitation. Severe pulmonary hypertension. Estimated RVSP is 61 mmHg. Anesthesia Exam Weight: 48kg BMI 17 NPO (# of Hours): 8 - HEENT Pupil (Motor): EOMI Mallampati: III Teeth: Missing (has only 2 lower right teeth), Poor dentition Oral Opening: Greater than 3 - ORDER ADMINISTRATOR LOC: Oriented ORDER ADMINISTRATOR Motor: Normal RUE, Normal LUE, Normal RLE, Normal LLE, Normal Face ORDER ADMINISTRATOR Sensory: Normal: RUE, LUE, RLE, LLE, Face - Cardiac Rhythm: Irregular Murmur: None - Pulmonary Breath Sounds: bilateral Clear Respiratory Effort: Symmetrical Anesthesia Assess/Plan ASA Score: 4 Modified [place] Scale for Level of Consciousness: Cooperative, oriented, and tranquil Anesthetic Plan: Regional Monitoring Plan: Standard Monitors, A-Line Recovery Plan: PACU (Discussed high risks nature of patient with patient and family. Agrees to epidural and zoraida. Is aware that she may need ETT and wants it if needed.)
[2018-02-19] MEDS ORDERED: Ondansetron 4 MG/2 ML VIAL ONE (11:11)
[2018-02-19] MEDS ORDERED: *HR* Rocuronium Bromide 50 MG/5 ML VIAL ONE (11:11)
[2018-02-19] MEDS ORDERED: Dexamethasone 4 MG/ML VIAL ONE (11:11)
[2018-02-19] MEDS ORDERED: Lidocaine -MPF 2% 2 ML VIAL ONE (11:11)
[2018-02-19] MEDS ORDERED: Lidocaine -MPF 4% 5 ML AMPUL ONE (11:11)
[2018-02-19] MEDS ORDERED: *HR* FentaNYL (PF) 100 MCG/2 ML VIAL ONE (11:12)
[2018-02-19] MEDS ORDERED: *HR* Propofol 200 MG/20 ML VIAL IVP ONE (11:12)
[2018-02-19] MEDS ORDERED: Heparin 1,000 UNITS/500 mL 500 ML ONE (11:13)
[2018-02-19] MEDS ORDERED: Albuterol 2.5 MG/3 ML NEBULIZER IH ONE (11:16)
[2018-02-19] MEDS ORDERED: Lidocaine -MPF 1% 2 ML VIAL ID ONE (11:16)
[2018-02-19] MEDS ORDERED: CeFAZolin Syr 2,000MG/20 ML 2,000 MG/20 ML SYRINGE IVPB ONE (11:16)
[2018-02-19] MEDS ORDERED: 0.9 % Sodium Chloride 500 ML IVC SCH (11:30)
--- NOTE | 2018-02-19 12:11 | History & Physical Report ---
Date of Encounter: 02/19/18 Time of Encounter: 12:11 24 Hour HP Update - Instructions Instructions: If the History and Physical is less than 30 days old and was completed prior to A.M. admission and or procedure and has NOT been updated on calendar day of procedure please complete this update prior to performing procedure. - Update Patient reports changes in Medical Condition: No Changes in examination, assessment, or condition: No Changes in Medication: No Preop tests/diagnostics Reviewed: Yes Pre-Op MRSA Screen: Negative Surgery Remains Indicated: Yes Consent for Planned Operative Procedure(s) Verified: Yes - Pre-Operative Checklist Preoperative Checklist Indicated: No Prophylactic Antibiotic Ordered: Yes Home Medications Include Beta Dee: No Beta Dee Taken Today (Day of Surgery): No Beta Dee Taken Yesterday (Day Prior to Surgery): No Is VTE Prophylaxis Indicated?: NO
[2018-02-19] MEDS ORDERED: Bupivacaine/EPI 1:200k 0.5%PF 10 ML VIAL ONE ×2 (12:35→13:31)
[2018-02-19] MEDS ORDERED: *HR* PHENYLEPHRINE 1,000 MCG/10 ML SYRINGE IVP ONE (13:16)
--- NOTE | 2018-02-19 13:36 | Anesthesia Procedures ---
Date of Encounter: 02/19/18 Time of Encounter: 12:45 Procedures: Anesthesia - Arterial Line Consent obtained: written consent Time out performed: Yes Sedation: Versed (mg): 0 Sedation: Fentanyl (mcg): 0 Supplemental Oxygen via Nasal Cannula (L/min): 3 Size (Gauge): 20 Length (inches): 1 3/4 Technique Used: sterile prep, guide wire technique, direct puncture technique Post-Procedure: line taped into place, dry sterile dressing placed Patient tolerated procedure: well, no complications Complications: none Site: Radial L (attempt x 1) - Epidural/Spinal Patient ID/Chart reviewed: Yes Patient examined: Yes Supplemental Oxygen: Nasal Cannula Supplemental Oxygen Rate (L/min): 3 Sedation: Versed (mg): 0 Sedation: Fentanyl (mcg): 0 Site Prep: Aseptic Technique, Sterile prep and drape, Povidone-Iodine 1% Patient position: upright Local Anesthetic: Lidocaine 1% Amount of Local Anesthetic used: 3 Touhy Needle Gauge: 18 Test Dose (1.5% Lido + Epi): Volume given (mls): 3 Test Dose Result: Negative Loading Dose: Other: isobaric 0.5% bupivacaine, 10cc, over 30 min Loading Dose Administered: Thru Catheter Interspace Used: Other (T4-5) Loss of Resistance (TEMO): Yes Blood: No CSF: No Paresthesia: No
[2018-02-19] MEDS ORDERED: Morphine Sulfate/PF 5mg/10mL Vial ONE (13:46)
--- NOTE | 2018-02-19 14:38 | Operative Note ---
Date of procedure: 02/19/18 Pre-op diagnosis: Left breast cancer (lateral/overlapping) Post-op diagnosis: same Procedure: Left mastectomy Anesthesia: epidural Surgeon: Nate Alvarez Was there an assistant principal present: Yes Intake Coordinator: Erika Gonzalez Intake Coordinator Other: EMMA Ren Estimated blood loss (cc): 10 Specimen: left breast Condition: stable Disposition: PACU Procedure in Detail: Date of surgery: 02/19/18 After properly identifying the patient, the patient was brought to the operating room and placed in the supine position. The patient had a thoracic epidural and did not require intubation for this procedure. The patient's left breast and axilla were prepped and draped in a normal sterile fashion. A timeout was performed noting the patient's name and type of procedure to be performed. The breast was examined and there was a 4-5 cm mass essentially in the subareolar region of the left breast near the slight outer aspect of the breast. An oval incision was made with a 10 blade scalpel inclusive of the nipple areolar area and mass extending medially and inferiorly near the sternum to laterally near the midaxillary line of the axilla. Bovie cauterization was used to maintain hemostasis and superior and inferior skin flaps her crit for eventual skin closure. The breast was then dissected away from the subcutaneous tissue superiorly up towards the clavicle however the patient had very small size breasts and there was very scant breast tissue extending this up towards the clavicle. To prevent devascularization of the skin this dissection was halted near the pectoralis major muscle inferior to the clavicle. Inferiorly the dissection was extended down towards the insertion of the rectus abdominis muscle on the rib cage. The dissection was then carried out medially from the pectoralis major minor muscle and sternum laterally towards the axilla. Once Bovie cauterization was used to maintain hemostasis and dissect the breast tissue off the pectoralis major muscle the breast was submitted to pathology. The wound was inspected for hemostasis which was maintained and irrigated with normal saline solution. The dermis was then reapproximated with interrupted 3-0 Vicryl sutures and the epidermal and dermal layers were reapproximated with a running 4-0 Monocryl suture. Needle, sponge, and instrument counts were correct 2 and the incision was covered with Steri- Strips and 4 x 4's in a pressure dressing fashion. The patient was then transported to the recovery room in a stable condition.
--- NOTE | 2018-02-19 15:14 | Anesthesia Evaluation Post Op ---
Date of Encounter: 02/19/18 Time of Encounter: 15:15 - Vital Signs Vital Signs: Vital Signs/O2 Sat/Glucose, Most Current Temp Pulse Resp BP Pulse Ox 02/19/18 15:10 99.0 F 85 18 142/73 94 02/19/18 15:00 89 20 136/71 93 02/19/18 14:50 89 20 145/72 96 02/19/18 14:40 99.2 F 81 20 127/73 95 02/19/18 13:10 87 16 122/70 95 02/19/18 13:05 84 16 127/75 95 02/19/18 13:00 88 16 127/85 95 02/19/18 12:55 86 16 138/82 96 02/19/18 12:51 91 16 147/97 94 02/19/18 11:25 18 173/88 93 - Lungs Lungs: Clear Ascult./Percussion - Airway Airway: Non-obstructed - Cardiovascular Regular Rate - Mental Status Mental Status: Alert & Oriented, Answers Appropriately - Pain Pain Scale: 0 - Nausea Vomiting Nausea Vomiting: Not Present - Hydration Hydration: Tolerates oral liquids - Discharge PostOp Status: Transfer Patient to floor
[2018-02-19] MEDS ORDERED: *HR* OxyCODONE/APAP 5/325 TABLET PO PRN (16:11)
[2018-02-19] MEDS ORDERED: MORPHINE SUL Oral CONC 10 MG/0.5 ML ORAL.SYG SL PRN (16:11)
[2018-02-19] MEDS: hydrALAZINE 25 MG TABLET PO SCH (17:10)
[2018-02-19] MEDS: Ipratropium/Albuterol Neb 3 ML IH SCH ×2 (17:15→21:37)
[2018-02-19] MEDS: Beclomethasone 40mcg MDI IH SCH (21:36)
[2018-02-20] MEDS: hydrALAZINE 25 MG TABLET PO SCH (02:06)
[2018-02-20] MEDS: Ipratropium/Albuterol Neb 3 ML IH SCH ×4 (03:53→21:00)
[2018-02-20 07:00] LABS: Basophils % 0.4 %; Eosinophils # 0.1 K/mcL (0.0-0.6); Eosinophils % 1.4 %; Hematocrit 24.9 % (35.3-44.9); Immature Granulocytes % 0.3 % (0-4); Lymphocytes % 12.4 %; Mean Corpuscular HGB Conc 32.1 g/dL (31.6-35.5); Mean Corpuscular Hemoglobin 31.9 pg (28.0-33.3); Mean Corpuscular Volume 99.2 fL (83.0-100.0); Mean Platelet Volume 12.2 fL (9.4-12.4); Monocytes # 0.9 K/mcL (0.0-1.3); Neutrophils # 5.8 K/mcL (1.6-8.9); Platelet Count 164 K/mcL (140-400); Red Blood Count 2.51 M/mcL (3.82-4.97); Red Cell Distribution Width 15.5 % (11.5-14.5); Segmented Neutrophils % 74.5 %
[2018-02-20 07:16] LABS: Calcium 8.5 mg/dL (8.6-10.3); Potassium 6.8 mEq/L (3.5-5.1)
--- NOTE | 2018-02-20 08:17 | Nephrology Consult Note ---
Date of Encounter: 02/25/18 Time of Encounter: 08:14 Assessment and Plan (1) ESRD (end stage renal disease) on dialysis Status: Chronic The patient will undergo dialysis this morning. Potassium was 6.8 social be dialyzed on a 1K bath. Hemoglobin is 8.0 she will be started on Aranesp. (2) History of renal cell cancer Status: Acute (3) History of nephrectomy Status: Acute (4) Breast cancer, left breast Status: Acute Qualifiers: Breast location: unspecified site of breast Estrogen receptor status: unspecified Patient sex: female Qualified Code(s): C50.912 - Malignant neoplasm of unspecified site of left female breast (5) Anemia in chronic kidney disease (CKD) Status: Chronic Qualifiers: Chronic kidney disease stage: on chronic dialysis Qualified Code(s): N18.6 - End stage renal disease; D63.1 - Anemia in chronic kidney disease; D63.1 - Anemia in chronic kidney disease; Z99.2 - Dependence on renal dialysis; Z99.2 - Dependence on renal dialysis; Z99.2 - Dependence on renal dialysis; Z99.2 - Dependence on renal dialysis (6) History of atrial fibrillation Status: Acute History of Present Illness - History of Present Illness This is a 77-year-old female who is followed for end-stage renal disease related to hypertension and nephrosclerosis. Patient receives dialysis every Sunday. Patient underwent an elective left mastectomy yesterday because of a diagnosis of breast cancer. This morning she is feeling relatively well. She is having some mild postoperative pain. She denies any worsening shortness of breath or any other complaints. Her hemoglobin is down to 8. Potassium is 6.8. She will undergo her usual dialysis this morning. Past Med Surg Social Fam HX - Past Medical History Medical history: atrial fibrillation, cancer, CHF, COPD, dialysis, GERD, hypertension, renal disease, other Psychiatric history: no psych history - Past Surgical History Surgical History: hysterectomy, other - Social History Smoking Status: Light tobacco smoker Packs per day: 0.25ppd Smokeless Tobacco Status: No Alcohol use: none Drug use: none - Family History Sister Living Status: Still Living Hx Family Cancer: Yes (colon cancer) Mother Living Status: Hx Family Cardiac Disorders: (angina) Father Living Status: Hx Family Respiratory Disorders: (pneumonia) Brother Living Status: Hx Family Cancer: Yes Medications and Allergies Aspirin Enteric Coated [Aspirin EC] 81 mg PO DAILY #0 02/29/16 [History] Oxygen 2 l .ROUTE AD 08/27/16 [History] Ipratropium/Albuterol Neb [Duoneb] 3 ml IH [id number] inhsol 04/16/17 [Rx] Omeprazole [PriLOSEC] 40 mg PO DAILY capsule. 04/16/17 [Rx] hydrALAZINE [HydrALAZINE] 25 mg PO Q8HR tablet 04/16/17 [Rx] Carvedilol [Coreg] 25 mg PO BID 06/24/17 [History] Diltiazem CD (24hr) [Cardizem CD] 300 mg PO DAILY 06/24/17 [History] Furosemide [Lasix] 40 mg PO DAILY 06/24/17 [History] Isosorbide MONOnitrate (24 HR) [Imdur] 30 mg PO DAILY 06/24/17 [History] Losartan Potassium [Cozaar] 50 mg PO DAILY 06/24/17 [History] Guaifenesin [Mucinex] 600 mg PO BID PRN 12/11/17 [History] Loratadine [Claritin] 10 mg PO DAILY 12/11/17 [History] cloNIDine HCl [CloNIDine HCl] 0.2 mg PO TID PRN 01/30/18 [History] Acetaminophen [Tylenol] 500 mg PO Q6HR PRN #60 tablet 02/22/18 [Rx] Diltiazem HCl [Cardizem Cd] 360 mg PO DAILY #30 cap.er.24h 02/22/18 [Rx] Docusate [Colace] 100 mg PO BID #30 capsule 02/22/18 [Rx] Ondansetron ODT [Zofran ODT] 4 mg SL Q6HR #15 tab.rapdis 02/22/18 [Rx] Tramadol HCl [Ultram] 50 mg PO Q6H PRN 7 Days #42 tab MDD 400mg 02/22/18 [Rx] 3 Allergy/AdvReac Type Severity Reaction Status Date / Time codeine Allergy Confusion Verified 02/19/18 11:34 Review of Systems Constitutional: as per HPI, weakness Eyes: bilateral: blurred vision (patient denies), diplopia (patient denies) Nose, mouth and throat: no dizziness, no headache(s) Breasts: left: as per HPI Cardiovascular: as per HPI, dyspnea, dyspnea on exertion, irregular heart rhythm Respiratory: as per HPI, cough, dyspnea, dyspnea on exertion Gastrointestinal: no abdominal pain, no change in bowel habits Genitourinary Female: as per HPI Musculoskeletal: no muscle weakness, no numbness Integumentary: no hirsutism, no striae Neurological: as per HPI Psychiatric: no depression, no difficulty concentrating Endocrine: as per HPI Hematologic/Lymphatic: no easy bruising, no lymphadenopathy Exam - Vital Signs Vital signs: Initial Vital Signs Temp Pulse Resp BP Pulse Ox 97.9 F 111 18 173/88 93 02/19/18 10:49 02/19/18 10:49 02/19/18 10:49 02/19/18 10:49 02/19/18 10:49 Vital Signs - Last 8 Hours Temp Pulse Resp BP Pulse Ox 02/20/18 07:07 97.7 F 106 14 99/63 95 02/20/18 03:54 16 92 02/20/18 03:49 97.5 F L 83 16 103/70 96 Intake and Output 02/19/18 02/20/18 02/20/18 23:59 07:59 15:59 Intake Total 240 / 240 60 / 60 Output Total 40 / 40 0 / 0 Balance 200 / 200 60 / 60 Intake: Oral 240 / 240 60 / 60 Output: Urine 0 / 0 0 / 0 Wound Drainage 40 / 40 Left Breast 40 / 40 Other: Meal Dinner Percent of Meal Consumed 100% Weight 48 kg Patient Weight 02/20/18 23:59 Weight 48 kg - General Appearance Exam: The patient is alert and oriented. She is in no acute distress. Lungs diminished breath sounds bilaterally. There is no wheezing rales or rhonchi. Heart irregular rate and rhythm consistent with atrial fibrillation. Abdomen shows normal bowel sounds bruits masses organomegaly or tenderness. There is no lower extremity swelling. There is a functioning AV fistula in the right upper extremity. Results - Lab Results 02/23/18 09:35 02/22/18 05:30 Most recent lab results Calcium 8.5 mg/dL (8.6-10.3) L 02/20/18 05:41 Consult Discharge Plan - Plan Instructions: Atrial Fibrillation (DC), Juan David-Chan Drain Care (DC), Mastectomy (DC), Anemia (GEN) Additional Instructions: Please review all discharge educational handouts Please attend scheduled follow-up appointments; appointment dates and times will be provided for you. You are prescribed medication for pain, nausea, and constipation to be used if/ as needed; take as written. Avoid driving if your pain requires that you take opioid analgesics such as oxycodone. Call Dr. Alvarez's office if you have fever/chills/sweats/body aches, worsening fatigue, nausea, vomiting, constipation not relieved with meds you have been prescribed, significant abdominal pain after eating, blood in your stools or blackened stools, or signs of infection at your incision sites ( includes increasing redness, increasing warmth, swelling, or pus). Avoid heavy lifting at least until you're reevaluated in the surgical clinic. Wound Care: shower with antibacterial soap; gently wash or allow water to passively run over surgical sites, avoid firm scrubbing of incisional site. May leave incisions open to air or cover with a dry dressing for comfort. Tape to secure. Reinforce or change outer dressing as needed. BLAS drain: remove drain sponge. Shower/wash with antibacterial soap. Replace drain sponge. Cover with a dry dressing. Tape to secure. Do not let the BLAS drain dangle from your body. Secure the ball to clothing with a safety pin or suspend from a lanyard when showering. Call your PCP for other concerns if any arise. Cardiology clinic will contact you for an appointment. Resume your Aspirin, new dose of Cardizem (360mg), and Coreg 25mg. Referrals: Renan Rodrigues MD [Partnered Physician] - (submit web request; follow up within 2 weeks if possible) Nate Alvarez MD [Partnered Physician] - 02/28/18 2:05 pm Prescriptions: Acetaminophen [Tylenol] 500 mg PO Q6HR PRN #60 tablet PRN Reason: Mild Pain Ondansetron ODT [Zofran ODT] 4 mg SL Q6HR #15 tab.rapdis Diltiazem HCl [Cardizem Cd] 360 mg PO DAILY #30 cap.er.24h Docusate [Colace] 100 mg PO BID #30 capsule Tramadol HCl [Ultram] 50 mg PO Q6H PRN 7 Days #42 tab MDD 400mg PRN Reason: Severe Pain
[2018-02-20] MEDS ORDERED: 0.9 % Sodium Chloride 250 ML IVC PRN (08:19)
[2018-02-20] MEDS ORDERED: Darbepoetin 100 MCG/0.5 ML SYRINGE SQ SCH (08:30)
[2018-02-20] MEDS ORDERED: Isosorbide MONOnitrate (24 HR) 60 MG TAB.ER.24H PO SCH (09:00)
[2018-02-20] MEDS ORDERED: Diltiazem CD (24hr) 300 MG CAPSULE PO SCH (09:00)
[2018-02-20] MEDS ORDERED: cloNIDine HCl 0.1 MG TABLET PO PRN (09:00)
--- NOTE | 2018-02-20 10:30 | General Surgery Progress Note ---
<Ravin Flynn - Last Filed: 02/20/18 11:26> Date of Encounter: 02/20/18 Time of Encounter: 10:26 - Assessment and Plan (1) S/P left mastectomy Current Visit: Yes Status: Acute POD1. Pain well-controlled. Initial bandage saturated in predominantly dry blood. Expected dependent bruising/ecchymosis. Incision site well closed without signs of dehiscence or infection. BLAS drain in place with approximately 20 mLs of thin serosanguinous fluid. Plan: - reassess wound in AM - has appreciable Hgb drop to 8.0g/dL today down from baseline of approximately 9.5g/dL - recheck CBC in AM - cont pain ctrl as needed - cont renal diet as patient has no GI symptoms at present - likely discharge tomorrow if she does well overall (2) Breast cancer, left breast Current Visit: No Status: Acute ER-; s/p mastectomy POD#1. Plans as above. Qualifiers: Breast location: unspecified site of breast Estrogen receptor status: unspecified Patient sex: female Qualified Code(s): C50.912 - Malignant neoplasm of unspecified site of left female breast (3) ESRD (end stage renal disease) on dialysis Current Visit: Yes Status: Chronic Sees Dr. Duran. Has associated hyperkalemia at 6.8 today. Hemodialysis planned today. Will need post HD potassium recheck. BMP QAM. (4) COPD (chronic obstructive pulmonary disease) Current Visit: No Status: Chronic No wheezes on exam. Restful and saturating well on 3 L 02 via nasal cannula which is patient's baseline. Continuing scheduled duo nebs. Qualifiers: COPD type: chronic bronchitis Chronic bronchitis type: unspecified Qualified Code(s): J42 - Unspecified chronic bronchitis (5) Hypertension Current Visit: No Status: Chronic Blood pressures adequate but borderline low currently 99/63. Holding any antihypertensives at present. Qualifiers: Hypertension type: essential hypertension Qualified Code(s): I10 - Essential (primary) hypertension (6) Anemia in chronic kidney disease (CKD) Current Visit: Yes Status: Chronic Baseline appears to be between 9 and 10 g/dL. 8.0 this morning which is slightly down from admission hemoglobin. May be some component of post-op loss. Will continue to monitor and may consider transfusion as needed. Qualifiers: Chronic kidney disease stage: on chronic dialysis Qualified Code(s): N18.6 - End stage renal disease; D63.1 - Anemia in chronic kidney disease; D63.1 - Anemia in chronic kidney disease; Z99.2 - Dependence on renal dialysis; Z99.2 - Dependence on renal dialysis; Z99.2 - Dependence on renal dialysis; Z99.2 - Dependence on renal dialysis (7) Afib Current Visit: No Status: Chronic Currently normal sinus rhythm. Qualifiers: Atrial fibrillation type: unspecified Qualified Code(s): I48.91 - Unspecified atrial fibrillation (8) DVT prophylaxis Current Visit: Yes Status: Acute Mechanical prophylaxis Subjective Narrative: Patient is status post left mastectomy for ER negative malignant neoplasm of the breast. POD#1. Afebrile overnight. Pain is well-controlled on oxycodone. Patient ate full meal this morning tolerating it well initially, however states had single episode of vomitus after; no persisting or recurrent symptoms since then such as nausea, dry heaving, or abdominal discomfort. Has not yet tried eating since. Pt also significantly hyperkalemic this AM at 6.8; Dr. Duran plans HD today. Patient denies shortness of breath, chest pain, worsening abdominal pain, diarrhea, or constipation. Patient has no present concerns. Objective Vital Signs - Last 8 Hours Temp Pulse Resp BP Pulse Ox 02/20/18 07:07 97.7 F 106 14 99/63 95 02/20/18 03:54 16 92 02/20/18 03:49 97.5 F L 83 16 103/70 96 Intake and Output 02/19/18 02/20/18 02/20/18 23:59 07:59 15:59 Intake Total 240 / 240 60 / 60 240 / 240 Output Total 40 / 40 0 / 0 Balance 200 / 200 60 / 60 240 / 240 Intake: Oral 240 / 240 60 / 60 240 / 240 Output: Urine 0 / 0 0 / 0 Wound Drainage 40 / 40 Left Breast 40 / 40 Other: Meal Dinner Breakfast Percent of Meal Consumed 100% 100% Weight 48 kg Patient Weight 02/20/18 23:59 Weight 48 kg VITAL SIGNS: Reviewed. See [facility] GENERAL: restfully supine in bed, appears comfortable. Readily alert and oriented, pleasant, conversational, and cooperative. HEENT: [Normocephalic, PER, EOMi, oropharynx pink/moist, no JVD noted.] CV: RRR, no murmurs or gallops, no JVD RESPIRATORY: CTAB without wheezes, rales, or rhonchi ABD: soft, non-tender, no rebounding/guarding/rigidity/distention INCISION: Initial bandage saturated in predominantly dry blood. Expected dependent bruising/ecchymosis. Incision site well closed without signs of dehiscence or infection. EXTREMITY: grossly normal motor function, mild pedal edema, SCDs in place, dorsalis pedis pulses 2+ b/l NEUROLOGIC EXAM: AOx3, obeys commands, no speech deficits. PSYCHIATRIC: normal mood and affect SKIN: no gross lesions, rashes, or skin changes - Labs 02/20/18 05:41 02/20/18 05:41 Diabetes panel 02/20/18 Range/Units 05:41 Sodium 136 (136-145) mEq/L Potassium 6.8 H* (3.5-5.1) mEq/L Chloride 97 L (98-107) mEq/L Carbon Dioxide 27 (23-29) mEq/L BUN 60 H (8-23) mg/dL Creatinine 4.41 H (0.60-1.20) mg/dL Glucose 86 (70-105) mg/dL Calcium 8.5 L (8.6-10.3) mg/dL Calcium panel 02/20/18 Range/Units 05:41 Calcium 8.5 L (8.6-10.3) mg/dL Pituitary panel 02/20/18 Range/Units 05:41 Sodium 136 (136-145) mEq/L Potassium 6.8 H* (3.5-5.1) mEq/L Chloride 97 L (98-107) mEq/L Carbon Dioxide 27 (23-29) mEq/L BUN 60 H (8-23) mg/dL Creatinine 4.41 H (0.60-1.20) mg/dL Glucose 86 (70-105) mg/dL Calcium 8.5 L (8.6-10.3) mg/dL Adrenal panel 02/20/18 Range/Units 05:41 Sodium 136 (136-145) mEq/L Potassium 6.8 H* (3.5-5.1) mEq/L Chloride 97 L (98-107) mEq/L Carbon Dioxide 27 (23-29) mEq/L BUN 60 H (8-23) mg/dL Creatinine 4.41 H (0.60-1.20) mg/dL Glucose 86 (70-105) mg/dL Calcium 8.5 L (8.6-10.3) mg/dL - VTE Documentation of Mechanical Device: Intermittent pneumatic compression device Consult Discharge Plan - Plan Referrals: Nate Alvarez MD [Partnered Physician] - 03/07/18 1:35 pm <Nate Alvarez - Last Filed: 02/20/18 17:42> Date of Encounter: 02/20/18 Objective Vital Signs - Last 8 Hours Temp Pulse Resp BP Pulse Ox 02/20/18 15:47 99.0 F 102 14 104/74 98 02/20/18 15:42 14 96 02/20/18 14:30 134/85 02/20/18 14:06 98.9 F 112 14 134/85 96 02/20/18 13:35 97.0 F L 18 105/73 02/20/18 13:00 119/63 02/20/18 12:45 129/72 02/20/18 12:30 126/70 02/20/18 12:15 129/68 02/20/18 12:00 97.2 F L 18 123/76 02/20/18 11:32 98.5 F 101 14 130/86 100 02/20/18 10:42 14 95 Intake and Output 02/20/18 02/20/18 02/20/18 07:59 15:59 23:59 Intake Total 60 / 60 1080 / 1080 Output Total 0 / 0 532 / 532 Balance 60 / 60 548 / 548 Intake: Oral 60 / 60 480 / 480 Intake, Rinseback and Flushes 600 / 600 Output: Urine 0 / 0 0 / 0 Total Dialysis (HD) Output 532 / 532 Other: Meal Lunch Percent of Meal Consumed 100% Weight 48 kg Hemodialysis Net Fluid Removed -68 (mL) Patient Weight 02/20/18 23:59 Weight 48 kg - Labs 02/20/18 05:41 02/20/18 13:34 Diabetes panel 02/20/18 02/20/18 Range/Units 05:41 13:34 Sodium 136 (136-145) mEq/L Potassium 6.8 H* 5.1 (3.5-5.1) mEq/L Chloride 97 L (98-107) mEq/L Carbon Dioxide 27 (23-29) mEq/L BUN 60 H (8-23) mg/dL Creatinine 4.41 H (0.60-1.20) mg/dL Glucose 86 (70-105) mg/dL Calcium 8.5 L (8.6-10.3) mg/dL Calcium panel 02/20/18 Range/Units 05:41 Calcium 8.5 L (8.6-10.3) mg/dL Pituitary panel 02/20/18 02/20/18 Range/Units 05:41 13:34 Sodium 136 (136-145) mEq/L Potassium 6.8 H* 5.1 (3.5-5.1) mEq/L Chloride 97 L (98-107) mEq/L Carbon Dioxide 27 (23-29) mEq/L BUN 60 H (8-23) mg/dL Creatinine 4.41 H (0.60-1.20) mg/dL Glucose 86 (70-105) mg/dL Calcium 8.5 L (8.6-10.3) mg/dL Adrenal panel 02/20/18 02/20/18 Range/Units 05:41 13:34 Sodium 136 (136-145) mEq/L Potassium 6.8 H* 5.1 (3.5-5.1) mEq/L Chloride 97 L (98-107) mEq/L Carbon Dioxide 27 (23-29) mEq/L BUN 60 H (8-23) mg/dL Creatinine 4.41 H (0.60-1.20) mg/dL Glucose 86 (70-105) mg/dL Calcium 8.5 L (8.6-10.3) mg/dL - Attending Attestation I examined this patient and my medical decision-making was reviewed with the Resident Physician. I agree with the documented findings, disposition and treatment plan as described except to the extent set forth below. Review the above assessment and evaluation. Patient has noted bruising along the lateral aspect of the bandage and also evidence of a hematoma. This is likely secondary to the patient's uremic status which can predispose to bleeding due to her kidney disease. Bandages are in place and the BLAS drain has more sanguinous fluid with a BLAS that is about 20-30 mL. Continue to manage and will change dressing tomorrow. Patient did also have some nausea and vomiting so we will follow her and observe her overnight as well. Dialysis was attempted however the patient did have an episode of agent fibrillation so dialysis had to be halted will likely continue tomorrow.
[2018-02-20] MEDS: Beclomethasone 40mcg MDI IH SCH ×2 (10:39→21:00)
[2018-02-20] MEDS: Diltiazem CD (24hr) 300 MG CAPSULE PO SCH (14:31)
[2018-02-20] MEDS: Loratadine 10 MG TABLET PO SCH (14:32)
[2018-02-20] MEDS: Pantoprazole 40 MG VIAL IVP SCH (14:32)
[2018-02-20] MEDS: Furosemide 40 MG TABLET PO SCH (14:32)
[2018-02-20] MEDS: Isosorbide MONOnitrate (24 HR) 30 MG TAB.ER.24H PO SCH (14:36)
[2018-02-20 15:10] LABS: Hepatitis B Surface Antibody 0.23 mIU/mL; Hepatitis B Surface Antigen Nonreactive (Nonreactive)
[2018-02-20] MEDS: Ondansetron 4 MG/2 ML VIAL IVP PRN (16:59)
[2018-02-21] MEDS: Ipratropium/Albuterol Neb 3 ML IH SCH ×4 (03:17→22:56)
[2018-02-21 06:16] LABS: Calcium 8.3 mg/dL (8.6-10.3); Potassium 6.1 mEq/L (3.5-5.1)
[2018-02-21 06:18] LABS: Basophils % 0.4 %; Eosinophils # 0.2 K/mcL (0.0-0.6); Eosinophils % 1.8 %; Hematocrit 22.9 % (35.3-44.9); Hemoglobin 7.3 g/dL (11.5-15.4); Immature Granulocytes % 0.8 % (0-4); Immature Platelets 10.1 % (1.1-6.1); Lymphocytes # 1.3 K/mcL (0.6-4.6); Lymphocytes % 14.4 %; Mean Corpuscular HGB Conc 31.9 g/dL (31.6-35.5); Mean Corpuscular Hemoglobin 31.1 pg (28.0-33.3); Mean Corpuscular Volume 97.4 fL (83.0-100.0); Mean Platelet Volume 12.2 fL (9.4-12.4); Monocytes # 1.6 K/mcL (0.0-1.3); Monocytes % 17.3 %; Neutrophils # 5.9 K/mcL (1.6-8.9); Platelet Count 182 K/mcL (140-400); Red Blood Count 2.35 M/mcL (3.82-4.97); Red Cell Distribution Width 15.6 % (11.5-14.5); Segmented Neutrophils % 65.3 %
[2018-02-21] MEDS ORDERED: 0.9 % Sodium Chloride 250 ML IVC PRN (09:07)
[2018-02-21] MEDS ORDERED: 0.9 % Sodium Chloride 1,000 ML PRIME SCH (09:15)
[2018-02-21] MEDS ORDERED: 0.9 % Sodium Chloride 2,000 ML ONE (09:18)
[2018-02-21] MEDS: Loratadine 10 MG TABLET PO SCH (09:28)
[2018-02-21] MEDS: Furosemide 40 MG TABLET PO SCH (09:29)
[2018-02-21] MEDS: Pantoprazole 40 MG VIAL IVP SCH (09:29)
[2018-02-21] MEDS: Isosorbide MONOnitrate (24 HR) 30 MG TAB.ER.24H PO SCH (09:32)
[2018-02-21] MEDS: Diltiazem CD (24hr) 300 MG CAPSULE PO SCH (09:32)
--- NOTE | 2018-02-21 09:32 | Nephrology Progress Note ---
Date of Encounter: 02/21/18 Time of Encounter: 08:55 - Assessment and Plan (1) ESRD (end stage renal disease) on dialysis Current Visit: Yes Status: Chronic S/P left mastectomy. Potassium 6.1, Hgb 7.3. Came off HD early yesterday . Will do HD again today for 2 hours on 2K bath and no weight loss. Will also transfuse 2 units PRBC while on HD. (2) S/P left mastectomy Current Visit: Yes Status: Acute Subjective Interval history: Sitting on edge of bed, ate breakfast, hopes to go home today. Objective - Vital Signs Vital signs: Vital Signs Temp Pulse Resp BP Pulse Ox 02/21/18 06:26 98.6 F 77 18 147/63 97 02/21/18 03:37 98.6 F 80 15 136/72 99 02/21/18 03:17 16 99 02/20/18 23:40 98.5 F 87 15 140/60 95 02/20/18 21:50 95 02/20/18 21:00 16 95 02/20/18 18:49 98.0 F 105 15 120/68 96 02/20/18 15:47 99.0 F 102 14 104/74 98 02/20/18 15:42 14 96 02/20/18 14:30 134/85 02/20/18 14:06 98.9 F 112 14 134/85 96 02/20/18 13:35 97.0 F L 18 105/73 02/20/18 13:00 119/63 02/20/18 12:45 129/72 02/20/18 12:30 126/70 02/20/18 12:15 129/68 02/20/18 12:00 97.2 F L 18 123/76 02/20/18 11:32 98.5 F 101 14 130/86 100 02/20/18 10:42 14 95 Intake and Output 02/20/18 02/21/18 02/21/18 23:59 07:59 15:59 Intake Total 480 / 480 0 / 0 240 / 240 Output Total 0 / 0 20 / 20 Balance 480 / 480 -20 / -20 240 / 240 Intake: Oral 480 / 480 0 / 0 240 / 240 Output: Urine 0 / 0 Wound Drainage 20 / 20 Left Breast 20 / 20 Other: Meal Dinner Breakfast Percent of Meal Consumed 95% 100% - General Appearance General appearance: Present: well-developed, well-nourished, appears started age EENT: Present: mucous membranes moist Neck: Present: no JVD Respiratory: Present: clear Cardiology: Present: edema Additional Comments: trace pedal Dialysis Vascular Access: Arteriovenous Fistula Gastrointestinal: Present: normoactive bowel sounds, no tenderness Integumentary: Present: warm and dry Neurologic: Present: alert and oriented x3 - Lab 02/21/18 04:35 02/21/18 04:35 Most recent lab results Calcium 8.3 mg/dL (8.6-10.3) L 02/21/18 04:35 - VTE Documentation of Mechanical Device: Intermittent pneumatic compression device Consult Discharge Plan - Plan Referrals: Nate Alvarez MD [Partnered Physician] - 03/07/18 1:35 pm
[2018-02-21] MEDS: Beclomethasone 40mcg MDI IH SCH ×2 (10:38→22:55)
--- NOTE | 2018-02-21 14:39 | General Surgery Progress Note ---
<Ravin Flynn - Last Filed: 02/21/18 15:05> Date of Encounter: 02/21/18 Time of Encounter: 14:35 - Assessment and Plan (1) S/P left mastectomy Status: Acute POD2. Pain well-controlled. Wound without signs of dehiscence, active bleeding , or infection. Tolerating PO intake except after receiving oxycodone which she has not tolerated. She states has not had any severe pain, but rather only aching. Also was hyperkalemic and anemic this morning prior to HD. VSS without tachycardia or hypotension. Path Report: "Breast, left: invasive ductal carcinoma, grade 3, 3.8cm." Plan: - had appreciable Hgb drop to 7.3g/dL today down from 8.0 yesterday; Nephro transfused 2u pRBCs during HD. - recheck CBC in AM - cont pain ctrl as needed; avoid oxycodone as she has not tolerated this well - Acetaminophen for mild pain if requested and morphine for severe pain - cont renal diet as patient has no GI symptoms at present - watching K+ on AM labs (2) Breast cancer, left breast Status: Acute ER-; s/p mastectomy POD#2. Plans as above. Qualifiers: Breast location: unspecified site of breast Estrogen receptor status: unspecified Patient sex: female Qualified Code(s): C50.912 - Malignant neoplasm of unspecified site of left female breast (3) ESRD (end stage renal disease) on dialysis Status: Chronic Sees Dr. Duran. Has associated hyperkalemia at 6.1 today. Hemodialysis today. BMP QAM. (4) COPD (chronic obstructive pulmonary disease) Status: Chronic No wheezes on exam. Restful and saturating well on 3 L 02 via nasal cannula which is patient's baseline. Continuing scheduled duo nebs. Qualifiers: COPD type: chronic bronchitis Chronic bronchitis type: unspecified Qualified Code(s): J42 - Unspecified chronic bronchitis (5) Hypertension Status: Chronic Blood pressures elevated. Had HD earlier with no weight loss per nephro. BP meds held this AM for HD; receiving carvedilol with dinner so will continue to monitor for now. Qualifiers: Hypertension type: essential hypertension Qualified Code(s): I10 - Essential (primary) hypertension (6) Anemia in chronic kidney disease (CKD) Status: Chronic As above Qualifiers: Chronic kidney disease stage: on chronic dialysis Qualified Code(s): N18.6 - End stage renal disease; D63.1 - Anemia in chronic kidney disease; D63.1 - Anemia in chronic kidney disease; Z99.2 - Dependence on renal dialysis; Z99.2 - Dependence on renal dialysis; Z99.2 - Dependence on renal dialysis; Z99.2 - Dependence on renal dialysis (7) Afib Status: Chronic Currently normal sinus rhythm. Qualifiers: Atrial fibrillation type: unspecified Qualified Code(s): I48.91 - Unspecified atrial fibrillation (8) DVT prophylaxis Status: Acute Mechanical prophylaxis Subjective Narrative: Patient is status post left mastectomy for ER negative malignant neoplasm of the breast. POD#2. Afebrile overnight. Is not having significant amount of pain; tried oxycodone twice with resulting vomitus. Has otherwise tolerated PO intake. No other persisting gastrointestinal symptoms such as bloating, nausea , or vomiting. Patient did have incomplete HD yesterday due to dysrhythmia. A.M. labs today significant for potassium of 6.1 as well as hemoglobin drop to 7.3 g/dL's. Dr. Duran took patient for another round of hemodialysis and simultaneously transfused 2 units packed red blood cells. Patient denies shortness of breath, chest pain, worsening abdominal pain, diarrhea, or constipation. Patient has no present concerns. Objective Vital Signs - Last 8 Hours Temp Pulse Resp BP Pulse Ox 02/21/18 13:57 98.2 F 86 20 158/73 97 02/21/18 13:25 161/94 02/21/18 13:10 172/89 02/21/18 13:02 97.1 F L 100 18 166/74 02/21/18 12:55 177/83 02/21/18 12:45 97.4 F L 100 18 159/77 02/21/18 12:40 157/76 02/21/18 12:30 97.8 F 98 18 162/75 02/21/18 12:25 158/77 02/21/18 12:24 97.8 F 92 18 158/77 02/21/18 12:10 171/71 02/21/18 11:55 138/61 02/21/18 11:52 98.0 F 90 18 139/62 02/21/18 11:40 152/73 02/21/18 11:37 98.3 F 84 20 146/66 02/21/18 11:25 98.3 F 20 127/67 02/21/18 10:38 18 98 Intake and Output 02/20/18 02/21/18 02/21/18 23:59 07:59 15:59 Intake Total 480 / 480 0 / 0 2240 / 2240 Output Total 0 / 0 20 / 20 1300 / 1300 Balance 480 / 480 -20 / -20 940 / 940 Intake: Oral 480 / 480 0 / 0 240 / 240 Blood Product 1400 / 1400 Rbcs Leuko Poor As-1 Unit 700 / 700 [id number] Rbcs Leuko Poor As-1 Unit 700 / 700 [id number] Intake, Rinseback and Flushes 600 / 600 Output: Urine 0 / 0 0 / 0 Total Dialysis (HD) Output 1300 / 1300 Wound Drainage 20 / 20 Left Breast 20 / 20 Other: Meal Dinner Breakfast Percent of Meal Consumed 95% 100% Hemodialysis Net Fluid Removed 0 (mL) VITAL SIGNS: Reviewed. See [facility] GENERAL: restfully supine in bed, appears comfortable. Readily alert and oriented, pleasant, conversational, and cooperative. HEENT: [Normocephalic, PER, EOMi, oropharynx pink/moist, no JVD noted.] CV: RRR, no murmurs or gallops, no JVD RESPIRATORY: CTAB without wheezes, rales, or rhonchi ABD: soft, non-tender, no rebounding/guarding/rigidity/distention INCISION: bandage relatively dry compared to yesterday. Expected dependent bruising/ecchymosis. Incision without signs of dehiscence or infection. EXTREMITY: grossly normal motor function, mild pedal edema, SCDs in place, dorsalis pedis pulses 2+ b/l NEUROLOGIC EXAM: AOx3, obeys commands, no speech deficits. PSYCHIATRIC: normal mood and affect SKIN: no gross lesions, rashes, or skin changes - Labs 02/21/18 04:35 02/21/18 04:35 Diabetes panel 02/21/18 Range/Units 04:35 Sodium 135 L (136-145) mEq/L Potassium 6.1 H (3.5-5.1) mEq/L Chloride 93 L (98-107) mEq/L Carbon Dioxide 26 (23-29) mEq/L BUN 59 H (8-23) mg/dL Creatinine 4.55 H (0.60-1.20) mg/dL Glucose 115 H (70-105) mg/dL Calcium 8.3 L (8.6-10.3) mg/dL Calcium panel 02/21/18 Range/Units 04:35 Calcium 8.3 L (8.6-10.3) mg/dL Pituitary panel 02/21/18 Range/Units 04:35 Sodium 135 L (136-145) mEq/L Potassium 6.1 H (3.5-5.1) mEq/L Chloride 93 L (98-107) mEq/L Carbon Dioxide 26 (23-29) mEq/L BUN 59 H (8-23) mg/dL Creatinine 4.55 H (0.60-1.20) mg/dL Glucose 115 H (70-105) mg/dL Calcium 8.3 L (8.6-10.3) mg/dL Adrenal panel 02/21/18 Range/Units 04:35 Sodium 135 L (136-145) mEq/L Potassium 6.1 H (3.5-5.1) mEq/L Chloride 93 L (98-107) mEq/L Carbon Dioxide 26 (23-29) mEq/L BUN 59 H (8-23) mg/dL Creatinine 4.55 H (0.60-1.20) mg/dL Glucose 115 H (70-105) mg/dL Calcium 8.3 L (8.6-10.3) mg/dL - VTE Documentation of Mechanical Device: Intermittent pneumatic compression device Consult Discharge Plan - Plan Instructions: Atrial Fibrillation (DC), Juan David-Chan Drain Care (DC), Mastectomy (DC), Anemia (GEN) Additional Instructions: Please review all discharge educational handouts Please attend scheduled follow-up appointments; appointment dates and times will be provided for you. You are prescribed medication for pain, nausea, and constipation to be used if/ as needed; take as written. Avoid driving if your pain requires that you take opioid analgesics such as oxycodone. Call Dr. Alvarez's office if you have fever/chills/sweats/body aches, worsening fatigue, nausea, vomiting, constipation not relieved with meds you have been prescribed, significant abdominal pain after eating, blood in your stools or blackened stools, or signs of infection at your incision sites ( includes increasing redness, increasing warmth, swelling, or pus). Avoid heavy lifting at least until you're reevaluated in the surgical clinic. Wound Care: shower with antibacterial soap; gently wash or allow water to passively run over surgical sites, avoid firm scrubbing of incisional site. May leave incisions open to air or cover with a dry dressing for comfort. Tape to secure. Reinforce or change outer dressing as needed. BLAS drain: remove drain sponge. Shower/wash with antibacterial soap. Replace drain sponge. Cover with a dry dressing. Tape to secure. Do not let the BLAS drain dangle from your body. Secure the ball to clothing with a safety pin or suspend from a lanyard when showering. Call your PCP for other concerns if any arise. Cardiology clinic will contact you for an appointment. Resume your Aspirin, new dose of Cardizem (360mg), and Coreg 25mg. Referrals: Renan Rodrigues MD [Partnered Physician] - (submit web request; follow up within 2 weeks if possible) Nate Alvarez MD [Partnered Physician] - 02/28/18 2:05 pm Prescriptions: Acetaminophen [Tylenol] 500 mg PO Q6HR PRN #60 tablet PRN Reason: Mild Pain Ondansetron ODT [Zofran ODT] 4 mg SL Q6HR #15 tab.rapdis Diltiazem HCl [Cardizem Cd] 360 mg PO DAILY #30 cap.er.24h Docusate [Colace] 100 mg PO BID #30 capsule Tramadol HCl [Ultram] 50 mg PO Q6H PRN 7 Days #42 tab MDD 400mg PRN Reason: Severe Pain <Nate Alvarez - Last Filed: 02/25/18 07:29> Date of Encounter: 02/21/18 Objective - Labs 02/23/18 09:35 02/22/18 05:30 - Attending Attestation I examined this patient and my medical decision-making was reviewed with the Resident Physician. I agree with the documented findings, disposition and treatment plan as described except to the extent set forth below. I reviewed the above assessment and evaluation and agree with the above plan.
[2018-02-21] MEDS: Ondansetron 4 MG/2 ML VIAL IVP PRN (18:03)
[2018-02-21] MEDS ORDERED: *HR* Promethazine 25 MG/ML VIAL IVP ONE (20:05)
[2018-02-21 22:26] LABS: Calcium 8.7 mg/dL (8.6-10.3); Potassium 4.5 mEq/L (3.5-5.1); Troponin I 0.05 ng/mL (< 0.04)
[2018-02-22] MEDS: Ipratropium/Albuterol Neb 3 ML IH SCH ×4 (04:26→21:11)
[2018-02-22 05:54] LABS: Basophils % 0.4 %; Eosinophils # 0.2 K/mcL (0.0-0.6); Eosinophils % 2.4 %; Hematocrit 27.3 % (35.3-44.9); Hemoglobin 9.1 g/dL (11.5-15.4); Immature Granulocytes % 0.7 % (0-4); Lymphocytes # 1.2 K/mcL (0.6-4.6); Lymphocytes % 14.1 %; Mean Corpuscular HGB Conc 33.3 g/dL (31.6-35.5); Mean Corpuscular Hemoglobin 31.2 pg (28.0-33.3); Mean Corpuscular Volume 93.5 fL (83.0-100.0); Mean Platelet Volume 11.4 fL (9.4-12.4); Monocytes # 1.3 K/mcL (0.0-1.3); Monocytes % 15.2 %; Neutrophils # 5.7 K/mcL (1.6-8.9); Nucleated Red Blood Cells 0.2 /100 WBC (0); Platelet Count 144 K/mcL (140-400); Red Blood Count 2.92 M/mcL (3.82-4.97); Red Cell Distribution Width 17.1 % (11.5-14.5); Segmented Neutrophils % 67.2 %
[2018-02-22 06:13] LABS: Calcium 8.6 mg/dL (8.6-10.3); Potassium 4.9 mEq/L (3.5-5.1)
[2018-02-22] MEDS ORDERED: 0.9 % Sodium Chloride 250 ML IVC PRN (08:03)
[2018-02-22] MEDS ORDERED: 0.9 % Sodium Chloride 1,000 ML PRIME SCH (08:15)
[2018-02-22] MEDS: Loratadine 10 MG TABLET PO SCH (08:25)
[2018-02-22] MEDS: Furosemide 40 MG TABLET PO SCH (08:25)
[2018-02-22] MEDS: Diltiazem CD (24hr) 300 MG CAPSULE PO SCH (08:26)
[2018-02-22] MEDS: Isosorbide MONOnitrate (24 HR) 30 MG TAB.ER.24H PO SCH (08:26)
[2018-02-22] MEDS: Pantoprazole 40 MG VIAL IVP SCH (08:26)
--- NOTE | 2018-02-22 09:43 | Nephrology Progress Note ---
Date of Encounter: 02/22/18 Time of Encounter: 09:15 - Assessment and Plan (1) ESRD (end stage renal disease) on dialysis Current Visit: Yes Status: Chronic HD today, keeping MWF schedule. Orders given. (2) S/P left mastectomy Current Visit: Yes Status: Acute Subjective Interval history: Sitting on edge of bed, ate breakfast, hopes to go home today. Objective - Vital Signs Vital signs: Vital Signs Temp Pulse Resp BP Pulse Ox 02/22/18 07:08 97.9 F 83 18 157/74 96 02/22/18 04:28 18 90 02/22/18 03:42 97.9 F 96 15 159/78 90 02/22/18 01:38 102 160/70 02/22/18 00:46 132 169/86 02/22/18 00:21 98.2 F 119 17 93 02/22/18 00:13 128 164/72 02/21/18 22:56 14 95 02/21/18 22:21 98.3 F 118 16 173/80 94 02/21/18 19:41 99.1 F 117 16 174/83 94 02/21/18 15:17 18 96 02/21/18 15:15 98.6 F 73 20 156/71 96 02/21/18 13:57 98.2 F 86 20 158/73 97 02/21/18 13:25 161/94 02/21/18 13:10 172/89 02/21/18 13:02 97.1 F L 100 18 166/74 02/21/18 12:55 177/83 02/21/18 12:45 97.4 F L 100 18 159/77 02/21/18 12:40 157/76 02/21/18 12:30 97.8 F 98 18 162/75 02/21/18 12:25 158/77 02/21/18 12:24 97.8 F 92 18 158/77 02/21/18 12:10 171/71 02/21/18 11:55 138/61 02/21/18 11:52 98.0 F 90 18 139/62 02/21/18 11:40 152/73 02/21/18 11:37 98.3 F 84 20 146/66 02/21/18 11:25 98.3 F 20 127/67 02/21/18 10:38 18 98 Intake and Output 02/21/18 02/22/18 02/22/18 23:59 07:59 15:59 Intake Total 110 / 110 51.7 / 51.7 7.6 / 7.6 Output Total 7 0 / 0 Balance 103 / 103 51.7 / 51.7 7.6 / 7.6 Intake: IV Fluids 51.7 / 51.7 7.6 / 7.6 Cardizem 125 MG In 0.9 % Sodium 51.7 / 51.7 7.6 / 7.6 Chloride 100 ML @ 5 MG/HR 5 mls/hr IVC .Q24H NUHA Rx#: [id number] Oral 110 / 110 0 / 0 Output: Urine 0 / 0 0 / 0 Wound Drainage 0 / 0 Left Breast 0 / 0 Other: Meal Dinner Percent of Meal Consumed 25% # Bowel Movements 0 - General Appearance General appearance: Present: well-developed, appears started age EENT: Present: mucous membranes moist Neck: Present: no JVD Respiratory: Present: clear Cardiology: Present: no edema, regular rate, regular rhythm Dialysis Vascular Access: Arteriovenous Fistula Gastrointestinal: Present: normoactive bowel sounds, no tenderness Integumentary: Present: warm and dry Neurologic: Present: alert and oriented x3 - Lab 02/22/18 05:30 02/22/18 05:30 Most recent lab results Calcium 8.6 mg/dL (8.6-10.3) 02/22/18 05:30 - VTE Documentation of Mechanical Device: Intermittent pneumatic compression device Consult Discharge Plan - Plan Referrals: Nate Alvarez MD [Partnered Physician] - 03/07/18 1:35 pm
[2018-02-22] MEDS ORDERED: 0.9 % Sodium Chloride 1,000 ML ONE (10:18)
[2018-02-22] MEDS: Beclomethasone 40mcg MDI IH SCH ×2 (10:33→21:10)
--- NOTE | 2018-02-22 10:42 | Discharge Summary ---
Orders not resulted at time of discharge: Pending orders 02/21/18 20:20 EKG [ECG 12 lead ECG] [ECG] Stat Date of Encounter: 02/25/18 Time of Encounter: 10:00 - Discharge Diagnosis (1) S/P left mastectomy Priority: Primary Status: Acute (2) Breast cancer, left breast Priority: Primary Status: Acute Qualifiers: Breast location: unspecified site of breast Estrogen receptor status: unspecified Patient sex: female Qualified Code(s): C50.912 - Malignant neoplasm of unspecified site of left female breast (3) ESRD (end stage renal disease) on dialysis Priority: Primary Status: Chronic (4) COPD (chronic obstructive pulmonary disease) Priority: Secondary Status: Chronic Qualifiers: COPD type: chronic bronchitis Chronic bronchitis type: unspecified Qualified Code(s): J42 - Unspecified chronic bronchitis (5) Hypertension Priority: Secondary Status: Chronic Qualifiers: Hypertension type: essential hypertension Qualified Code(s): I10 - Essential (primary) hypertension (6) Anemia in chronic kidney disease (CKD) Priority: Primary Status: Chronic Comments: stable Qualifiers: Chronic kidney disease stage: on chronic dialysis Qualified Code(s): N18.6 - End stage renal disease; D63.1 - Anemia in chronic kidney disease; D63.1 - Anemia in chronic kidney disease; Z99.2 - Dependence on renal dialysis; Z99.2 - Dependence on renal dialysis; Z99.2 - Dependence on renal dialysis; Z99.2 - Dependence on renal dialysis (7) Afib Priority: Primary Status: Chronic Comments: Cardizem increased to 360 mg last night; normal HR this morning on exam. D/C with new dose. Qualifiers: Atrial fibrillation type: unspecified Qualified Code(s): I48.91 - Unspecified atrial fibrillation General Surgery Exam Initial Vital Signs Temp Pulse Resp BP Pulse Ox 97.9 F 111 18 173/88 93 02/19/18 10:49 02/19/18 10:49 02/19/18 10:49 02/19/18 10:49 02/19/18 10:49 VITAL SIGNS: Reviewed. See [facility] GENERAL: restfully supine in bed, appears comfortable. Readily alert and oriented, pleasant, conversational, and cooperative. HEENT: [Normocephalic, PER, EOMi, oropharynx pink/moist, no JVD noted.] CV: RRR, no murmurs or gallops, no JVD; palpated pulse mildly irregular with pulse rate in the mid 80s. RESPIRATORY: CTAB without wheezes, rales, or rhonchi ABD: soft, non-tender, no rebounding/guarding/rigidity/distention INCISION: expected dependent bruising/ecchymosis. Incision without signs of dehiscence or infection. BLAS: minimal collection of serosanguinous fluid (~15mL) EXTREMITY: grossly normal motor function, mild pedal edema, dorsalis pedis pulses 2+ b/l NEUROLOGIC EXAM: AOx3, obeys commands, no speech deficits. PSYCHIATRIC: normal mood and affect SKIN: no gross lesions, rashes, or skin changes - Hospital Course Hospital course: Ms. Hedrick is a 77 year old female with multiple comorbidities including history of RCC, yes RD on HD, chronic respiratory failure due to COPD, and 02 dependence. Direct admitted by Dr. Nate Alvarez for left mastectomy for left breast cancer. Procedure performed on 02/19/2018 with nerve blocks and local anesthesia due to significant comorbidities preclusive to LMA/general anesthesia. Procedure successfully completed. Left breast tissue sent to pathology lab; report demonstrated an invasive ductal carcinoma, grade 3, size 3.8 cm, ER negative, NH negative, HER2+. BLAS drain left in place. Postoperative pain has been overall well-controlled without any specific pain control requests per patient; patient has tried oxycodone but does not tolerate this well becoming nauseous and vomiting when taking it. Patient has not had any other interval abdominal complaints such as nausea or vomiting. Patient became intermittently anemic throughout course within yennifer of 7.3 g/ dL. Was transfused 2u pRBCs during dialysis on 02/21/18 and hemoglobin is now improved at 9.1 g/dL; patient is not been subjectively symptomatic of anemia nor has she had any vital sign instabilities consistent with blood loss related physiologic compromise. Patient has also been intermittently hyperkalemia throughout course which has been amenable to hemodialysis. Of note, patient does receive scheduled hemodialysis 4 times a week; and one more session is planned today prior to discharge. Patient is otherwise stable without acute signs of postop infection, vital sign compromise, or concerning electrolyte abnormalities. If patient does well during hemodialysis today, plan is to discharge patient home with close surgical follow-up. All aftercare and return precautions have been discussed with patient and provided to her in writing; patient is anxious to be discharged home and expresses understanding of all the aforementioned data. - Time Spent with Patient Total time spent providing and/or coordinating discharge services: - Discharge Medications Prescriptions: Acetaminophen [Tylenol] 500 mg PO Q6HR PRN #60 tablet PRN Reason: Mild Pain Ondansetron ODT [Zofran ODT] 4 mg SL Q6HR #15 tab.rapdis Diltiazem HCl [Cardizem Cd] 360 mg PO DAILY #30 cap.er.24h Docusate [Colace] 100 mg PO BID #30 capsule Tramadol HCl [Ultram] 50 mg PO Q6H PRN 7 Days #42 tab MDD 400mg PRN Reason: Severe Pain Home Medications: Aspirin Enteric Coated [Aspirin EC] 81 mg PO DAILY #0 02/29/16 [History] Oxygen 2 l .ROUTE AD 08/27/16 [History] Ipratropium/Albuterol Neb [Duoneb] 3 ml IH [id number] inhsol 04/16/17 [Rx] Omeprazole [PriLOSEC] 40 mg PO DAILY capsule. 04/16/17 [Rx] hydrALAZINE [HydrALAZINE] 25 mg PO Q8HR tablet 04/16/17 [Rx] Carvedilol [Coreg] 25 mg PO BID 06/24/17 [History] Diltiazem CD (24hr) [Cardizem CD] 300 mg PO DAILY 06/24/17 [History] Furosemide [Lasix] 40 mg PO DAILY 06/24/17 [History] Isosorbide MONOnitrate (24 HR) [Imdur] 30 mg PO DAILY 06/24/17 [History] Losartan Potassium [Cozaar] 50 mg PO DAILY 06/24/17 [History] Guaifenesin [Mucinex] 600 mg PO BID PRN 12/11/17 [History] Loratadine [Claritin] 10 mg PO DAILY 12/11/17 [History] cloNIDine HCl [CloNIDine HCl] 0.2 mg PO TID PRN 01/30/18 [History] Acetaminophen [Tylenol] 500 mg PO Q6HR PRN #60 tablet 02/22/18 [Rx] Diltiazem HCl [Cardizem Cd] 360 mg PO DAILY #30 cap.er.24h 02/22/18 [Rx] Docusate [Colace] 100 mg PO BID #30 capsule 02/22/18 [Rx] Ondansetron ODT [Zofran ODT] 4 mg SL Q6HR #15 tab.rapdis 02/22/18 [Rx] Tramadol HCl [Ultram] 50 mg PO Q6H PRN 7 Days #42 tab MDD 400mg 02/22/18 [Rx] Allergies/Adverse Reactions: 3 Allergy/AdvReac Type Severity Reaction Status Date / Time codeine Allergy Confusion Verified 02/19/18 11:34 Primary care physician: Eileen House CNP Consults: 02/19/18 16:11 Consult to Nephrology [CONS] Stat Consulting Provider: [facility] Reason for Consult: Patient familiar to your service, ESRD, s/p Left mastectomy. Time Notified: 14:30 Call Completed: Yes 02/20/18 08:30 Consult to Dialysis [CONS] ONCE 02/21/18 09:15 Consult to Dialysis [CONS] ONCE 02/22/18 08:15 Consult to Dialysis [CONS] ONCE Discharging clinician: Ravin Flynn Anticipated date of discharge: 02/23/18 Labs on day of discharge: Labs from last 24 hours 02/22/18 02/22/18 02/21/18 05:30 05:30 20:45 WBC 8.5 RBC 2.92 L Hgb 9.1 L D Hct 27.3 L MCV 93.5 MCH 31.2 MCHC 33.3 RDW 17.1 H Plt Count 144 MPV 11.4 Immature Gran % 0.7 Seg Neutrophils % 67.2 Lymphocytes % 14.1 Monocytes % 15.2 Eosinophils % 2.4 Basophils % 0.4 Neutrophils # 5.7 Lymphocytes # 1.2 Monocytes # 1.3 Eosinophils # 0.2 Basophils # 0.0 Nucleated RBCs/100 WBC 0.2 H Sodium 136 136 Potassium 4.9 4.5 D Chloride 94 L 93 L Carbon Dioxide 36 H 32 H BUN 39 H 36 H Creatinine 3.83 H 3.38 H Est GFR ( Amer) 14 L 16 L Est GFR (Non-Af Amer) 11 L 13 L BUN/Creatinine Ratio 10 11 Glucose 90 139 H Calculated Osmolality 291 293 Calcium 8.6 8.7 Troponin I 0.05 H* Blood Type Antibody Screen Crossmatch 02/21/18 09:22 WBC RBC Hgb Hct MCV MCH MCHC RDW Plt Count MPV Immature Gran % Seg Neutrophils % Lymphocytes % Monocytes % Eosinophils % Basophils % Neutrophils # Lymphocytes # Monocytes # Eosinophils # Basophils # Nucleated RBCs/100 WBC Sodium Potassium Chloride Carbon Dioxide BUN Creatinine Est GFR ( Amer) Est GFR (Non-Af Amer) BUN/Creatinine Ratio Glucose Calculated Osmolality Calcium Troponin I Blood Type A POSITIVE Antibody Screen NEGATIVE Crossmatch See Detail - Patient Status Disposition: Home, Self-Care Condition: Fair Functional capacity at discharge: uses cane/walker Overall status at discharge: patient is progressing back to baseline - Discharge Instructions Instructions: Juan David-Chan Drain Care (DC), Mastectomy (DC), Anemia (GEN), Atrial Fibrillation (DC) Follow Up With: Nate Alvarez MD [Partnered Physician] - 02/28/18 2:05 pm Renan Rodrigues MD [Partnered Physician] - (submit web request; follow up within 2 weeks if possible) Additional Instructions: Please review all discharge educational handouts Please attend scheduled follow-up appointments; appointment dates and times will be provided for you. You are prescribed medication for pain, nausea, and constipation to be used if/ as needed; take as written. Avoid driving if your pain requires that you take opioid analgesics such as oxycodone. Call Dr. Alvarez's office if you have fever/chills/sweats/body aches, worsening fatigue, nausea, vomiting, constipation not relieved with meds you have been prescribed, significant abdominal pain after eating, blood in your stools or blackened stools, or signs of infection at your incision sites ( includes increasing redness, increasing warmth, swelling, or pus). Avoid heavy lifting at least until you're reevaluated in the surgical clinic. Wound Care: shower with antibacterial soap; gently wash or allow water to passively run over surgical sites, avoid firm scrubbing of incisional site. May leave incisions open to air or cover with a dry dressing for comfort. Tape to secure. Reinforce or change outer dressing as needed. BLAS drain: remove drain sponge. Shower/wash with antibacterial soap. Replace drain sponge. Cover with a dry dressing. Tape to secure. Do not let the BLAS drain dangle from your body. Secure the ball to clothing with a safety pin or suspend from a lanyard when showering. Call your PCP for other concerns if any arise. Cardiology clinic will contact you for an appointment. Resume your Aspirin, new dose of Cardizem (360mg), and Coreg 25mg. - Diet and Activity Activity: increase activity as tolerated Diet: low salt diet
--- NOTE | 2018-02-22 14:08 | Cardiology Consult Note ---
Date of Encounter: 02/22/18 Time of Encounter: 14:06 Assessment and Plan (1) S/P left mastectomy Current Visit: No Status: Acute Per cardiology: -S/p left mastectomy. -POst op anemia noted, was given 2 units PRBC transfusion. -management per primary service. (2) Afib Current Visit: No Status: Chronic Per cardiology: -Known history of a.fib. -On cardizem CD 300mg and coregn 25mg BID in outpateint setting. -[id number] score 6 (age, gender, HTN, CHF, vascular disease). NOt on anticoagulation due to significant hemoptysis while on anticoagulation. Patient educated and aware of increased risk of CVA. -Average HR 83, a.fib overnight. Has had intermittent periods of a.fib RVR. -Will increase cardizem to 360mg daily. -Can consider switching coreg to toprol for better rate control, if needed. -Ideally would recommend resume ASA when ok with surgery. Qualifiers: Atrial fibrillation type: unspecified Qualified Code(s): I48.91 - Unspecified atrial fibrillation (3) Elevated troponin Current Visit: No Status: Acute Per cardiology: -Troponin 0.05 in the setting of a.fib RVR, post surgery, anemia. -Denies chest pain. -TTE 12/2017 with LVEF 60%. Mild concentric left ventricular hypertrophy. Severely dilated left atrium. Severely dilated right atrium.Mild mitral regurgitation. Mild mitral stenosis. Mild tricuspid regurgitation. Severe pulmonary hypertension. Estimated RVSP is 61 mmHg. No segmental wall motion abnormalities. -ECG with no acute ischemic changes. -[facility] 03/2015 with mild/moderate CAD, non-obstructive. -On BB. Not on asa currently due to post op anemia requiring blood transfusions. -Do not suspect NSTEMI, suspect demand ischemia related to above. No cardiac rehab consult warranted. -Will start statin. Discussion w patient/family: The assessment and plan as outlined above was discussed with the patient who expressed understanding and agreement. All questions were answered. Thank you for involving us in the care of your patient. Please call with any questions. Discussed and reviewed with . History of Present Illness Consult date: 02/22/18 Requesting physician: Nate Alvarez Consult reason: a.fib RVR Chief complaint: surgery History of present illness: Ms. Hedrick is a 77 year old female with a relevant past medical history of breast cancer s/p mastectomy this admission, a.fib not on anticoagulation due to hemoptysis, HTN, ESRD on HD, CAD non-obstructive, cardiomyopathy, COPD, CHF who was admitted to [facility] after left mastectomy for breast cancer. Cardiology has been asked to see the patient for a.fib RVR. Denies chest pain, increaseed shortness of breath. Past Med Surg Social Fam HX - Past Medical History Attestation: Yes The following information was validated with the patient. Source: patient, old records reviewed Medical history: atrial fibrillation, cancer, CHF, COPD, coronary artery disease , dialysis, GERD, hypertension, renal disease, other Psychiatric history: no psych history - Past Surgical History Surgical History: hysterectomy, other - Social History Smoking Status: Light tobacco smoker Packs per day: 0.25ppd Smokeless Tobacco Status: No Alcohol use: none Drug use: none - Family History Sister Living Status: Still Living Hx Family Cancer: Yes (colon cancer) Mother Living Status: Hx Family Cardiac Disorders: (angina) Father Living Status: Hx Family Respiratory Disorders: (pneumonia) Brother Living Status: Hx Family Cancer: Yes Medications and Allergies Aspirin Enteric Coated [Aspirin EC] 81 mg PO DAILY #0 02/29/16 [History] Oxygen 2 l .ROUTE AD 08/27/16 [History] Ipratropium/Albuterol Neb [Duoneb] 3 ml IH [id number] inhsol 04/16/17 [Rx] Omeprazole [PriLOSEC] 40 mg PO DAILY capsule. 04/16/17 [Rx] hydrALAZINE [HydrALAZINE] 25 mg PO Q8HR tablet 04/16/17 [Rx] Carvedilol [Coreg] 25 mg PO BID 06/24/17 [History] Diltiazem CD (24hr) [Cardizem CD] 300 mg PO DAILY 06/24/17 [History] Furosemide [Lasix] 40 mg PO DAILY 06/24/17 [History] Isosorbide MONOnitrate (24 HR) [Imdur] 30 mg PO DAILY 06/24/17 [History] Losartan Potassium [Cozaar] 50 mg PO DAILY 06/24/17 [History] Guaifenesin [Mucinex] 600 mg PO BID PRN 12/11/17 [History] Loratadine [Claritin] 10 mg PO DAILY 12/11/17 [History] cloNIDine HCl [CloNIDine HCl] 0.2 mg PO TID PRN 01/30/18 [History] Acetaminophen [Tylenol] 500 mg PO Q6HR PRN #60 tablet 02/22/18 [Rx] Docusate [Colace] 100 mg PO BID #30 capsule 02/22/18 [Rx] Ondansetron ODT [Zofran ODT] 4 mg SL Q6HR #15 tab.rapdis 02/22/18 [Rx] Tramadol HCl [Ultram] 50 mg PO Q6H PRN 7 Days #42 tab MDD 400mg 02/22/18 [Rx] 3 Allergy/AdvReac Type Severity Reaction Status Date / Time codeine Allergy Confusion Verified 02/19/18 11:34 All Systems Review: The remainder of the systems were reviewed and are negative - Cardiovascular Cardiovascular: as per HPI Physical Examination Vital Signs, Last 4 Hours Temp Pulse Resp BP Pulse Ox 02/22/18 11:16 98.6 F 70 18 124/53 90 02/22/18 10:33 18 90 General: Conversant, No Apparent Distress HEENT: Atraumatic, Normocephaly, Mucus Membranes Moist Neck: No JVD, Normal carotid pulses Cardiac: Normal S1 and S2, No Murmur, Other (Irregularly irregular) Lungs: Normal Breath Sounds, No Wheeze, Rales, Rhonchi Neuro: Alert and responsive, No focal deficits noted Abdomen: Soft, Non-Tender Skin: No rashes noted on visualized skin Musculoskeletal: No Chest Wall Tenderness Extremities: No Clubbing, No Cyanosis, No Edema, Normal Pulses Results 02/22/18 05:30 02/22/18 05:30 Lab Results Active Medications Acetaminophen (Tylenol) 500 mg PO Q6HR PRN PRN Reason: Mild Pain Stop: 08/23/18 14:46 Albuterol/Ipratropium (Duoneb) 3 ml IH [id number] NUHA Stop: 08/21/18 16:12 Last Admin: 02/22/18 10:34 Dose: 3 ml Beclomethasone Dipropionate (Qvar 40 Mcg) 2 puff IH BIDR NUHA PRN Reason: Protocol Stop: 08/21/18 22:01 Last Admin: 02/22/18 10:33 Dose: 2 puff Carvedilol (Coreg) 25 mg PO BIDWM NUHA PRN Reason: Protocol Stop: 08/22/18 17:01 Last Admin: 02/22/18 08:25 Dose: 25 mg Clonidine HCl (Clonidine Hcl) 0.2 mg PO TID PRN PRN Reason: SBP >150 Stop: 08/22/18 09:01 Last Admin: 02/21/18 20:27 Dose: 0.2 mg Darbepoetin Wallace (Aranesp) 100 mcg SQ QWEEK [facility] Stop: 08/22/18 08:31 Last Admin: 02/20/18 14:30 Dose: 100 mcg Diltiazem HCl (Cardizem Cd) 360 mg PO DAILY [facility] Stop: 08/25/18 09:01 Furosemide (Lasix) 40 mg PO DAILY [facility] Stop: 08/22/18 09:01 Last Admin: 02/22/18 08:25 Dose: 40 mg Guaifenesin (Mucinex) 600 mg PO BID PRN PRN Reason: Congestion Stop: 08/21/18 16:12 Sodium Chloride (0.9 % Sodium Chloride) 250 mls @ 937.5 mls/hr IVC .Q16M PRN PRN Reason: Hypotension Stop: 08/22/18 08:20 Sodium Chloride (0.9 % Sodium Chloride) 250 mls @ 937.5 mls/hr IVC .Q16M PRN PRN Reason: Hypotension Stop: 08/23/18 09:08 Sodium Chloride (0.9 % Sodium Chloride) 1,000 mls @ 0 mls/hr PRIME .Q0M NUHA PRN Reason: As Directed Stop: 08/23/18 09:16 Sodium Chloride (0.9 % Sodium Chloride) 250 mls @ 937.5 mls/hr IVC .Q16M PRN PRN Reason: Hypotension Stop: 08/24/18 08:04 Sodium Chloride (0.9 % Sodium Chloride) 1,000 mls @ 0 mls/hr PRIME .Q0M NUHA PRN Reason: As Directed Stop: 08/24/18 08:16 Isosorbide Mononitrate (Imdur) 30 mg PO DAILY [facility] Stop: 08/22/18 15:01 Last Admin: 02/22/18 08:26 Dose: 30 mg Loratadine (Claritin) 10 mg PO DAILY NUHA PRN Reason: Protocol Stop: 08/22/18 09:01 Last Admin: 02/22/18 08:25 Dose: 10 mg Losartan Potassium (Cozaar) 50 mg PO DAILY NUHA Stop: 08/22/18 09:01 Last Admin: 02/22/18 08:25 Dose: 50 mg Morphine Sulfate (Roxanol Oral Conc) 10 mg SL Q4HR PRN PRN Reason: Severe Pain Stop: 08/21/18 16:12 Last Admin: 02/20/18 02:09 Dose: 10 mg Ondansetron HCl (Zofran) 4 mg IVP Q6HR PRN; Protocol PRN Reason: Nausea Stop: 08/21/18 16:12 Last Admin: 02/21/18 18:03 Dose: 4 mg Pantoprazole Sodium (Protonix) 40 mg IVP DAILY NUHA Stop: 08/22/18 09:01 Last Admin: 02/22/18 08:26 Dose: 40 mg Laboratory Tests 03/24/16 02/20/18 02/21/18 04:30 05:41 04:35 Hgb 8.0 L 7.3 L Potassium Creatinine Troponin I TSH 1.704 02/21/18 02/22/18 02/22/18 20:45 05:30 05:30 Hgb 9.1 L D Potassium 4.9 Creatinine 3.83 H Troponin I 0.05 H* TSH - Imaging and Cardiology Chest Xray: report reviewed Echo: report reviewed - EKG Interpretation EKG results cardiology: personally reviewed (ECG with a.fib RVR, HR 133.), other (Telemetry reviewed with average HR previous 12 hours noted to be 83, a.fib. PVCs noted.) Consult Discharge Plan - Plan Instructions: Juan David-Chan Drain Care (DC), Mastectomy (DC), Anemia (GEN) Additional Instructions: Please review all discharge educational handouts Please attend scheduled follow-up appointments; appointment dates and times will be provided for you. You are prescribed medication for pain, nausea, and constipation to be used if/ as needed; take as written. Avoid driving if your pain requires that you take opioid analgesics such as oxycodone. Call Dr. Alvarez's office if you have fever/chills/sweats/body aches, nausea , vomiting, constipation not relieved with meds you have been prescribed, significant abdominal pain after eating, blood in your stools or blackened stools, or signs of infection at your incision sites (includes increasing redness, increasing warmth, swelling, or pus). Avoid heavy lifting at least until you're reevaluated in the surgical clinic. Wound Care: shower with antibacterial soap; gently wash or allow water to passively run over surgical sites, avoid firm scrubbing of incisional site. May leave incisions open to air or cover with a dry dressing for comfort. Tape to secure. Reinforce or change outer dressing as needed. BLAS drain: remove drain sponge. Shower/wash with antibacterial soap. Replace drain sponge. Cover with a dry dressing. Tape to secure. Do not let the BLAS drain dangle from your body. Secure the ball to clothing with a safety pin or suspend from a lanyard when showering. Call your PCP for other concerns if any arise. Referrals: Nate Alvarez MD [Partnered Physician] - 03/07/18 1:35 pm Prescriptions: Acetaminophen [Tylenol] 500 mg PO Q6HR PRN #60 tablet PRN Reason: Mild Pain Ondansetron ODT [Zofran ODT] 4 mg SL Q6HR #15 tab.rapdis Docusate [Colace] 100 mg PO BID #30 capsule Tramadol HCl [Ultram] 50 mg PO Q6H PRN 7 Days #42 tab MDD 400mg PRN Reason: Severe Pain
--- NOTE | 2018-02-22 16:24 | General Surgery Progress Note ---
<JanuszEileen Conro - Last Filed: 02/22/18 16:21> Date of Encounter: 02/22/18 Time of Encounter: 14:00 - Assessment and Plan (1) Breast cancer, left breast Status: Acute POD #3 Left Modified radical mastectomy with Dr. 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 Qualifiers: Breast location: unspecified site of breast Estrogen receptor status: unspecified Patient sex: female Qualified Code(s): C50.912 - Malignant neoplasm of unspecified site of left female breast (2) ESRD (end stage renal disease) on dialysis Status: Chronic Nephrology following s/p dialysis today (3) Atrial fibrillation with RVR Status: Acute Cardiology consulted for recommendations - Will increase cardizem to 360mg daily. - Can consider switching coreg to toprol for better rate control, if needed. - Ideally would recommend resume ASA when ok with surgery. (4) COPD (chronic obstructive pulmonary disease) Status: Chronic Stable No acute exacerbation Qualifiers: COPD type: chronic bronchitis Chronic bronchitis type: unspecified Qualified Code(s): J42 - Unspecified chronic bronchitis (5) HTN (hypertension) Status: Chronic Continue home medication regimen Qualifiers: Hypertension type: essential hypertension Qualified Code(s): I10 - Essential (primary) hypertension (6) Acute blood loss as cause of postoperative anemia Status: Acute Transfusion of 2 units of PRBC 02/21/18 Anemia stable at this time Hgb- 7.3>9.1 Subjective Patient reports: no new complaints, feels better, still having pain, pain is less, tolerating a regular diet, voiding w/o difficulty, afebrile Objective Vital Signs - Last 8 Hours Temp Pulse Resp BP Pulse Ox 02/22/18 16:02 97.3 F L 18 136/61 89 02/22/18 15:54 98.4 F 84 15 153/60 92 02/22/18 15:25 122/71 02/22/18 15:10 124/70 02/22/18 14:55 139/59 02/22/18 14:40 149/61 02/22/18 14:25 131/65 02/22/18 14:10 141/58 02/22/18 13:55 134/57 02/22/18 13:40 121/55 02/22/18 13:25 120/55 02/22/18 13:10 117/53 02/22/18 12:55 112/54 02/22/18 12:40 112/54 02/22/18 12:25 97.8 F 18 113/56 02/22/18 11:16 98.6 F 70 18 124/53 90 02/22/18 10:33 18 90 02/22/18 08:30 96 Intake and Output 02/22/18 02/22/18 02/22/18 07:59 15:59 23:59 Intake Total 51.7 / 51.7 607.6 / 607.6 Output Total 0 / 0 45 / 45 1600 / 1600 Balance 51.7 / 51.7 562.6 / 562.6 -1600 / -1600 Intake: IV Fluids 51.7 / 51.7 7.6 / 7.6 Cardizem 125 MG In 0.9 % Sodium 51.7 / 51.7 7.6 / 7.6 Chloride 100 ML @ 5 MG/HR 5 mls/hr IVC .Q24H NUHA Rx#: [id number] Oral 0 / 0 0 / 0 Intake, Rinseback and Flushes 600 / 600 Output: Urine 0 / 0 0 / 0 0 / 0 Total Dialysis (HD) Output 1600 / 1600 Wound Drainage 0 / 0 45 / 45 Left Breast 0 / 0 45 / 45 Other: # Bowel Movements 0 0 Hemodialysis Net Fluid Removed 1600 1000 (mL) - General physical appearance well developed, well nourished, no distress, chronically ill - Eyes normal ocular movement - ENT normal mucosa, atraumatic, normocephalic - Neck Neck exam: trachea midline - Respiratory normal respiratory effort, clear to auscultation - Cardiovascular Cardiovascular exam: Present: irregular rhythm - Abdomen Abdomen: Present: bowel sounds present, soft, non tender - Incision Incision: Present: clean and dry, intact, serosanguinous (BLAS drain with serousang. drainage noted; post-operative hematoma stable) - Neurologic CN 2-12 grossly intact - Psychiatric oriented to time, oriented to person, oriented to place, speech is normal, memory intact - Labs 02/22/18 05:30 02/22/18 05:30 Diabetes panel 02/21/18 02/22/18 Range/Units 20:45 05:30 Sodium 136 136 (136-145) mEq/L Potassium 4.5 D 4.9 (3.5-5.1) mEq/L Chloride 93 L 94 L (98-107) mEq/L Carbon Dioxide 32 H 36 H (23-29) mEq/L BUN 36 H 39 H (8-23) mg/dL Creatinine 3.38 H 3.83 H (0.60-1.20) mg/dL Glucose 139 H 90 (70-105) mg/dL Calcium 8.7 8.6 (8.6-10.3) mg/dL Calcium panel 02/21/18 02/22/18 Range/Units 20:45 05:30 Calcium 8.7 8.6 (8.6-10.3) mg/dL Pituitary panel 02/21/18 02/22/18 Range/Units 20:45 05:30 Sodium 136 136 (136-145) mEq/L Potassium 4.5 D 4.9 (3.5-5.1) mEq/L Chloride 93 L 94 L (98-107) mEq/L Carbon Dioxide 32 H 36 H (23-29) mEq/L BUN 36 H 39 H (8-23) mg/dL Creatinine 3.38 H 3.83 H (0.60-1.20) mg/dL Glucose 139 H 90 (70-105) mg/dL Calcium 8.7 8.6 (8.6-10.3) mg/dL Adrenal panel 02/21/18 02/22/18 Range/Units 20:45 05:30 Sodium 136 136 (136-145) mEq/L Potassium 4.5 D 4.9 (3.5-5.1) mEq/L Chloride 93 L 94 L (98-107) mEq/L Carbon Dioxide 32 H 36 H (23-29) mEq/L BUN 36 H 39 H (8-23) mg/dL Creatinine 3.38 H 3.83 H (0.60-1.20) mg/dL Glucose 139 H 90 (70-105) mg/dL Calcium 8.7 8.6 (8.6-10.3) mg/dL - VTE Documentation of Mechanical Device: Intermittent pneumatic compression device Consult Discharge Plan - Plan Instructions: Atrial Fibrillation (DC), Juan David-Chan Drain Care (DC), Mastectomy (DC), Anemia (GEN) Additional Instructions: Please review all discharge educational handouts Please attend scheduled follow-up appointments; appointment dates and times will be provided for you. You are prescribed medication for pain, nausea, and constipation to be used if/ as needed; take as written. Avoid driving if your pain requires that you take opioid analgesics such as oxycodone. Call Dr. Alvarez's office if you have fever/chills/sweats/body aches, worsening fatigue, nausea, vomiting, constipation not relieved with meds you have been prescribed, significant abdominal pain after eating, blood in your stools or blackened stools, or signs of infection at your incision sites ( includes increasing redness, increasing warmth, swelling, or pus). Avoid heavy lifting at least until you're reevaluated in the surgical clinic. Wound Care: shower with antibacterial soap; gently wash or allow water to passively run over surgical sites, avoid firm scrubbing of incisional site. May leave incisions open to air or cover with a dry dressing for comfort. Tape to secure. Reinforce or change outer dressing as needed. BLAS drain: remove drain sponge. Shower/wash with antibacterial soap. Replace drain sponge. Cover with a dry dressing. Tape to secure. Do not let the BLAS drain dangle from your body. Secure the ball to clothing with a safety pin or suspend from a lanyard when showering. Call your PCP for other concerns if any arise. Cardiology clinic will contact you for an appointment. Resume your Aspirin, new dose of Cardizem (360mg), and Coreg 25mg. Referrals: Renan Rodrigues MD [Partnered Physician] - (submit web request; follow up within 2 weeks if possible) Nate Avlarez MD [Partnered Physician] - 02/28/18 2:05 pm Prescriptions: Acetaminophen [Tylenol] 500 mg PO Q6HR PRN #60 tablet PRN Reason: Mild Pain Ondansetron ODT [Zofran ODT] 4 mg SL Q6HR #15 tab.rapdis Diltiazem HCl [Cardizem Cd] 360 mg PO DAILY #30 cap.er.24h Docusate [Colace] 100 mg PO BID #30 capsule Tramadol HCl [Ultram] 50 mg PO Q6H PRN 7 Days #42 tab MDD 400mg PRN Reason: Severe Pain - Attending Attestation For this encounter, I have reviewed the [employer] THERAPIST or PA documentation, treatment plan, and medical decision making; and I have had face to face time with this patient. <Nate Alvarez - Last Filed: 02/25/18 07:30> Date of Encounter: 02/22/18 Objective Vital Signs - Last 8 Hours Temp Pulse Resp BP Pulse Ox 02/22/18 16:02 97.3 F L 18 136/61 89 02/22/18 15:54 98.4 F 84 15 153/60 92 02/22/18 15:25 122/71 02/22/18 15:10 124/70 02/22/18 14:55 139/59 02/22/18 14:40 149/61 02/22/18 14:25 131/65 02/22/18 14:10 141/58 02/22/18 13:55 134/57 02/22/18 13:40 121/55 02/22/18 13:25 120/55 02/22/18 13:10 117/53 02/22/18 12:55 112/54 02/22/18 12:40 112/54 02/22/18 12:25 97.8 F 18 113/56 02/22/18 11:16 98.6 F 70 18 124/53 90 02/22/18 10:33 18 90 Intake and Output 02/22/18 02/22/18 02/22/18 07:59 15:59 23:59 Intake Total 51.7 / 51.7 607.6 / 607.6 Output Total 0 / 0 45 / 45 1600 / 1600 Balance 51.7 / 51.7 562.6 / 562.6 -1600 / -1600 Intake: IV Fluids 51.7 / 51.7 7.6 / 7.6 Cardizem 125 MG In 0.9 % Sodium 51.7 / 51.7 7.6 / 7.6 Chloride 100 ML @ 5 MG/HR 5 mls/hr IVC .Q24H NUHA Rx#: [id number] Oral 0 / 0 0 / 0 Intake, Rinseback and Flushes 600 / 600 Output: Urine 0 / 0 0 / 0 0 / 0 Total Dialysis (HD) Output 1600 / 1600 Wound Drainage 0 / 0 45 / 45 Left Breast 0 / 0 45 / 45 Other: # Bowel Movements 0 0 Hemodialysis Net Fluid Removed 1600 1000 (mL) - Labs 02/23/18 09:35 02/22/18 05:30 Diabetes panel 02/21/18 02/22/18 Range/Units 20:45 05:30 Sodium 136 136 (136-145) mEq/L Potassium 4.5 D 4.9 (3.5-5.1) mEq/L Chloride 93 L 94 L (98-107) mEq/L Carbon Dioxide 32 H 36 H (23-29) mEq/L BUN 36 H 39 H (8-23) mg/dL Creatinine 3.38 H 3.83 H (0.60-1.20) mg/dL Glucose 139 H 90 (70-105) mg/dL Calcium 8.7 8.6 (8.6-10.3) mg/dL Calcium panel 02/21/18 02/22/18 Range/Units 20:45 05:30 Calcium 8.7 8.6 (8.6-10.3) mg/dL Pituitary panel 02/21/18 02/22/18 Range/Units 20:45 05:30 Sodium 136 136 (136-145) mEq/L Potassium 4.5 D 4.9 (3.5-5.1) mEq/L Chloride 93 L 94 L (98-107) mEq/L Carbon Dioxide 32 H 36 H (23-29) mEq/L BUN 36 H 39 H (8-23) mg/dL Creatinine 3.38 H 3.83 H (0.60-1.20) mg/dL Glucose 139 H 90 (70-105) mg/dL Calcium 8.7 8.6 (8.6-10.3) mg/dL Adrenal panel 02/21/18 02/22/18 Range/Units 20:45 05:30 Sodium 136 136 (136-145) mEq/L Potassium 4.5 D 4.9 (3.5-5.1) mEq/L Chloride 93 L 94 L (98-107) mEq/L Carbon Dioxide 32 H 36 H (23-29) mEq/L BUN 36 H 39 H (8-23) mg/dL Creatinine 3.38 H 3.83 H (0.60-1.20) mg/dL Glucose 139 H 90 (70-105) mg/dL Calcium 8.7 8.6 (8.6-10.3) mg/dL - Attending Attestation I reviewed the above and agree with the above plan. Patient came to be discharged today if okay with cardiology.
[2018-02-23] MEDS: Ipratropium/Albuterol Neb 3 ML IH SCH ×2 (04:01→10:07)
[2018-02-23 07:39] VITALS: BP 149/89
[2018-02-23] MEDS: Furosemide 40 MG TABLET PO SCH (08:32)
[2018-02-23] MEDS: Loratadine 10 MG TABLET PO SCH (08:32)
[2018-02-23] MEDS: Isosorbide MONOnitrate (24 HR) 30 MG TAB.ER.24H PO SCH (08:34)
--- NOTE | 2018-02-23 08:35 | Nephrology Progress Note ---
Date of Encounter: 02/23/18 Time of Encounter: 08:15 - Assessment and Plan (1) ESRD (end stage renal disease) on dialysis Current Visit: No Status: Chronic No HD today, keeping MWF schedule. (2) S/P left mastectomy Current Visit: No Status: Acute Subjective Interval history: Laying in bed, hopes to go home today. No new complaints. Objective - Vital Signs Vital signs: Vital Signs Temp Pulse Resp BP Pulse Ox 02/23/18 07:32 98.5 F 107 17 149/89 92 02/23/18 04:01 17 93 02/23/18 03:26 98.4 F 99 17 182/75 93 02/22/18 23:20 98.2 F 95 16 149/67 95 02/22/18 21:10 16 96 02/22/18 20:00 167/60 02/22/18 18:49 98.3 F 80 15 187/77 96 02/22/18 16:02 97.3 F L 18 136/61 89 02/22/18 15:54 98.4 F 84 15 153/60 92 02/22/18 15:25 122/71 02/22/18 15:10 124/70 02/22/18 14:55 139/59 02/22/18 14:40 149/61 02/22/18 14:25 131/65 02/22/18 14:10 141/58 02/22/18 13:55 134/57 02/22/18 13:40 121/55 02/22/18 13:25 120/55 02/22/18 13:10 117/53 02/22/18 12:55 112/54 02/22/18 12:40 112/54 02/22/18 12:25 97.8 F 18 113/56 02/22/18 11:16 98.6 F 70 18 124/53 90 02/22/18 10:33 18 90 Intake and Output 02/22/18 02/23/18 02/23/18 23:59 07:59 15:59 Intake Total 360 / 360 240 / 240 Output Total 1600 / 1600 20 / 20 Balance -1240 / -1240 220 / 220 Intake: Oral 360 / 360 240 / 240 Output: Urine 0 / 0 0 / 0 Total Dialysis (HD) Output 1600 / 1600 Wound Drainage 20 / 20 Left Breast 20 / 20 Other: Meal Dinner Percent of Meal Consumed 100% # Bowel Movements 0 Weight 54.4 kg Hemodialysis Net Fluid Removed 1000 (mL) Patient Weight 02/23/18 23:59 Weight 54.4 kg - General Appearance General appearance: Present: well-developed, appears started age EENT: Present: mucous membranes moist Neck: Present: no JVD Respiratory: Present: clear Cardiology: Present: no edema, regular rate, regular rhythm Dialysis Vascular Access: Arteriovenous Fistula Gastrointestinal: Present: normoactive bowel sounds, no tenderness Integumentary: Present: warm and dry Neurologic: Present: alert and oriented x3 - Lab 02/22/18 05:30 02/22/18 05:30 Most recent lab results Calcium 8.6 mg/dL (8.6-10.3) 02/22/18 05:30 - VTE Documentation of Mechanical Device: Intermittent pneumatic compression device Consult Discharge Plan - Plan Instructions: Juan David-Chan Drain Care (DC), Mastectomy (DC), Anemia (GEN) Additional Instructions: Please review all discharge educational handouts Please attend scheduled follow-up appointments; appointment dates and times will be provided for you. You are prescribed medication for pain, nausea, and constipation to be used if/ as needed; take as written. Avoid driving if your pain requires that you take opioid analgesics such as oxycodone. Call Dr. Alvarez's office if you have fever/chills/sweats/body aches, nausea , vomiting, constipation not relieved with meds you have been prescribed, significant abdominal pain after eating, blood in your stools or blackened stools, or signs of infection at your incision sites (includes increasing redness, increasing warmth, swelling, or pus). Avoid heavy lifting at least until you're reevaluated in the surgical clinic. Wound Care: shower with antibacterial soap; gently wash or allow water to passively run over surgical sites, avoid firm scrubbing of incisional site. May leave incisions open to air or cover with a dry dressing for comfort. Tape to secure. Reinforce or change outer dressing as needed. BLAS drain: remove drain sponge. Shower/wash with antibacterial soap. Replace drain sponge. Cover with a dry dressing. Tape to secure. Do not let the BLAS drain dangle from your body. Secure the ball to clothing with a safety pin or suspend from a lanyard when showering. Call your PCP for other concerns if any arise. Referrals: Nate Alvarez MD [Partnered Physician] - 02/28/18 2:05 pm Prescriptions: Acetaminophen [Tylenol] 500 mg PO Q6HR PRN #60 tablet PRN Reason: Mild Pain Ondansetron ODT [Zofran ODT] 4 mg SL Q6HR #15 tab.rapdis Diltiazem HCl [Cardizem Cd] 360 mg PO DAILY #30 cap.er.24h Docusate [Colace] 100 mg PO BID #30 capsule Tramadol HCl [Ultram] 50 mg PO Q6H PRN 7 Days #42 tab MDD 400mg PRN Reason: Severe Pain
[2018-02-23] MEDS: Pantoprazole 40 MG VIAL IVP SCH (08:36)
[2018-02-23] MEDS ORDERED: Aspirin 81 MG TAB.CHEW PO SCH (09:00)
[2018-02-23] MEDS ORDERED: Diltiazem CD (24hr) 180 MG CAPSULE PO SCH (09:00)
[2018-02-23 09:44] LABS: Hematocrit 28.1 % (35.3-44.9); Hemoglobin 9.2 g/dL (11.5-15.4); Mean Corpuscular HGB Conc 32.7 g/dL (31.6-35.5); Mean Corpuscular Hemoglobin 31.2 pg (28.0-33.3); Mean Corpuscular Volume 95.3 fL (83.0-100.0); Mean Platelet Volume 11.3 fL (9.4-12.4); Platelet Count 166 K/mcL (140-400); Red Blood Count 2.95 M/mcL (3.82-4.97); Red Cell Distribution Width 16.3 % (11.5-14.5)
[2018-02-23] MEDS: Beclomethasone 40mcg MDI IH SCH (10:06)
--- NOTE | 2018-02-25 05:47 | Electrocardiograph Report ---
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
== END 2018-02-23 12:18 | disposition home or self-care (01) | DRG 582 ==
LOC: SAMDAY 10:25 → 3ANU 15:48
PROVIDERS: ADMIT Surgery; ATTEND Surgery

== ENCOUNTER 2018-06-24 04:06 | Observation (INO) ==
[2018-06-24] MEDS ORDERED: Acetaminophen 325 MG TABLET PO PRN (09:06)
[2018-06-24] MEDS ORDERED: Naloxone 0.4 MG/ML INJ IVP PRN (09:06)
--- NOTE | 2018-06-24 09:27 | Internal Med History&Physical ---
Date of Encounter: 06/24/18 Time of Encounter: 09:00 Internal Medicine - H&P: HPI Chief complaint: Cough and dyspnea Admitted From: Hospital to Hospital Transfer Plans for Post Hospital Care: Home History of present illness: Ms. Hedrick is a 78 year old female with hx of ESRD on HD and breast cancer transferred from [facility] due to cough and dyspnea. Ms Hedrick stated that she usually has some dyspnea but has been worse over last 3 days. She has had cough productive of yellow sputum. No fever or chills. No diarrhea or constipation. Takes Mucinex at home but has not helped. Feels more dyspneic with movement. Last dialyzed on 06/21 and is compliant. Was told then that she had allergies. She has also had some drainage from her R eye. At [facility] ED she was evaluated. WBC normal. Creatinine elevated but K 4.7. CXR showed R pleural effusion with associated atelectasis (can't r/o pneumonia ). At the present time she is still coughing but is hungry and wants breakfast. Past Med Surg Social Fam HX - Past Medical History Source: patient, old records reviewed Medical history: atrial fibrillation, cancer, CHF, COPD, dialysis, GERD, hypertension, renal disease, other Additional medical history: breast CA. one kidney since 89 from [place], dialysis for 6 years Psychiatric history: no psych history - Past Surgical History Surgical History: hysterectomy, other Additional surgical history: left kidney removal - Social History Smoking Status: Current every day smoker Packs per day: 1 Smokeless Tobacco Status: No Alcohol use: none Drug use: none Current living situation: Home - Independent Activity Level: Independent ambulation - Family History Sister Family Member Ethnicity: Non- Living Status: Still Living Hx Family Cardiac Disorders: Yes (Pig valve) Hx Family Cancer: Yes (colon cancer) Hx Family Endocrine Disorder: Yes (DM) Mother Family Member Ethnicity: Non- Living Status: Hx Family Cardiac Disorders: (angina) Father Family Member Ethnicity: Non- Living Status: Hx Family Respiratory Disorders: (pneumonia) Brother Family Member Ethnicity: Non- Living Status: Hx Family Cancer: Yes Internal Medicine - H&P: Meds Aspirin Enteric Coated [Aspirin EC] 81 mg PO DAILY #0 02/29/16 [History] Oxygen 2 l .ROUTE AD 08/27/16 [History] Ipratropium/Albuterol Neb [Duoneb] 3 ml IH [id number] inhsol 04/16/17 [Rx] Omeprazole [PriLOSEC] 40 mg PO DAILY capsule. 04/16/17 [Rx] Carvedilol [Coreg] 25 mg PO BID 06/24/17 [History] Furosemide [Lasix] 40 mg PO DAILY 06/24/17 [History] Isosorbide MONOnitrate (24 HR) [Imdur] 30 mg PO DAILY 06/24/17 [History] Losartan Potassium [Cozaar] 50 mg PO DAILY 06/24/17 [History] Guaifenesin [Mucinex] 600 mg PO BID PRN 12/11/17 [History] Loratadine [Claritin] 10 mg PO DAILY 12/11/17 [History] cloNIDine HCl [CloNIDine HCl] 0.2 mg PO BID PRN 01/30/18 [History] Acetaminophen [Tylenol] 500 mg PO Q6HR PRN #60 tablet 02/22/18 [Rx] Diltiazem HCl [Cardizem Cd] 360 mg PO DAILY #30 cap.er.24h 02/22/18 [Rx] Docusate [Colace] 100 mg PO BID #30 capsule 02/22/18 [Rx] Ondansetron ODT [Zofran ODT] 4 mg SL Q6HR PRN 03/22/18 [History] hydrALAZINE [HydrALAZINE] 25 mg PO TID 03/22/18 [History] Tramadol HCl [Ultram] 50 mg PO TID PRN 7 Days #21 tab 03/26/18 [Rx] 3 Allergy/AdvReac Type Severity Reaction Status Date / Time codeine Allergy Confusion Verified 02/19/18 11:34 All Systems PM: A 10-system review of systems was performed and is negative for pertinent findings except as documented above in the HPI. - Constitutional Constitutional: fatigue, malaise - EENT Eyes: discharge (R eye), irritation, no loss of vision Ears: no decreased hearing, no ear pain Nose, mouth and throat: no dysphagia, no mouth pain, no sore throat - Cardiovascular Cardiovascular ROS IM: no chest pain, no orthopnea, no paroxysmal nocturnal dyspnea - Respiratory Respiratory: cough, chest congestion, excessive phlegm production, change in phlegm color, no wheezing - Gastrointestinal Gastrointestinal: no abdominal pain, no change in bowel habits, no diarrhea, no melena - Genitourinary Additional comments: Makes no urine - Musculoskeletal Musculoskeletal ROS IM: arthralgias, no numbness - Integumentary Integumentary IM: no erythema, no rash - Neurological Neurological ROS: no abnormal gait, no numbness, no tingling, no weakness - Endocrine Endocrine IM: no cold intolerance, no heat intolerance - Hematologic/Lymphatic Hematologic/Lymphatic: no easy bleeding - Allergic/Immunologic Allergic/Immunologic: no throat swelling, no wheezing - Constitutional Vitals: Temp Pulse Resp BP Pulse Ox 97.5 F L 86 20 173/92 93 06/24/18 06:22 06/24/18 06:22 06/24/18 06:22 06/24/18 06:22 06/24/18 06:22 General appearance: Present: A&O X 3 Exam: See below - Head Head exam: Present: atraumatic, normocephalic - Eye Eye exam: Present: conjunctival injection (R eye), EOMI - ENT ENT exam: Present: mucous membranes moist - Neck Neck exam general surgery: Present: normal inspection. Absent: thyromegaly - Respiratory Respiratory exam: Present: decreased breath sounds, rales, rhonchi Additional comments: Decreased breath sounds on R. Rhonchi bilaterally. Rales on L. - Cardiovascular Cardiovascular exam: Present: irregular rhythm. Absent: tachycardia - GI/Abdominal GI/Abdominal exam: Present: normal bowel sounds, soft. Absent: tenderness - Extremities Exam Extremities exam: Present: pedal edema, tenderness, warm - Neurological Exam Neurological exam: Present: alert, oriented X3, no focal deficits - Skin Skin exam: Present: dry, warm - Assessment and plan (1) Acute and chronic respiratory failure Current Visit: No Status: Acute Assessment and plan: Pt is chronically on home oxygen - 2 liters. Currently on 3 liters with saturation of 93% Will wean back to baseline as able. Qualifiers: Respiratory failure complication: hypoxia Qualified Code(s): J96.21 - Acute and chronic respiratory failure with hypoxia (2) Acute exacerbation of chronic obstructive airways disease Current Visit: No Status: Acute Assessment and plan: Pt with hx of COPD and continues to smoke. Not wheezing at the current time. Oxygen, abx (ceftriaxone and azithromycin), aerosols. Will hold steroids for now. (3) Conjunctivitis Current Visit: Yes Status: Suspected Assessment and plan: Add eye drops. Qualifiers: Conjunctivitis type: acute Acute conjunctivitis type: bacterial Laterality: right Qualified Code(s): H10.31 - Unspecified acute conjunctivitis , right eye (4) Pleural effusion Current Visit: No Status: Chronic Assessment and plan: Hx of R side pleural effusion. Will recheck 2 view CXR and consider CT of chest if worsened. May need thoracentesis to improve respiratory status. (5) Afib Current Visit: No Status: Chronic Assessment and plan: Chronic issues. Continue rate control medications. Does not appear to be on anticoagulation Qualifiers: Atrial fibrillation type: chronic Qualified Code(s): I48.2 - Chronic atrial fibrillation (6) Anemia in chronic kidney disease (CKD) Current Visit: No Status: Chronic Assessment and plan: Chronic dialysis patient. Nephrology consulted. Qualifiers: Chronic kidney disease stage: on chronic dialysis Qualified Code(s): N18.6 - End stage renal disease; D63.1 - Anemia in chronic kidney disease; D63.1 - Anemia in chronic kidney disease; Z99.2 - Dependence on renal dialysis; Z99.2 - Dependence on renal dialysis; Z99.2 - Dependence on renal dialysis; Z99.2 - Dependence on renal dialysis (7) CAD (coronary artery disease) Current Visit: No Status: Chronic Assessment and plan: Currently asymptomatic. Qualifiers: Coronary Disease-Associated Artery/Lesion type: [place] artery [place] vs. transplanted heart: [place] heart Associated angina: without angina Qualified Code(s): I25.10 - Atherosclerotic heart disease of [place] coronary artery without angina pectoris (8) Chronic diastolic (congestive) heart failure Current Visit: No Status: Chronic Assessment and plan: No acute issue at this time. (9) HTN (hypertension) Current Visit: No Status: Chronic Assessment and plan: Controlled at this time. Home meds to be continued. Qualifiers: Hypertension type: essential hypertension Qualified Code(s): I10 - Essential (primary) hypertension (10) Tobacco abuse Current Visit: No Status: Chronic Assessment and plan: Cessation counselling. - Time Spent With Patient Total time spent is greater than 50% in coordination of care (as documented) at patient's floor/unit and/or counseling patient:
[2018-06-24] MEDS: Azithromycin 500 MG in D5% in Water 250 ML IVPB SCH (09:58)
[2018-06-24] MEDS: cefTRIAXone 1,000 MG in Water for inj. (sterile) 20 ML 10 ML IVP SCH (09:59)
[2018-06-24] MEDS: Ipratropium/Albuterol Neb 3 ML IH SCH ×3 (11:00→22:15)
[2018-06-24] MEDS: Tobramycin/Dex Opth DROPS 2.5 ML BOTTLE RIGHT EYE SCH ×3 (11:51→21:32)
[2018-06-24] MEDS: Tobramycin/Dex Opth DROPS 2.5 ML BOTTLE LEFT EYE SCH ×3 (11:52→21:31)
--- NOTE | 2018-06-24 13:04 | Nephrology Consult Note ---
Date of Encounter: 06/24/18 Time of Encounter: 12:59 Assessment and Plan (1) ESRD (end stage renal disease) on dialysis Current Visit: Yes Status: Acute Current regimen is MWF with [facility] in [place]. Last treatment was Sunday without complication. Avoid nephrotoxins and renal dose all medications. HD ordered for today. (2) Pleural effusion Current Visit: Yes Status: Acute Hx of Right sided effusion. Per primary. (3) Acute and chronic respiratory failure Current Visit: No Status: Acute Per primary. Qualifiers: Respiratory failure complication: hypoxia Qualified Code(s): J96.21 - Acute and chronic respiratory failure with hypoxia History of Present Illness - Reason for Consult Consult date: 06/24/18 end stage renal disease - Chief Complaint COPD exacerbation - History of Present Illness Ms. Hedrick is a 78 year old female with ESRD. Current regimen is MWF with Dr. Duran in [place]. PMH: atrial fibrillation, cancer, CHF, COPD, dialysis, GERD, hypertension. Last treatment was Sunday without complication. Will plan for HD today via RUE fistula. She presented to ED for dyspnea that has worsened in the past 3 days. Denies fever chills. Denies nausea/vomiting/diarrhea. Admits to yellow sputum. Feels worse and more short of breath when she moves. Is currently on 4 liters O2 per n /c. Has home O2 @ 3.5-4 Liters at home. Does live at home with family members with plenty of support. Does smoke 1 PPD. Denies ETOH or illicit drug use. Past Med Surg Social Fam HX - Past Medical History Medical history: atrial fibrillation, cancer, CHF, COPD, dialysis, GERD, hypertension, renal disease, other Additional medical history: breast [place]. one kidney since 89 from [place], dialysis for 6 years Psychiatric history: no psych history - Past Surgical History Surgical History: hysterectomy, other Additional surgical history: left kidney removal - Social History Smoking Status: Current every day smoker Packs per day: 1 Smokeless Tobacco Status: No Alcohol use: none Drug use: none - Family History Sister Family Member Ethnicity: Non- Living Status: Still Living Hx Family Cardiac Disorders: Yes (Pig valve) Hx Family Cancer: Yes (colon cancer) Hx Family Endocrine Disorder: Yes (DM) Mother Family Member Ethnicity: Non- Living Status: Hx Family Cardiac Disorders: (angina) Father Family Member Ethnicity: Non- Living Status: Hx Family Respiratory Disorders: (pneumonia) Brother Family Member Ethnicity: Non- Living Status: Hx Family Cancer: Yes Medications and Allergies Aspirin Enteric Coated [Aspirin EC] 81 mg PO DAILY #0 02/29/16 [History] Oxygen 2 l .ROUTE AD 08/27/16 [History] Omeprazole [PriLOSEC] 40 mg PO DAILY capsule. 04/16/17 [Rx] Carvedilol [Coreg] 25 mg PO BID 06/24/17 [History] Furosemide [Lasix] 40 mg PO DAILY 06/24/17 [History] Isosorbide MONOnitrate (24 HR) [Imdur] 30 mg PO DAILY 06/24/17 [History] Losartan Potassium [Cozaar] 50 mg PO DAILY 06/24/17 [History] Guaifenesin [Mucinex] 600 mg PO BID PRN 12/11/17 [History] Loratadine [Claritin] 10 mg PO DAILY 12/11/17 [History] cloNIDine HCl [CloNIDine HCl] 0.2 mg PO BID PRN 01/30/18 [History] Acetaminophen [Tylenol] 500 mg PO Q6HR PRN #60 tablet 02/22/18 [Rx] Diltiazem HCl [Cardizem Cd] 360 mg PO DAILY #30 cap.er.24h 02/22/18 [Rx] Ondansetron ODT [Zofran ODT] 4 mg SL Q6HR PRN 03/22/18 [History] hydrALAZINE [HydrALAZINE] 25 mg PO TID 03/22/18 [History] Tramadol HCl [Ultram] 50 mg PO TID PRN 7 Days #21 tab 03/26/18 [Rx] 3 Allergy/AdvReac Type Severity Reaction Status Date / Time codeine Allergy Confusion Verified 02/19/18 11:34 Review of Systems Constitutional: no chills, no fatigue, no fever(s) Cardiovascular: dyspnea, no chest pain, no edema, no palpitations Respiratory: dyspnea, no cough Gastrointestinal: no abdominal pain, no diarrhea, no nausea, no vomiting Exam - Vital Signs Vital signs: Initial Vital Signs Temp Pulse Resp BP Pulse Ox 97.5 F L 86 20 173/92 93 06/24/18 06:22 06/24/18 06:22 06/24/18 06:22 06/24/18 06:22 06/24/18 06:22 Vital Signs - Last 8 Hours Temp Pulse Resp BP Pulse Ox 06/24/18 11:29 97.4 F L 84 16 132/72 100 06/24/18 06:22 97.5 F L 86 20 173/92 93 Intake and Output 06/23/18 06/24/18 06/24/18 23:59 07:59 15:59 Intake Total 260 / 260 Balance 260 / 260 Intake: IV Fluids 260 / 260 Rocephin 1,000 MG In Water for inj. (sterile) 10 ML @ 600 mls/ hr IVP DAILY [facility] Rx#:[id number] Zithromax 500 mg In Dextrose 5% 250 / 250 250 ML @ 252 mls/hr IVPB Q24H NU[facility] Rx#:[id number] Other: Stool Size Moderate Stool Consistency formed Stool Characteristics Normal for Patient Stool Color Brown # Voids 1 - General Appearance General appearance: well-developed, well-nourished EENT: ATNC, hearing intact, vision intact Neck: supple Respiratory: clear Cardiology: no edema, normal S1, normal S2 - Dialysis Access Dialysis Vascular Access: Arteriovenous Fistula thrill: Yes bruit: Yes Gastrointestinal: normoactive bowel sounds, no tenderness, no guarding Integumentary: no rash, warm and dry Neurologic: alert and oriented x3 Psychiatric: mood/affect appropriate, cooperative Consult Discharge Plan - Plan Referrals: Eileen House, [employer]PER[employer]OR [Primary Care Provider] -
[2018-06-24] MEDS ORDERED: 0.9 % Sodium Chloride 1,000 ML PRIME SCH (14:30)
[2018-06-24] MEDS ORDERED: 0.9 % Sodium Chloride 250 ML IVC PRN (14:30)
[2018-06-24] MEDS ORDERED: Ondansetron ODT 4 MG TAB.RAPDIS SL PRN (18:04)
[2018-06-24] MEDS ORDERED: cloNIDine HCl 0.1 MG TABLET PO PRN (18:04)
[2018-06-24] MEDS ORDERED: traMADol 50 MG TABLET PO PRN (18:04)
[2018-06-24 18:18] LABS: Hepatitis B Surface Antigen Nonreactive (Nonreactive)
[2018-06-24] MEDS: hydrALAZINE 25 MG TABLET PO SCH (21:31)
[2018-06-25] MEDS: Tobramycin/Dex Opth DROPS 2.5 ML BOTTLE RIGHT EYE SCH ×3 (02:12→12:24)
[2018-06-25] MEDS: Tobramycin/Dex Opth DROPS 2.5 ML BOTTLE LEFT EYE SCH ×3 (02:12→12:24)
[2018-06-25] MEDS: Ipratropium/Albuterol Neb 3 ML IH SCH ×3 (04:19→15:43)
[2018-06-25 07:09] LABS: Hematocrit 37.4 % (35.3-44.9); Hemoglobin 11.5 g/dL (11.5-15.4); Mean Corpuscular HGB Conc 30.7 g/dL (31.6-35.5); Mean Corpuscular Hemoglobin 28.5 pg (28.0-33.3); Mean Corpuscular Volume 92.8 fL (83.0-100.0); Mean Platelet Volume 11.9 fL (9.4-12.4); Platelet Count 171 K/mcL (140-400); Red Blood Count 4.03 M/mcL (3.82-4.97); Red Cell Distribution Width 15.6 % (11.5-14.5)
[2018-06-25 07:30] LABS: Calcium 8.5 mg/dL (8.6-10.3); Magnesium 1.8 mg/dL (1.6-2.6); Phosphorous 4.3 mg/dL (2.7-4.5); Potassium 4.4 mEq/L (3.5-5.1)
[2018-06-25] MEDS ORDERED: Furosemide 40 MG TABLET PO SCH (09:00)
[2018-06-25] MEDS ORDERED: Aspirin Enteric Coated 81 MG Tablet PO SCH (09:00)
[2018-06-25] MEDS ORDERED: Diltiazem CD (24hr) 180 MG CAPSULE PO SCH (09:00)
[2018-06-25] MEDS ORDERED: Loratadine 10 MG TABLET PO SCH (09:00)
[2018-06-25] MEDS ORDERED: Isosorbide MONOnitrate (24 HR) 60 MG TAB.ER.24H PO SCH (09:00)
[2018-06-25] MEDS: hydrALAZINE 25 MG TABLET PO SCH (09:33)
[2018-06-25] MEDS: cefTRIAXone 1,000 MG in Water for inj. (sterile) 20 ML 10 ML IVP SCH (09:36)
[2018-06-25] MEDS: Azithromycin 500 MG in D5% in Water 250 ML IVPB SCH (09:37)
[2018-06-25 11:10] VITALS: BP 109/68
--- NOTE | 2018-06-25 12:09 | Nephrology Progress Note ---
Date of Encounter: 06/25/18 Time of Encounter: 12:07 - Assessment and Plan (1) ESRD (end stage renal disease) on dialysis Current Visit: Yes Status: Acute Current regimen is MWF with [facility] in [place]. Last treatment Sunday without complication. Pt may go from a renal standpoint. (2) Pleural effusion Current Visit: Yes Status: Acute Right thoracentesis completed with 1500 cc removed. (3) Acute and chronic respiratory failure Current Visit: No Status: Acute Per primary. Qualifiers: Respiratory failure complication: hypoxia Qualified Code(s): J96.21 - Acute and chronic respiratory failure with hypoxia Subjective Principal diagnosis: fluid overload Interval history: Pt seen and examined, doing well. Informed nurse patient needed IV antiemetic. IR just performed Right thora with 1500 ccs removed. Objective - Vital Signs Vital signs: Vital Signs Temp Pulse Resp BP Pulse Ox 06/25/18 11:17 22 90 06/25/18 11:09 98.8 F 98 18 109/68 97 06/25/18 07:33 98.1 F 123 16 213/71 92 06/25/18 05:30 107 207/95 06/25/18 04:20 19 96 06/25/18 03:27 98.0 F 100 16 199/104 95 06/24/18 23:22 98.3 F 71 16 169/80 95 06/24/18 22:15 20 98 06/24/18 19:15 97.6 F 90 18 190/94 98 06/24/18 17:15 97.3 F L 18 201/114 06/24/18 17:00 181/96 06/24/18 16:45 186/101 06/24/18 16:30 172/99 06/24/18 16:21 97.6 F 87 16 117/73 96 06/24/18 16:15 183/96 06/24/18 16:00 196/93 06/24/18 15:45 197/95 06/24/18 15:30 191/89 06/24/18 15:15 185/90 06/24/18 15:00 184/95 06/24/18 14:45 174/85 06/24/18 14:30 180/88 06/24/18 14:15 182/94 06/24/18 14:00 97.4 F L 18 184/85 Intake and Output 06/24/18 06/25/18 06/25/18 23:59 07:59 15:59 Intake Total 240 / 240 130 / 130 Output Total 3600 / 3600 Balance -3360 / -3360 130 / 130 Intake: IV Fluids Rocephin 1,000 MG In Water for inj. (sterile) 10 ML @ 600 mls/ hr IVP DAILY [facility] Rx#:[id number] Oral 240 / 240 120 / 120 Output: Total Dialysis (HD) Output 3600 / 3600 Other: Meal Dinner Breakfast Percent of Meal Consumed 100% 75% # Voids 1 Weight 55.1 kg Hemodialysis Net Fluid Removed 3000 (mL) Patient Weight 06/25/18 23:59 Weight 55.1 kg - General Appearance General appearance: Present: well-developed, well-nourished EENT: Present: ATNC, hearing intact, vision intact Neck: Present: supple Respiratory: Present: clear Cardiology: Present: no edema, normal S1, normal S2 Dialysis Vascular Access: Arteriovenous Fistula thrill: Yes bruit: Yes Gastrointestinal: Present: normoactive bowel sounds, no tenderness, no guarding Integumentary: Present: no rash, warm and dry Neurologic: Present: alert and oriented x3 Psychiatric: Present: mood/affect appropriate, cooperative - Lab 06/25/18 05:53 06/25/18 05:53 Most recent lab results Calcium 8.5 mg/dL (8.6-10.3) L 06/25/18 05:53 Phosphorus 4.3 mg/dL (2.7-4.5) 06/25/18 05:53 Magnesium 1.8 mg/dL (1.6-2.6) 06/25/18 05:53 Consult Discharge Plan - Plan Referrals: Eileen House, [employer] OPERATOR [Primary Care Provider] -
--- NOTE | 2018-06-25 13:55 | Discharge Summary ---
- NOTES TO OUTPATIENT PROVIDER Notes to Outpatient Provider: PCP in 5 to 7 days. Nephrology out pt as scheduled Orders not resulted at time of discharge: Pending orders 06/25/18 09:12 IR thoracentesis RIGHT [IR] Routine 06/25/18 09:15 INR/PT [Prothrombin Time INR] [COAG] Stat 06/26/18 04:00 Basic Metabolic Panel AM 0400 CBC no Diff [Complete Blood Count w/o Diff] [HEME] AM 04006/27/18 04:00 Basic Metabolic Panel AM 0400 CBC no Diff [Complete Blood Count w/o Diff] [HEME] AM 04006/28/18 04:00 Basic Metabolic Panel AM 0400 CBC no Diff [Complete Blood Count w/o Diff] [HEME] AM 04006/29/18 04:00 Basic Metabolic Panel AM 0400 CBC no Diff [Complete Blood Count w/o Diff] [HEME] AM 04006/30/18 04:00 Basic Metabolic Panel AM 0400 CBC no Diff [Complete Blood Count w/o Diff] [HEME] AM 0400 07/01/18 04:00 Basic Metabolic Panel AM 0400 CBC no Diff [Complete Blood Count w/o Diff] [HEME] AM 0400 07/02/18 04:00 Basic Metabolic Panel AM 0400 CBC no Diff [Complete Blood Count w/o Diff] [HEME] AM 0400 Date of Encounter: 06/25/18 Time of Encounter: 13:52 - Discharge Diagnosis (1) Recurrent right pleural effusion Priority: Primary Status: Acute Assessment and Plan: Patient states she has had thoracenthesis before. The last one was done in [place]. She is s/p thoracenthesis today by IR and therapeutic 1500 cc of fluid was removed. Sending fluid for analysis. Pt states breathing has significantly improved. Post procedure chest x ray is showing small effusion and no pnx. Current medical plan discussed with patient and her daughter who was at bedside. (2) Acute and chronic respiratory failure with hypoxia Priority: Primary Status: Acute Assessment and Plan: Pt is chronically on home oxygen - 2 liters. Currently on 3 liters with saturation of 93% Weaned back to baseline (3) Conjunctivitis Priority: Secondary Status: Suspected Assessment and Plan: Eye drops added on admission Qualifiers: Conjunctivitis type: acute Acute conjunctivitis type: bacterial Laterality: right Qualified Code(s): H10.31 - Unspecified acute conjunctivitis , right eye (4) Hypertension Priority: Secondary Status: Chronic Assessment and Plan: Pt is on Imdur, clonidine, coreg, hydralazine, and cozaar. Resume home meds at discharge. Qualifiers: Hypertension type: essential hypertension Qualified Code(s): I10 - Essential (primary) hypertension (5) ESRD (end stage renal disease) on dialysis Priority: Secondary Status: Chronic Assessment and Plan: Current regimen is MWF with [facility] in [place]. Last treatment Sunday without complication. Next HD Sunday06/26/18 Per nephrology, pt may go from a renal standpoint. (6) Afib Priority: Secondary Status: Chronic Assessment and Plan: Chronic issues. Continue rate control medications. Pt is not on anticoagulation as she was apparently having recurrent nose bleeds so PCP discontinued her anticoagulation medications. Qualifiers: Atrial fibrillation type: chronic Qualified Code(s): I48.2 - Chronic atrial fibrillation (7) Anemia in chronic kidney disease (CKD) Priority: Secondary Status: Chronic Assessment and Plan: Hgb stable at 11.5. Qualifiers: Chronic kidney disease stage: on chronic dialysis Qualified Code(s): N18.6 - End stage renal disease; D63.1 - Anemia in chronic kidney disease; Z99.2 - Dependence on renal dialysis (8) Chronic diastolic (congestive) heart failure Priority: Secondary Status: Chronic Assessment and Plan: compensated. (9) Acute exacerbation of chronic obstructive airways disease Priority: Secondary Status: Acute Assessment and Plan: Pt with hx of COPD and continues to smoke. Not wheezing at the current time. Oxygen 2L NC, abx (ceftriaxone and azithromycin) given here. Will DC on few days of Levaquin. Continue/resume home aerosols. Will give few days of steroid taper. (10) Tobacco abuse Priority: Secondary Status: Chronic Assessment and Plan: cessation strongly advised. Hospital course: Ms. Hedrick is a 78 year old female Discharge discussed with: patient, family - Time Spent with Patient Total time spent providing and/or coordinating discharge services: Greater than 30 minutes - Discharge Medications Home Medications: Aspirin Enteric Coated [Aspirin EC] 81 mg PO DAILY #0 02/29/16 [History] Oxygen 2 l .ROUTE AD 08/27/16 [History] Omeprazole [PriLOSEC] 40 mg PO DAILY capsule.dr 04/16/17 [Rx] Carvedilol [Coreg] 25 mg PO BID 06/24/17 [History] Furosemide [Lasix] 40 mg PO DAILY 06/24/17 [History] Isosorbide MONOnitrate (24 HR) [Imdur] 30 mg PO DAILY 06/24/17 [History] Losartan Potassium [Cozaar] 50 mg PO DAILY 06/24/17 [History] Guaifenesin [Mucinex] 600 mg PO BID PRN 12/11/17 [History] Loratadine [Claritin] 10 mg PO DAILY 12/11/17 [History] cloNIDine HCl [CloNIDine HCl] 0.2 mg PO BID PRN 01/30/18 [History] Acetaminophen [Tylenol] 500 mg PO Q6HR PRN #60 tablet 02/22/18 [Rx] Diltiazem HCl [Cardizem Cd] 360 mg PO DAILY #30 cap.er.24h 02/22/18 [Rx] Ondansetron ODT [Zofran ODT] 4 mg SL Q6HR PRN 03/22/18 [History] hydrALAZINE [HydrALAZINE] 25 mg PO TID 03/22/18 [History] Tramadol HCl [Ultram] 50 mg PO TID PRN 7 Days #21 tab 03/26/18 [Rx] Levofloxacin [Levaquin] 500 mg PO QDPC 5 Days #5 tablet 06/25/18 [Rx] Allergies/Adverse Reactions: 3 Allergy/AdvReac Type Severity Reaction Status Date / Time codeine Allergy Confusion Verified 02/19/18 11:34 Date of admission: 06/24/18 06:00 Primary care physician: Eileen House CNP Consults: 06/24/18 09:07 Consult to Physician [CONS] Routine Consulting Provider: Jb Jimenez Reason for Consult: Dialysis MWF Time Notified: 09:10 Call Completed: Yes 06/24/18 09:12 Consult to Nurse Navigator [CONS] Routine Comment: Discharging clinician: Lesley Shafer Anticipated date of discharge: 06/25/18 - Constitutional Vitals: Temp Pulse Resp BP Pulse Ox 98.8 F 98 22 109/68 90 06/25/18 11:09 06/25/18 11:09 06/25/18 11:17 06/25/18 11:09 06/25/18 11:17 General appearance: Present: A&O X 3, no acute distress Exam: See below - Head Head exam: Present: atraumatic, normocephalic - Eye Eye exam: Present: PERRL, conjuntiva pink, sclera anicteric Pupils: Present: PERRL - Neck Neck exam general surgery: Present: supple, trachea midline. Absent: lymphadenopathy - Respiratory Respiratory exam: Present: decreased breath sounds. Absent: accessory muscle use, rales, rhonchi, wheezes Additional comments: bibasilar crackles - Cardiovascular Cardiovascular exam: Present: RRR, +S1, +S2. Absent: diastolic murmur, gallop, rubs, systolic murmur - GI/Abdominal GI/Abdominal exam: Present: normal bowel sounds, soft, no peritoneal signs. Absent: distended, tenderness - Extremities Exam Extremities exam: Present: warm, radial pulses palpable and symmetrical. Absent : calf tenderness, cyanotic, pedal edema - Neurological Exam Neurological exam: Present: CN II-XII intact, oriented X3, no focal deficits. Absent: pronater drift, facial droop, speech deficit - Skin Skin exam: Present: dry, intact - Patient Status Disposition: Home, Self-Care Condition: Fair Overall status at discharge: patient is back to baseline - Discharge Instructions Follow Up With: Eileen House VAUDEVILLE ACTOR [Primary Care Provider] - - Diet and Activity Activity: increase activity as tolerated Diet: low fat, low cholesterol, low salt diet
== END 2018-06-25 15:42 | disposition home or self-care (01) ==
LOC: 3BNU → SUATTDRO 06:00
PROVIDERS: ADMIT Internal Medicine; ATTEND Internal Medicine

== ENCOUNTER 2019-01-26 15:30 | Inpatient (IN) ==
--- NOTE | 2019-01-26 16:40 | Emergency Department Note ---
Disposition Clinical Impression: Cellulitis and abscess of right lower extremity, Inability to ambulate due to ankle or foot, Bilateral pleural effusion Disposition: Admitted As Inpatient Extremity Problem HPI - General Chief complaint: ED Extremity Problem,Nontraumatic Stated complaint: edema to R leg Time Seen by Provider: 01/26/19 15:59 Source: patient, family Limitations: no limitations Nursing Notes Reviewed: Yes Vital Signs Reviewed: Yes - History of Present Illness HPI Narrative: Patient is a 78-year-old female with history of COPD, end-stage renal disease and breast cancer who presents the emergency department with complaints of right lower extremity swelling. The patient states over the last several weeks she has been following with Dr. Elam for evaluation of her chronic right lower extremity wound. Over the past 2-3 days she has noted decreased ability to ambulate, increased pain and swelling in the area. She otherwise notes shortness of breath slightly above her baseline. She denies any fever, chills, chest pain, nausea, vomiting, diarrhea. She denies any personal history of deep vein thrombosis. Pain Scale: 10 - Related Data Home Medications Medication Instructions Recorded Confirmed RX: Aspirin Enteric Coated 81 mg PO DAILY #0 02/29/16 01/26/19 [Aspirin EC] RX: Carvedilol [Coreg] 25 mg PO BID 06/24/17 01/26/19 RX: Furosemide [Lasix] 40 mg PO DAILY 06/24/17 01/26/19 RX: Isosorbide MONOnitrate (24 HR) 30 mg PO DAILY 06/24/17 01/26/19 [Imdur] RX: cloNIDine HCl [CloNIDine HCl] 0.2 mg PO BID 01/30/18 01/26/19 RX: hydrALAZINE [HydrALAZINE] 25 mg PO TID 03/22/18 01/26/19 Cholecalciferol (Vitamin D3) 50,000 unit PO QWEEK 12/17/18 01/26/19 [Vitamin D] Prochlorperazine Maleate 5 mg PO TID PRN 12/17/18 01/26/19 [Compazine] Ranitidine HCl [Heartburn Relief] 150 mg PO HS 01/07/19 01/26/19 Collagenase Oint [Santyl] 1 appl TP DAILY 01/26/19 01/26/19 Diltiazem CD (24hr) [Cardizem CD] 360 mg PO DAILY 01/26/19 01/26/19 RX: Melatonin 10 mg PO HS 01/26/19 01/26/19 Previous Rx's Medication Instructions Recorded RX: Omeprazole [PriLOSEC] 40 mg PO DAILY capsule. 04/16/17 Allergies Allergy/AdvReac Type Severity Reaction Status Date / Time codeine AdvReac Confusion Verified 01/07/19 09:46 Review of Systems: ROS per history of present illness, all other systems reviewed and negative or normal. All systems ED: reviewed and negative except as stated. Review of Systems: As Per HPI Past Medical History - Past Medical History Medical history: Reports: atrial fibrillation, cancer, COPD, dialysis, hypertens ion Surgical history: Reports: hysterectomy, other Psychiatric history: Reports: no psych history MERCHANT PATROLLER history: Reports: no MERCHANT PATROLLER history - Social History Smoking Status: Current every day smoker Smokeless Tobacco Status: No Alcohol use: Reports: none Drug use: Reports: none Physical Exam General: Conversant. No apparent distress. Follow commands. Appears stated age. Neck: No JVD. Trachea midline. Neck supple. Eyes: PERRL. No scleral icterus. HENT: Normocephalic and atraumatic. Moist mucus membranes. Cardiovascular: Regular rate and rhythm. Normal S1 and S2. No murmurs appreciated. Normal capillary refill. Extremities well perfused with 2+ distal pulses bilaterally. There is a left chest wall mass without tenderness. Pulmonary: Normal and equal breath sounds bilaterally, anteriorly and posteriorly. No wheezes, rales, or rhonchi. Not in respiratory distress. Speaks in full sentences. Abdomen: Soft, nondistended, and tontender. No bruits or masses. No guarding. Neuro: Alert and oriented x3. No slurred speech. No focal deficits noted. Skin: No rashes noted on visualized skin. Musculoskeletal: Right lower extremity shows significant swelling, 2+ pitting edema up to the level of the knee. There is a chronic appearing necrotic lesion overlying the right Achilles tendon with what appears to be gross showing of the Achilles tendon. There is mild soft tissue swelling surrounding this necrotic lesion. There are also 2 other lesions overlying the first tarsometatarsal joint on the right and the distal point of the first phalanges. Psych: Normal mood. Pleasant. Makes appropriate eye contact. - General Limitations: no limitations General appearance: alert, in no apparent distress Course - Reevaluation(s) Reevaluation #1: Per planetarium technician, the patient has no DVT but possible bakers cyst on the right. The patient states she feels short of breath, progressively worsening and will therefore obtain CT chest given effusion seen on chest XR and history of breast cancer Time: 18:17 Vital Signs Temperature 97.4 F L 01/26/19 15:45 Pulse Rate 72 01/26/19 15:45 Respiratory Rate 16 01/26/19 15:45 Blood Pressure 107/62 01/26/19 15:45 O2 Sat by Pulse Oximetry 100 01/26/19 15:45 Temperature 97.7 F 01/26/19 23:48 Pulse Rate 64 01/26/19 23:48 Respiratory Rate 16 01/26/19 23:48 Blood Pressure 169/57 01/26/19 23:48 O2 Sat by Pulse Oximetry 97 01/26/19 23:48 Oxygen Delivery Oxygen Delivery Nasal Cannula Extremity Problem, Nontraumati - MDM Narrative Medical decision making narrative: 78 yo female with history of breast cancer who presents to the emergency department due to pain in right lower extremity. The patient has been treated for cellulitis as an outpatient with Keflex without improvement in her symptoms. She is now unable to ambulate. Otherwise she has slightly worsened increased shortness of breath but no increased sputum production. Did obtain CBC, BMP, ESR and CRP as well as x-ray of the right ankle, Chest XR and DVT US of right leg. CBC shows no significant leukocytosis, BMP shows chronic kidney disease consistent with her end-stage renal disease but no significant altered abnorma lity area ESR 12 and CRP 33. Otherwise her x-ray shows soft tissue swelling but no evidence of fracture. DVT negative on the right. The patient's failed outpatient management of cellulitis and new inability to ambulate to believe she warrants admission with IV antibiotics. Vancomycin started in the emergency department, blood cultures sent. Chest x-ray showed right-sided pleural effusion and given her history of breast cancer did obtain CT chest which showed emphysematous changes with bilateral pleural effusions. At this point do not believe she has underlying pulmonary infection but do believe this warrants further investigation. Discussed case with on-call hospitalist Dr. Polk who a grees with plan for admission and accepts the patient to the inpatient service. Patient agrees with and understands course of treatment plan including plan for admission. All questions answered. - Medical Records Medical records reviewed: Yes I reviewed the patient's medical records. - Lab Data Lab results reviewed: Yes I reviewed the patient's lab results. Result diagrams: 01/26/19 16:51 01/26/19 16:33 Lab Results 01/26/19 01/26/19 01/26/19 Range/Units 16:33 16:33 16:51 WBC 6.5 (4.3-11.1) K/mcL RBC 3.81 L (3.82-4.97) M/mcL Hgb 11.7 (11.5-15.4) g/dL Hct 35.5 (35.3-44.9) % MCV 93.2 (83.0-100.0) fL MCH 30.7 (28.0-33.3) pg MCHC 33.0 (31.6-35.5) g/dL RDW 15.2 H (11.5-14.5) % Plt Count 208 (140-400) K/mcL MPV 10.7 (9.4-12.4) fL Immature Gran % 0.3 (0-4) % Seg Neutrophils % 71.7 % Lymphocytes % 15.3 % Monocytes % 10.5 % Eosinophils % 1.4 % Basophils % 0.8 % Neutrophils # 4.7 (1.6-8.9) K/mcL Lymphocytes # 1.0 (0.6-4.6) K/mcL Monocytes # 0.7 (0.0-1.3) K/mcL Eosinophils # 0.1 (0.0-0.6) K/mcL Basophils # 0.1 (0.0-0.2) K/mcL ESR 12 (0-15) mm/hr Sodium 135 L (136-145) mEq/L Potassium 3.9 (3.5-5.1) mEq/L Chloride 97 L (98-107) mEq/L Carbon Dioxide 29 (23-29) mEq/L BUN 33 H (8-23) mg/dL Creatinine 3.79 H (0.60-1.20) mg/dL Est GFR ( Amer) 14 L (> 60) Est GFR (Non-Af Amer) 12 L (> 60) BUN/Creatinine Ratio 9 (6-26) Glucose 177 H (70-105) mg/dL Calculated Osmolality 292 (280-300) Lactic Acid (0.5-2.2) mmol/L Calcium 8.3 L (8.6-10.3) mg/dL Phosphorus 4.9 H (2.7-4.5) mg/dL Magnesium 1.7 (1.6-2.6) mg/dL C-Reactive Protein 33 H (Less than 10) mg/L 01/26/19 Range/Units 16:51 WBC (4.3-11.1) K/mcL RBC (3.82-4.97) M/mcL Hgb (11.5-15.4) g/dL Hct (35.3-44.9) % MCV (83.0-100.0) fL MCH (28.0-33.3) pg MCHC (31.6-35.5) g/dL RDW (11.5-14.5) % Plt Count (140-400) K/mcL MPV (9.4-12.4) fL Immature Gran % (0-4) % Seg Neutrophils % % Lymphocytes % % Monocytes % % Eosinophils % % Basophils % % Neutrophils # (1.6-8.9) K/mcL Lymphocytes # (0.6-4.6) K/mcL Monocytes # (0.0-1.3) K/mcL Eosinophils # (0.0-0.6) K/mcL Basophils # (0.0-0.2) K/mcL ESR (0-15) mm/hr Sodium (136-145) mEq/L Potassium (3.5-5.1) mEq/L Chloride (98-107) mEq/L Carbon Dioxide (23-29) mEq/L BUN (8-23) mg/dL Creatinine (0.60-1.20) mg/dL Est GFR ( Amer) (> 60) Est GFR (Non-Af Amer) (> 60) BUN/Creatinine Ratio (6-26) Glucose (70-105) mg/dL Calculated Osmolality (280-300) Lactic Acid 1.8 (0.5-2.2) mmol/L Calcium (8.6-10.3) mg/dL Phosphorus (2.7-4.5) mg/dL Magnesium (1.6-2.6) mg/dL C-Reactive Protein (Less than 10) mg/L - Radiology Data Radiology results reviewed: Yes I reviewed the patient's radiology results. Chest X-Ray 01/26/19 16:37 IMPRESSION: Increased partially loculated right pleural effusion with basilar volume loss. Stable interstitial changes throughout the lungs, likely related to underlying emphysema. Superimposed edema or infiltrate is not excluded. D/ / Jimmie Palafox MD / Jimmie Palafox MD Interpreting Provider: Jimmie Palafox MD Foot X-Ray 01/26/19 16:43 IMPRESSION: No radiographic evidence for osteomyelitis. Osteopenia limits evaluation. If clinically indicated, an MRI would be more sensitive to evaluate for acute osteomyelitis. D/ / Cyrus Bonner MD / Cyrus Bonner MD Interpreting Provider: Cyrus Bonner MD Attestation Statement - Attestation Attestation: Resident Attestation: I examined this patient and my medical decision making was reviewed with the Resident Physician. I agree with the documented findings, disposition and treatment plan as described except to the extent set forth below. We independently had [id number] contact with the patient. Patient presenting for evaluation of worsening pain to the right lower extremity. Patient has chronic wound with follows up and management. Old records were obtained and pictures from 01/22 were evaluated. Patient does have worsening erythema and swelling to the right lower extremity. Patient complaining of significant pain. Patient did have VON study that was normal. Patient underwent DVT study in the emergency department that was negative. Patient is unable to cannulate at this time. Patient will require admission for further management. Antibiotics started for possible cellulitis. Patient with significant +2 pitting edema to the right lower extremity which is more significant than the +1 pitting edema to the left lower extremity. Patient does have symmetric Refill. Sensation is intact throughout the extremities
[2019-01-26 17:01] LABS: Basophils # 0.1 K/mcL (0.0-0.2); Basophils % 0.8 %; Eosinophils # 0.1 K/mcL (0.0-0.6); Eosinophils % 1.4 %; Hematocrit 35.5 % (35.3-44.9); Hemoglobin 11.7 g/dL (11.5-15.4); Immature Granulocytes % 0.3 % (0-4); Lymphocytes % 15.3 %; Mean Corpuscular Hemoglobin 30.7 pg (28.0-33.3); Mean Corpuscular Volume 93.2 fL (83.0-100.0); Mean Platelet Volume 10.7 fL (9.4-12.4); Monocytes # 0.7 K/mcL (0.0-1.3); Monocytes % 10.5 %; Neutrophils # 4.7 K/mcL (1.6-8.9); Platelet Count 208 K/mcL (140-400); Red Blood Count 3.81 M/mcL (3.82-4.97); Red Cell Distribution Width 15.2 % (11.5-14.5); Segmented Neutrophils % 71.7 %
[2019-01-26 17:20] LABS: Calcium 8.3 mg/dL (8.6-10.3); Magnesium 1.7 mg/dL (1.6-2.6); Phosphorous 4.9 mg/dL (2.7-4.5); Potassium 3.9 mEq/L (3.5-5.1)
[2019-01-26] MEDS ORDERED: *HR* FentaNYL (PF) 100 MCG/2 ML VIAL IVP ONE (18:16)
[2019-01-26] MEDS ORDERED: Naloxone 0.4 MG/ML INJ IVP PRN (21:37)
[2019-01-26] MEDS ORDERED: Acetaminophen 325 MG TABLET PO PRN (21:37)
[2019-01-26] MEDS ORDERED: Ipratropium/Albuterol Neb 3 ML IH PRN (21:45)
[2019-01-26] MEDS ORDERED: Famotidine 20 MG TABLET PO SCH (21:45)
--- NOTE | 2019-01-26 21:48 | Internal Med History&Physical ---
Date of Encounter: 01/26/19 Time of Encounter: 21:47 Internal Medicine - H&P: HPI Chief complaint: leg pain Admitted From: Home Plans for Post Hospital Care: Home History of present illness: Hilary Hedrick is a 78 year old woman with left breast stage II (T3Nx) grade 3 invasive ductal carcinoma status post mastectomy 02/19/2018 under the care of Dr. Alvarez. Local breast recurrence with 2 separate nodules measuring 2.7 and 0.8 cm status post re-excision 10/22/2018 currently on Herceptin. She has underg one 2 therapeutic thoracentesis on her right side since. She also has Stage V chronic kidney disease on hemodialysis Sunday, Sunday and Sunday, COPD, tobacco abuse and severe PVD seen by Dr Elam for wound care of multiple ulcers on her right leg. During her visit 4 days ago she underwent wound debridement on the necrotic ulcer with eschar on her right Achilles. No signs of infection were deemed present. She presents to the ER complaining of increasing pain in her right leg saying she has more secretions from her skin and wounds. She has ambulatory difficulty due to pain. No fever and chills reported. No purulence. She hangs her right leg down from the side of the bed as it helps the pain. Her vitals are within normal limits and lab work grossly unremarkable. Foot x-ray didnt show gas or signs of osteoporosis. She had chest imaging done as well due to shortness of breath which she tells me is chronic and seen to have increased partially loculated right pleural effusion. She is admitted for further care. Vitals: Reviewed General: Chronically ill-appearing woman lying in bed. Skin: Warm, dry. HEENT: Moist mucous membranes. (+) conjunctivae pallor. Neck: No JVD. No carotid bruits. No palpable thyroid. Chest: Diminished thoracic expansion. Reduced breath sounds in both bases. Heart: Normal S1 & S2; rhythmic. No rubs or murmurs. Abdomen: Non-distended, soft and non-tender to palpation. No peritoneal reaction. Extremities: Right leg circumferentially more swollen than the right with 2-3+ pitting edema and serous suppuration; multiple small sized dry-based sores noted on the medial aspect of the foot with a large dry necrotic lesion on the Achilles area. No foul smell or purulence. Neurological: Awake, alert and oriented to person, place and time. No focal deficits. Psych: Affect appropriate. Assessment/Plan Foot ulcers: Seemingly secondary to peripheral vascular disease. The hanging of her foot down the side of the bed to achieve pain relief gives me the impression of arterial insufficiency as the cause. She has no systemic signs of illness or acute local inflammatory signs present concerning for an infection. I very much doubt antibiotics administered would even reach sufficient levels in the area to make a difference. She received IV vancomycin in the ER but at this juncture I think she will benefit mainly from local wound care and pressure off-loading. Will put in a consult to wound care/podiatry for this. In the meantime will provide pain medications as needed. Smoking cessation advised. Pleural effusion: Seems to a recurrent issue in the setting of her known malignancy. She may benefit from another thoracentesis although she doesnt appe ar to have a large volume and is not frankly symptomatic from this. Consideration should be given to consult IR for an ultrasound guided procedure. ESRD: Will consult nephrology for placement on schedule. Afib: On diltiazem and ASA. Past Med Surg Social Fam HX - Past Medical History Medical history: atrial fibrillation, cancer, COPD, dialysis, hypertension Additional medical history: breast CA. one kidney since 97 from [place], dialysis for 6 years Psychiatric history: no psych history - Past Surgical History Surgical History: hysterectomy, other Additional surgical history: kidney removed. breast surgery - Social History Smoking Status: Current every day smoker Smokeless Tobacco Status: No Alcohol use: none Drug use: none - Family History Sister Family Member Ethnicity: Non- Living Status: Still Living Hx Family Cardiac Disorders: Yes (Pig valve) Hx Family Cancer: Yes (colon cancer) Hx Family Endocrine Disorder: Yes (DM) Mother Family Member Ethnicity: Non- Living Status: Hx Family Cardiac Disorders: (angina) Father Family Member Ethnicity: Non- Living Status: Hx Family Respiratory Disorders: (pneumonia) Brother Family Member Ethnicity: Non- Living Status: Hx Family Cancer: Yes Internal Medicine - H&P: Meds Aspirin Enteric Coated [Aspirin EC] 81 mg PO DAILY #0 02/29/16 [History] Omeprazole [PriLOSEC] 40 mg PO DAILY capsule. 04/16/17 [Rx] Carvedilol [Coreg] 25 mg PO BID 06/24/17 [History] Furosemide [Lasix] 40 mg PO DAILY 06/24/17 [History] Isosorbide MONOnitrate (24 HR) [Imdur] 30 mg PO DAILY 06/24/17 [History] cloNIDine HCl [CloNIDine HCl] 0.2 mg PO BID 01/30/18 [History] hydrALAZINE [HydrALAZINE] 25 mg PO TID 03/22/18 [History] Cholecalciferol (Vitamin D3) [Vitamin D] 50,000 unit PO QWEEK 12/17/18 [History] Prochlorperazine Maleate [Compazine] 5 mg PO TID PRN 12/17/18 [History] Ranitidine HCl [Heartburn Relief] 150 mg PO HS 01/07/19 [History] Collagenase Oint [Santyl] 1 appl TP DAILY 01/26/19 [History] Diltiazem CD (24hr) [Cardizem CD] 360 mg PO DAILY 01/26/19 [History] Melatonin 10 mg PO HS 01/26/19 [History] Allergy/AdvReac Type Severity Reaction Status Date / Time codeine AdvReac Confusion Verified 01/07/19 09:46 All Systems PM: A 10-system review of systems was performed and is negative for pertinent findings except as documented above in the HPI. - Constitutional Vitals: Temp Pulse Resp BP Pulse Ox 97.4 F L 62 18 155/52 94 01/26/19 15:45 01/26/19 20:09 01/26/19 20:09 01/26/19 20:09 01/26/19 20:09 Exam: . Internal Med - H&P Results - Labs CBC & Chem 7: 01/26/19 16:51 01/26/19 16:33 Labs: Short CBC 01/26/19 Range/Units 16:51 WBC 6.5 (4.3-11.1) K/mcL Hgb 11.7 (11.5-15.4) g/dL Hct 35.5 (35.3-44.9) % Plt Count 208 (140-400) K/mcL Neutrophils # 4.7 (1.6-8.9) K/mcL BMP 01/26/19 16:33 Sodium 135 L Potassium 3.9 Chloride 97 L Carbon Dioxide 29 BUN 33 H Creatinine 3.79 H Glucose 177 H Calcium 8.3 L - Impressions ITS Impressions Chest X-Ray 01/26/19 16:37 IMPRESSION: Increased partially loculated right pleural effusion with basilar volume loss. Stable interstitial changes throughout the lungs, likely related to underlying emphysema. Superimposed edema or infiltrate is not excluded. D/ / Jimmie Palafox MD / Jimmie Palafox MD Interpreting Provider: Jimmie Palafox MD Foot X-Ray 01/26/19 16:43 IMPRESSION: No radiographic evidence for osteomyelitis. Osteopenia limits evaluation. If clinically indicated, an MRI would be more sensitive to evaluate for acute osteomyelitis. D/ / Cyrus Bonner MD / Cyrus Bonner MD Interpreting Provider: Cyrus Bonner MD Chest CT 01/26/19 18:15 IMPRESSION: Pulmonary emphysema with bilateral pleural effusions. D/ / Bandar Islas MD / Bandar Islas MD Interpreting Provider: Bandar Islas MD - Time Spent With Patient Total time spent is greater than 50% in coordination of care (as documented) at patient's floor/unit and/or counseling patient: Greater than 35 minutes
[2019-01-27] MEDS: Melatonin 3 MG TABLET PO SCH ×2 (00:19→20:45)
[2019-01-27] MEDS: hydrALAZINE 25 MG TABLET PO SCH ×4 (00:19→20:45)
[2019-01-27] MEDS: *HR* OxyCODONE Immed Rel 5 MG TABLET PO PRN ×2 (00:19→08:33)
[2019-01-27] MEDS: *HR* Heparin 5,000 UNIT/ML VIAL SQ SCH ×4 (00:19→20:46)
[2019-01-27] MEDS: Famotidine 20 MG TABLET PO SCH ×2 (00:20→20:45)
[2019-01-27] MEDS: traMADol 50 MG TABLET PO PRN ×2 (05:19→15:29)
[2019-01-27] MEDS ORDERED: 0.9 % Sodium Chloride 250 ML IVC PRN (07:00)
[2019-01-27 07:25] LABS: Hematocrit 31.2 % (35.3-44.9); Hemoglobin 10.3 g/dL (11.5-15.4); Mean Corpuscular Hemoglobin 30.7 pg (28.0-33.3); Mean Corpuscular Volume 93.1 fL (83.0-100.0); Platelet Count 174 K/mcL (140-400); Red Blood Count 3.35 M/mcL (3.82-4.97); Red Cell Distribution Width 15.1 % (11.5-14.5)
[2019-01-27 07:37] LABS: Potassium 4.1 mEq/L (3.5-5.1)
[2019-01-27] MEDS ORDERED: 0.9 % Sodium Chloride 2,000 ML ONE (07:37)
[2019-01-27 07:47] LABS: Hepatitis B Surface Antibody < 3.10 mIU/mL
[2019-01-27 07:58] LABS: Hepatitis B Surface Antigen Nonreactive (Nonreactive)
[2019-01-27] MEDS: Aspirin Enteric Coated 81 MG Tablet PO SCH (08:32)
[2019-01-27] MEDS: Isosorbide MONOnitrate (24 HR) 30 MG TAB.ER.24H PO SCH (08:33)
[2019-01-27] MEDS: Furosemide 40 MG TABLET PO SCH (08:33)
[2019-01-27] MEDS: Diltiazem CD (24hr) 180 MG CAPSULE PO SCH (08:34)
[2019-01-27] MEDS: cloNIDine HCl 0.1 MG TABLET PO SCH ×2 (08:37→20:45)
--- NOTE | 2019-01-27 09:48 | Nephrology Consult Note ---
Date of Encounter: 01/27/19 Time of Encounter: 07:40 Assessment and Plan (1) ESRD (end stage renal disease) on dialysis Current Visit: No Status: Chronic Will maintain her MWF dialysis treatment. I reviewed her labs, vital sign trends, prior admission and current progress notes/history and exam as part of E/M and MDM to place her HD orders for MWF x3. I will be available on Sunday and , if needed. Please feel free to call or page me. Her typically night clerk auditor(s) from the private/outside dialysis unit in [place], [place], no longer see their pt's in the hospital at [facility], so I'd be happy to help as part of the [facility] for this admission. Will have to request medical records from her outside dialysis unit. Thank you. History of Present Illness - Reason for Consult Consult date: 01/27/19 end stage renal disease Requesting physician: Omari Lagunas - Chief Complaint ESRD - History of Present Illness 78 y/o WF with a pmh of ESRD on HD MWF who presents for LE wounds. She said she dialyzes every MWF at the outside/private HD unit in [place], [place], with Dr. Enriquez (the former [facility]). She said she last dialyzed on Sunday and typically dialyzes about 3 hours, she thinks. She reported having several days to weeks onset of worsening LE swelling of her feet and has had a wound on the right foot. She denied taking NSAIDs. She dialyzes via a RUE AVF. Past Med Surg Social Fam HX - Past Medical History Medical history: atrial fibrillation, cancer, COPD, dialysis, hypertension Additional medical history: breast [place]. one [place] since 89 from [place], dialysis for 6 years Psychiatric history: no psych history - Past Surgical History Surgical History: hysterectomy, other Additional surgical history: kidney removed. breast surgery - Social History Smoking Status: Current every day smoker Smokeless Tobacco Status: No Alcohol use: none Drug use: none - Family History Sister Family Member Ethnicity: Non- Living Status: Still Living Hx Family Cardiac Disorders: Yes (Pig valve) Hx Family Cancer: Yes (colon cancer) Hx Family Endocrine Disorder: Yes (DM) Mother Family Member Ethnicity: Non- Living Status: Hx Family Cardiac Disorders: (angina) Father Family Member Ethnicity: Non- Living Status: Hx Family Respiratory Disorders: (pneumonia) Brother Family Member Ethnicity: Non- Living Status: Hx Family Cancer: Yes Medications and Allergies Aspirin Enteric Coated [Aspirin EC] 81 mg PO DAILY #0 02/29/16 [History] Omeprazole [PriLOSEC] 40 mg PO DAILY capsule. 04/16/17 [Rx] Carvedilol [Coreg] 25 mg PO BID 06/24/17 [History] Furosemide [Lasix] 40 mg PO DAILY 06/24/17 [History] Isosorbide MONOnitrate (24 HR) [Imdur] 30 mg PO DAILY 06/24/17 [History] cloNIDine HCl [CloNIDine HCl] 0.2 mg PO BID 01/30/18 [History] hydrALAZINE [HydrALAZINE] 25 mg PO TID 03/22/18 [History] Cholecalciferol (Vitamin D3) [Vitamin D] 50,000 unit PO QWEEK 12/17/18 [History] Prochlorperazine Maleate [Compazine] 5 mg PO TID PRN 12/17/18 [History] Ranitidine HCl [Heartburn Relief] 150 mg PO HS 01/07/19 [History] Collagenase Oint [Santyl] 1 appl TP DAILY 01/26/19 [History] Diltiazem CD (24hr) [Cardizem CD] 360 mg PO DAILY 01/26/19 [History] Melatonin 10 mg PO HS 01/26/19 [History] Allergy/AdvReac Type Severity Reaction Status Date / Time codeine AdvReac Confusion Verified 01/07/19 09:46 Review of Systems All Systems: reviewed and no additional remarkable complaints except as stated Exam - Vital Signs Vital signs: Initial Vital Signs Temp Pulse Resp BP Pulse Ox 97.4 F L 72 16 107/62 100 01/26/19 15:45 01/26/19 15:45 01/26/19 15:45 01/26/19 15:45 01/26/19 15:45 Vital Signs - Last 8 Hours Temp Pulse Resp BP Pulse Ox 01/27/19 07:30 97.4 F L 64 16 163/71 97 01/27/19 04:45 98 F 71 16 153/60 98 Intake and Output 01/26/19 01/27/19 01/27/19 23:59 07:59 15:59 Intake Total 250 / 250 240 / 240 Output Total 0 / 0 Balance 250 / 250 240 / 240 Intake: IV Fluids 250 / 250 Vancocin 750 MG In 0.9 % Sodium 250 / 250 Chloride 250 ML @ 167 mls/hr IVPB ONCE ONE Rx#:[id number] Oral 240 / 240 Output: Urine 0 / 0 Other: Meal Breakfast Percent of Meal Consumed 85% Weight 53.9 kg - General Appearance General appearance: well-developed, cachectic EENT: ATNC, PERRL, mucous membranes moist Neck: supple Respiratory: clear Cardiology: edema, regular rate, regular rhythm, normal S1, normal S2 - Dialysis Access Dialysis Vascular Access: Arteriovenous Fistula (RUE AVF) thrill: Yes bruit: Yes Gastrointestinal: normoactive bowel sounds, no tenderness, no guarding Integumentary: rash (right foot dressed and appeared C/D/I), warm and dry, chronic venous stasis Neurologic: no focal deficit, no asterixis, alert and oriented x3 Musculoskeletal: no deformities Psychiatric: cooperative Results - Lab Results 01/27/19 06:55 01/27/19 06:55 Most recent lab results Calcium 8.0 mg/dL (8.6-10.3) L 01/27/19 06:55 Phosphorus 4.9 mg/dL (2.7-4.5) H 01/26/19 16:33 Magnesium 1.7 mg/dL (1.6-2.6) 01/26/19 16:33 Consult Discharge Plan - Plan Referrals: Eileen House TRIALS MANAGER [Primary Care Provider] -
--- NOTE | 2019-01-27 15:20 | Internal Med Progress Note ---
Hospitalist Progress Note - Encounter Date of Encounter: 01/27/19 Time of Encounter: 09:00 - Subjective Interval History: Patient complaint of right lower leg pain. No fever. No chills. - Exam Vitals: Temp Pulse Resp BP Pulse Ox 97.8 F 64 18 130/59 97 01/27/19 10:45 01/27/19 07:30 01/27/19 10:45 01/27/19 14:00 01/27/19 07:30 Exam: Pt is AAO x 3, in acute pain HEENT: NC/AT, PERRL Neck: Supple, no JVD, no LAD Lungs: CTA b/l Heart: S1S2, RRR Abd: Soft, nontender, BS present Ext: right lower leg pitting edema with ankle wound. Neuro: No focal deficit . - Assessment and Plan (1) Cellulitis and abscess of right lower extremity Current Visit: Yes Status: Acute Assessment and Plan: Patient has ankle wound with leg swelling. Patient was suspected PVD. - We will place patient on vancomycin - Continue pain management. - Consul vascular and podiatry for wound care and possible vascular procedure. (2) DVT prophylaxis Current Visit: No Status: Acute Assessment and Plan: Heparin sc (3) CAD (coronary artery disease) Current Visit: No Status: Chronic Assessment and Plan: Patient has no chest pain. Continue home medications. (4) ESRD (end stage renal disease) Current Visit: No Status: Chronic Assessment and Plan: Nephrology consult on case. Continue hemodialysis as scheduled (5) HTN (hypertension) Current Visit: No Status: Chronic Assessment and Plan: Continue home medications. - Time Spent with Patient Total time spent is greater than 50% in coordination of care (as documented) at patient's floor/unit and/or counseling patient: 40 minutes Greater than 35 minutes Plan of Care Discussed with: patient Internal Medicine: Result - Labs CBC & Chem 7: 01/27/19 06:55 01/27/19 06:55 Labs: Short CBC 01/26/19 01/27/19 Range/Units 16:51 06:55 WBC 6.5 7.2 (4.3-11.1) K/mcL Hgb 11.7 10.3 L (11.5-15.4) g/dL Hct 35.5 31.2 L (35.3-44.9) % Plt Count 208 174 (140-400) K/mcL Neutrophils # 4.7 (1.6-8.9) K/mcL BMP 01/26/19 01/27/19 16:33 06:55 Sodium 135 L 136 Potassium 3.9 4.1 Chloride 97 L 98 Carbon Dioxide 29 32 H BUN 33 H 37 H Creatinine 3.79 H 3.82 H Glucose 177 H 87 Calcium 8.3 L 8.0 L - Impressions Impressions Chest X-Ray 01/26/19 16:37 IMPRESSION: Increased partially loculated right pleural effusion with basilar volume loss. Stable interstitial changes throughout the lungs, likely related to underlying emphysema. Superimposed edema or infiltrate is not excluded. D/ / Jimmie Palafox MD / Jimmie Palafox MD Interpreting Provider: Jimmie Palafox MD Foot X-Ray 01/26/19 16:43 IMPRESSION: No radiographic evidence for osteomyelitis. Osteopenia limits evaluation. If clinically indicated, an MRI would be more sensitive to evaluate for acute osteomyelitis. D/ / Cyrus Bonner MD / Cyrus Bonner MD Interpreting Provider: Cyrus Bonner MD Chest CT 01/26/19 18:15 IMPRESSION: Pulmonary emphysema with bilateral pleural effusions. D/ / Bandar Islas MD / Bandar Islas MD Interpreting Provider: Bandar Islas MD Consult Discharge Plan - Plan Referrals: Eileen House, DIRECTOR METABOLISM [Primary Care Provider] - (3) CAD (coronary artery disease) Qualifiers: Coronary Disease-Associated Artery/Lesion type: [place] artery [place] vs. transplanted heart: [place] heart Associated angina: without angina Qualified Code(s): I25.10 - Atherosclerotic heart disease of [place] coronary artery without angina pectoris (5) HTN (hypertension) Qualifiers: Hypertension type: essential hypertension Qualified Code(s): I10 - Essential (primary) hypertension
--- NOTE | 2019-01-27 15:42 | Vascular/Endovasc Consult Note ---
Date of Encounter: 01/27/19 Time of Encounter: 15:40 Assessment and Plan (1) PAD (peripheral artery disease) Current Visit: Yes Status: Chronic Patient has significant bilateral lower extremity disease with nonpalpable popliteal and pedal pulses bilaterally. Patient has multiple ongoing risk factors for vascular disease. Because of the severity of the right foot wound and what appears to be ischemic rest pain I recommended urgent angiography. Plan on aortogram with runoff tomorrow in an attempt to better understand her arterial anatomy and to offer possible endovascular intervention. Patient is aware of the recommendation and agrees to proceed. (2) Wound of right foot Current Visit: Yes Status: Acute Patient has approximately 1 month history of right foot wound. This wound is been increasing in size despite outpatient management view of the wound clinic and Dr. Elam. Because of the increasing size of the wound and the symptomatic nature of the wound I recommended angiography to rule out any contribution of ischemia to the wound. (3) ESRD (end stage renal disease) Current Visit: No Status: Chronic Patient receives dialysis 3 times a week. Patient has been on hemodialysis proximally 6 years. (4) Smoker Current Visit: No Status: Chronic Patient has history of tobacco abuse. - History of Present Illness Consult date: 01/27/19 Consult reason: Expanding wound of right foot Chief complaint: Right foot pain and swelling History of present illness: Ms. Hedrick is a 78 year old female We states that she developed an ulceration on the right heel region about 1 month ago. She has undergone outpatient treatment for the wound but the wound continues to expand. She had noted over the past few days that she can only get relief from a severe burning sensation in the right lower extremity when she holds her leg over the side of the bed. She is also noted increasing swelling of both lower extremities though greater on the right side than on the left. She also has had watery-type drainage from the right lower extremity. The patient has been followed in the wound clinic by Dr. Elam. The patient had undergone noninvasive testing last week which showed normal ankle brachial indices but abnormal waveforms. It was also noted that the patient had higher than expected pressures at the level of the ankle suggesting a supratherapeutic value and inaccuracy of the ankle-brachial index representing the true physiology of the extremity. Patient also had a venous duplex scan performed today which was negative for right lower extremity deep venous thrombosis. Past Med Surg Social Fam HX - Past Medical History Medical history: atrial fibrillation, cancer, COPD, dialysis, hypertension Additional medical history: breast [place]. one kidney since 89 from [place], dialysis for 6 years Psychiatric history: no psych history - Past Surgical History Surgical History: hysterectomy, other Additional surgical history: kidney removed. breast surgery - Social History Smoking Status: Current every day smoker Smokeless Tobacco Status: No Alcohol use: none Drug use: none - Family History Sister Family Member Ethnicity: Non- Living Status: Still Living Hx Family Cardiac Disorders: Yes (Pig valve) Hx Family Cancer: Yes (colon cancer) Hx Family Endocrine Disorder: Yes (DM) Mother Family Member Ethnicity: Non- Living Status: Hx Family Cardiac Disorders: (angina) Father Family Member Ethnicity: Non- Living Status: Hx Family Respiratory Disorders: (pneumonia) Brother Family Member Ethnicity: Non- Living Status: Hx Family Cancer: Yes Medications and Allergies Aspirin Enteric Coated [Aspirin EC] 81 mg PO DAILY #0 02/29/16 [History] Omeprazole [PriLOSEC] 40 mg PO DAILY capsule. 04/16/17 [Rx] Carvedilol [Coreg] 25 mg PO BID 06/24/17 [History] Furosemide [Lasix] 40 mg PO DAILY 06/24/17 [History] Isosorbide MONOnitrate (24 HR) [Imdur] 30 mg PO DAILY 06/24/17 [History] cloNIDine HCl [CloNIDine HCl] 0.2 mg PO BID 01/30/18 [History] hydrALAZINE [HydrALAZINE] 25 mg PO TID 03/22/18 [History] Cholecalciferol (Vitamin D3) [Vitamin D] 50,000 unit PO QWEEK 12/17/18 [History] Prochlorperazine Maleate [Compazine] 5 mg PO TID PRN 12/17/18 [History] Ranitidine HCl [Heartburn Relief] 150 mg PO HS 01/07/19 [History] Collagenase Oint [Santyl] 1 appl TP DAILY 01/26/19 [History] Diltiazem CD (24hr) [Cardizem CD] 360 mg PO DAILY 01/26/19 [History] Melatonin 10 mg PO HS 01/26/19 [History] Allergy/AdvReac Type Severity Reaction Status Date / Time codeine AdvReac Confusion Verified 01/07/19 09:46 All Systems Review: The remainder of the systems were reviewed and are negative Exam Vital Signs, Last 4 Hours Temp Resp BP 01/27/19 14:20 97.5 F L 18 152/62 01/27/19 14:00 130/59 01/27/19 13:45 133/58 01/27/19 13:30 134/65 01/27/19 13:15 140/68 01/27/19 13:00 137/68 01/27/19 12:45 137/59 01/27/19 12:30 121/56 01/27/19 12:15 118/56 01/27/19 12:00 124/53 01/27/19 11:45 120/57 General: Present: Conversant, No Apparent Distress, Other (Cachectic appearing elderly white female) HEENT: Present: Atraumatic, Trachea midline, Other (Muscle wasting of the face and neck) Neck: Present: Left Carotid bruit, Right Carotid bruit. Absent: JVD, Midline deformity, Tracheal deviation Cardiac: Present: Reg Rate and Rhythm, No Murmur Lungs: Present: Decreased breath sounds Neuro: Present: Alert and responsive, No focal deficits noted, Cranial nerves grossly intact Abdomen: Present: Soft, Non-tender, Other (No abdominal bruits). Absent: Masses Vascular: Present: Capillary refill delayed (Bilaterally at the foot level), Bruit (Positive left femoral bruit), Pulse, absent (Nonpalpable popliteal and pedal pulses bilaterally), Pulse, diminished (Diminished femoral pulses bilaterally), Edema (Bilateral pedal edema greater on the right side than on the left. The edema is pitting. Patient also has a watery type drainage from the distal aspect of the right leg.). Absent: Pulse, normal Skin: Present: Wound/ulcer(s) (Right foot dressing is intact around ankle and heel region.) Consult Discharge Plan - Plan Referrals: Eileen House, MEET [Primary Care Provider] -
[2019-01-27] MEDS ORDERED: Vancomycin 1 EACH in 0.9 % Sodium Chloride 250 ML IVPB PRN (16:00)
[2019-01-27 16:06] LABS: INR 1.1; Prothrombin Time 12.6 Seconds (9.4-12.1)
[2019-01-27 16:08] LABS: Activated Partial Thrombo Time 40.7 Seconds (26.0-36.0)
--- NOTE | 2019-01-27 17:31 | Podiatry Consult Note ---
Date of Encounter: 01/27/19 Time of Encounter: 17:00 Assessment and Plan (1) Chronic ulcer of right foot Current visit: Yes Status: Acute Assessment: Ulcer to right achilles with eschar and slough noted Ulcer to right MTPJ #1 with eschar noted 3/4 pitting edema noted Non-palpable DP/PT Suspect non-healing d/t PVD Plan: Cleansed right MTPJ #1 ulcer, dorsal aspect, and right achilles ulcer with 0.9 NS Covered with 4x4 dry gauze, kerlix, and medipore Local wound care orders placed Patient to have angiogram tomorrow with vascular surgery Qualifiers: Non-pressure ulcer stage: with fat layer exposed Qualified Code(s): L97.512 - Non-pressure chronic ulcer of other part of right foot with fat layer exposed History of Present Illness HPI: Ms. Hedrick is a 78 year old female who presented to ER for worsening RLE pain. Patient is known to the podiatry group and has been following with Dr. Elam since 01/08/19 for ulcers of right foot. PMH of cardiomyopathy, ESRD with MWF dialysis, CHF, COPD, HTN, renal cell CA, left breast CA s/p mastectomy, A.FIB, CAD, PVD, and chronic ulcers to RLE. Patient reports smoking 1 PPD, denies etoh or illicit drug use. Briefly, Ms. Hedrick is a 78 year old female who follows with Dr. Elam in the wound care center for the past month. Patient has been undergoing wound debridement as well as use of santyl to right achilles. ABIs were preformed which returned R DP 1.07 and R PT 0.95. Patient states starting the Sunday she began having difficulty ambulating and was unable to bathe self d/t pain and swelling of RLE. Again, Ms. Hedrick is a 78 year old female who was consulted to podiatry for right achilles ulceration as well as right medial aspect of MTPJ #1, dorsal aspect. Patient reports pain and swelling to RLE. WBC 7.2, ESR 12, CRP 33. XR of right foot did not show any signs of OM. Venous dopplers were negative for any DVT or SVT. Patient reports right calf pain. Denies chest pain. Reports shortness of breath, stating she wears oxygen 3L prn. Denies any fevers. Reports nausea, vomiting, chills, and diarrhea. No other questions or concerns at this time. Past Med Surg Social Fam HX - Past Medical History Medical history: atrial fibrillation, cancer, COPD, dialysis, hypertension Additional medical history: breast CA. one kidney since 97 from [place], dialysis for 6 years Psychiatric history: no psych history - Past Surgical History Surgical History: hysterectomy, other Additional surgical history: kidney removed. breast surgery - Social History Smoking Status: Current every day smoker Smokeless Tobacco Status: No Alcohol use: none Drug use: none - Family History Brother Family Member Ethnicity: Non- Living Status: Hx Family Cancer: Yes Father Family Member Ethnicity: Non- Living Status: Hx Family Respiratory Disorders: (pneumonia) Mother Family Member Ethnicity: Non- Living Status: Hx Family Cardiac Disorders: (angina) Sister Family Member Ethnicity: Non- Living Status: Still Living Hx Family Cardiac Disorders: Yes (Pig valve) Hx Family Cancer: Yes (colon cancer) Hx Family Endocrine Disorder: Yes (DM) Medications and Allergies RX: Aspirin Enteric Coated [Aspirin EC] 81 mg PO DAILY #0 02/29/16 [History] RX: Omeprazole [PriLOSEC] 40 mg PO DAILY capsule. 04/16/17 [Rx] RX: Carvedilol [Coreg] 25 mg PO BID 06/24/17 [History] RX: Furosemide [Lasix] 40 mg PO DAILY 06/24/17 [History] RX: Isosorbide MONOnitrate (24 HR) [Imdur] 30 mg PO DAILY 06/24/17 [History] RX: cloNIDine HCl [CloNIDine HCl] 0.2 mg PO BID 01/30/18 [History] RX: hydrALAZINE [HydrALAZINE] 25 mg PO TID 03/22/18 [History] Cholecalciferol (Vitamin D3) [Vitamin D] 50,000 unit PO QWEEK 12/17/18 [History] Prochlorperazine Maleate [Compazine] 5 mg PO TID PRN 12/17/18 [History] Ranitidine HCl [Heartburn Relief] 150 mg PO HS 01/07/19 [History] Collagenase Oint [Santyl] 1 appl TP DAILY 01/26/19 [History] Diltiazem CD (24hr) [Cardizem CD] 360 mg PO DAILY 01/26/19 [History] RX: Melatonin 10 mg PO HS 01/26/19 [History] Allergy/AdvReac Type Severity Reaction Status Date / Time codeine AdvReac Confusion Verified 01/07/19 09:46 All Systems Reviewed: The remainder of the systems were reviewed and are negative - Constitutional Constitutional: weakness, no fever(s) - Cardiovascular Cardiovascular: dyspnea, leg edema, pedal edema, other (pedal ulers), no chest pain - Respiratory Respiratory: dyspnea, no cough - Musculoskeletal Musculoskeletal: muscle weakness, numbness, tingling Physical Exam - Constitutional Vitals: Temp Pulse Resp BP Pulse Ox 97.3 F L 58 15 137/55 91 01/27/19 16:38 01/27/19 16:38 01/27/19 16:38 01/27/19 16:38 01/27/19 16:38 Exam: Constitiutional: Alert and oriented x 3. Poor historian. Well nourished. No acute distress noted Vascular: non-palpable DP/PT RLE, CFT <3 sec to all digits, warm to warm from tibia to toes RLE, calf pain with squeeze RLE, 3/4 edema RLE Neurologic: Diminished sensation to touch, normal plantar response, abnormal position sense dorsiflexion/plantar flexion Dermatologic: Right 1st MTPJ ulcer, dorsal aspect, with eschar noted to wound bed. Right achilles ulcer with slough and eschar noted to wound bed. Surrounding tissue erythematous. Minimal serosanguinous drainage noted. Musculoskeletal: 3/5 muscle strength and normal tone RLE. Results - Labs Result Diagrams: 01/27/19 06:55 01/27/19 06:55 Labs: Abnormal lab results RBC 3.35 M/mcL (3.82-4.97) L 01/27/19 06:55 Hgb 10.3 g/dL (11.5-15.4) L 01/27/19 06:55 Hct 31.2 % (35.3-44.9) L 01/27/19 06:55 RDW 15.1 % (11.5-14.5) H 01/27/19 06:55 PT 12.6 Seconds (9.4-12.1) H 01/27/19 15:36 APTT 40.7 Seconds (26.0-36.0) H 01/27/19 15:36 Carbon Dioxide 32 mEq/L (23-29) H 01/27/19 06:55 BUN 37 mg/dL (8-23) H 01/27/19 06:55 Creatinine 3.82 mg/dL (0.60-1.20) H 01/27/19 06:55 Est GFR ( Amer) 14 (> 60) L 01/27/19 06:55 Est GFR (Non-Af Amer) 11 (> 60) L 01/27/19 06:55 Calcium 8.0 mg/dL (8.6-10.3) L 01/27/19 06:55 Phosphorus 4.9 mg/dL (2.7-4.5) H 01/26/19 16:33 C-Reactive Protein 33 mg/L (Less than 10) H 01/26/19 16:33 Hep Bs Antibody < 3.10 mIU/mL (10.00-) L 01/27/19 06:55 H & H 01/27/19 Range/Units 06:55 Hgb 10.3 L (11.5-15.4) g/dL Hct 31.2 L (35.3-44.9) % All other labs normal. - Diagnostic results Ankle/Foot x-ray: report reviewed Consult Discharge Plan - Plan Referrals: Eileen House CNP [Primary Care Provider] -
[2019-01-28 05:29] LABS: Basophils % 0.3 %; Eosinophils # 0.1 K/mcL (0.0-0.6); Eosinophils % 1.2 %; Hematocrit 29.5 % (35.3-44.9); Hemoglobin 9.4 g/dL (11.5-15.4); Immature Granulocytes % 0.6 % (0-4); Lymphocytes # 0.7 K/mcL (0.6-4.6); Mean Corpuscular HGB Conc 31.9 g/dL (31.6-35.5); Mean Corpuscular Hemoglobin 30.4 pg (28.0-33.3); Mean Corpuscular Volume 95.5 fL (83.0-100.0); Mean Platelet Volume 11.2 fL (9.4-12.4); Monocytes # 0.6 K/mcL (0.0-1.3); Monocytes % 9.7 %; Neutrophils # 5.1 K/mcL (1.6-8.9); Platelet Count 166 K/mcL (140-400); Red Blood Count 3.09 M/mcL (3.82-4.97); Red Cell Distribution Width 15.4 % (11.5-14.5); Segmented Neutrophils % 78.2 %
[2019-01-28 05:46] LABS: Calcium 7.8 mg/dL (8.6-10.3); Potassium 4.5 mEq/L (3.5-5.1)
[2019-01-28] MEDS: *HR* Heparin 5,000 UNIT/ML VIAL SQ SCH ×3 (06:12→22:41)
[2019-01-28] MEDS ORDERED: Isovue-300 200 mL Infus..BTL ONE ×2 (07:04→07:05)
[2019-01-28] MEDS ORDERED: Heparin 1,000 UNITS/500 mL 500 ML ONE (07:04)
[2019-01-28] MEDS ORDERED: 0.9 % Sodium Chloride 1,000 ML ONE ×2 (07:04→07:05)
[2019-01-28] MEDS ORDERED: *HR* Heparin 10,000 UNIT/10 ML VIAL ONE (07:04)
[2019-01-28] MEDS ORDERED: *HR* FentaNYL (PF) 100 MCG/2 ML VIAL ONE (07:55)
[2019-01-28] MEDS ORDERED: *HR* Midazolam HCl 2 MG/2 ML VIAL ONE (07:55)
--- NOTE | 2019-01-28 09:50 | Procedure Note ---
Date of procedure: 01/28/19 Pre-op diagnosis: PAD/non healing right ankle wound Post-op diagnosis: same Procedure: abdominal aortogram aortogram with runoff Anesthesia: MAC Surgeon: Desomnd Zuniga Was there an assistant dean present: No Estimated blood loss (cc): 75 Specimen: 0 Condition: stable Disposition: floor (Patient will need further intervention of either right femoropopliteal bypass graft or right lower extremity dictation)
--- NOTE | 2019-01-28 09:55 | Invasive Diagnostic Lab Proc ---
Name: Hilary Hedrick Date of Study: 01/28/2019 Date: 1940 Ht: 178.0 in Medical Record#: [id number] Age: 78 Wt: 54 lb Gender: Female BSA: 1.68 Order #: [id number] BMI: 17.04 Physicians Performing MD: Desmond Zuniga MD, FACS Referring MD: Referring MD: Staff Name Position Time In Sites, Sagrario RT (R) Scrub Noble Quiñones RN Card Table Attendant Marley Plascencia RT (R) Monitor Procedures Performed AORTOGRAPHY, ABDOMINAL S&I AORTOGRAPHY EXT Bilat S&I Pre-Procedure Checklist Informed consent is complete signed and on chart. H&P is on chart. ID band is on and ID verified with patient. Patient NPO for procedure The procedure was described for the patient and questions were answered. ECG is on chart. Plan of Care Patient will tolerate the procedure without complications. Adequate level of comfort will be maintained. Hemodynamics will remain stable Patient will recover from procedure without complications. Respiratory function will be maintained. Cardiac rhythm will remain stable. Patient temperature will be maintained. Patient and/or family have verbalized understanding of the procedure. Patient Education Chief Complaint/Reason for Test: Peripheral angiogram Developmental Category: Geriatric (65+ years) Learning Barriers: None Education Needs: Procedure Education Method: Verbal Information Taught: Peripheral angiogram Educational Evaluation: Able to repeat information Intravenous Access Time IV Size Location DC'd Fluid/Drip Rate Units RN 20g 1 /" Patent On Arrival 0.9NaCl ml/hr Allergies codeine Vital Signs Time BP Systolic BP Diastolic HR O2 Sats ASA 08:07 AM 175 77 64 94 08:12 AM 149 102 87 92 08:17 AM 169 79 193 94 08:22 AM 167 76 59 94 08:27 AM 169 77 63 92 08:32 AM 178 82 63 90 08:37 AM 178 77 67 91 08:42 AM 156 74 72 88 08:47 AM 152 71 54 89 08:52 AM 153 71 64 87 08:57 AM 151 71 70 94 09:02 AM 157 76 68 93 09:07 AM 152 75 60 94 09:12 AM 159 96 62 93 09:17 AM 169 77 71 91 09:22 AM 173 75 88 90 09:27 AM 181 79 73 89 09:32 AM 173 82 72 87 09:37 AM 177 76 69 88 Procedure Medications Time Medication Dose Units Method Route 08:20 AM Oxygen 3 L/min nasal cannula 08:21 AM Versed 1 mg Intravenous 08:21 AM Fentanyl 25 mcg Intravenous 08:22 AM Versed 1 mg Intravenous 08:23 AM Lidocaine 2% 10 ml Subcutaneous 08:35 AM Fentanyl 25 mcg Intravenous 08:48 AM Benadryl 12.5 mg Intravenous 09:00 AM Fentanyl 25 mcg Intravenous 09:22 AM Fentanyl 25 mcg Intravenous ASA Classification: CLASS III- Severe systemic disease (i.e. prior AMI, diabetes with vascular complications, morbid obesity) Mckenzie Score Preprocedure Postprocedure Activity 2- Moves 4 extremities sustained head lift Activity 2- Moves 4 extremities sustained head lift Circulation 2- SBP +/= 20 points of pre-anesthetic level Circulation 2- SBP +/= 20 points of pre-anesthetic level Consciousness 2- Awake and alert oriented x 3 Consciousness 2- Awake and alert oriented x 3 O2 Saturation 2- Able to maintain O2 satruation of 92% on room air O2 Saturation 2- Able to maintain O2 satruation of 92% on room air Respiratory 2- Able to deep breathe and cough well Respiratory 2- Able to deep breathe and cough well Total Score 10 Total Score 10 Contrast: Isovue 300- 150ml Contrast Amount: 70 ml Fluoro Dose: 214 mGy Procedure Log Time Note Entered By 07:57 AM Pt arrived to chemical laboratory chief 1 at 07:57 [email or web address] 07:57 AM Sagrario Max RT (R) Position: Scrub Time in: 07:57 [email or web address] 07:57 AM Noble Quiñones RN Position: Card Table Attendant Time in: 07:57 [email or web address] 07:58 AM Marley Plascencia RT (R) Position: Monitor Time in: 07:58 [email or web address] 07:59 AM Physician arrived 07:59 [email or web address] 07:59 AM Alden and sina completed [email or web address] 07:59 AM Sign in performed according to hospital policy. [email or web address] 07:59 AM Procedure start 07:59 [email or web address] 08:19 AM ASA Class CLASS III- Severe systemic disease (i.e. prior AMI, diabetes with vascular complications, morbid obesity) [email or web address] 08:20 AM Hair removed from procedure site in holding area using clippers. Bilateral groin prepped with Chloraprep by Marley Plascencia RT (R), then patient was draped. Skin intact. [email or web address] 08:21 AM 08:20 Oxygen at 3 L/min per nasal cannula by Noble Quiñones RN [email or web address] 08:21 AM 08:21 Versed 1 mg Intravenous Given by Noble Quiñones RN [email or web address] 08:21 AM 08:21 Fentanyl 25 mcg Intravenous Given by Noble Quiñones RN [email or web address] 08:21 AM Time out perfomed [email or web address] 08:22 AM 08:22 Versed 1 mg Intravenous Given by Noble Quiñones RN [email or web address] 08:24 AM 08:23 10 ml Lidocaine 2% to left groin Subcutaneous Given By Desmond Zuniga MD, FACS [email or web address] 08:29 AM IV Supplies used: J loop Angio Cath. [email or web address] 08:29 AM Patient charges- Angio tray pack, Pulse Oximetry and ACIST tubing and transducer [email or web address] 08:29 AM Access obtained in the by percutaneous puncture. 5 Fr. 10 cm Terumo [place] sheath placed in femoral artery [email or web address] 08:26 AM Unsuccessful access attempt # 1 into the left Femoral artery. Manual pressure applied to achieve hemostasis.. [email or web address] 08:32 AM Access obtained in the left femoral artery by percutaneous puncture. 4 Fr. 10 cm Terumo [place] sheath placed in left femoral artery [email or web address] 08:35 AM 0.035 145cm J-wire wire utilized to assist with catheter placement [email or web address] 08:35 AM 08:35 Fentanyl 25 mcg Intravenous Given by Noble Quiñones RN [email or web address] 08:35 AM 4Fr pigtail catheter inserted over the wire [email or web address] 08:37 AM Abdominal aorta angiography performed in AP contrast injected 10/20 mls. [email or web address] 08:39 AM Catheter repositioned . [email or web address] 08:40 AM Right common iliac angiography performed in AP contrast injected 10/15 mls. [email or web address] 08:41 AM Bilat SFA's angiography performed in AP contrast injected 10/15 mls. [email or web address] 08:42 AM Catheter removed [email or web address] 08:43 AM 4Fr Omniflush catheter inserted over the wire [email or web address] 08:46 AM Wire removed [email or web address] 08:46 AM 0.[address]-angled wire utilized to assist with catheter placement [email or web address] 08:48 AM Time: 08:48 Benadryl 12.5 mg Intravenous Given by Noble Quiñones RN [email or web address] 08:48 AM Wire removed [email or web address] 08:48 AM J-wire reinserted. [email or web address] 08:50 AM Wire removed [email or web address] 08:54 AM 5 mls contrast injected into Rt SFA [email or web address] 08:55 AM 5 mls injected into Distal Rt SFA. [email or web address] 08:57 AM 5 mls contrast injected into Rt popliteal artery. [email or web address] 08:59 AM 3 mls contrast injected into Rt Tibial arteries [email or web address] 09:00 AM 09:00 Fentanyl 25 mcg Intravenous Given by Noble Quiñones RN [email or web address] 09:02 AM 3 mls contrast injected into Rt foot. [email or web address] 09:04 AM 0.035 260cm Amplatz super stiff wire utilized to assist with catheter placement [email or web address] 09:06 AM Intervention started at this time [email or web address] 09:07 AM Sheath exchanged for a 5 Fr 45 cm Terumo [place] sheath inserted into left femoral artery [email or web address] 09:13 AM 4Fr 100cm Glidecath Non-Taper Angle guide catheter advanced to target vessel [email or web address] 09:18 AM Guide catheter removed intact [email or web address] 09:18 AM Guide wire removed intact [email or web address] 09:19 AM Sheath pulled back. [email or web address] 09:22 AM 09:22 Fentanyl 25 mcg Intravenous Given by Noble Quiñones RN [email or web address] 09:23 AM Procedure completed at 09:23 [email or web address] 09:25 AM Sign Out completed: Radiation Dose 214.46 mGy Fluoro Time: 12.1 minutes. Isovue 300- 150ml contrast 70 ml given by Desmond Zuniga MD, FACS. Complications: None. Confirmed administered medications:Yes Sedation minutes 60 [email or web address] 09:32 AM Diagram Region: Lower Extremity Arteries Anatomical Region: [id number]% Lesion in Proximal Right External Iliac Intervention done: 0 (1=yes, 0=no) [email or web address] 09:33 AM Diagram Region: Lower Extremity Arteries Anatomical Region: [id number]% Lesion in Mid Left External Iliac Intervention done: 0 (1=yes, 0=no) [email or web address] 09:33 AM Diagram Region: Lower Extremity Arteries Anatomical Region: [id number]-Art75% Lesion in Mid Left Superficial Femoral Intervention done: 0 (1=yes, 0=no) [email or web address] 09:33 AM Diagram Region: Lower Extremity Arteries Anatomical Region: [id number]% Lesion in Proximal Right Superficial Femoral Intervention done: 0 (1=yes, 0=no) [email or web address] 09:34 AM Diagram Region: Lower Extremity Arteries Anatomical Region: [id number]% Lesion in Proximal Right Post. Tibial Intervention done: 0 (1=yes, 0=no) [email or web address] 09:34 AM Diagram Region: Lower Extremity Arteries Anatomical Region: [id number]% Lesion in Distal Right Peroneal Intervention done: 0 (1=yes, 0=no) [email or web address] 09:35 AM Arterial sheath pulled using manual compression and V+Pad for 20 minutes by Sagrario Max) [email or web address] 09:35 AM Estimated Blood Loss: minimal [email or web address] 09:35 AM Post Blood Pressure: 173/82 [email or web address] 09:35 AM Post EKG: Atrial Fibrillation [email or web address] 09:35 AM Information taught: Peripheral angiogram and V+Pad [email or web address] 09:36 AM Education needs: Procedure, Plan of Care, and Disease Process [email or web address] 09:36 AM Learning barriers: None [email or web address] 09:36 AM Education methods: Verbal [email or web address] 09:36 AM Education evaluation: Able to repeat information [email or web address] 09:36 AM Patient pain level 0/10 [email or web address] 09:36 AM Pt taken to 2A Room# 37 [email or web address] 09:36 AM Complications: None [email or web address] 09:36 AM Fluoro Time: 12.1 minutes [email or web address] 09:36 AM Isovue 300- 150ml contrast 70 ml given by Desmond Zuniga MD, FACS [email or web address] 09:36 AM Radiation Dose 214.46 mGy [email or web address] 07:57 AM PVIStat 08:06 AM Vitals capture started with the following parameters, Patient=Adult, Interval=5 min, Initial Uppgqwmz=026 mmHg, Deflation Rate=3 mmHg, Cuff placed on Right Arm 08:07 AM HR=64 bpm, GQBW=115/77 mmhg, SpO2=94.0 %, Resp=23 B/min 08:09 AM Recorded ECG: HR=68 Condition=Condition 1 08:12 AM HR=87 bpm, EPTJ=060/102 mmhg, SpO2=92.0 %, Resp=22 B/min 08:17 AM HE=242 bpm, SCKF=681/79 mmhg, SpO2=94.0 %, Resp=15 B/min 08:18 AM Recorded ECG: HR=68 Condition=Condition 1 08:22 AM HR=59 bpm, NOLZ=872/76 mmhg, SpO2=94.0 %, Resp=20 B/min 08:27 AM HR=63 bpm, IXJD=677/77 mmhg, SpO2=92.0 %, Resp=20 B/min, Comment=A-Fib 08:29 AM Recorded ECG: HR=68 Condition=Condition 1 08:29 AM Recorded ECG: HR=71 Condition=Condition 1 09:17 AM HR=71 bpm, ZRRP=124/77 mmhg, SpO2=91.0 %, Resp=26 B/min, Comment=A-fib 09:22 AM HR=88 bpm, DFVL=293/75 mmhg, SpO2=90.0 %, Resp=19 B/min, Comment=A-fib 09:27 AM HR=73 bpm, LDBE=530/79 mmhg, SpO2=89.0 %, Resp=27 B/min, Comment=A-fib 09:32 AM HR=72 bpm, BCSH=318/82 mmhg, SpO2=87.0 %, Resp=37 B/min, Comment=A-fib 09:37 AM HR=69 bpm, THQK=313/76 mmhg, SpO2=88.0 %, Resp=27 B/min, Comment=A-fib 08:32 AM HR=63 bpm, AVSB=508/82 mmhg, SpO2=90.0 %, Resp=23 B/min 08:37 AM HR=67 bpm, SBFN=644/77 mmhg, SpO2=91.0 %, Resp=39 B/min, Comment=A-fib 08:37 AM Recorded ECG: HR=64 Condition=Condition 1 08:42 AM HR=72 bpm, CTXG=402/74 mmhg, SpO2=88.0 %, Resp=21 B/min, Comment=A-fib 08:47 AM HR=54 bpm, IVZR=237/71 mmhg, SpO2=89.0 %, Resp=33 B/min, Comment=A-fib 08:52 AM HR=64 bpm, GECJ=902/71 mmhg, SpO2=87.0 %, Resp=27 B/min, Comment=A-fib 08:57 AM HR=70 bpm, GQMU=856/71 mmhg, SpO2=94.0 %, Resp=16 B/min, Comment=A-fib 09:02 AM HR=68 bpm, UTJR=575/76 mmhg, SpO2=93.0 %, Resp=17 B/min, Comment=A-fib 09:07 AM HR=60 bpm, XKNH=549/75 mmhg, SpO2=94.0 %, Resp=28 B/min, Comment=A-fib 09:12 AM HR=62 bpm, FHDA=259/96 mmhg, SpO2=93.0 %, Resp=36 B/min, Comment=A-fib 09:41 AM Report given to Alysia RIVAS. Pt taken to , Room # 37 09:41 [email or web address] 09:47 AM Site status No bleeding/hematoma - Lt Groin as reported by Sites, Sagrario RT (R) at 09:47 [email or web address] 09:47 AM Opsite applied [email or web address] 09:47 AM Patient out of room 09:47 [email or web address] Peripheral Anatomy Vessel Pathology Lesion Stenosis Aneurysm Diameter Thrombus Type Right External Iliac Lesion 75 Left External Iliac Lesion 75 Left Superficial Femoral Lesion 75 Right Superficial Femoral Lesion 100 Right Post. Tibial Lesion 100 Right Peroneal Lesion 100 Post Procedure Information Blood Pressure: 173/82 mmHg Rhythm: Atrial Fibrillation Report Given To: marilee Sanders Checks Time Location Status Staff Sheath In? Note 9:47:00 AM Lt Groin No bleeding/hematoma Sites, Sagrario RT (R) Pulses Time Site Pre Procedure Post Procedure Note Bilateral DP Doppler Doppler Bilateral radial 2+ 2+ Rt PT None None Lt PT Doppler Doppler Updated by Marley Plascencia, RT(R) on 01/28/2019 9:47:48 AM electronically signed on 01/28/2019 9:48:48 AM with status of Final
[2019-01-28] MEDS ORDERED: Vancomycin 250 MG in 0.9 % Sodium Chloride Mini Bag 100 ML IVPB ONE (10:45)
[2019-01-28] MEDS: Diltiazem CD (24hr) 180 MG CAPSULE PO SCH (12:42)
[2019-01-28] MEDS: Aspirin Enteric Coated 81 MG Tablet PO SCH (12:42)
[2019-01-28] MEDS: hydrALAZINE 25 MG TABLET PO SCH ×3 (12:42→22:40)
[2019-01-28] MEDS: Furosemide 40 MG TABLET PO SCH (12:43)
[2019-01-28] MEDS: cloNIDine HCl 0.1 MG TABLET PO SCH ×2 (12:43→22:41)
[2019-01-28] MEDS: Isosorbide MONOnitrate (24 HR) 30 MG TAB.ER.24H PO SCH (12:43)
--- NOTE | 2019-01-28 13:31 | Internal Med Progress Note ---
Hospitalist Progress Note - Encounter Date of Encounter: 01/28/19 Time of Encounter: 10:00 - Subjective Interval History: See patient after angiogram. Patient is still in mild sedation, opening eyes on verbal stimulation. Denies pain at this point. No fever. - Exam Vitals: Temp Pulse Resp BP Pulse Ox 97.8 F 71 16 184/74 90 01/28/19 07:27 01/28/19 12:00 01/28/19 12:00 01/28/19 12:00 01/28/19 12:00 Exam: Pt is AAO x 3, in acute pain HEENT: NC/AT, PERRL Neck: Supple, no JVD, no LAD Lungs: CTA b/l Heart: S1S2, RRR Abd: Soft, nontender, BS present Ext: right lower leg pitting edema with ankle wound. Neuro: No focal deficit . - Assessment and Plan (1) Cellulitis and abscess of right lower extremity Current Visit: Yes Status: Acute Assessment and Plan: Patient has ankle wound with leg swelling. Patient was suspected PVD. - We will place patient on vancomycin - Continue pain management. - Vascular surgery saw patient, angiogram done. I have discussed with vascular surgery consult Dr. Jung regarding this patient, patient has severe PVD, cannot have intravascular procedure because of severity of the disease. Will discuss with patient later for further management, probably need amputation. - Podiatry consult appreciated, continue wound care. (2) DVT prophylaxis Current Visit: No Status: Acute Assessment and Plan: Heparin sc (3) CAD (coronary artery disease) Current Visit: No Status: Chronic Assessment and Plan: Patient has no chest pain. Continue home medications. (4) ESRD (end stage renal disease) Current Visit: No Status: Chronic Assessment and Plan: Nephrology consult on case. Continue hemodialysis as scheduled (5) HTN (hypertension) Current Visit: No Status: Chronic Assessment and Plan: Continue home medications. Increase hydralazine dose for better BP control - Summary of Assessment and Plan Summary of Assessment and Plan: 30 minutes - Time Spent with Patient Total time spent is greater than 50% in coordination of care (as documented) at patient's floor/unit and/or counseling patient: 25 - 35 minutes Plan of Care Discussed with: patient Internal Medicine: Result - Labs CBC & Chem 7: 01/28/19 05:03 01/28/19 05:03 Labs: Short CBC 04/16/19 Range/Units 05:03 WBC 6.6 (4.3-11.1) K/mcL Hgb 9.4 L (11.5-15.4) g/dL Hct 29.5 L (35.3-44.9) % Plt Count 166 (140-400) K/mcL Neutrophils # 5.1 (1.6-8.9) K/mcL BMP 01/28/19 05:03 Sodium 135 L Potassium 4.5 Chloride 101 Carbon Dioxide 30 H BUN 22 Creatinine 2.53 H Glucose 82 Calcium 7.8 L - ABG Interpretation ABG results: PT/INR, D-dimer PT 12.6 Seconds (9.4-12.1) H 01/27/19 15:36 Consult Discharge Plan - Plan Referrals: Eileen House, [employer] [Primary Care Provider] - (3) CAD (coronary artery disease) Qualifiers: Coronary Disease-Associated Artery/Lesion type: [place] artery [place] vs. transplanted heart: [place] heart Associated angina: without angina Qualified Code(s): I25.10 - Atherosclerotic heart disease of [place] coronary artery without angina pectoris (5) HTN (hypertension) Qualifiers: Hypertension type: essential hypertension Qualified Code(s): I10 - Essential (primary) hypertension
[2019-01-28] MEDS: Melatonin 3 MG TABLET PO SCH (22:41)
[2019-01-28] MEDS: Famotidine 20 MG TABLET PO SCH (22:41)
[2019-01-29 01:43] LABS: Calcium 7.7 mg/dL (8.6-10.3); Potassium 4.8 mEq/L (3.5-5.1)
[2019-01-29 01:52] LABS: Basophils % 0.4 %; Eosinophils # 0.1 K/mcL (0.0-0.6); Eosinophils % 0.8 %; Hematocrit 26.3 % (35.3-44.9); Hemoglobin 8.6 g/dL (11.5-15.4); Immature Granulocytes % 0.5 % (0-4); Lymphocytes # 0.6 K/mcL (0.6-4.6); Lymphocytes % 8.3 %; Mean Corpuscular HGB Conc 32.7 g/dL (31.6-35.5); Mean Corpuscular Volume 94.9 fL (83.0-100.0); Mean Platelet Volume 11.4 fL (9.4-12.4); Monocytes # 0.7 K/mcL (0.0-1.3); Monocytes % 8.9 %; Neutrophils # 6.3 K/mcL (1.6-8.9); Nucleated Red Blood Cells 0.4 /100 WBC (0); Platelet Count 148 K/mcL (140-400); Red Blood Count 2.77 M/mcL (3.82-4.97); Red Cell Distribution Width 15.3 % (11.5-14.5); Segmented Neutrophils % 81.1 %
[2019-01-29] MEDS: *HR* Heparin 5,000 UNIT/ML VIAL SQ SCH ×4 (04:56→20:31)
--- NOTE | 2019-01-29 07:11 | Nephrology Progress Note ---
Date of Encounter: 01/29/19 Time of Encounter: 11:10 - Assessment and Plan (1) ESRD (end stage renal disease) on dialysis Current Visit: No Status: Chronic HD for today (Sunday). HD orders in place. Will maintain her MWF dialysis treatment. I reviewed her labs, vital sign trends, prior admission and current progress notes/history and exam as part of E/M and MDM to place her HD orders for MWF x3. I will be available on , if needed. Please feel free to call or page me. Thank you. Subjective Principal diagnosis: ESRD Interval history: Pt was s/e while on HD. She did not affirm cramping with HD. Objective - Vital Signs Vital signs: Vital Signs Temp Pulse Resp BP Pulse Ox 01/29/19 04:02 97.8 F 53 16 120/64 93 01/29/19 00:02 98.1 F 52 16 126/53 93 01/28/19 23:04 92 01/28/19 18:57 97.6 F 55 17 116/62 91 01/28/19 16:16 53 122/56 01/28/19 14:25 97.6 F 72 16 128/65 95 01/28/19 12:00 71 16 184/74 90 01/28/19 11:33 71 16 174/62 93 01/28/19 11:07 68 18 166/63 92 01/28/19 10:37 65 18 167/66 92 01/28/19 10:22 69 18 170/56 93 01/28/19 10:05 66 18 173/68 91 01/28/19 07:27 97.8 F 63 16 159/69 95 Intake and Output 01/28/19 01/28/19 01/29/19 15:59 23:59 07:59 Intake Total 120 / 120 Balance 120 / 120 Intake: Oral 120 / 120 Other: Meal NPO Weight 55 kg Patient Weight 01/29/19 23:59 Weight 55 kg - General Appearance Exam: General appearance: well-developed, cachectic EENT: ATNC, PERRL, mucous membranes moist Neck: supple Respiratory: clear Cardiology: edema, regular rate, regular rhythm, normal S1, normal S2 - Dialysis Access Dialysis Vascular Access: Arteriovenous Fistula (RUE AVF) thrill: Yes bruit: Yes Gastrointestinal: normoactive bowel sounds, no tenderness, no guarding Integumentary: rash (right foot dressed and appeared C/D/I), warm and dry, chronic venous stasis Neurologic: no focal deficit, no asterixis, alert and oriented x3 Musculoskeletal: no deformities Psychiatric: cooperative - Lab 01/29/19 01:03 01/29/19 01:03 Most recent lab results Calcium 7.7 mg/dL (8.6-10.3) L 01/29/19 01:03 Phosphorus 4.9 mg/dL (2.7-4.5) H 01/26/19 16:33 Magnesium 1.7 mg/dL (1.6-2.6) 01/26/19 16:33 Consult Discharge Plan - Plan Referrals: Eileen House, RESIDENT IN DIAGNOSTIC RADIOLOGY [Primary Care Provider] -
[2019-01-29] MEDS ORDERED: 0.9 % Sodium Chloride 2,000 ML ONE (09:13)
--- NOTE | 2019-01-29 09:57 | Vascular/Endovas Progress Note ---
Date of Encounter: 01/29/19 Time of Encounter: 08:30 - Assessment and plan (1) PAD (peripheral artery disease) Current Visit: Yes Status: Chronic Severe right lower extremity occlusive disease with ischemic rest pain. I recommended right above-knee amputation for the patient. He is going to discuss this with her family. Tentatively plan for surgery for tomorrow. (2) Wound of right foot Current Visit: Yes Status: Acute Ischemic right foot wound that is nonhealing. (3) ESRD (end stage renal disease) Current Visit: No Status: Chronic Patient receives dialysis 3 times a week. Patient has been on hemodialysis pr oximally 6 years. (4) Smoker Current Visit: No Status: Chronic Patient has history of tobacco abuse. - Subjective Interval history: Patient is one day post aortogram with runoff. This study demonstrated severe occlusive and calcific disease. The vessels are not amenable to endovascular m anipulation. Bypass grafting is not recommended to this patient because of concurrent comorbid medical concerns. I've recommended to the patient that she undergo a right [id number] amputation in order to control her pain and wound. I discussed with her potential options. I had discussed in great detail with the patient's daughter yesterday afternoon the same issues. I also expressed my concern that the patient will require extended care because of her ongoing dialysis treatments. Apparently there are also many cats at home and I'm concerned about the hygiene of her home in regards to long-term wound care as well as nutrition issues. I suggested that long-term extended care be considered for her long-term needs. We also discussed the option of hospice care which was declined. At this point I'm tentatively scheduling the patient for amputation tomorrow. She is going to discuss this further with her family later today. Vital Signs, Last 4 Hours Temp Pulse Resp BP Pulse Ox 01/29/19 07:31 98.1 F 49 15 141/55 94 - Physical Examination General: Present: Conversant Vascular: Present: Other (Patient continues to hold her right lower extremity in a deep ended position due to the ongoing persistent pain. Patient has edema of the calf and foot and ankle.) Results 01/29/19 01:03 01/29/19 01:03 Lab Results, Last 24 hours 01/29/19 01/29/19 01:03 01:03 WBC 7.7 Hgb 8.6 L Hct 26.3 L Plt Count 148 Sodium 136 Potassium 4.8 Chloride 100 Carbon Dioxide 28 BUN 27 H Creatinine 3.20 H Glucose 68 L Calcium 7.7 L Consult Discharge Plan - Plan Referrals: Eileen House, MEET [Primary Care Provider] -
[2019-01-29] MEDS ORDERED: 0.9 % Sodium Chloride 1,000 ML ONE (10:09)
[2019-01-29] MEDS: Furosemide 40 MG TABLET PO SCH (10:39)
[2019-01-29] MEDS: Diltiazem CD (24hr) 180 MG CAPSULE PO SCH (10:39)
[2019-01-29] MEDS: Isosorbide MONOnitrate (24 HR) 30 MG TAB.ER.24H PO SCH (10:39)
[2019-01-29] MEDS: *HR* OxyCODONE Immed Rel 5 MG TABLET PO PRN ×2 (10:39→16:23)
[2019-01-29] MEDS: cloNIDine HCl 0.1 MG TABLET PO SCH ×2 (10:40→20:24)
[2019-01-29] MEDS: Aspirin Enteric Coated 81 MG Tablet PO SCH (10:40)
[2019-01-29] MEDS: hydrALAZINE 25 MG TABLET PO SCH ×3 (10:41→20:24)
--- NOTE | 2019-01-29 11:15 | Internal Med Progress Note ---
Hospitalist Progress Note - Encounter Date of Encounter: 01/29/19 Time of Encounter: 09:00 - Subjective Interval History: Patient was seen in hemodialysis room. Still complaining of right lower leg pain/swelling. Vascular surgery consult appreciated, discussed with patient regarding amputation. He has no fever. Continue wound care and pain management at this point. - Exam Vitals: Temp Pulse Resp BP Pulse Ox 97.8 F 49 15 147/60 94 01/29/19 08:30 01/29/19 07:31 01/29/19 08:30 01/29/19 11:00 01/29/19 07:31 Exam: Pt is AAO x 3, in acute pain HEENT: NC/AT, PERRL Neck: Supple, no JVD, no LAD Lungs: CTA b/l Heart: S1S2, RRR Abd: Soft, nontender, BS present Ext: right lower leg pitting edema with ankle wound. Neuro: No focal deficit . - Assessment and Plan (1) Cellulitis and abscess of right lower extremity Current Visit: Yes Status: Acute Assessment and Plan: Patient has ankle wound with leg swelling. Patient has severe PVD. - We will place patient on vancomycin - Continue pain management. - Vascular surgery saw patient, angiogram done. I have discussed with vascular surgery consult Dr. Jung regarding this patient, patient has severe PVD, cannot have intravascular procedure because of severity of the disease. Discussed with patient regarding amputation, pt will discuss with family. - Podiatry consult appreciated, continue wound care. (2) DVT prophylaxis Current Visit: No Status: Acute Assessment and Plan: Heparin sc (3) CAD (coronary artery disease) Current Visit: No Status: Chronic Assessment and Plan: Patient has no chest pain. Continue home medications. (4) ESRD (end stage renal disease) Current Visit: No Status: Chronic Assessment and Plan: Nephrology consult on case. Continue hemodialysis as scheduled (5) HTN (hypertension) Current Visit: No Status: Chronic Assessment and Plan: Continue home medications. Increase hydralazine dose for better BP control (6) Afib Current Visit: No Status: Chronic Assessment and Plan: Chronic A. fib. Heart rate is well controlled. Patient is on baby aspirin at home, will continue. - Time Spent with Patient Total time spent is greater than 50% in coordination of care (as documented) at patient's floor/unit and/or counseling patient: 30 minutes 25 - 35 minutes Plan of Care Discussed with: patient Internal Medicine: Result - Labs CBC & Chem 7: 01/29/19 01:03 01/29/19 01:03 Labs: Short CBC 01/29/19 Range/Units 01:03 WBC 7.7 (4.3-11.1) K/mcL Hgb 8.6 L (11.5-15.4) g/dL Hct 26.3 L (35.3-44.9) % Plt Count 148 (140-400) K/mcL Neutrophils # 6.3 (1.6-8.9) K/mcL BMP 01/29/19 01:03 Sodium 136 Potassium 4.8 Chloride 100 Carbon Dioxide 28 BUN 27 H Creatinine 3.20 H Glucose 68 L Calcium 7.7 L - ABG Interpretation ABG results: PT/INR, D-dimer PT 12.6 Seconds (9.4-12.1) H 01/27/19 15:36 Consult Discharge Plan - Plan Referrals: Eileen House, INSTRUCTIONAL DEVELOPER [Primary Care Provider] - (3) CAD (coronary artery disease) Qualifiers: Coronary Disease-Associated Artery/Lesion type: [place] artery [place] vs. transplanted heart: [place] heart Associated angina: without angina Qualified Code(s): I25.10 - Atherosclerotic heart disease of [place] coronary artery without angina pectoris (5) HTN (hypertension) Qualifiers: Hypertension type: essential hypertension Qualified Code(s): I10 - Essential (primary) hypertension (6) Afib Qualifiers: Atrial fibrillation type: chronic Qualified Code(s): I48.2 - Chronic atrial fibrillation
--- NOTE | 2019-01-29 11:56 | Podiatry Progress Note ---
Date of Encounter: 01/29/19 Time of Encounter: 11:45 - Assessment and Plan (1) Chronic ulcer of right foot Current Visit: Yes Status: Acute Assessment: Ulcer to right achilles with eschar and slough noted Ulcer to right MTPJ #1 with eschar noted 2/4 pitting edema noted Non-palpable DP/PT Plan: Cleansed right MTPJ #1 ulcer, dorsal aspect, and right achilles ulcer with 0.9 NS Covered with 4x4 dry gauze, kerlix, and medipore Local wound care orders placed Discussed with patient if lack of blood flow to foot wound will not heal. Patient verbalized understanding. Will continue local wound care while awaiting vascular recommendations Qualifiers: Non-pressure ulcer stage: with fat layer exposed Qualified Code(s): L97.512 - Non-pressure chronic ulcer of other part of right foot with fat layer exposed Subjective Interval history: Patient seen in dialysis. Reports right lower extremity pain rating 5/10. Patient denies fevers, chills, nausea, vomiting, or diarrhea. Denies chest pain, calf pain, or shortness of breath. Patient states she spoke with Dr. Zuniga and has not made a decision regarding amputation vs fem-pop bypass. States he will return this evening to continue discussion. No other questions or concerns at this time. Objective - Vital Signs Vital Signs: Vital Signs Temp Pulse Resp BP Pulse Ox 01/29/19 11:45 139/55 01/29/19 11:30 130/59 01/29/19 11:15 136/78 01/29/19 11:00 147/60 01/29/19 10:45 141/64 01/29/19 10:30 150/64 01/29/19 10:15 163/69 01/29/19 10:00 154/54 01/29/19 09:45 143/58 01/29/19 09:30 150/58 01/29/19 09:15 144/64 01/29/19 09:00 151/61 01/29/19 08:45 137/59 01/29/19 08:30 97.8 F 15 148/61 01/29/19 07:31 98.1 F 49 15 141/55 94 01/29/19 04:02 97.8 F 53 16 120/64 93 01/29/19 00:02 98.1 F 52 16 126/53 93 04/16/19 23:04 92 01/28/19 18:57 97.6 F 55 17 116/62 91 01/28/19 16:16 53 122/56 01/28/19 14:25 97.6 F 72 16 128/65 95 01/28/19 12:00 71 16 184/74 90 Intake and Output 01/28/19 01/29/19 01/29/19 23:59 07:59 15:59 Intake Total 120 / 120 600 / 600 Balance 120 / 120 600 / 600 Intake: Oral 120 / 120 0 / 0 Intake, Rinseback and Flushes 600 / 600 Other: Weight 55 kg Hemodialysis Net Fluid Removed 2600 (mL) Patient Weight 01/29/19 23:59 Weight 55 kg - Exam Exam: Constitiutional: Alert and oriented x 3. Poor historian. Well nourished. No acute distress noted Vascular: non-palpable DP/PT RLE, CFT <3 sec to all digits, warm to warm from tibia to toes RLE, calf pain with squeeze RLE, 2/4 edema RLE, dependent rubor noted Neurologic: Diminished sensation to touch, normal plantar response, abnormal position sense dorsiflexion/plantar flexion Dermatologic: Right 1st MTPJ ulcer, dorsal aspect, with eschar noted to wound bed. Right achilles ulcer with slough and eschar noted to wound bed. Surrounding tissue erythematous. Minimal serosanguinous drainage noted. Musculoskeletal: 3/5 muscle strength and normal tone RLE. - Lab Result Diagrams: 01/29/19 01:03 01/29/19 01:03 Labs: Abnormal lab results RBC 2.77 M/mcL (3.82-4.97) L 01/29/19 01:03 Hgb 8.6 g/dL (11.5-15.4) L 01/29/19 01:03 Hct 26.3 % (35.3-44.9) L 01/29/19 01:03 RDW 15.3 % (11.5-14.5) H 01/29/19 01:03 Nucleated RBCs/100 WBC 0.4 /100 WBC (0) H 01/29/19 01:03 PT 12.6 Seconds (9.4-12.1) H 01/27/19 15:36 APTT 40.7 Seconds (26.0-36.0) H 01/27/19 15:36 BUN 27 mg/dL (8-23) H 01/29/19 01:03 Creatinine 3.20 mg/dL (0.60-1.20) H 01/29/19 01:03 Est GFR ( Amer) 17 (> 60) L 01/29/19 01:03 Est GFR (Non-Af Amer) 14 (> 60) L 01/29/19 01:03 Glucose 68 mg/dL (70-105) L 01/29/19 01:03 Calcium 7.7 mg/dL (8.6-10.3) L 01/29/19 01:03 Phosphorus 4.9 mg/dL (2.7-4.5) H 01/26/19 16:33 C-Reactive Protein 33 mg/L (Less than 10) H 01/26/19 16:33 Hep Bs Antibody < 3.10 mIU/mL (10.00-) L 01/27/19 06:55 Consult Discharge Plan - Plan Referrals: Eileen House, HEAD PIECE ASSEMBLER [Primary Care Provider] -
[2019-01-29] MEDS: traMADol 50 MG TABLET PO PRN (13:14)
--- NOTE | 2019-01-29 17:12 | Anesthesia Evaluation PreOp ---
Addendum entered and electronically signed by Sue Klein MD 01/30/19 14:36: Vital Signs Temp Pulse Resp BP Pulse Ox 01/30/19 12:04 98.0 F 63 14 127/53 95 01/30/19 10:15 98.0 F 53 14 133/61 94 01/30/19 04:15 97.9 F 71 15 160/66 94 01/29/19 19:06 97.8 F 67 15 156/65 93 01/29/19 16:16 97.6 F 61 15 141/62 95 Patient Weight 01/30/19 23:59 Weight 54.8 kg Laboratory Results Laboratory Tests 04/16/17 03/23/18 10/17/18 15:19 04:53 16:20 WBC 6.6 Hgb 11.5 Hct 36.6 Plt Count 164 PT INR APTT Sodium Potassium Chloride Carbon Dioxide BUN Creatinine Est GFR (Non-Af Amer) POC Glucose 118 H Hemoglobin A1c 4.9 10/17/18 10/17/18 01/30/19 16:20 16:20 05:11 WBC Hgb Hct Plt Count PT 12.6 H INR 1.1 APTT 35.6 Sodium 137 Potassium 4.7 4.5 Chloride 102 Carbon Dioxide 28 BUN 31 H 19 Creatinine 4.17 H Est GFR (Non-Af Amer) 10 L 20 L POC Glucose Hemoglobin A1c 01/30/19 01/30/19 05:11 05:11 WBC 12.0 H D Hgb 8.2 L Hct 25.7 L Plt Count 156 PT 13.0 H INR 1.2 APTT Sodium Potassium Chloride Carbon Dioxide BUN Creatinine Est GFR (Non-Af Amer) POC Glucose Hemoglobin A1c Impressions Chest X-Ray 01/26/19 16:37 IMPRESSION: Increased partially loculated right pleural effusion with basilar volume loss. Stable interstitial changes throughout the lungs, likely related to underlying emphysema. Superimposed edema or infiltrate is not excluded. 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 04/16/17 [Rx] Carvedilol [Coreg] 25 mg PO BID 06/24/17 [History] Furosemide [Lasix] 40 mg PO DAILY 06/24/17 [History] Isosorbide MONOnitrate (24 HR) [Imdur] 30 mg PO DAILY 06/24/17 [History] cloNIDine HCl [CloNIDine HCl] 0.2 mg PO BID 01/30/18 [History] hydrALAZINE [HydrALAZINE] 25 mg PO TID 03/22/18 [History] Cholecalciferol (Vitamin D3) [Vitamin D] 50,000 unit PO QWEEK 12/17/18 [History] Prochlorperazine Maleate [Compazine] 5 mg PO TID PRN 12/17/18 [History] Ranitidine HCl [Heartburn Relief] 150 mg PO HS 01/07/19 [History] Collagenase Oint [Santyl] 1 appl TP DAILY 01/26/19 [History] Diltiazem CD (24hr) [Cardizem CD] 360 mg PO DAILY 01/26/19 [History] Melatonin 10 mg PO HS 01/26/19 [History] Allergy/AdvReac Type Severity Reaction Status Date / Time codeine AdvReac Confusion Verified 01/07/19 09:46 - Meds/Allergy Pre-op Review Medications Reviewed: Yes Allergies Reviewed: Yes Beta Blockers on Current Med List: Yes If Beta Blockers taken, Date/Time (Last Dose taken): 16:23 01/29/2019 Anesthesia Results - Labs 01/29/19 01:03 04/17/19 01:03 - Imaging EKG: report reviewed (ATRIAL FIBRILLATION WITH RAPID VENTRICULAR RESPONSE - Rate Now 61) Additional studies: 12/18/2017 Echo Impressions: LVEF 60%. Normal LV chamber size and function. Mild concentric left ventricular hypertrophy. Indeterminate diastolic function. Normal right ventricular structure and function. Severely dilated left atrium. Severely dilated right atrium. Mild mitral regurgitation. Mild mitral stenosis. Mean gradient 4 mmHg (HR 99 BPM). Mild tricuspid regurgitation. Severe pulmonary hypertension. Estimated RVSP is 61 mmHg. Anesthesia Exam Vital Signs/O2 Sat, Most Current Temp Pulse Resp BP Pulse Ox 97.6 F 61 15 141/62 95 01/29/19 16:16 01/29/19 16:16 01/29/19 16:16 01/29/19 16:16 01/29/19 16:16 - HEENT Pupil (Motor): Pupils equal, EOMI Mallampati: I Teeth: Missing, Poor dentition Denture Type: Upper: Complete Oral Opening: Greater than 3 - MICROBIOLOGICAL LABORATORY TECHNICIAN LOC: Oriented MICROBIOLOGICAL LABORATORY TECHNICIAN Motor: Normal RUE, Normal LUE, Normal RLE, Normal LLE, Normal Face MICROBIOLOGICAL LABORATORY TECHNICIAN Sensory: Normal: RUE, LUE, RLE, LLE, Face - Cardiac Rhythm: Regular Murmur: None JVD: No Carotid Bruit: No - Pulmonary Breath Sounds: bilateral Clear Respiratory Effort: Symmetrical Anesthesia Assess/Plan ASA Score: 4 Anesthetic Plan: General Autologous Blood: Yes Monitoring Plan: Standard Monitors Recovery Plan: PACU
--- NOTE | 2019-01-29 17:25 | Event Note ---
Date of Encounter: 01/29/19 Time of Encounter: 16:30 The patient requested a second opinion regarding her peripheral vascular disease with chronic ulceration. A long discussion was held with the patient and her daughter regarding the risks, benefits alternatives of bypass versus amputation surgery. Patient was informed that given her comorbidities is a high risk for complications associated with a peripheral artery bypass procedure. She was informed that she is to a lesser degree at increased risk for complications arising from an amputation due to her comorbidities as well.
[2019-01-29] MEDS: Famotidine 20 MG TABLET PO SCH (20:24)
[2019-01-29] MEDS: Melatonin 3 MG TABLET PO SCH (20:24)
[2019-01-30] MEDS: *HR* Heparin 5,000 UNIT/ML VIAL SQ SCH ×3 (03:59→23:00)
[2019-01-30 05:52] LABS: Basophils % 0.3 %; Eosinophils % 0.3 %; Hematocrit 25.7 % (35.3-44.9); Hemoglobin 8.2 g/dL (11.5-15.4); Immature Granulocytes % 0.4 % (0-4); Lymphocytes # 0.8 K/mcL (0.6-4.6); Lymphocytes % 6.6 %; Mean Corpuscular HGB Conc 31.9 g/dL (31.6-35.5); Mean Corpuscular Hemoglobin 30.8 pg (28.0-33.3); Mean Corpuscular Volume 96.6 fL (83.0-100.0); Mean Platelet Volume 11.3 fL (9.4-12.4); Neutrophils # 10.1 K/mcL (1.6-8.9); Platelet Count 156 K/mcL (140-400); Red Blood Count 2.66 M/mcL (3.82-4.97); Red Cell Distribution Width 15.8 % (11.5-14.5); Segmented Neutrophils % 84.4 %
[2019-01-30 05:58] LABS: INR 1.2
[2019-01-30 06:10] LABS: Potassium 4.5 mEq/L (3.5-5.1)
[2019-01-30] MEDS: cloNIDine HCl 0.1 MG TABLET PO SCH ×2 (08:55→21:34)
[2019-01-30] MEDS: Aspirin Enteric Coated 81 MG Tablet PO SCH (08:55)
[2019-01-30] MEDS: Isosorbide MONOnitrate (24 HR) 30 MG TAB.ER.24H PO SCH (08:55)
[2019-01-30] MEDS: Furosemide 40 MG TABLET PO SCH (08:56)
[2019-01-30] MEDS: Diltiazem CD (24hr) 180 MG CAPSULE PO SCH (08:56)
[2019-01-30] MEDS: hydrALAZINE 25 MG TABLET PO SCH ×3 (08:56→21:34)
[2019-01-30] MEDS ORDERED: D5% in 0.45% NACL 1,000 ML IVC SCH ×2 (10:15→19:41)
--- NOTE | 2019-01-30 11:56 | Internal Med Progress Note ---
Hospitalist Progress Note - Encounter Date of Encounter: 01/30/19 Time of Encounter: 09:00 - Subjective Interval History: Patient has right lower leg pain, same with previously, need pain medication. Patient likes to put the right leg down to relieve the pain. Plan for amputation surgery today - Exam Vitals: Temp Pulse Resp BP Pulse Ox 98.0 F 53 14 133/61 94 01/30/19 10:15 01/30/19 10:15 01/30/19 10:15 01/30/19 10:15 01/30/19 10:15 Exam: Pt is AAO x 3, in acute pain HEENT: NC/AT, PERRL Neck: Supple, no JVD, no LAD Lungs: CTA b/l Heart: S1S2, RRR Abd: Soft, nontender, BS present Ext: right lower leg pitting edema with ankle wound. Neuro: No focal deficit . - Assessment and Plan (1) Cellulitis and abscess of right lower extremity Current Visit: Yes Status: Acute Assessment and Plan: Patient has ankle wound with leg swelling. Patient has severe PVD. - We will place patient on vancomycin - Continue pain management. - Vascular surgery saw patient, angiogram done. Patient has severe PVD, cannot have intravascular procedure because of severity of the disease. Plan for amputation. - Podiatry consult appreciated, continue wound care. (2) DVT prophylaxis Current Visit: No Status: Acute Assessment and Plan: Heparin sc (3) CAD (coronary artery disease) Current Visit: No Status: Chronic Assessment and Plan: Patient has no chest pain. Continue home medications. (4) ESRD (end stage renal disease) Current Visit: No Status: Chronic Assessment and Plan: Nephrology consult on case. Continue hemodialysis as scheduled (5) HTN (hypertension) Current Visit: No Status: Chronic Assessment and Plan: Continue home medications. Increase hydralazine dose for better BP control (6) Afib Current Visit: No Status: Chronic Assessment and Plan: Chronic A. fib. Heart rate is well controlled. Patient is on baby aspirin at home, will continue. Not on AC, reason is unclear. DVT Prophylaxis: Heparin SC - Time Spent with Patient Total time spent is greater than 50% in coordination of care (as documented) at patient's floor/unit and/or counseling patient: 30 minutes 25 - 35 minutes Plan of Care Discussed with: patient Internal Medicine: Result - Labs CBC & Chem 7: 04/18/19 05:11 01/30/19 05:11 Labs: Short CBC 01/30/19 Range/Units 05:11 WBC 12.0 H D (4.3-11.1) K/mcL Hgb 8.2 L (11.5-15.4) g/dL Hct 25.7 L (35.3-44.9) % Plt Count 156 (140-400) K/mcL Neutrophils # 10.1 H (1.6-8.9) K/mcL BMP 01/30/19 05:11 Sodium 137 Potassium 4.5 Chloride 102 Carbon Dioxide 28 BUN 19 Creatinine 2.35 H Glucose 76 Calcium 8.0 L - ABG Interpretation ABG results: PT/INR, D-dimer PT 13.0 Seconds (9.4-12.1) H 01/30/19 05:11 Consult Discharge Plan - Plan Referrals: Eileen House, FOOD AIDE [Primary Care Provider] - (3) CAD (coronary artery disease) Qualifiers: Coronary Disease-Associated Artery/Lesion type: [place] artery [place] vs. transplanted heart: [place] heart Associated angina: without angina Qualified Code(s): I25.10 - Atherosclerotic heart disease of [place] coronary artery without angina pectoris (5) HTN (hypertension) Qualifiers: Hypertension type: essential hypertension Qualified Code(s): I10 - Essential (primary) hypertension (6) Afib Qualifiers: Atrial fibrillation type: chronic Qualified Code(s): I48.2 - Chronic atrial fibrillation
[2019-01-30] MEDS: *HR* OxyCODONE Immed Rel 5 MG TABLET PO PRN (13:01)
[2019-01-30] MEDS ORDERED: *HR* FentaNYL (PF) 100 MCG/2 ML VIAL ONE (15:33)
[2019-01-30] MEDS ORDERED: *HR* Propofol 200 MG/20 ML VIAL IVP ONE (15:33)
[2019-01-30] MEDS ORDERED: Ondansetron 4 MG/2 ML VIAL ONE (15:33)
[2019-01-30] MEDS ORDERED: Lidocaine -MPF 2% 2 ML VIAL ONE (15:33)
[2019-01-30] MEDS ORDERED: Dexamethasone 4 MG/ML VIAL ONE (15:33)
[2019-01-30] MEDS ORDERED: *HR* Etomidate 40 MG/20 ML VIAL IVP ONE (16:19)
[2019-01-30] MEDS ORDERED: *HR* Succinylcholine 200 MG/10 ML VIAL IVP ONE (16:27)
[2019-01-30] MEDS ORDERED: ceFAZolin 1,000 MG, Sodium Chloride IRRigation 1,000 ML IR ONE (17:30)
--- NOTE | 2019-01-30 17:56 | Operative Note ---
Date of procedure: 01/30/19 Pre-op diagnosis: ischemic rest pain/non healing ulcer Post-op diagnosis: same Procedure: right above knee amputation Complications: 0 Anesthesia: GETA Surgeon: Desmond Zuniga Was there an appeals assistant present: No Estimated blood loss (cc): 100 Specimen: right AKA Condition: stable Disposition: floor Procedure in Detail: History Mrs. Hedrick is a 78-year-old white female with multiple ongoing medical problems that include severe PAD, end-stage renal disease requiring dialysis, cardiac arrhythmias, and congestive heart failure, and recurrent breast cancer. The patient developed an ulcer at her right heel region. This ulcer was rapidly expanding in size. The patient also had ischemic rest pain. An angiogram was performed but the patient was not amenable to endovascular intervention nor would she candidate for bypass grafting. Therefore amputation was necessary in a patient in the operating room for surgery today. Procedure After informed consent was obtained the patient was taken to the operating room. General endotracheal anesthesia was established. The right lower extremity was sterilely prepped and draped. The right foot was placed in isolation bag. A timeout protocol was observed. A fishmouth type incision was then made at the distal right thigh. Dissection was carried down through the skin and subcutaneous tissue down to the level of the fascia. The fascia was then divided circumferentially. The muscles and divided by compartments. The patient had significant muscle wasting with very poor skin turgor. The femoral artery was markedly calcified and without a pulse. The femoral vein was patent. Dissection was performed of the vascular structures. These were individually dissected and ligated and then divided. The sciatic nerve posteriorly was also identified clamped and divided and ligated proximally. With this done the periosteum was raised around the distal femur. The femur was then divided with the sagittal saw. The edges of the femur were then rasped smooth. The wound was then copiously irrigated with antibiotic containing solution. Hemostasis was achieved. The wound was then closed in layers using interrupted suture of absorbable material. Skin edges were closed using skin elias. A bulky dry dressing was then applied. This was secured with Genaro wraps and Kerlix rolls. The patient tolerated the procedure well. There were no intraoperative complications. The patient was taken from the operating room to the recovery room in stable condition.
[2019-01-30] MEDS ORDERED: Naloxone 0.4 MG/ML INJ ONE (18:04)
--- NOTE | 2019-01-30 19:13 | Anesthesia Evaluation Post Op ---
Date of Encounter: 01/30/19 Time of Encounter: 19:08 - Vital Signs Vital Signs: Vital Signs/O2 Sat, Most Current Temp Pulse Resp BP Pulse Ox 97.0 F L 50 20 118/71 92 01/30/19 18:44 01/30/19 18:44 01/30/19 18:44 01/30/19 18:44 01/30/19 18:44 - Lungs Lungs: Clear Ascult./Percussion - Airway Airway: Non-obstructed - Mental Status Mental Status: Alert & Oriented, Answers Appropriately - Pain Pain Scale: 0 Pain Scale used: Numeric (1 - 10) - Nausea Vomiting Nausea Vomiting: Not Present - Hydration Hydration: Ice chips, Has not voided - Discharge PostOp Status: Transfer Patient to floor
[2019-01-30] MEDS ORDERED: Vancomycin 1 EACH in 0.9 % Sodium Chloride 250 ML IVPB PRN (19:41)
[2019-01-30] MEDS ORDERED: traMADol 50 MG TABLET PO PRN (19:41)
[2019-01-30] MEDS ORDERED: Naloxone 0.4 MG/ML INJ IVP PRN (19:41)
[2019-01-30] MEDS ORDERED: 0.9 % Sodium Chloride 250 ML IVC PRN (19:41)
[2019-01-30] MEDS: Melatonin 3 MG TABLET PO SCH (21:35)
[2019-01-30] MEDS: Famotidine 20 MG TABLET PO SCH (21:35)
[2019-01-31] MEDS ORDERED: ceFAZolin 1,000 MG in Water for inj. (sterile) 10 ML IVP SCH
[2019-01-31 02:26] LABS: Basophils % 0.1 %; Hematocrit 24.7 % (35.3-44.9); Hemoglobin 7.8 g/dL (11.5-15.4); Immature Granulocytes % 0.9 % (0-4); Lymphocytes # 0.3 K/mcL (0.6-4.6); Lymphocytes % 2.3 %; Mean Corpuscular HGB Conc 31.6 g/dL (31.6-35.5); Mean Corpuscular Hemoglobin 30.4 pg (28.0-33.3); Mean Corpuscular Volume 96.1 fL (83.0-100.0); Mean Platelet Volume 11.5 fL (9.4-12.4); Monocytes # 0.2 K/mcL (0.0-1.3); Monocytes % 1.4 %; Neutrophils # 11.5 K/mcL (1.6-8.9); Platelet Count 158 K/mcL (140-400); Red Blood Count 2.57 M/mcL (3.82-4.97); Red Cell Distribution Width 15.6 % (11.5-14.5); Segmented Neutrophils % 95.3 %
[2019-01-31 02:47] LABS: Calcium 7.8 mg/dL (8.6-10.3)
[2019-01-31] MEDS: Ipratropium/Albuterol Neb 3 ML IH PRN (04:30)
[2019-01-31] MEDS: *HR* Heparin 5,000 UNIT/ML VIAL SQ SCH ×3 (05:15→20:16)
[2019-01-31] MEDS ORDERED: Aminoglycoside Consult 1 EACH MC ONE (08:39)
[2019-01-31] MEDS: cloNIDine HCl 0.1 MG TABLET PO SCH ×2 (09:17→20:11)
[2019-01-31] MEDS: Aspirin Enteric Coated 81 MG Tablet PO SCH (09:17)
--- NOTE | 2019-01-31 11:06 | Nephrology Progress Note ---
Date of Encounter: 01/31/19 Time of Encounter: 11:05 - Assessment and Plan (1) ESRD (end stage renal disease) on dialysis Current Visit: No Status: Chronic HD MWF. Renal vitamins. Renal dose medications. Renal diet. Additional dialysis and ultrafiltration as needed. Patient seen on dialysis. Subjective Principal diagnosis: ESRD Interval history: Patient was seen while on dialysis. She was complaining of feeling that she had excess volume onboard. Objective - Vital Signs Vital signs: Vital Signs Temp Pulse Resp BP Pulse Ox 01/31/19 07:25 97.9 F 57 18 131/62 93 01/31/19 04:32 16 91 01/31/19 03:23 98 F 53 16 118/59 94 01/31/19 00:15 97.9 F 49 16 110/51 97 01/30/19 22:50 97.8 F 50 18 124/60 93 01/30/19 21:50 55 18 129/57 98 01/30/19 21:20 53 18 125/56 96 01/30/19 20:50 97.6 F 56 18 117/57 97 01/30/19 20:35 97.6 F 54 18 128/64 100 01/30/19 20:20 55 18 127/65 93 01/30/19 20:05 53 18 128/64 94 01/30/19 19:50 97.6 F 56 18 125/63 85 01/30/19 18:44 97.0 F L 50 20 118/71 92 01/30/19 18:34 52 20 126/63 95 01/30/19 18:24 51 20 125/49 100 01/30/19 18:14 98.2 F 49 20 108/66 100 01/30/19 15:52 49 98 01/30/19 15:37 50 92 01/30/19 12:04 98.0 F 63 14 127/53 95 Intake and Output 01/30/19 01/31/19 01/31/19 23:59 07:59 15:59 Intake Total 1030 / 1030 240 / 240 Output Total 150 / 150 Balance 880 / 880 240 / 240 Intake: IV Fluids 1000 / 1000 D5% And 0.45% Nacl 1000 Ml Bag 1000 / 1000 1,000 ML @ 75 mls/hr IVC . [id number] COUNT INCLUDES THE [facility] Rx#:[id number] Oral 30 / 30 240 / 240 Output: Estimated Blood Loss 150 / 150 Other: Blood Glucose* 85 155 - General Appearance General appearance: Present: well-developed, well-nourished EENT: Present: ATNC Cardiology: Present: regular rate - Lab 01/31/19 01:46 01/31/19 01:46 Most recent lab results Calcium 7.8 mg/dL (8.6-10.3) L 01/31/19 01:46 Phosphorus 4.9 mg/dL (2.7-4.5) H 01/26/19 16:33 Magnesium 1.7 mg/dL (1.6-2.6) 01/26/19 16:33 Consult Discharge Plan - Plan Referrals: Eileen House CNP [Primary Care Provider] - Desmond Zuniga MD [Partnered Physician] - 03/05/19 10:30 am
[2019-01-31] MEDS ORDERED: 0.9 % Sodium Chloride 2,000 ML ONE (12:02)
--- NOTE | 2019-01-31 13:49 | Internal Med Progress Note ---
Hospitalist Progress Note - Encounter Date of Encounter: 01/31/19 Time of Encounter: 09:00 - Subjective Interval History: S/P right AKA. Patient denies surgical pain, said the pain is well controlled by pain medications. No fever. Vitals are stable. - Exam Vitals: Temp Pulse Resp BP Pulse Ox 97.8 F 60 18 147/54 97 01/31/19 11:09 01/31/19 11:09 01/31/19 11:09 01/31/19 11:09 01/31/19 11:09 Exam: Pt is AAO x 3, in NAD HEENT: NC/AT, PERRL Neck: Supple, no JVD, no LAD Lungs: CTA b/l Heart: S1S2, RRR Abd: Soft, nontender, BS present Ext: right lower leg s/p AKA, no active bleeding. Neuro: No focal deficit . - Assessment and Plan (1) Cellulitis and abscess of right lower extremity Current Visit: Yes Status: Acute Assessment and Plan: Patient has ankle wound with leg swelling. Patient has severe PVD. - S/P AKA, pain is much less. D/C vanco as wound has been removed - Continue pain management. - Vascular surgery saw patient, angiogram done. Patient has severe PVD, cannot have intravascular procedure because of severity of the disease. Had AKA. (2) DVT prophylaxis Current Visit: No Status: Acute Assessment and Plan: Heparin sc (3) CAD (coronary artery disease) Current Visit: No Status: Chronic Assessment and Plan: Patient has no chest pain. Continue home medications. (4) ESRD (end stage renal disease) Current Visit: No Status: Chronic Assessment and Plan: Nephrology consult on case. Continue hemodialysis as scheduled (5) HTN (hypertension) Current Visit: No Status: Chronic Assessment and Plan: Continue home medications. Increase hydralazine dose for better BP control (6) Afib Current Visit: No Status: Chronic Assessment and Plan: Chronic A. fib. Heart rate is well controlled. Patient is on baby aspirin at home, will continue. Not on AC, reason is unclear. DVT Prophylaxis: Heparin SC - Time Spent with Patient Total time spent is greater than 50% in coordination of care (as documented) at patient's floor/unit and/or counseling patient: 30 minutes 25 - 35 minutes Plan of Care Discussed with: patient Internal Medicine: Result - Labs CBC & Chem 7: 01/31/19 01:46 01/31/19 01:46 Labs: Short CBC 01/31/19 Range/Units 01:46 WBC 12.0 H (4.3-11.1) K/mcL Hgb 7.8 L (11.5-15.4) g/dL Hct 24.7 L (35.3-44.9) % Plt Count 158 (140-400) K/mcL Neutrophils # 11.5 H (1.6-8.9) K/mcL BMP 01/31/19 01:46 Sodium 134 L Potassium 5.0 Chloride 100 Carbon Dioxide 27 BUN 27 H Creatinine 2.95 H Glucose 126 H Calcium 7.8 L - ABG Interpretation ABG results: PT/INR, D-dimer PT 13.0 Seconds (9.4-12.1) H 01/30/19 05:11 Consult Discharge Plan - Plan Referrals: Eileen House CNP [Primary Care Provider] - Desmond Zuniga MD [Partnered Physician] - 03/05/19 10:30 am (3) CAD (coronary artery disease) Qualifiers: Coronary Disease-Associated Artery/Lesion type: [place] artery [place] vs. t ransplanted heart: [place] heart Associated angina: without angina Qualified Code(s): I25.10 - Atherosclerotic heart disease of [place] coronary artery without angina pectoris (5) HTN (hypertension) Qualifiers: Hypertension type: essential hypertension Qualified Code(s): I10 - Essential (primary) hypertension (6) Afib Qualifiers: Atrial fibrillation type: chronic Qualified Code(s): I48.2 - Chronic atrial fibrillation
[2019-01-31] MEDS: hydrALAZINE 25 MG TABLET PO SCH ×3 (14:34→23:53)
[2019-01-31] MEDS: *HR* OxyCODONE Immed Rel 5 MG TABLET PO PRN (14:38)
[2019-01-31] MEDS: Furosemide 40 MG TABLET PO SCH (17:13)
[2019-01-31] MEDS: Isosorbide MONOnitrate (24 HR) 30 MG TAB.ER.24H PO SCH (17:14)
[2019-01-31] MEDS: Diltiazem CD (24hr) 180 MG CAPSULE PO SCH (17:14)
--- NOTE | 2019-01-31 18:00 | Vascular/Endovas Progress Note ---
Date of Encounter: 01/31/19 Time of Encounter: 09:00 - Assessment and plan (1) PAD (peripheral artery disease) Current Visit: Yes Status: Chronic The patient is postoperative day #1 after right above-knee amputation. She reports adequate pain control. Continue with physical therapy and occupational therapy. vice president of consulting services consultation for discharge planning. The wound will be evaluated on Sunday. Possible discharge early next week. - Subjective Interval history: The patient is easily arousable. She reports adequate pain control. She denies chest pain shortness breath. Vital Signs, Last 4 Hours Temp Pulse Resp BP Pulse Ox 01/31/19 17:06 97.6 F 85 14 144/66 97 01/31/19 16:52 98 F 16 129/57 01/31/19 16:15 110/54 01/31/19 16:00 118/60 01/31/19 15:45 122/53 01/31/19 15:30 116/55 01/31/19 15:15 111/54 01/31/19 15:00 110/61 01/31/19 14:45 116/86 01/31/19 14:30 121/55 01/31/19 14:15 116/56 01/31/19 14:00 127/52 - Physical Examination General: Present: Conversant, No Apparent Distress Cardiac: Present: Reg Rate and Rhythm Lungs: Present: Normal Breath Sounds Neuro: Present: Alert and responsive Vascular: Present: Surgical incisions (Bandages clean, dry and intact) Results 01/31/19 01:46 01/31/19 01:46 Lab Results, Last 24 hours 01/31/19 01/31/19 01:46 01:46 WBC 12.0 H Hgb 7.8 L Hct 24.7 L Plt Count 158 Sodium 134 L Potassium 5.0 Chloride 100 Carbon Dioxide 27 BUN 27 H Creatinine 2.95 H Glucose 126 H Calcium 7.8 L Consult Discharge Plan - Plan Referrals: Eileen House CNP [Primary Care Provider] - Desmond Zuniga MD [Partnered Physician] - 03/05/19 10:30 am
[2019-01-31] MEDS: Famotidine 20 MG TABLET PO SCH (20:10)
[2019-01-31] MEDS: Melatonin 3 MG TABLET PO SCH (20:11)
[2019-02-01] MEDS: *HR* Heparin 5,000 UNIT/ML VIAL SQ SCH ×3 (04:53→20:38)
[2019-02-01] MEDS: Diltiazem CD (24hr) 180 MG CAPSULE PO SCH (08:40)
[2019-02-01] MEDS: hydrALAZINE 25 MG TABLET PO SCH ×3 (08:40→20:39)
[2019-02-01] MEDS: Isosorbide MONOnitrate (24 HR) 30 MG TAB.ER.24H PO SCH (08:40)
[2019-02-01] MEDS: Aspirin Enteric Coated 81 MG Tablet PO SCH (08:40)
[2019-02-01] MEDS: Furosemide 40 MG TABLET PO SCH (08:41)
[2019-02-01] MEDS: cloNIDine HCl 0.1 MG TABLET PO SCH ×2 (08:41→20:38)
[2019-02-01 08:58] LABS: Basophils % 0.1 %; Eosinophils % 0.2 %; Hematocrit 24.3 % (35.3-44.9); Immature Granulocytes % 0.6 % (0-4); Lymphocytes # 0.7 K/mcL (0.6-4.6); Lymphocytes % 6.1 %; Mean Corpuscular HGB Conc 32.9 g/dL (31.6-35.5); Mean Corpuscular Hemoglobin 31.3 pg (28.0-33.3); Mean Corpuscular Volume 94.9 fL (83.0-100.0); Mean Platelet Volume 11.1 fL (9.4-12.4); Monocytes # 0.8 K/mcL (0.0-1.3); Monocytes % 7.4 %; Neutrophils # 9.2 K/mcL (1.6-8.9); Platelet Count 199 K/mcL (140-400); Red Blood Count 2.56 M/mcL (3.82-4.97); Red Cell Distribution Width 15.8 % (11.5-14.5); Segmented Neutrophils % 85.6 %
[2019-02-01 09:14] LABS: Calcium 7.8 mg/dL (8.6-10.3)
--- NOTE | 2019-02-01 11:08 | Internal Med Progress Note ---
Hospitalist Progress Note - Encounter Date of Encounter: 02/01/19 Time of Encounter: 09:00 - Subjective Interval History: Patient feels tired. Denies pain on right leg incision part. No fever. Vitals are stable. - Exam Vitals: Temp Pulse Resp BP Pulse Ox 98.3 F 57 17 141/61 97 02/01/19 07:04 02/01/19 07:04 02/01/19 07:04 02/01/19 07:04 02/01/19 07:04 Exam: Pt is AAO x 3, in NAD HEENT: NC/AT, PERRL Neck: Supple, no JVD, no LAD Lungs: CTA b/l Heart: S1S2, RRR Abd: Soft, nontender, BS present Ext: right lower leg s/p AKA, no active bleeding. Neuro: No focal deficit . - Assessment and Plan (1) Cellulitis and abscess of right lower extremity Current Visit: Yes Status: Acute Assessment and Plan: Patient has ankle wound with leg swelling. Patient has severe PVD. - S/P AKA, pain is much less. - Continue pain management. - Vascular surgery saw patient, angiogram done. Patient has severe PVD, cannot have intravascular procedure because of severity of the disease. Had AKA. (2) DVT prophylaxis Current Visit: No Status: Acute Assessment and Plan: Heparin sc (3) CAD (coronary artery disease) Current Visit: No Status: Chronic Assessment and Plan: Patient has no chest pain. Continue home medications. (4) ESRD (end stage renal disease) Current Visit: No Status: Chronic Assessment and Plan: Nephrology consult on case. Continue hemodialysis as scheduled (5) HTN (hypertension) Current Visit: No Status: Chronic Assessment and Plan: Continue home medications. Increase hydralazine dose for better BP control (6) Afib Current Visit: No Status: Chronic Assessment and Plan: Chronic A. fib. Heart rate is well controlled. Patient is on baby aspirin at home, will continue. Not on AC, reason is unclear. DVT Prophylaxis: Heparin SC - Time Spent with Patient Total time spent is greater than 50% in coordination of care (as documented) at patient's floor/unit and/or counseling patient: 30 minutes 25 - 35 minutes Plan of Care Discussed with: patient Internal Medicine: Result - Labs CBC & Chem 7: 02/01/19 08:24 02/01/19 08:24 Labs: Short CBC 02/01/19 Range/Units 08:24 WBC 10.8 (4.3-11.1) K/mcL Hgb 8.0 L (11.5-15.4) g/dL Hct 24.3 L (35.3-44.9) % Plt Count 199 (140-400) K/mcL Neutrophils # 9.2 H (1.6-8.9) K/mcL BMP 02/01/19 08:24 Sodium 134 L Potassium 4.0 Chloride 96 L Carbon Dioxide 32 H BUN 20 Creatinine 2.27 H Glucose 78 Calcium 7.8 L - ABG Interpretation ABG results: PT/INR, D-dimer PT 13.0 Seconds (9.4-12.1) H 01/30/19 05:11 Consult Discharge Plan - Plan Referrals: Eileen House CNP [Primary Care Provider] - Desmond Zuniga MD [Partnered Physician] - 03/05/19 10:30 am (3) CAD (coronary artery disease) Qualifiers: Coronary Disease-Associated Artery/Lesion type: [place] artery [place] vs. transplanted heart: [place] heart Associated angina: without angina Qualified Code(s): I25.10 - Atherosclerotic heart disease of [place] coronary artery without angina pectoris (5) HTN (hypertension) Qualifiers: Hypertension type: essential hypertension Qualified Code(s): I10 - Essential (primary) hypertension (6) Afib Qualifiers: Atrial fibrillation type: chronic Qualified Code(s): I48.2 - Chronic atrial fibrillation
--- NOTE | 2019-02-01 11:46 | Nephrology Progress Note ---
Date of Encounter: 02/01/19 Time of Encounter: 11:46 - Assessment and Plan (1) ESRD (end stage renal disease) on dialysis Current Visit: No Status: Chronic HD MWF. Renal vitamins. Renal dose medications. Renal diet. Additional dialysis and ultrafiltration as needed. Subjective Principal diagnosis: ESRD Interval history: Patient asleep. . Objective - Vital Signs Vital signs: Vital Signs Temp Pulse Resp BP Pulse Ox 02/01/19 11:07 98.0 F 80 16 139/60 98 02/01/19 07:04 98.3 F 57 17 141/61 97 02/01/19 03:36 98.2 F 66 18 131/51 95 01/31/19 23:30 98.1 F 65 16 140/63 98 01/31/19 20:22 96 01/31/19 19:35 98.1 F 84 16 149/61 96 01/31/19 17:06 97.6 F 85 14 144/66 97 01/31/19 16:52 98 F 16 129/57 01/31/19 16:15 110/54 01/31/19 16:00 118/60 01/31/19 15:45 122/53 01/31/19 15:30 116/55 01/31/19 15:15 111/54 01/31/19 15:00 110/61 01/31/19 14:45 116/86 01/31/19 14:30 121/55 01/31/19 14:15 116/56 01/31/19 14:00 127/52 01/31/19 13:45 136/62 01/31/19 13:30 136/66 01/31/19 13:15 142/65 01/31/19 13:00 98 F 17 142/63 Intake and Output 01/31/19 02/01/19 02/01/19 23:59 07:59 15:59 Intake Total 0 / 0 240 / 240 120 / 120 Output Total 2600 / 2600 Balance -2600 / -2600 240 / 240 120 / 120 Intake: Oral 0 / 0 240 / 240 120 / 120 Output: Urine 0 / 0 Total Dialysis (HD) Output 2600 / 2600 Other: Meal Breakfast Percent of Meal Consumed 70% Stool Size Small Stool Consistency soft formed Stool Color Brown # Bowel Movements 1 Weight 51.5 kg Hemodialysis Net Fluid Removed 2000 (mL) Patient Weight 02/01/19 23:59 Weight 51.5 kg - General Appearance General appearance: Present: well-developed, well-nourished Cardiology: Present: regular rate - Lab 02/01/19 08:24 02/01/19 08:24 Most recent lab results Calcium 7.8 mg/dL (8.6-10.3) L 02/01/19 08:24 Phosphorus 4.9 mg/dL (2.7-4.5) H 01/26/19 16:33 Magnesium 1.7 mg/dL (1.6-2.6) 01/26/19 16:33 Consult Discharge Plan - Plan Referrals: Eileen House CNP [Primary Care Provider] - Desmond Zuniga MD [Partnered Physician] - 03/05/19 10:30 am
--- NOTE | 2019-02-01 12:12 | Vascular/Endovas Progress Note ---
Date of Encounter: 02/01/19 Time of Encounter: 12:09 - Assessment and plan (1) Acute blood loss as cause of postoperative anemia Current Visit: No Status: Acute (2) PAD (peripheral artery disease) Current Visit: Yes Status: Chronic Status post right [id number]-[id number] amputation. She is doing pretty well from that perspective. We will change her dressing tomorrow. (3) Chronic ulcer of right foot Current Visit: Yes Status: Acute Qualifiers: Non-pressure ulcer stage: with fat layer exposed Qualified Code(s): L97.512 - Non-pressure chronic ulcer of other part of right foot with fat layer exposed - Subjective Interval history: Status post right kqafo-qja-xlzu amputation. She is doing well. Her pain is under control. Her dressing is intact. She is slightly nauseated. She denies any shortness of breath or chest pain. Vital Signs, Last 4 Hours Temp Pulse Resp BP Pulse Ox 02/01/19 11:07 98.0 F 80 16 139/60 98 - Physical Examination General: Present: No Apparent Distress HEENT: Present: Pupils equal Cardiac: Present: Reg Rate and Rhythm, Normal S1 and S2, No Murmur Lungs: Present: Normal Breath Sounds, No Wheeze, Rales, Rhonchi Musculoskeletal: Present: Other (Right above-knee stump is wrapped. Dressing is dry and intact.) Results 02/01/19 08:24 02/01/19 08:24 Lab Results, Last 24 hours 02/01/19 02/01/19 08:24 08:24 WBC 10.8 Hgb 8.0 L Hct 24.3 L Plt Count 199 Sodium 134 L Potassium 4.0 Chloride 96 L Carbon Dioxide 32 H BUN 20 Creatinine 2.27 H Glucose 78 Calcium 7.8 L Consult Discharge Plan - Plan Referrals: Eileen House CNP [Primary Care Provider] - Desmond Zuniga MD [Partnered Physician] - 03/05/19 10:30 am
[2019-02-01] MEDS: Acetaminophen 325 MG TABLET PO PRN (20:39)
[2019-02-01] MEDS: Melatonin 3 MG TABLET PO SCH (20:39)
[2019-02-01] MEDS: Famotidine 20 MG TABLET PO SCH (20:39)
[2019-02-02] MEDS: *HR* Heparin 5,000 UNIT/ML VIAL SQ SCH ×2 (06:02→16:26)
[2019-02-02 07:03] LABS: Basophils % 0.1 %; Hematocrit 27.3 % (35.3-44.9); Immature Granulocytes % 0.5 % (0-4); Lymphocytes # 0.5 K/mcL (0.6-4.6); Lymphocytes % 4.7 %; Mean Corpuscular Hemoglobin 30.8 pg (28.0-33.3); Mean Corpuscular Volume 93.5 fL (83.0-100.0); Mean Platelet Volume 10.9 fL (9.4-12.4); Monocytes # 0.9 K/mcL (0.0-1.3); Monocytes % 9.7 %; Neutrophils # 8.3 K/mcL (1.6-8.9); Platelet Count 248 K/mcL (140-400); Red Blood Count 2.92 M/mcL (3.82-4.97); Red Cell Distribution Width 15.9 % (11.5-14.5)
[2019-02-02 07:29] LABS: Calcium 7.7 mg/dL (8.6-10.3)
[2019-02-02] MEDS: cloNIDine HCl 0.1 MG TABLET PO SCH ×2 (08:34→21:58)
[2019-02-02] MEDS: Diltiazem CD (24hr) 180 MG CAPSULE PO SCH (08:35)
[2019-02-02] MEDS: Aspirin Enteric Coated 81 MG Tablet PO SCH (08:35)
[2019-02-02] MEDS: hydrALAZINE 25 MG TABLET PO SCH ×3 (08:35→21:59)
[2019-02-02] MEDS: Furosemide 40 MG TABLET PO SCH (08:36)
[2019-02-02] MEDS: Isosorbide MONOnitrate (24 HR) 30 MG TAB.ER.24H PO SCH (08:37)
--- NOTE | 2019-02-02 09:50 | Nephrology Progress Note ---
Date of Encounter: 02/02/19 Time of Encounter: 09:50 - Assessment and Plan (1) ESRD (end stage renal disease) on dialysis Current Visit: No Status: Chronic HD MWF. Renal vitamins. Renal dose medications. Renal diet. Additional dialysis and ultrafiltration as needed. Subjective Principal diagnosis: ESRD Interval history: Patient seen. She is complaining of nausea. . Objective - Vital Signs Vital signs: Vital Signs Temp Pulse Resp BP Pulse Ox 02/02/19 08:12 97.7 F 81 16 145/70 97 02/02/19 04:15 97.2 F L 88 16 141/60 99 02/01/19 23:36 97.9 F 75 16 163/68 98 02/01/19 18:54 97.4 F L 73 16 170/75 98 02/01/19 17:23 165/80 02/01/19 15:58 97.6 F 76 17 169/76 97 02/01/19 11:07 98.0 F 80 16 139/60 98 Intake and Output 02/01/19 02/02/19 02/02/19 23:59 07:59 15:59 Intake Total 520 / 520 0 / 0 Output Total 300 / 300 300 / 300 50 / 50 Balance 220 / 220 -300 / -300 -50 / -50 Intake: Oral 520 / 520 0 / 0 Output: Urine 0 / 0 Emesis 300 / 300 300 / 300 50 / 50 Other: Meal Dinner Percent of Meal Consumed 0% Stool Size Small Small Stool Consistency soft soft Stool Color Brown Brown # Bowel Movements 1 Weight 51.8 kg Blood Glucose* 32 - General Appearance General appearance: Present: well-developed, well-nourished EENT: Present: ATNC Neck: Present: supple Cardiology: Present: regular rate - Lab 02/02/19 06:45 02/02/19 06:45 Most recent lab results Calcium 7.7 mg/dL (8.6-10.3) L 02/02/19 06:45 Phosphorus 4.9 mg/dL (2.7-4.5) H 01/26/19 16:33 Magnesium 1.7 mg/dL (1.6-2.6) 01/26/19 16:33 Consult Discharge Plan - Plan Referrals: Eileen House CNP [Primary Care Provider] - Desmond Zuniga MD [Partnered Physician] - 03/05/19 10:30 am
--- NOTE | 2019-02-02 10:58 | Internal Med Progress Note ---
Hospitalist Progress Note - Encounter Date of Encounter: 02/02/19 Time of Encounter: 09:00 - Subjective Interval History: Patient has nausea and vomited yesterday evening. This morning, patient has no nausea. Denies right leg pain. Patient has low glucose level this morning, patient has no symptoms. Patient was given orange juice. Will continue close monitor glucose level. - Exam Vitals: Temp Pulse Resp BP Pulse Ox 97.7 F 81 16 145/70 97 02/02/19 08:12 02/02/19 08:12 02/02/19 08:12 02/02/19 08:12 02/02/19 08:12 Exam: Pt is AAO x 3, in NAD HEENT: NC/AT, PERRL Neck: Supple, no JVD, no LAD Lungs: CTA b/l Heart: S1S2, RRR Abd: Soft, nontender, BS present Ext: right lower leg s/p AKA, no active bleeding. Neuro: No focal deficit . - Assessment and Plan (1) Cellulitis and abscess of right lower extremity Current Visit: Yes Status: Acute Assessment and Plan: Patient has ankle wound with leg swelling. Patient has severe PVD. - S/P AKA, pain is much less. - Continue pain management. - Vascular surgery saw patient, angiogram done. Patient has severe PVD, cannot have intravascular procedure because of severity of the disease. Had AKA. (2) DVT prophylaxis Current Visit: No Status: Acute Assessment and Plan: Heparin sc (3) CAD (coronary artery disease) Current Visit: No Status: Chronic Assessment and Plan: Patient has no chest pain. Continue home medications. (4) ESRD (end stage renal disease) Current Visit: No Status: Chronic Assessment and Plan: Nephrology consult on case. Continue hemodialysis as scheduled (5) HTN (hypertension) Current Visit: No Status: Chronic Assessment and Plan: Continue home medications. Increase hydralazine dose for better BP control (6) Afib Current Visit: No Status: Chronic Assessment and Plan: Chronic A. fib. Heart rate is well controlled. Patient is on baby aspirin at home, will continue. Not on AC, reason is unclear. (7) Hypoglycemia Current Visit: Yes Status: Acute Assessment and Plan: Patient has no history of diabetes. Not on insulin. Hypoglycemia likely due to poor intake. - Abdominal exam is benign, patient has normal bowel movement - Continue symptomatic treatment for nausea, encourage by mouth intake - RD is on case, diet supplement has been placed. - Place patient on hypoglycemia protocol. (8) Severe protein-calorie malnutrition Current Visit: Yes Status: Acute Assessment and Plan: Cra Officer consult appreciated. By mouth supplement has been added. DVT Prophylaxis: Heparin SC - Summary of Assessment and Plan Summary of Assessment and Plan: Patient needs ECF discharge, forensic social worker is working on it - Time Spent with Patient Total time spent is greater than 50% in coordination of care (as documented) at patient's floor/unit and/or counseling patient: 30 minutes 25 - 35 minutes Plan of Care Discussed with: patient Internal Medicine: Result - Labs CBC & Chem 7: 02/02/19 06:45 02/02/19 06:45 Labs: Short CBC 02/02/19 Range/Units 06:45 WBC 9.7 (4.3-11.1) K/mcL Hgb 9.0 L (11.5-15.4) g/dL Hct 27.3 L (35.3-44.9) % Plt Count 248 (140-400) K/mcL Neutrophils # 8.3 (1.6-8.9) K/mcL BMP 02/02/19 06:45 Sodium 135 L Potassium 4.0 Chloride 95 L Carbon Dioxide 26 BUN 33 H Creatinine 2.86 H Glucose 32 L* Calcium 7.7 L - ABG Interpretation ABG results: PT/INR, D-dimer PT 13.0 Seconds (9.4-12.1) H 01/30/19 05:11 Consult Discharge Plan - Plan Referrals: Eileen House CNP [Primary Care Provider] - Desmond Zuniga MD [Partnered Physician] - 03/05/19 10:30 am (3) CAD (coronary artery disease) Qualifiers: Coronary Disease-Associated Artery/Lesion type: [place] artery [place] vs. transplanted heart: [place] heart Associated angina: without angina Qualified Code(s): I25.10 - Atherosclerotic heart disease of [place] coronary artery without angina pectoris (5) HTN (hypertension) Qualifiers: Hypertension type: essential hypertension Qualified Code(s): I10 - Essential (primary) hypertension (6) Afib Qualifiers: Atrial fibrillation type: chronic Qualified Code(s): I48.2 - Chronic atrial fibrillation
[2019-02-02] MEDS ORDERED: D5% in Water 1,000 ML IVC PRN (11:00)
[2019-02-02] MEDS ORDERED: *HR* Dextrose 50 % in Water (Syg) 50 ML SYRINGE IVP PRN (11:00)
[2019-02-02] MEDS ORDERED: Dextrose Gel 15 GM/37.5 ML TUBE PO PRN ×2 (11:00)
--- NOTE | 2019-02-02 15:48 | Vascular/Endovas Progress Note ---
Date of Encounter: 02/02/19 Time of Encounter: 15:47 - Assessment and plan (1) Acute blood loss as cause of postoperative anemia Current Visit: No Status: Acute (2) PAD (peripheral artery disease) Current Visit: Yes Status: Chronic Status post right gqksb-wng-ympl amputation. She is doing pretty well from that perspective. We will change her dressing tomorrow. (3) Chronic ulcer of right foot Current Visit: Yes Status: Acute Qualifiers: Non-pressure ulcer stage: with fat layer exposed Qualified Code(s): L97.512 - Non-pressure chronic ulcer of other part of right foot with fat layer exposed - Subjective Interval history: Status post right ggxzg-kjy-nyvh amputation. She is doing well. Her pain is under control. Her dressing is intact. She is slightly nauseated. She denies any shortness of breath or chest pain. Vital Signs, Last 4 Hours Temp Pulse Resp BP Pulse Ox 02/02/19 15:04 97.6 F 77 16 145/64 98 02/02/19 11:57 97.4 F L 70 16 150/67 97 Results 02/02/19 06:45 02/02/19 06:45 Lab Results, Last 24 hours 02/02/19 02/02/19 06:45 06:45 WBC 9.7 Hgb 9.0 L Hct 27.3 L Plt Count 248 Sodium 135 L Potassium 4.0 Chloride 95 L Carbon Dioxide 26 BUN 33 H Creatinine 2.86 H Glucose 32 L* Calcium 7.7 L Consult Discharge Plan - Plan Referrals: Eileen House CNP [Primary Care Provider] - Desmond Zuniga MD [Partnered Physician] - 03/05/19 10:30 am
--- NOTE | 2019-02-02 15:50 | Vascular/Endovas Progress Note ---
Date of Encounter: 02/02/19 Time of Encounter: 15:48 - Assessment and plan (1) Acute blood loss as cause of postoperative anemia Current Visit: No Status: Acute (2) PAD (peripheral artery disease) Current Visit: Yes Status: Chronic Status post right nfzog-nab-tlji amputation. She is doing pretty well from that perspective. Wound is clean without hematoma.. - Subjective Interval history: Status post right zbwyy-whw-zjfi amputation. She is doing well. Her pain is under control. Her dressing is intact. She denies any shortness of breath or chest pain. Vital Signs, Last 4 Hours Temp Pulse Resp BP Pulse Ox 02/02/19 15:04 97.6 F 77 16 145/64 98 02/02/19 11:57 97.4 F L 70 16 150/67 97 - Physical Examination General: Present: No Apparent Distress HEENT: Present: Pupils equal Cardiac: Present: Reg Rate and Rhythm, Normal S1 and S2, No Murmur Lungs: Present: Normal Breath Sounds, No Wheeze, Rales, Rhonchi Musculoskeletal: Present: No Chest Wall Tenderness, Other Other: The flaps are viable. No drainage from the wound. No hematoma. Results 02/02/19 06:45 02/02/19 06:45 Lab Results, Last 24 hours 02/02/19 02/02/19 06:45 06:45 WBC 9.7 Hgb 9.0 L Hct 27.3 L Plt Count 248 Sodium 135 L Potassium 4.0 Chloride 95 L Carbon Dioxide 26 BUN 33 H Creatinine 2.86 H Glucose 32 L* Calcium 7.7 L Consult Discharge Plan - Plan Referrals: Eileen House CNP [Primary Care Provider] - Desmond Zuniga MD [Partnered Physician] - 03/05/19 10:30 am
[2019-02-02] MEDS: Melatonin 3 MG TABLET PO SCH (21:58)
[2019-02-02] MEDS: Acetaminophen 325 MG TABLET PO PRN (21:58)
[2019-02-02] MEDS: Famotidine 20 MG TABLET PO SCH (21:59)
[2019-02-03 02:18] LABS: Hematocrit 23.2 % (35.3-44.9); Hemoglobin 7.8 g/dL (11.5-15.4); Mean Corpuscular HGB Conc 33.6 g/dL (31.6-35.5); Mean Corpuscular Hemoglobin 30.6 pg (28.0-33.3); Mean Platelet Volume 11.1 fL (9.4-12.4); Platelet Count 189 K/mcL (140-400); Red Blood Count 2.55 M/mcL (3.82-4.97); Red Cell Distribution Width 15.6 % (11.5-14.5)
[2019-02-03 02:37] LABS: Calcium 7.2 mg/dL (8.6-10.3); Potassium 4.5 mEq/L (3.5-5.1)
[2019-02-03 02:57] LABS: Lymphocytes # 1.1 K/mcL (0.6-4.6); Monocytes # 0.3 K/mcL (0.0-1.3); Neutrophils # 6.6 K/mcL (1.6-8.9)
[2019-02-03 02:58] LABS: Platelet Estimate Normal (Normal)
[2019-02-03] MEDS: *HR* Heparin 5,000 UNIT/ML VIAL SQ SCH ×2 (06:04→17:38)
[2019-02-03] MEDS ORDERED: *HR* Heparin 10,000 UNIT/10 ML VIAL IV PRN (08:01)
[2019-02-03] MEDS ORDERED: 0.9 % Sodium Chloride 250 ML IVC PRN (08:01)
[2019-02-03] MEDS: Aspirin Enteric Coated 81 MG Tablet PO SCH (08:03)
[2019-02-03] MEDS: hydrALAZINE 25 MG TABLET PO SCH ×3 (08:05→21:00)
[2019-02-03] MEDS: cloNIDine HCl 0.1 MG TABLET PO SCH ×2 (08:05→21:00)
[2019-02-03] MEDS: Isosorbide MONOnitrate (24 HR) 30 MG TAB.ER.24H PO SCH (08:05)
[2019-02-03] MEDS: Diltiazem CD (24hr) 180 MG CAPSULE PO SCH (08:05)
[2019-02-03] MEDS ORDERED: 0.9 % Sodium Chloride 1,000 ML PRIME SCH (08:15)
[2019-02-03] MEDS ORDERED: 0.9 % Sodium Chloride 2,000 ML ONE (08:33)
--- NOTE | 2019-02-03 12:29 | Nephrology Progress Note ---
Date of Encounter: 02/03/19 Time of Encounter: 12:29 - Assessment and Plan (1) ESRD (end stage renal disease) on dialysis Current Visit: No Status: Chronic HD MWF. Renal vitamins. Renal dose medications. Renal diet. Additional dialysis and ultrafiltration as needed. Patient was seen on dialysis. Subjective Principal diagnosis: ESRD Interval history: Patient seen. She was seen on dialysis. . Objective - Vital Signs Vital signs: Vital Signs Temp Pulse Resp BP Pulse Ox 02/03/19 12:00 115/56 02/03/19 11:45 118/68 02/03/19 11:30 108/56 02/03/19 11:15 95/55 02/03/19 11:00 93/55 02/03/19 10:45 98/54 02/03/19 10:30 100/55 02/03/19 10:15 119/56 02/03/19 10:00 116/52 02/03/19 09:45 123/49 02/03/19 09:30 125/54 02/03/19 07:40 97.6 F 58 18 126/61 100 02/03/19 04:32 97.5 F L 59 17 110/43 96 02/02/19 22:46 97.9 F 64 17 121/42 97 02/02/19 18:49 97.8 F 72 17 146/63 98 02/02/19 15:04 97.6 F 77 16 145/64 98 Intake and Output 02/02/19 02/03/19 02/03/19 23:59 07:59 15:59 Intake Total 240 / 240 120 / 120 Balance 240 / 240 120 / 120 Intake: Oral 240 / 240 120 / 120 Other: Meal Dinner Breakfast Percent of Meal Consumed 10% 50% Stool Size Small Large Stool Consistency soft loose loose formed liquid Stool Color Brown Brown Brown # Bowel Movements 1 1 1 Weight 50.8 kg Blood Glucose* 105 86 Hemodialysis Net Fluid Removed 2 (mL) Patient Weight 02/03/19 23:59 Weight 50.8 kg - General Appearance General appearance: Present: well-developed, well-nourished EENT: Present: ATNC Neck: Present: supple Cardiology: Present: regular rate - Lab 02/04/19 06:44 02/04/19 06:44 Most recent lab results Calcium 7.2 mg/dL (8.6-10.3) L 02/03/19 01:39 Phosphorus 4.9 mg/dL (2.7-4.5) H 01/26/19 16:33 Magnesium 1.7 mg/dL (1.6-2.6) 01/26/19 16:33 Consult Discharge Plan - Plan Referrals: Eileen House CNP [Primary Care Provider] - Desmond Zuniga MD [Partnered Physician] - 03/05/19 10:30 am
--- NOTE | 2019-02-03 13:26 | Internal Med Progress Note ---
Hospitalist Progress Note - Encounter Date of Encounter: 02/03/19 Time of Encounter: 10:00 - Subjective Interval History: Patient complaint nausea and diarrhea. Patient has no fever. Denies right leg pain. - Exam Vitals: Temp Pulse Resp BP Pulse Ox 97.6 F 58 18 115/56 100 02/03/19 07:40 02/03/19 07:40 02/03/19 07:40 02/03/19 12:00 02/03/19 07:40 Exam: Pt is AAO x 3, in NAD HEENT: NC/AT, PERRL Neck: Supple, no JVD, no LAD Lungs: CTA b/l Heart: S1S2, RRR Abd: Soft, nontender, BS present Ext: right lower leg s/p AKA, no active bleeding. Neuro: No focal deficit . - Assessment and Plan (1) Cellulitis and abscess of right lower extremity Current Visit: Yes Status: Acute Assessment and Plan: Patient has ankle wound with leg swelling. Patient has severe PVD. - S/P AKA, pain is much less. - Continue pain management. - Vascular surgery saw patient, angiogram done. Patient has severe PVD, cannot have intravascular procedure because of severity of the disease. Had AKA. - Patient need rehabilitation discharge (2) DVT prophylaxis Current Visit: No Status: Acute Assessment and Plan: Heparin sc (3) CAD (coronary artery disease) Current Visit: No Status: Chronic Assessment and Plan: Patient has no chest pain. Continue home medications. (4) ESRD (end stage renal disease) Current Visit: No Status: Chronic Assessment and Plan: Nephrology consult on case. Continue hemodialysis as scheduled (5) HTN (hypertension) Current Visit: No Status: Chronic Assessment and Plan: Continue home medications. BP is well controlled. (6) Afib Current Visit: No Status: Chronic Assessment and Plan: Chronic A. fib. Heart rate is well controlled. Patient is on baby aspirin at home, will continue. Not on AC, reason is unclear. (7) Hypoglycemia Current Visit: Yes Status: Acute Assessment and Plan: Patient has no history of diabetes. Not on insulin. Hypoglycemia likely due to poor intake. - Abdominal exam is benign, patient has normal bowel movement - Continue symptomatic treatment for nausea, encourage by mouth intake - RD is on case, diet supplement has been placed. - Place patient on hypoglycemia protocol. - No further hypoglycemia (8) Severe protein-calorie malnutrition Current Visit: Yes Status: Acute Assessment and Plan: Sr. Manager consult appreciated. By mouth supplement has been added. (9) Diarrhea Current Visit: Yes Status: Acute Assessment and Plan: C. difficile test negative. Will place loperamide 2mg po q4h prn DVT Prophylaxis: Heparin sc - Time Spent with Patient Total time spent is greater than 50% in coordination of care (as documented) at patient's floor/unit and/or counseling patient: 30 minutes 25 - 35 minutes Plan of Care Discussed with: patient Internal Medicine: Result - Labs CBC & Chem 7: 02/03/19 01:39 02/03/19 01:39 Labs: Short CBC 02/03/19 Range/Units 01:39 WBC 8.1 (4.3-11.1) K/mcL Hgb 7.8 L (11.5-15.4) g/dL Hct 23.2 L (35.3-44.9) % Plt Count 189 (140-400) K/mcL Neutrophils # 6.6 (1.6-8.9) K/mcL BMP 02/03/19 01:39 Sodium 133 L Potassium 4.5 Chloride 94 L Carbon Dioxide 26 BUN 44 H Creatinine 3.21 H Glucose 99 Calcium 7.2 L - ABG Interpretation ABG results: PT/INR, D-dimer PT 13.0 Seconds (9.4-12.1) H 01/30/19 05:11 Consult Discharge Plan - Plan Referrals: Eileen House CNP [Primary Care Provider] - Desmond Zuniga MD [Partnered Physician] - 03/05/19 10:30 am (3) CAD (coronary artery disease) Qualifiers: Coronary Disease-Associated Artery/Lesion type: [place] artery [place] vs. transplanted heart: [place] heart Associated angina: without angina Qualified Code(s): I25.10 - Atherosclerotic heart disease of [place] coronary artery without angina pectoris (5) HTN (hypertension) Qualifiers: Hypertension type: essential hypertension Qualified Code(s): I10 - Essential (primary) hypertension (6) Afib Qualifiers: Atrial fibrillation type: chronic Qualified Code(s): I48.2 - Chronic atrial fibrillation (9) Diarrhea Qualifiers: Diarrhea type: functional diarrhea Qualified Code(s): K59.1 - Functional diarrhea
[2019-02-03] MEDS: Furosemide 40 MG TABLET PO SCH (14:14)
[2019-02-03] MEDS: Lactobacillus 1 EACH CAP.SPRINK PO SCH (17:38)
--- NOTE | 2019-02-03 18:34 | Vascular/[facility] Progress Note ---
Date of Encounter: 02/03/19 Time of Encounter: 18:00 - Assessment and plan (1) PAD (peripheral artery disease) Current Visit: Yes Status: Chronic The patient is postoperative day # 4 after right above-knee amputation. She reports adequate pain control. Her wound is healing well. Continue with daily dressing changes. She may be discharged home a vascular surgery perspective. She will follow-up with Dr. Zuniga an approximate 4 weeks. - Subjective Interval history: The patient is resting comfortably. She reports adequate pain control. Vital Signs, Last 4 Hours Temp Pulse Resp BP Pulse Ox 02/03/19 16:00 97.4 F L 81 15 138/56 100 - Physical Examination General: Present: No Apparent Distress Cardiac: Present: Normal S1 and S2 Lungs: Present: Normal Breath Sounds Neuro: Present: No focal deficits noted Vascular: Present: Surgical incisions (Incision clean, dry and intact without erythema or drainage, no hematoma) Abdomen: Present: Soft Results 02/03/19 01:39 02/03/19 01:39 Lab Results, Last 24 hours 02/03/19 02/03/19 01:39 01:39 WBC 8.1 Hgb 7.8 L Hct 23.2 L Plt Count 189 Sodium 133 L Potassium 4.5 Chloride 94 L Carbon Dioxide 26 BUN 44 H Creatinine 3.21 H Glucose 99 Calcium 7.2 L Consult Discharge Plan - Plan Referrals: Eileen House CNP [Primary Care Provider] - Desmond Zuniga MD [Partnered Physician] - 03/05/19 10:30 am
[2019-02-03] MEDS: Acetaminophen 325 MG TABLET PO PRN (21:00)
[2019-02-03] MEDS: Melatonin 3 MG TABLET PO SCH (21:00)
[2019-02-03] MEDS: Famotidine 20 MG TABLET PO SCH (21:00)
[2019-02-04] MEDS: *HR* Heparin 5,000 UNIT/ML VIAL SQ SCH ×2 (06:03→18:09)
[2019-02-04 07:52] LABS: Hematocrit 24.2 % (35.3-44.9); Hematocrit 24.4 % (35.3-44.9); Lymphocytes # 0.4 K/mcL (0.6-4.6); Mean Corpuscular HGB Conc 32.8 g/dL (31.6-35.5); Mean Corpuscular HGB Conc 33.1 g/dL (31.6-35.5); Mean Corpuscular Hemoglobin 30.8 pg (28.0-33.3); Mean Corpuscular Hemoglobin 30.9 pg (28.0-33.3); Mean Corpuscular Volume 93.4 fL (83.0-100.0); Mean Corpuscular Volume 93.8 fL (83.0-100.0); Mean Platelet Volume 11.4 fL (9.4-12.4); Mean Platelet Volume 11.6 fL (9.4-12.4); Platelet Count 185 K/mcL (140-400); Platelet Count 190 K/mcL (140-400); Red Blood Count 2.59 M/mcL (3.82-4.97); Red Cell Distribution Width 16.2 % (11.5-14.5); Red Cell Distribution Width 16.3 % (11.5-14.5)
[2019-02-04 08:14] LABS: Calcium 7.7 mg/dL (8.6-10.3); Potassium 3.5 mEq/L (3.5-5.1)
[2019-02-04] MEDS: Aspirin Enteric Coated 81 MG Tablet PO SCH (09:13)
[2019-02-04] MEDS: hydrALAZINE 25 MG TABLET PO SCH ×3 (09:13→20:08)
[2019-02-04] MEDS: *HR* OxyCODONE Immed Rel 5 MG TABLET PO PRN (09:13)
[2019-02-04] MEDS: Lactobacillus 1 EACH CAP.SPRINK PO SCH (09:13)
[2019-02-04] MEDS: Diltiazem CD (24hr) 180 MG CAPSULE PO SCH (09:13)
[2019-02-04] MEDS: Furosemide 40 MG TABLET PO SCH (09:13)
[2019-02-04] MEDS: Isosorbide MONOnitrate (24 HR) 30 MG TAB.ER.24H PO SCH (09:13)
[2019-02-04] MEDS: cloNIDine HCl 0.1 MG TABLET PO SCH ×2 (09:13→20:08)
[2019-02-04 09:35] LABS: Monocytes # 0.9 K/mcL (0.0-1.3); Neutrophils # 6.5 K/mcL (1.6-8.9)
[2019-02-04 09:37] LABS: Platelet Estimate Normal (Normal)
[2019-02-04 09:38] LABS: Basophilic Stippling 1+ (Not Present)
[2019-02-04 09:40] LABS: Anisocytosis 1+ (Not Present); Hypochromasia Present (Not Present)
--- NOTE | 2019-02-04 13:13 | Internal Med Progress Note ---
Hospitalist Progress Note - Encounter Date of Encounter: 02/04/19 Time of Encounter: 09:00 - Subjective Interval History: Patient is weak, drowsy. Can answer question probably. Denies headache, cough, nausea. Has mild diarrhea, improved from yesterday. Patient was noticed bandemia. Will check chest x-ray, abdominal CT. Patient has no urinary at this point, no urinalysis ordered. Patient has stage I pressure ulcer, no skin rupture, no signs of infection. Her surgical wound was checked by me and RN together, no sign of infection. - Exam Vitals: Temp Pulse Resp BP Pulse Ox 98.8 F 88 18 137/62 100 02/04/19 11:00 02/04/19 11:00 02/04/19 11:00 02/04/19 11:00 02/04/19 11:00 Exam: Pt is AAO x 3, in NAD HEENT: NC/AT, PERRL Neck: Supple, no JVD, no LAD Lungs: CTA b/l Heart: S1S2, irregularly irregular Abd: Soft, mild tenderness, no rebound or guarding, BS present Ext: right lower leg s/p AKA, no active bleeding. Neuro: No focal deficit . - Assessment and Plan (1) Cellulitis and abscess of right lower extremity Current Visit: Yes Status: Acute Assessment and Plan: Patient has ankle wound with leg swelling. Patient has severe PVD. - S/P AKA, pain is much less. - Continue pain management. - Vascular surgery saw patient, angiogram done. Patient has severe PVD, cannot have intravascular procedure because of severity of the disease. Had AKA. - Patient need rehabilitation discharge (2) DVT prophylaxis Current Visit: No Status: Acute Assessment and Plan: Heparin sc (3) CAD (coronary artery disease) Current Visit: No Status: Chronic Assessment and Plan: Patient has no chest pain. Continue home medications. (4) ESRD (end stage renal disease) Current Visit: No Status: Chronic Assessment and Plan: Nephrology consult on case. Continue hemodialysis as scheduled (5) HTN (hypertension) Current Visit: No Status: Chronic Assessment and Plan: Continue home medications. BP is well controlled. (6) Afib Current Visit: No Status: Chronic Assessment and Plan: Chronic A. fib. Heart rate is well controlled. Patient is on baby aspirin at home, will continue. Not on AC, reason is unclear. (7) Hypoglycemia Current Visit: Yes Status: Acute Assessment and Plan: Patient has no history of diabetes. Not on insulin. Hypoglycemia likely due to poor intake. - Abdominal exam is benign, patient has normal bowel movement - Continue symptomatic treatment for nausea, encourage by mouth intake - RD is on case, diet supplement has been placed. - Place patient on hypoglycemia protocol. - No further hypoglycemia (8) Severe protein-calorie malnutrition Current Visit: Yes Status: Acute Assessment and Plan: Shoe Stamper consult appreciated. By mouth supplement has been added. (9) Diarrhea Current Visit: Yes Status: Acute Assessment and Plan: C. difficile test negative. Will place loperamide 2mg po q4h prn and probiotics (10) Bandemia Current Visit: Yes Status: Acute Assessment and Plan: Suspect infection, also possibly caused by inflammation caused by recent surgery. No infection site identified at this point. Will continue closely monitor patient. - At this point, patient has no fever or hypothermia, no tachycardia or tachypnea. WBC 7.7 and neutrophil# 6.5, all trend down from previous study. - We will continue closely monitor patient. Chest x-ray negative, abdominal CT is pending at this point. Will consider starting antibiotics if any infection site identified. So far, no indication for antibiotics. DVT Prophylaxis: Heparin subcutaneously - Time Spent with Patient Total time spent is greater than 50% in coordination of care (as documented) at patient's floor/unit and/or counseling patient: 30 minutes 25 - 35 minutes Plan of Care Discussed with: patient Internal Medicine: Result - Labs CBC & Chem 7: 02/04/19 06:44 02/04/19 06:44 Labs: Short CBC 02/04/19 02/04/19 Range/Units 06:44 06:44 WBC 7.6 7.7 (4.3-11.1) K/mcL Hgb 8.0 L 8.0 L (11.5-15.4) g/dL Hct 24.2 L 24.4 L (35.3-44.9) % Plt Count 185 190 (140-400) K/mcL Neutrophils # 6.5 (1.6-8.9) K/mcL BMP 02/04/19 06:44 Sodium 136 Potassium 3.5 Chloride 97 L Carbon Dioxide 27 BUN 26 H Creatinine 2.19 H Glucose 90 Calcium 7.7 L - ABG Interpretation ABG results: PT/INR, D-dimer PT 13.0 Seconds (9.4-12.1) H 01/30/19 05:11 - Impressions Impressions Chest X-Ray 02/04/19 10:33 IMPRESSION: Stable exam. D/ / 02/04/2019 11:09:25 Rei Tolliver MD / Radha Reza Interpreting Provider: Rei Tolliver MD Consult Discharge Plan - Plan Referrals: Eileen House CNP [Primary Care Provider] - Desmond Zuniga MD [Partnered Physician] - 03/05/19 10:30 am (3) CAD (coronary artery disease) Qualifiers: Coronary Disease-Associated Artery/Lesion type: [place] artery [place] vs. transplanted heart: [place] heart Associated angina: without angina Qualified Code(s): I25.10 - Atherosclerotic heart disease of [place] coronary artery without angina pectoris (5) HTN (hypertension) Qualifiers: Hypertension type: essential hypertension Qualified Code(s): I10 - Essential (primary) hypertension (6) Afib Qualifiers: Atrial fibrillation type: chronic Qualified Code(s): I48.2 - Chronic atrial fibrillation (9) Diarrhea Qualifiers: Diarrhea type: functional diarrhea Qualified Code(s): K59.1 - Functional diarrhea
--- NOTE | 2019-02-04 15:37 | Nephrology Progress Note ---
Date of Encounter: 02/04/19 Time of Encounter: 15:37 - Assessment and Plan (1) ESRD (end stage renal disease) on dialysis Current Visit: No Status: Chronic HD MWF. Renal vitamins. Renal dose medications. Renal diet. Additional dialysis and ultrafiltration as needed. Subjective Principal diagnosis: ESRD Interval history: Patient seen. She is asleep. . Objective - Vital Signs Vital signs: Vital Signs Temp Pulse Resp BP Pulse Ox 02/04/19 11:00 98.8 F 88 18 137/62 100 02/04/19 07:14 97.8 F 82 18 135/61 97 02/04/19 03:53 97.8 F 85 16 151/58 98 02/03/19 23:38 97.8 F 83 16 131/67 92 02/03/19 21:05 95 02/03/19 19:01 98 F 85 16 150/67 97 02/03/19 16:00 97.4 F L 81 15 138/56 100 Intake and Output 02/03/19 02/04/19 02/04/19 23:59 07:59 15:59 Intake Total 0 / 0 Balance 0 / 0 Intake: Oral 0 / 0 Other: Stool Size Moderate Small Stool Consistency loose loose liquid Stool Color Brown # Bowel Movement Diapers 1 1 Weight 51 kg - General Appearance General appearance: Present: well-developed, well-nourished EENT: Present: ATNC Cardiology: Present: regular rate - Lab 02/05/19 00:35 02/05/19 00:35 Most recent lab results Calcium 7.7 mg/dL (8.6-10.3) L 02/04/19 06:44 Phosphorus 4.9 mg/dL (2.7-4.5) H 01/26/19 16:33 Magnesium 1.7 mg/dL (1.6-2.6) 01/26/19 16:33 Consult Discharge Plan - Plan Referrals: Eileen House CNP [Primary Care Provider] - Desmond Zuniga MD [Partnered Physician] - 03/05/19 10:30 am
--- NOTE | 2019-02-04 16:27 | Event Note ---
Date of Encounter: 02/04/19 Time of Encounter: 16:00 CT abd shows right lower lobe lung consolidation. Will start Zosyn for aspiration/HAP.
[2019-02-04] MEDS: Piperacillin/Tazobactam 3.375 GM in 0.9 % Sodium Chloride Mini Bag 100 ML IVPB SCH (20:07)
[2019-02-04] MEDS: Famotidine 20 MG TABLET PO SCH (20:08)
[2019-02-04] MEDS: Melatonin 3 MG TABLET PO SCH (20:08)
[2019-02-05 01:09] LABS: Hematocrit 22.7 % (35.3-44.9); Hemoglobin 7.4 g/dL (11.5-15.4); Mean Corpuscular HGB Conc 32.6 g/dL (31.6-35.5); Mean Corpuscular Hemoglobin 30.8 pg (28.0-33.3); Mean Corpuscular Volume 94.6 fL (83.0-100.0); Mean Platelet Volume 11.1 fL (9.4-12.4); Platelet Count 172 K/mcL (140-400)
[2019-02-05 01:11] LABS: Hematocrit 22.8 % (35.3-44.9); Hemoglobin 7.4 g/dL (11.5-15.4); Mean Corpuscular HGB Conc 32.5 g/dL (31.6-35.5); Mean Corpuscular Hemoglobin 30.6 pg (28.0-33.3); Mean Corpuscular Volume 94.2 fL (83.0-100.0); Mean Platelet Volume 10.8 fL (9.4-12.4); Platelet Count 172 K/mcL (140-400); Red Blood Count 2.42 M/mcL (3.82-4.97); Red Cell Distribution Width 16.3 % (11.5-14.5)
[2019-02-05 01:28] LABS: Calcium 7.5 mg/dL (8.6-10.3); Potassium 3.8 mEq/L (3.5-5.1)
[2019-02-05 01:33] LABS: Anisocytosis 1+ (Not Present); Large Platelets Present (Not Present); Lymphocytes # 0.3 K/mcL (0.6-4.6); Monocytes # 0.9 K/mcL (0.0-1.3); Neutrophils # 6.6 K/mcL (1.6-8.9); Platelet Estimate Normal (Normal); Toxic Granulation Present (Not Present)
[2019-02-05 01:42] LABS: Alanine Aminotransferase < 3 Units/L (7-52); Albumin 1.8 g/dL (3.5-5.7); Albumin/Globulin Ratio 0.9 (1.1-2.2); Alkaline Phosphatase 35 Units/L (34-104); Aspartate Amino Transferase 10 Units/L (13-39); BUN/Creatinine Ratio 15 (6-26); Bilirubin,Total 0.5 mg/dL (0.3-1.0); Blood Urea Nitrogen 37 mg/dL (8-23); Calcium 7.5 mg/dL (8.6-10.3); Carbon Dioxide 29 mEq/L (23-29); Chloride 97 mEq/L (98-107); Glucose 66 mg/dL (70-105); Osmolality,Calculated 283 (280-300); Potassium 3.8 mEq/L (3.5-5.1); Sodium 133 mEq/L (136-145); Total Protein 3.8 g/dL (6.4-8.9); eGFR For Non-African Americans 18 (> 60)
[2019-02-05] MEDS: Acetaminophen 325 MG TABLET PO PRN (03:27)
[2019-02-05] MEDS ORDERED: Mag Hydrox/Al Hydrox/Simeth 30 ML UDC PO PRN (04:10)
[2019-02-05] MEDS: *HR* Heparin 5,000 UNIT/ML VIAL SQ SCH ×2 (04:43→17:47)
[2019-02-05] MEDS: Piperacillin/Tazobactam 3.375 GM in 0.9 % Sodium Chloride Mini Bag 100 ML IVPB SCH ×2 (04:47→17:47)
[2019-02-05] MEDS ORDERED: 0.9 % Sodium Chloride 250 ML IVC PRN (08:01)
[2019-02-05] MEDS ORDERED: 0.9 % Sodium Chloride 2,000 ML ONE (08:11)
[2019-02-05] MEDS ORDERED: 0.9 % Sodium Chloride 1,000 ML PRIME SCH (08:15)
[2019-02-05] MEDS ORDERED: *HR* EPINEPHrine 1 MG/10 ML SYRINGE IVP ONE (09:50)
[2019-02-05] MEDS ORDERED: D5% in Water 250 ML IV BAG IV ONE (09:50)
[2019-02-05] MEDS ORDERED: *HR* Dextrose 50 % in Water (Vial) 50 ML VIAL IVC ONE (09:50)
[2019-02-05] MEDS ORDERED: *HR* Norepinephrine 4 MG/4 ML VIAL IVC ONE (09:50)
[2019-02-05] MEDS: Lactobacillus 1 EACH CAP.SPRINK PO SCH (10:01)
[2019-02-05] MEDS: Aspirin Enteric Coated 81 MG Tablet PO SCH (10:01)
[2019-02-05] MEDS: Furosemide 40 MG TABLET PO SCH (10:01)
--- NOTE | 2019-02-05 11:26 | Pulmonology Consult Note ---
Date of Encounter: 02/05/19 Time of Encounter: 11:17 Assessment and Plan (1) HAP (hospital-acquired pneumonia) Current Visit: Yes Status: Acute Recommend obtaining cultures not already obtained such as blood cultures sputum culture and UA large urine culture for Legionella and strep pneumo Patient has radiographic evidence of pneumonia and a bandemia over last few days I agree with antimicrobials to cover for hospital associated pneumonia she will need a 7-10 day course based upon clinical response of note patient also at risk for aspiration location would be consistent with this it is very reasonable to continue anaerobic coverage for this reason. (2) Pleural effusion Current Visit: Yes Status: Acute Bilateral pleural effusion which is much more likely related to ESRD and heart failure that either malignant pleural effusion or complicated parapneumonic effusion. Consider right-sided thoracentesis done with CT guidance given the loculation via Interventional Radiology. This may make the patient to fill a bit better from a breathing standpoint and put to rest any question of a complicated processes such as empyema (clinically I feel that this is very unlikely). The patient is arranged to go for IR drainage I would recommend sending pleural fluid for pH LDH glucose total protein and Gram stain/culture cell count. (3) COPD exacerbation Current Visit: Yes Status: Acute Likely suffering from mild COPD exacerbation recommend a 5 day burst of prednisone 40 mg Symbicort 160/4.52 puffs twice a day Schedule duo nebs every 4-6 hours with every one hour albuterol as needed Tobacco cessation counseling given (4) ESRD (end stage renal disease) on dialysis Current Visit: No Status: Chronic Per nephrology she is undergoing dialysis Thank you for this consultation please call with any questions History of Present Illness Consult date: 02/05/19 Requesting physician: Aylin Brice Reason for consult: pneumonia Chief complaint: Difficulty in Breathing History of present illness: The patient is a 78-year-old woman with a past medical history of peripheral artery disease who presented to with critical limb ischemia status post right [id number] amputation she has had a prolonged hospitalization. In addition she has end-stage renal disease and a history of a left breast cancer. Yesterday had noted bandemia prompting CT of the abdomen and pelvis which was notable for a right lower lobe consolidation with a loculated pleural effusion. Patient has known bilateral effusions on admission but right-sided effusion may be a little bit worse. She is currently afebrile but requiring between 4 and 5 L nasal cannula oxygen to keep saturation the low 90s. She is currently on Zosyn for antimicrobial coverage. From standpoint of breast cancer she was seen recently by her oncologist her history is notable for left mastectomy on 02/19/2018 she had local breast recurrence onto subpleural nodules on with the reexcision with negative margins she currently undergoing treatment with Herceptin and Taxol which had been on hold because of cellulitis. From pulmonary standpoint she does have a history of COPD and tobacco abuse she also has a history of dilated cardiomyopathy but has preserved ejection fraction. Her last echocardiogram was notable for preserved ejection fraction but severely dilated left and right atrium along with mild mitral regurgitation and severe pulmonary hypertension. I spoke with the patient in the dialysis unit where she tell me that un fortunately she continues to smoke at home. She states that she is not interested in quitting at this time. She does report that she does not feel well today has had increased labored breathing and is still complaining of some abdominal pain. She in general says that she feels weak she has had a very minor cough but has not coughed up any phlegm she denies any hemoptysis no diarrhea today and denies any fevers Past Med Surg Social Fam HX - Past Medical History Medical history: atrial fibrillation, cancer, COPD, dialysis, hypertension Additional medical history: breast CA. one kidney since 89 from [place], dialysis for 6 years Psychiatric history: no psych history - Past Surgical History Surgical History: hysterectomy, other Additional surgical history: kidney removed. breast surgery - Social History Smoking Status: Current every day smoker Smokeless Tobacco Status: No Alcohol use: none Drug use: none - Family History Sister Family Member Ethnicity: Non- Living Status: Still Living Hx Family Cardiac Disorders: Yes (Pig valve) Hx Family Cancer: Yes (colon cancer) Hx Family Endocrine Disorder: Yes (DM) Mother Family Member Ethnicity: Non- Living Status: Hx Family Cardiac Disorders: (angina) Father Family Member Ethnicity: Non- Living Status: Hx Family Respiratory Disorders: (pneumonia) Brother Family Member Ethnicity: Non- Living Status: Hx Family Cancer: Yes Medications and Allergies Aspirin Enteric Coated [Aspirin EC] 81 mg PO DAILY #0 02/29/16 [History] Omeprazole [PriLOSEC] 40 mg PO DAILY capsule. 04/16/17 [Rx] Carvedilol [Coreg] 25 mg PO BID 06/24/17 [History] Furosemide [Lasix] 40 mg PO DAILY 06/24/17 [History] Isosorbide MONOnitrate (24 HR) [Imdur] 30 mg PO DAILY 06/24/17 [History] cloNIDine HCl [CloNIDine HCl] 0.2 mg PO BID 01/30/18 [History] hydrALAZINE [HydrALAZINE] 25 mg PO TID 03/22/18 [History] Cholecalciferol (Vitamin D3) [Vitamin D] 50,000 unit PO QWEEK 12/17/18 [History] Prochlorperazine Maleate [Compazine] 5 mg PO TID PRN 12/17/18 [History] Ranitidine HCl [Heartburn Relief] 150 mg PO HS 01/07/19 [History] Collagenase Oint [Santyl] 1 appl TP DAILY 01/26/19 [History] Diltiazem CD (24hr) [Cardizem CD] 360 mg PO DAILY 01/26/19 [History] Melatonin 10 mg PO HS 01/26/19 [History] Allergy/AdvReac Type Severity Reaction Status Date / Time codeine AdvReac Confusion Verified 01/07/19 09:46 All Systems: The remainder of the systems were reviewed and are negative Physical Examination Vital Signs: Vital Signs, Last 4 Hours Temp Pulse Resp BP Pulse Ox 02/05/19 07:37 97.9 F 61 18 105/49 90 General appearance: no acute distress, other (frail chronically ill appearing ) Eyes: nonicteric Effort: normal Auscultation: bilateral: rales, rhonchi (Scattered) Cardiovascular: regular rate and rhythm Gastrointestinal: normoactive bowel sounds, soft, non-tender Extremities: edema, other (Diminished pulses in the right lower extremity but is warm to the touch) Musculoskeletal: other (Left AKA ) normal mental status mood appropriate Results - Laboratory Findings CBC and BMP: 02/05/19 00:35 02/05/19 00:35 PT/INR, D-dimer PT 13.0 Seconds (9.4-12.1) H 01/30/19 05:11 Abnormal lab findings: Abnormal lab results RBC 2.42 M/mcL (3.82-4.97) L 02/05/19 00:35 Hgb 7.4 g/dL (11.5-15.4) L 02/05/19 00:35 Hct 22.8 % (35.3-44.9) L 02/05/19 00:35 RDW 16.3 % (11.5-14.5) H 02/05/19 00:35 Band Neutrophils % 6.0 % (0-4) H 02/05/19 00:35 Lymphocytes # 0.3 K/mcL (0.6-4.6) L 02/05/19 00:35 Nucleated RBCs/100 WBC 0.4 /100 WBC (0) H 01/29/19 01:03 Toxic Granulation Present (Not Present) A 02/05/19 00:35 Large Platelets Present (Not Present) A 02/05/19 00:35 Hypochromasia Present (Not Present) A 02/04/19 06:44 Basophilic Stippling 1+ (Not Present) A 02/04/19 06:44 Anisocytosis 1+ (Not Present) A 02/05/19 00:35 PT 13.0 Seconds (9.4-12.1) H 01/30/19 05:11 APTT 40.7 Seconds (26.0-36.0) H 01/27/19 15:36 Sodium 133 mEq/L (136-145) L 02/05/19 00:35 Chloride 97 mEq/L (98-107) L 02/05/19 00:35 BUN 37 mg/dL (8-23) H 02/05/19 00:35 Creatinine 2.53 mg/dL (0.60-1.20) H 02/05/19 00:35 Est GFR ( Amer) 22 (> 60) L 02/05/19 00:35 Est GFR (Non-Af Amer) 18 (> 60) L 02/05/19 00:35 Glucose 66 mg/dL (70-105) L 02/05/19 00:35 Calcium 7.5 mg/dL (8.6-10.3) L 02/05/19 00:35 Phosphorus 4.9 mg/dL (2.7-4.5) H 01/26/19 16:33 AST 10 Units/L (13-39) L 02/05/19 00:35 ALT < 3 Units/L (7-52) L 02/05/19 00:35 C-Reactive Protein 33 mg/L (Less than 10) H 01/26/19 16:33 Serum Total Protein 3.8 g/dL (6.4-8.9) L 02/05/19 00:35 Albumin 1.8 g/dL (3.5-5.7) L 02/05/19 00:35 Globulin 2.0 g/dL (2.4-3.5) L 02/05/19 00:35 Albumin/Globulin Ratio 0.9 (1.1-2.2) L 02/05/19 00:35 Hep Bs Antibody < 3.10 mIU/mL (10.00-) L 01/27/19 06:55 - Microbiology Findings Microbiology Findings: Microbiology, Last 48 Hours 02/05/19 08:39 Blood Culture - Preliminary Peripheral Venipuncture Culture is incubating and being continuously monitored for growth. Final report to follow. 02/05/19 08:30 Blood Culture - Preliminary Peripheral Venipuncture Culture is incubating and being continuously monitored for growth. Final report to follow. - Diagnostic Findings Chest x-ray: report reviewed, image reviewed CT scan - chest: report reviewed, image reviewed - Clinical Findings Intake & Output: Intake & Output 02/04/19 02/05/19 02/05/19 23:59 07:59 15:59 Intake Total 100 / 100 Balance 100 / 100 Weight 51.3 kg Consult Discharge Plan - Plan Referrals: Eileen House CNP [Primary Care Provider] - Desmond Zuniga MD [Partnered Physician] - 03/05/19 10:30 am
--- NOTE | 2019-02-05 12:47 | Internal Med Progress Note ---
Hospitalist Progress Note - Encounter Date of Encounter: 02/05/19 Time of Encounter: 09:00 - Subjective Interval History: Pt is more awake alert today. Mild shortness of breath. Denies cough or fever. Mild abdominal pain without nausea. No diarrhea. - Exam Vitals: Temp Pulse Resp BP Pulse Ox 97.9 F 61 18 105/49 90 02/05/19 07:37 02/05/19 07:37 02/05/19 07:37 02/05/19 07:37 02/05/19 07:37 Exam: Pt is AAO x 3, in NAD HEENT: NC/AT, PERRL Neck: Supple, no JVD, no LAD Lungs: CTA b/l, breath sounds low on right side Heart: S1S2, irregularly irregular Abd: Soft, mild tenderness, no rebound or guarding, BS present Ext: right lower leg s/p AKA, no active bleeding. Neuro: No focal deficit . - Assessment and Plan (1) Cellulitis and abscess of right lower extremity Current Visit: Yes Status: Acute Assessment and Plan: Patient has ankle wound with leg swelling. Patient has severe PVD. - Had AKA, pain is well controlled - Continue pain management. - Vascular surgery saw patient, angiogram done. Patient has severe PVD, cannot have intravascular procedure because of severity of the disease. Had AKA. - Patient need rehabilitation discharge (2) DVT prophylaxis Current Visit: No Status: Acute Assessment and Plan: Heparin sc (3) CAD (coronary artery disease) Current Visit: No Status: Chronic Assessment and Plan: Patient has no chest pain. Continue home medications. (4) ESRD (end stage renal disease) Current Visit: No Status: Chronic Assessment and Plan: Nephrology consult on case. Continue hemodialysis as scheduled (5) HTN (hypertension) Current Visit: No Status: Chronic Assessment and Plan: Continue home medications. BP is well controlled. (6) Afib Current Visit: No Status: Chronic Assessment and Plan: Chronic A. fib. Heart rate is well controlled. Patient is on baby aspirin at home, will continue. Not on AC, reason is unclear. (7) Hypoglycemia Current Visit: Yes Status: Acute Assessment and Plan: Patient has no history of diabetes. Not on insulin. Hypoglycemia likely due to poor intake. - Abdominal exam is benign, patient has normal bowel movement - Continue symptomatic treatment for nausea, encourage by mouth intake - RD is on case, diet supplement has been placed. - Place patient on hypoglycemia protocol. - Glucose still at lower site sometimes around 60-70 (8) Severe protein-calorie malnutrition Current Visit: Yes Status: Acute Assessment and Plan: Geropsychologist consult appreciated. By mouth supplement has been added. (9) Diarrhea Current Visit: Yes Status: Acute Assessment and Plan: C. difficile test negative. Will place loperamide 2mg po q4h prn and probiotics (10) Bandemia Current Visit: Yes Status: Acute Assessment and Plan: CT shows right lower lobe consolidation, consider hospital acquired pneumonia. Patient was treated with Zosyn. MRSA screen negative. Patient was earlier treated with Vanco for 5 days for her right leg wound infection. No vancomycin at this point. (11) Breast cancer Current Visit: Yes Status: Acute Assessment and Plan: History of breast cancer. Patient has been seen by oncology as outpatient. CT abdomen shows possible liver metastasis. Will consult oncology for further management. (12) HAP (hospital-acquired pneumonia) Current Visit: Yes Status: Acute Assessment and Plan: Patient has bandemia, CT shows right lower lobe consolidation. Patient has recent surgery. Consider hospital-acquired pneumonia. - We will treat patient with Zosyn at this point. - Bandemia has slightly improved. - We will consult pulmonology for further management. (13) Pleural effusion Current Visit: No Status: Chronic Assessment and Plan: Likely caused by pneumonia? Or malignancy?. Patient has history of pleural effusion previously. - We will consult pulmonology for further management. DVT Prophylaxis: Heparin subcutaneously - Time Spent with Patient Total time spent is greater than 50% in coordination of care (as documented) at patient's floor/unit and/or counseling patient: 30 minutes 25 - 35 minutes Plan of Care Discussed with: patient Internal Medicine: Result - Labs CBC & Chem 7: 02/05/19 00:35 02/05/19 00:35 Labs: Short CBC 02/05/19 02/05/19 Range/Units 00:35 00:35 WBC 7.8 7.8 (4.3-11.1) K/mcL Hgb 7.4 L 7.4 L (11.5-15.4) g/dL Hct 22.7 L 22.8 L (35.3-44.9) % Plt Count 172 172 (140-400) K/mcL Neutrophils # 6.6 (1.6-8.9) K/mcL BMP 02/05/19 02/05/19 00:35 00:35 Sodium 133 L 133 L Potassium 3.8 3.8 Chloride 97 L 97 L Carbon Dioxide 29 29 BUN 38 H 37 H Creatinine 2.50 H 2.53 H Glucose 67 L 66 L Calcium 7.5 L 7.5 L Liver Function 02/05/19 Range/Units 00:35 Total Bilirubin 0.5 (0.3-1.0) mg/dL AST 10 L (13-39) Units/L ALT < 3 L (7-52) Units/L Alkaline Phosphatase 35 (34-104) Units/L Albumin 1.8 L (3.5-5.7) g/dL - ABG Interpretation ABG results: PT/INR, D-dimer PT 13.0 Seconds (9.4-12.1) H 01/30/19 05:11 - Impressions Impressions Chest X-Ray 02/04/19 10:33 IMPRESSION: Stable exam. D/ / 02/04/2019 11:09:25 Rei Tolliver MD / Radha Reza Interpreting Provider: Rei Tolliver MD Abdomen/Pelvis CT 02/04/19 14:00 IMPRESSION: 1. Bilateral effusions worse on the right with loculation of the right effusion. 2. Extensive consolidation right lower lobe. 3. Multiple small liver hypodense lesions which are indeterminate, however metastatic disease is possible. These were not seen previously in the PET evaluation. 4. Mild ascites and mesenteric edema also associated with anasarca. 5. No obvious abscess or infection in the abdomen or pelvis. D/ / 02/04/2019 14:40:38 Laurie Tapia MD / rolan Interpreting Provider: Laurie Tapia MD Consult Discharge Plan - Plan Referrals: Eileen House, MEET [Primary Care Provider] - Desmond Zuniga MD [Partnered Physician] - 03/05/19 10:30 am (3) CAD (coronary artery disease) Qualifiers: Coronary Disease-Associated Artery/Lesion type: [place] artery [place] vs. transplanted heart: [place] heart Associated angina: without angina Qualified Code(s): I25.10 - Atherosclerotic heart disease of [place] coronary artery without angina pectoris (5) HTN (hypertension) Qualifiers: Hypertension type: essential hypertension Qualified Code(s): I10 - Essential (primary) hypertension (6) Afib Qualifiers: Atrial fibrillation type: chronic Qualified Code(s): I48.2 - Chronic atrial fibrillation (9) Diarrhea Qualifiers: Diarrhea type: functional diarrhea Qualified Code(s): K59.1 - Functional diarrhea (11) Breast cancer Qualifiers: Breast location: upper outer quadrant of breast Estrogen receptor status: negative Patient sex: female Laterality: left Qualified Code(s): C50.412 - Malignant neoplasm of upper-outer quadrant of left female breast; Z17.1 - Estrogen receptor negative status [ER-]
[2019-02-05] MEDS: cloNIDine HCl 0.1 MG TABLET PO SCH ×2 (13:34→21:48)
[2019-02-05] MEDS: hydrALAZINE 25 MG TABLET PO SCH ×3 (13:41→21:48)
[2019-02-05] MEDS: Isosorbide MONOnitrate (24 HR) 30 MG TAB.ER.24H PO SCH (13:41)
[2019-02-05] MEDS: *HR* OxyCODONE Immed Rel 5 MG TABLET PO PRN (13:41)
[2019-02-05] MEDS: Diltiazem CD (24hr) 180 MG CAPSULE PO SCH (13:41)
--- NOTE | 2019-02-05 14:14 | Oncology Inp Consult Note ---
<Emre Paulson - Last Filed: 02/05/19 16:30> Date of Encounter: 02/05/19 Time of Encounter: 16:31 - Data of Consult Requesting Physician: Aylin Brice MD Primary Care Provider: Eileen House CNP Medications and Allergies Aspirin Enteric Coated [Aspirin EC] 81 mg PO DAILY #0 02/29/16 [History] Omeprazole [PriLOSEC] 40 mg PO DAILY capsule. 04/16/17 [Rx] Carvedilol [Coreg] 25 mg PO BID 06/24/17 [History] Furosemide [Lasix] 40 mg PO DAILY 06/24/17 [History] Isosorbide MONOnitrate (24 HR) [Imdur] 30 mg PO DAILY 06/24/17 [History] cloNIDine HCl [CloNIDine HCl] 0.2 mg PO BID 01/30/18 [History] hydrALAZINE [HydrALAZINE] 25 mg PO TID 03/22/18 [History] Cholecalciferol (Vitamin D3) [Vitamin D] 50,000 unit PO QWEEK 12/17/18 [History] Prochlorperazine Maleate [Compazine] 5 mg PO TID PRN 12/17/18 [History] Ranitidine HCl [Heartburn Relief] 150 mg PO HS 01/07/19 [History] Collagenase Oint [Santyl] 1 appl TP DAILY 01/26/19 [History] Diltiazem CD (24hr) [Cardizem CD] 360 mg PO DAILY 01/26/19 [History] Melatonin 10 mg PO HS 01/26/19 [History] Allergy/AdvReac Type Severity Reaction Status Date / Time codeine AdvReac Confusion Verified 01/07/19 09:46 Consult Discharge Plan - Plan Referrals: Eileen House CNP [Primary Care Provider] - Desmond Zuniga MD [Partnered Physician] - 03/05/19 10:30 am Inpatient Charges Provider: Dr. Yen Paulson Consult - Inpatient: [id number] - Attending Attestation I examined this patient and my medical decision-making was reviewed with the Advanced Practice Nurse. I agree with the documented findings, disposition and treatment plan as described except to the extent set forth below. -Patient with a h/o stage II IDC s/p mastectomy 02/2018 with a recurrence in 10/2018. She is HER2+, ER/DC-. -Recently had a R. AKA on 01/28/2019. -CT A/P done here shows new concerning hepatic lesions, and recurrent b/l pleural effusions -The patient has a very poor PS and is unlikely to be able to tolerate anymore treatment at this time -We had a long discussion with her and her family, and we would recommend a palliative care c/s with hospice referral Thank you for the consult. <SharpeChandrika L - Last Filed: 02/05/19 17:00> Date of Encounter: 02/05/19 Assessment and Plan (1) Breast cancer, left breast Status: Acute Assessment and plan: Left breast IDC ER/DC negative and HER-2/sultana positive by IHC at 3+. PET/CT 12/05/2017 was negative for metastasis. S/P mastectomy 02/19/2018 under the care of Dr. Alvarez c/w [id number] disease. Planned to start Herceptin with Taxol 01/10/2019, however, taxol was held due to her worsening right foot cellulitis. Concerns regarding how well she may tolerate treatment moving forward were discussed at prior appointment however patient was persistent on continuing to pursue treatment. CT of the abdomen/pelvis reveals bilateral pleural effusions R>L with consolidation of the RLL and multiple liver lesions concerning for metastatic disease Plan: Patient is now severely deconditioned, malnourished and S/P Right AKA for severe PAD CT abdomen/pelvis was discussed with patient and daughter at bedside, we discussed that her disease and progressing and that given her overall poor performance status, therapy with the intent to pursue treatment may not be an attainable goal We discussed overall concern with how well she may tolerate treatment moving forward and that treatment may be of more risk than benefit The hospice philosophy was discussed, patient and daughter were emotionally saddened with conversation but are amendable to discussing further with the palliative care team Qualifiers: Qualified Code(s): C50.912 - Malignant neoplasm of unspecified site of left female breast (2) Counseling regarding advanced care planning and goals of care Status: Acute Assessment and plan: As above Patient and family willing to meet with palliative care team Oncology would recommend hospice moving forward given her overall poor performance status and now with progression of disease I will consult palliative care team in AM Daughter endorses concern over living situation, patient would likely need placement (3) PAD (peripheral artery disease) Status: Chronic Assessment and plan: POD #6 Right AKA Reports adequate pain control currently with oxycodone and tramadol - Data of Consult Requesting Physician: Aylin Brice MD Primary Care Provider: Eileen House CNP - Consult Narrative Reason for consult: Left Breast IDC History of present illness: Mrs. 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 The tumor is ER/DC negative and HER-2/sultana positive by IHC at 3+. PET/CT 12/05/2017 was negative for metastasis. She is status post mastectomy 02/19/2018 under the care of Dr. Alvarez. Local breast recurrence with 2 separate nodules measuring 2.7 and 0.8 cm status post reexcision 10/22/2018. All margins were negative with the closest margin being 0.5 mm (chest wall) c/w [id number] disease. On exam at her last appointment with Dr. Sigala she was noted to have a new 1 cm mobile mass about the lateral scar. She was planned to start Herceptin with Taxol 01/10/2019, however, taxol was held due to her worsening right foot cellulitis. At this appointment, Dr. Sigala discussed his concern with how well she may tolerate treatment moving forward however patient was persistent on continuing to pursue treatment. She presented to [facility] ED on 01/26/2019 with report of increased RLE pain and worsening of her wound/cellulitis. Vascular was consulted and urgent angiography was recommended due to the severity of her right foot wound and pain that resembles ischemic pain at rest. She was noted to have severe RLE occlusive disease, Right AKA was recommended and performed on 01/30/2019. Oncology has been consulted to discuss goals of care and to reviw CT abdomen/pe lvis which reveals new hepatic lesions. Past Med Surg Social Fam HX - Past Medical History Medical history: atrial fibrillation, cancer, COPD, dialysis, hypertension Additional medical history: breast CA. one kidney since 97 from [place], dialysis for 6 years Psychiatric history: no psych history - Past Surgical History Surgical History: hysterectomy, other Additional surgical history: kidney removed. breast surgery - Social History Smoking Status: Current every day smoker Smokeless Tobacco Status: No Alcohol use: none Drug use: none - Family History Sister Family Member Ethnicity: Non- Living Status: Still Living Hx Family Cardiac Disorders: Yes (Pig valve) Hx Family Cancer: Yes (colon cancer) Hx Family Endocrine Disorder: Yes (DM) Mother Family Member Ethnicity: Non- Living Status: Hx Family Cardiac Disorders: (angina) Father Family Member Ethnicity: Non- Living Status: Hx Family Respiratory Disorders: (pneumonia) Brother Family Member Ethnicity: Non- Living Status: Hx Family Cancer: Yes Constitutional: Present: anorexia, fatigue, weakness, weight loss. Absent: fever(s), weight gain Eyes: Absent: change in vision Nose, mouth and throat: Absent: dysphagia, odynophagia Cardiovascular: Absent: chest pain Respiratory: Present: dyspnea on exertion Gastrointestinal: Absent: abdominal pain, change in bowel habits, nausea, vomiting Genitourinary: Absent: dysuria Musculoskeletal: Present: muscle weakness Integumentary: Present: as per HPI Neurological: Absent: focal weakness, frequent falls Psychiatric: Present: as per HPI Hematologic/Lymphatic: Present: as per HPI Oncology - Exam - Constitutional General appearance: cooperative, no acute distress, no febrile Exam: very thin/cachectic, chronically ill appearing - Head Head exam: Present: atraumatic - ENT ENT exam: Present: mucous membranes moist, normal oropharynx - Respiratory Respiratory exam: Present: decreased breath sounds, CTAB. Absent: respiratory distress - Cardiovascular Cardiovascular exam: Present: irregular rhythm - GI/Abdominal GI/Abdominal exam: Present: normal bowel sounds, soft. Absent: tenderness - Extremities Exam Additional comments: S/P Right AKA - Neurological Exam Neurological exam: Present: alert, oriented X3, no focal deficits, strengths equal and symetr throughout - Psychiatric Psychiatric exam: Present: flat affect - Skin Skin exam: Present: dry, pallor, warm
--- NOTE | 2019-02-05 16:11 | Nephrology Progress Note ---
Date of Encounter: 02/05/19 Time of Encounter: 16:11 - Assessment and Plan (1) ESRD (end stage renal disease) on dialysis Current Visit: No Status: Chronic HD MWF. Renal vitamins. Renal dose medications. Renal diet. Additional dialysis and ultrafiltration as needed. Patient was seen on dialysis. Subjective Principal diagnosis: ESRD Interval history: Patient seen. She was seen on dialysis. . Objective - Vital Signs Vital signs: Vital Signs Temp Pulse Resp BP Pulse Ox 02/05/19 13:33 98.2 F 77 18 127/62 91 02/05/19 07:37 97.9 F 61 18 105/49 90 02/05/19 03:57 97.7 F 58 24 107/44 91 02/04/19 23:36 98 F 68 18 119/49 92 02/04/19 20:26 95 02/04/19 20:03 97.8 F 72 18 130/51 95 Intake and Output 02/05/19 02/05/19 02/05/19 07:59 15:59 23:59 Intake Total 100 / 100 Balance 100 / 100 Intake: IV Fluids 100 / 100 Zosyn 3.375 GM In 0.9 % Sodium 100 / 100 Chloride (Mini-Bag +) 100 ML @ 25 mls/hr IVPB Q12HR NUHA Rx#: [id number] Other: # Voids 0 # Bowel Movements 0 Weight 51.3 kg Patient Weight 02/05/19 23:59 Weight 51.3 kg - General Appearance General appearance: Present: well-developed, well-nourished EENT: Present: ATNC Cardiology: Present: regular rate Neurologic: Present: alert and oriented x3 Psychiatric: Present: mood/affect appropriate - Lab 02/05/19 00:35 02/05/19 00:35 Most recent lab results Calcium 7.5 mg/dL (8.6-10.3) L 02/05/19 00:35 Phosphorus 4.9 mg/dL (2.7-4.5) H 01/26/19 16:33 Magnesium 1.7 mg/dL (1.6-2.6) 01/26/19 16:33 Consult Discharge Plan - Plan Referrals: Eileen House CNP [Primary Care Provider] - Desmond Zuniga MD [Partnered Physician] - 03/05/19 10:30 am
[2019-02-05] MEDS ORDERED: 0.9 % Sodium Chloride 1,000 ML ONE (20:43)
--- NOTE | 2019-02-05 21:14 | Event Note ---
Date of Encounter: 02/06/19 Time of Encounter: 19:45 Around 7:48 PM responded to a "rapid response ". Per nurse, patient had developed a thready pulse with a heart rate in the 50s before developing asystole. ACLS was immediately initiated. Blood glucose was noted to be in the 20s. 2 pushes of dextrose 50 was given. Patient intubated and 22 minutes of ACLS administered per protocol prior to return of spontaneous circulation. SBP in the 110's with heart rate in the 90s. EKG obtained showing irregular rhythm in the 40s with no evidence of ischemic changes. Blood pressure gradually began trending downward and heart rate fluctuated in the 40s to 50s. Dopamine drip was initiated. Patient subsequently transferred to the ICU. Dr. Alvarez with surgery consulted for placement of IJ central line. Norepinephrine added in addition to dopamine. Blood pressure responded. Repeat labs showed elevated lactic acid of 5.4 and troponin of 0.06. Potassium 4.5 and magnesium of 2.0. Several 250 boluses of normal saline were given with caution not to fluid overload. At this time patient was not on sedation and remained relatively unresponsive. Patient was noted to be displaying decorticate posturing. Patient's blood pressure again began trending downward into the 70s systolic. Third pressor with epinephrine was initiated. At this time discussion with family took place to reassess goals of care as I conveyed patient's poor prognosis given her hypotension despite 3 pressors, poor mental status and worsening lactic acid. Family met together and ultimately decided to change CODE STATUS to DNRCCA. At 4:38 AM repeat lactic acid now it 8.3. 15 episodes of bicarbonate was given. At 5:51 AM Repeat ABG showed a pH of 7.18. Bicarbonate of 17. At this point patient was maxed out on all 3 pressors. Blood pressure was 51/33. Vasopressin was initiated.
[2019-02-05 21:26] LABS: Basophils # 0.1 K/mcL (0.0-0.2); Basophils % 0.8 %; Eosinophils % 0.2 %; Hemoglobin 7.4 g/dL (11.5-15.4); Immature Granulocytes % 0.9 % (0-4); Lymphocytes # 1.6 K/mcL (0.6-4.6); Lymphocytes % 14.2 %; Mean Corpuscular HGB Conc 30.8 g/dL (31.6-35.5); Mean Corpuscular Hemoglobin 30.7 pg (28.0-33.3); Mean Corpuscular Volume 99.6 fL (83.0-100.0); Mean Platelet Volume 11.4 fL (9.4-12.4); Monocytes # 0.3 K/mcL (0.0-1.3); Monocytes % 2.7 %; Neutrophils # 9.2 K/mcL (1.6-8.9); Nucleated Red Blood Cells 0.5 /100 WBC (0); Platelet Count 135 K/mcL (140-400); Red Blood Count 2.41 M/mcL (3.82-4.97); Red Cell Distribution Width 16.6 % (11.5-14.5); Segmented Neutrophils % 81.2 %
--- NOTE | 2019-02-05 21:28 | Acute Care Surg Procedure Note ---
Date of procedure: 02/05/19 Pre-op diagnosis: Cardiac arrest Post-op diagnosis: same Procedure: Left IJ CVC placement (US guided) Complications: none Findings: After identifying the patient (consent not necessary-emergent situation) the left neck was prepped and draped. A sterile ultrasound was used to identify the left internal jugular vein and an 18-gauge needle was used to access the internal jugular vein. A guidewire was advanced through the needle followed by advancement of a 16 cm triple lumen catheter. The catheter was secured in place with a3-0 silk sutures and covered with Tegaderm. Chest x-ray pending for cricket cement. Anesthesia: none (Patient intubated) Surgeon: Nate Alvarez Estimated blood loss (cc): 1 Pathology: none sent Condition: stable Disposition: ICU (Portable CXR pending for placement)
[2019-02-05 21:36] LABS: INR 1.6; Prothrombin Time 17.8 Seconds (9.4-12.1)
[2019-02-05 21:39] LABS: Activated Partial Thrombo Time 70.2 Seconds (26.0-36.0)
[2019-02-05] MEDS: Norepinephrine 4 MG in D5% in Water 250 ML IVC SCH ×2 (21:40→21:52)
[2019-02-05] MEDS: Melatonin 3 MG TABLET PO SCH (21:48)
[2019-02-05] MEDS: Famotidine 20 MG TABLET PO SCH (21:48)
[2019-02-05 21:50] LABS: Platelet Estimate Slight Decrease (Normal)
[2019-02-05 21:55] LABS: Troponin I 0.06 ng/mL (< 0.04)
[2019-02-05 21:58] LABS: Albumin 1.6 g/dL (3.5-5.7); Albumin/Globulin Ratio 0.8 (1.1-2.2); Bilirubin,Total 0.5 mg/dL (0.3-1.0); Calcium 8.3 mg/dL (8.6-10.3); Phosphorous 4.9 mg/dL (2.7-4.5); Potassium 4.5 mEq/L (3.5-5.1); Total Protein 3.6 g/dL (6.4-8.9)
[2019-02-05 22:33] LABS: ABG Base Excess -6 mEq/L (-2 to 3); ABG HCO3 20 mEq/L (21-27); ABG Oxygen Saturation 97 % (95-98); ABG PCO2 42 mmHg (35-45); ABG PO2 99 mmHg (85-104); ABG TCO2 22 mEq/L (20-26); Blood Gas Modality VC; Blood Gas PEEP 5 cm H2O; Blood Gas Respiration Rate 14; Blood Gas VT 450 cc
[2019-02-05] MEDS: EPINEPHrine 1 MG in D5% in Water 250 ML IVC SCH (22:41)
[2019-02-05] MEDS ORDERED: 0.9 % Sodium Chloride 500 ML IVC ONE (22:43)
[2019-02-05] MEDS ORDERED: *HR* Midazolam HCl 5 MG/ML VIAL IVP ONE (23:13)
[2019-02-05] MEDS ORDERED: *HR* Midazolam HCl 2 MG/2 ML VIAL ONE (23:40)
[2019-02-06] MEDS: Norepinephrine 4 MG in D5% in Water 250 ML IVC SCH ×6 (00:18→12:32)
[2019-02-06] MEDS: FentaNYL (PF) 1,000 MCG in 0.9 % Sodium Chloride 80 ML IVC SCH ×2 (01:38→10:58)
[2019-02-06] MEDS ORDERED: Sodium Bicarbonate 50 MEQ/50 ML VIAL IVP ONE ×2 (02:42→11:05)
[2019-02-06] MEDS: EPINEPHrine 1 MG in D5% in Water 250 ML IVC SCH ×2 (03:32→06:34)
[2019-02-06 04:22] LABS: Hematocrit 26.1 % (35.3-44.9); Hemoglobin 8.2 g/dL (11.5-15.4); Mean Corpuscular HGB Conc 31.4 g/dL (31.6-35.5); Mean Corpuscular Hemoglobin 30.9 pg (28.0-33.3); Mean Corpuscular Volume 98.5 fL (83.0-100.0); Mean Platelet Volume 11.8 fL (9.4-12.4); Nucleated Red Blood Cells 0.4 /100 WBC (0); Platelet Count 149 K/mcL (140-400); Red Blood Count 2.65 M/mcL (3.82-4.97); Red Cell Distribution Width 16.7 % (11.5-14.5)
[2019-02-06 04:28] LABS: INR 1.9; Prothrombin Time 21.5 Seconds (9.4-12.1)
[2019-02-06 04:31] LABS: Activated Partial Thrombo Time 53.5 Seconds (26.0-36.0)
[2019-02-06 04:48] LABS: Lymphocytes # 1.1 K/mcL (0.6-4.6); Monocytes # 0.6 K/mcL (0.0-1.3); Neutrophils # 12.1 K/mcL (1.6-8.9); Platelet Estimate Slight Decrease (Normal)
[2019-02-06 04:59] LABS: Albumin 1.6 g/dL (3.5-5.7); Albumin/Globulin Ratio 0.9 (1.1-2.2); Calcium 7.7 mg/dL (8.6-10.3); Globulin 1.8 g/dL (2.4-3.5); Potassium 4.1 mEq/L (3.5-5.1); Total Protein 3.4 g/dL (6.4-8.9)
[2019-02-06] MEDS ORDERED: 0.9 % Sodium Chloride 250 ML IVC ONE (05:02)
[2019-02-06 05:52] LABS: ABG Base Excess -10 mEq/L (-2 to 3); ABG HCO3 17 mEq/L (21-27); ABG Oxygen Saturation 93 % (95-98); ABG PCO2 46 mmHg (35-45); ABG PH 7.19 pH Units (7.32-7.45); ABG PO2 84 mmHg (85-104); ABG TCO2 19 mEq/L (20-26); Blood Gas Modality VC+; Blood Gas PEEP 5 cm H2O; Blood Gas Respiration Rate 14; Blood Gas VT 450 cc
[2019-02-06] MEDS: *HR* Heparin 5,000 UNIT/ML VIAL SQ SCH (06:04)
[2019-02-06] MEDS ORDERED: 0.9 % Sodium Chloride 500 ML IVC ONE (06:04)
[2019-02-06] MEDS: Piperacillin/Tazobactam 3.375 GM in 0.9 % Sodium Chloride Mini Bag 100 ML IVPB SCH (06:06)
[2019-02-06] MEDS ORDERED: Vasopressin 40 UNIT in D5% in Water 100 ML IV SCH (06:15)
[2019-02-06] MEDS ORDERED: EPINEPHrine 5 MG in D5% in Water 250 ML IVC SCH (07:45)
[2019-02-06] MEDS: Lactobacillus 1 EACH CAP.SPRINK PO SCH (08:11)
[2019-02-06] MEDS: cloNIDine HCl 0.1 MG TABLET PO SCH (08:11)
[2019-02-06] MEDS: Diltiazem CD (24hr) 180 MG CAPSULE PO SCH (08:11)
[2019-02-06] MEDS: Aspirin Enteric Coated 81 MG Tablet PO SCH (08:11)
[2019-02-06] MEDS: Furosemide 40 MG TABLET PO SCH (08:12)
[2019-02-06] MEDS: hydrALAZINE 25 MG TABLET PO SCH (08:12)
[2019-02-06] MEDS: Isosorbide MONOnitrate (24 HR) 30 MG TAB.ER.24H PO SCH (08:12)
--- NOTE | 2019-02-06 09:56 | Pulmonology Progress Note ---
Date of Encounter: 02/06/19 Time of Encounter: 09:56 Assessment and Plan (1) Shock Current Visit: Yes Status: Acute I spent 45 min of Critical Care time with this patient. It involved decision making of high complexity to assess, manipulate, and support vital organ system failure and/or to prevent further life threatening deterioration of the p atient's condition. The time involved in the performance of separately reportable procedures was not counted toward critical care time. Patient seen and examined at bedside Labs, radiology, chart personally reviewed. Management was reviewed during multidisciplinary critical care rounds. REGISTERED CLINICAL DIETITIAN: The patient is status post cardiac arrest she is obtunded but does not follow commands she has primitive organ reflexes at this time was able to breathe over the vent but that has abated over the course of the morning Pulm: Severe acute on chronic hypoxic hypercapnic respiratory failure on maximal vent support this is a combination of pneumonia and cardiogenic pulmonary edema she is requiring high FiO2 and PEEP ratio increase her respiratory rate for relative respiratory acidosis Cards: Status post cardiac arrest possibly mediated by sepsis and postdialysis she is maxed out on for vasopressors with multiorgan system failure lactate approaching 10 I do not think this is a primary cardiac event such as ACS more likely related to fluids shifts during dialysis and sepsis. She is not a candidate for hypothermic protocol because of hemodynamic instability GI: GI prophylaxis given Nutrition: Nothing by mouth for now Renal: Severe gap and non-gap metabolic acidosis which is a manifestation of lactic acidosis and renal failure ESRD not candidate for intermittent hemodialysis today because of circulatory insufficiency/shock UOP Monitored, Cont to Trend sCr and monitor Electrolytes. Because of degree of acidosis and worsening hypertension we will start bicarbonate infusion ID: Pneumonia on broad-spectrum antibiotics Heme/Onc: Chronic anemia and thrombocytopenia; likely metastatic breast cancer Endo: Glucose Monitored Integ/MSK: Skin Care per routine ICU Nursing Protocol to prevent ulcers. She is status post left AKA Lines: All lines examined without evidence of infection : Dispo: Monitor in ICU for critical illness CODE: DNAR Unfortunately patient's prognosis is grave her predicted mortality is approachin g 100% she is frail and and has multiple medical comorbidities leading up to this event I had a rebeca conversation with the patient's daughter one of her surrogate decision makers she has 3 other children and daughter express understanding mother's prognosis was extremely grave and would likely need to transition to comfort measures and that repeat cardiac arrest was in my professional opinion imminent. We will consult palliative care for further documentation of goals of care. (2) HAP (hospital-acquired pneumonia) Current Visit: Yes Status: Acute (3) Pleural effusion Current Visit: Yes Status: Acute (4) COPD exacerbation Current Visit: Yes Status: Acute (5) ESRD (end stage renal disease) on dialysis Current Visit: No Status: Chronic (6) MOSF (multiple organ systems failure) Current Visit: Yes Status: Acute (7) Acute respiratory failure with hypoxia and hypercapnia Current Visit: Yes Status: Acute (8) Cardiac arrest Current Visit: Yes Status: Acute Subjective Principal diagnosis: ESRD Interval history: Unfortunately Ms Hedrick suffered a cardiac arrest overnight and underwent multiple rounds of ACLS and total over 20 minutes before ROSC. She is now intubated with multiorgan system failure on multiple vasopressor she remains unresponsive her daughter at bedside. Objective PUL Vital signs: Last Vital Signs Temp 97.7 F 02/06/19 08:44 Pulse 68 02/06/19 06:00 Resp 22 02/06/19 07:38 BP 129/70 02/06/19 07:38 Pulse Ox 99 02/06/19 07:38 General appearance: comatose, other (Frail appearing) Eyes: nonicteric ENT: other (Endotracheal tube noted in satisfactory position) Effort: other (Rib fracture noted) Auscultation: bilateral: diminished breath sounds Cardiovascular: regular rate and rhythm Gastrointestinal: absent bowel sounds, soft Integumentary: other (diffuse mottling of LE noted ) Extremities: other (absent distal pulses; ext's cool ) Musculoskeletal: other (left AKA noted ) unable to assess due to mental status, other (Pupils equal but sluggish ) other (comatose. ) Ventilator Settings Ventilator Settings: Ventilator Settings, Last 8 Hours Ventilator Tidal Volume 450 Setting Ventilator Tidal Volume 450 Setting Ventilator Tidal Volume 450 Setting Ventilator Tidal Volume 450 Setting Ventilator Tidal Volume 450 Setting Ventilator Tidal Volume 450 Setting Ventilator Tidal Volume 450 Setting Ventilator Tidal Volume 450 Setting Ventilator Tidal Volume 450 Setting Ventilator Tidal Volume 450 Setting Ventilator Tidal Volume 450 Setting Ventilator Respiratory Rate 14 Setting Ventilator Respiratory Rate 14 Setting Ventilator Respiratory Rate 14 Setting Ventilator Respiratory Rate 14 Setting Ventilator Respiratory Rate 14 Setting Ventilator Respiratory Rate 14 Setting Ventilator Respiratory Rate 14 Setting Ventilator Respiratory Rate 14 Setting Ventilator Respiratory Rate 14 Setting Ventilator Respiratory Rate 14 Setting Ventilator Respiratory Rate 14 Setting Actual Respiratory Rate 22 Actual Respiratory Rate 24 Actual Respiratory Rate 21 Actual Respiratory Rate 26 Actual Respiratory Rate 24 Actual Respiratory Rate 33 Actual Respiratory Rate 26 Actual Respiratory Rate 26 Actual Respiratory Rate 29 Actual Respiratory Rate 28 Positive End Expiratory 5 Pressure Positive End Expiratory 5 Pressure Positive End Expiratory 5 Pressure Positive End Expiratory 5 Pressure Positive End Expiratory 5 Pressure Positive End Expiratory 5 Pressure Positive End Expiratory 5 Pressure Positive End Expiratory 5 Pressure Positive End Expiratory 5 Pressure Positive End Expiratory 5 Pressure Positive End Expiratory 5 Pressure Peak Inspiratory Airway 20 Pressure Peak Inspiratory Airway 22 Pressure Peak Inspiratory Airway 23 Pressure Peak Inspiratory Airway 22 Pressure Peak Inspiratory Airway 21 Pressure Peak Inspiratory Airway 21 Pressure Peak Inspiratory Airway 23 Pressure Peak Inspiratory Airway 23 Pressure Peak Inspiratory Airway 21 Pressure Peak Inspiratory Airway 22 Pressure Results - Laboratory Findings CBC and BMP: 02/06/19 04:00 02/06/19 04:00 ABG ABG pH 7.19 pH Units (7.32-7.45) L* 02/06/19 05:48 ABG pCO2 46 mmHg (35-45) H 02/06/19 05:48 ABG pO2 84 mmHg (85-104) L 02/06/19 05:48 ABG O2 Saturation 93 % (95-98) L 02/06/19 05:48 PT/INR, D-dimer PT 21.5 Seconds (9.4-12.1) H 02/06/19 04:00 Abnormal lab findings: Abnormal lab results WBC 13.8 K/mcL (4.3-11.1) H 02/06/19 04:00 RBC 2.65 M/mcL (3.82-4.97) L 02/06/19 04:00 Hgb 8.2 g/dL (11.5-15.4) L 02/06/19 04:00 Hct 26.1 % (35.3-44.9) L 02/06/19 04:00 MCHC 31.4 g/dL (31.6-35.5) L 02/06/19 04:00 RDW 16.7 % (11.5-14.5) H 02/06/19 04:00 Band Neutrophils % 28.0 % (0-4) H 02/06/19 04:00 Neutrophils # 12.1 K/mcL (1.6-8.9) H 02/06/19 04:00 Nucleated RBCs/100 WBC 0.4 /100 WBC (0) H 02/06/19 04:00 Toxic Granulation Present (Not Present) A 02/05/19 00:35 Platelet Estimate Slight Decrease (Normal) L 02/06/19 04:00 Large Platelets Present (Not Present) A 02/05/19 00:35 Hypochromasia Present (Not Present) A 02/04/19 06:44 Basophilic Stippling 1+ (Not Present) A 02/04/19 06:44 Anisocytosis 1+ (Not Present) A 02/05/19 00:35 PT 21.5 Seconds (9.4-12.1) H 02/06/19 04:00 APTT 53.5 Seconds (26.0-36.0) H 02/06/19 04:00 ABG pH 7.19 pH Units (7.32-7.45) L* 02/06/19 05:48 ABG pCO2 46 mmHg (35-45) H 02/06/19 05:48 ABG pO2 84 mmHg (85-104) L 02/06/19 05:48 ABG HCO3 17 mEq/L (21-27) L 02/06/19 05:48 ABG Total CO2 19 mEq/L (20-26) L 02/06/19 05:48 ABG O2 Saturation 93 % (95-98) L 02/06/19 05:48 ABG Base Excess -10 mEq/L (-2 to 3) L 02/06/19 05:48 Sodium 134 mEq/L (136-145) L 02/06/19 04:00 Carbon Dioxide 20 mEq/L (23-29) L 02/06/19 04:00 BUN 32 mg/dL (8-23) H 02/06/19 04:00 Creatinine 2.01 mg/dL (0.60-1.20) H 02/06/19 04:00 Est GFR ( Amer) 29 (> 60) L 02/06/19 04:00 Est GFR (Non-Af Amer) 24 (> 60) L 02/06/19 04:00 Glucose 133 mg/dL (70-105) H 02/06/19 04:00 POC Glucose 146 mg/dL (70-99) H 02/06/19 07:53 Lactic Acid 9.9 mmol/L (0.5-2.2) H* 02/06/19 08:40 Calcium 7.7 mg/dL (8.6-10.3) L 02/06/19 04:00 Phosphorus 4.9 mg/dL (2.7-4.5) H 02/05/19 20:30 AST 2600 Units/L (13-39) H 02/06/19 04:00 ALT 774 Units/L (7-52) H 02/06/19 04:00 Troponin I 0.11 ng/mL (< 0.04) H* 02/06/19 04:00 C-Reactive Protein 33 mg/L (Less than 10) H 01/26/19 16:33 Serum Total Protein 3.4 g/dL (6.4-8.9) L 02/06/19 04:00 Albumin 1.6 g/dL (3.5-5.7) L 02/06/19 04:00 Globulin 1.8 g/dL (2.4-3.5) L 02/06/19 04:00 Albumin/Globulin Ratio 0.9 (1.1-2.2) L 02/06/19 04:00 Hep Bs Antibody < 3.10 mIU/mL (10.00-) L 01/27/19 06:55 - Microbiology Findings Microbiology Findings: Microbiology, Last 48 Hours 02/05/19 20:30 Blood Culture - Preliminary Peripheral Venipuncture Culture is incubating and being continuously monitored for growth. Final report to follow. 02/05/19 20:30 Blood Culture - Preliminary Peripheral Venipuncture Culture is incubating and being continuously monitored for growth. Final report to follow. 02/05/19 08:39 Blood Culture - Preliminary Peripheral Venipuncture Culture is incubating and being continuously monitored for growth. Final report to follow. 02/05/19 08:30 Blood Culture - Preliminary Peripheral Venipuncture Culture is incubating and being continuously monitored for growth. Final report to follow. - Diagnostic Findings Chest x-ray: report reviewed, image reviewed - Clinical Findings Intake & Output: Intake & Output 02/05/19 02/06/19 02/06/19 23:59 07:59 15:59 Intake Total 683 / 683 2435 / 2435 504 / 504 Output Total 700 / 700 50 / 50 Balance 683 / 683 1735 / 1735 454 / 454 Weight 45.9 kg 45.9 kg Consult Discharge Plan - Plan Referrals: Eileen HouseMEET [Primary Care Provider] - Desmond Zuniga MD [Partnered Physician] - 03/05/19 10:30 am
[2019-02-06] MEDS: Ipratropium/Albuterol Neb 3 ML IH PRN ×2 (10:11→15:11)
[2019-02-06] MEDS ORDERED: Artificial Tears SOLN 15 ML BOTTLE BOTH EYES PRN (11:00)
[2019-02-06] MEDS ORDERED: Sodium Bicarbonate 50 MEQ/50 ML VIAL ONE (11:15)
[2019-02-06] MEDS: Artificial Tears SOLN 15 ML BOTTLE BOTH EYES SCH ×2 (11:26→15:34)
--- NOTE | 2019-02-06 11:41 | Palliative - Consult Note ---
Date of Encounter: 02/06/19 Time of Encounter: 10:15 - Assessment and Plan (1) Pain Current Visit: Yes Status: Acute Assessment and plan: Patient is not responsive, but moans when her chest is touched. Fentanyl gtt started 50 mcg /hrs. (2) Goals of care, counseling/discussion Current Visit: Yes Status: Acute Assessment and plan: Met with patient's daughter Dang at the bedside. Discussed current medical condition, and extremely grim prognosis. Patient has 4 children, and there is no POA in place. Dang states that the current decision is DNRCCA which means to allow natural when it occurs. She feels very torn at the idea to discontinue care. Explained to Dang that patient at this point is artificially kept alive, and is not likely to recover. Patient's sons are to be arriving shortly, and decisions have to be joined. Will follow up later when sons are present. (3) Acute respiratory failure with hypoxia Current Visit: No Status: Acute Assessment and plan: on Vent support. (4) Palliative care encounter Current Visit: Yes Status: Acute (5) Multi-organ system dysfunction Current Visit: Yes Status: Acute Assessment and plan: Patient very unstable, management per ICU team. Palliative-CN HPI - Data of Consult Patient: new to practice Consult date: 02/06/19 Requesting Physician: Aylin Brice MD Primary Care Provider: Eileen House CNP - Consult Narrative Palliative Care/Comfort Measures: Palliative care Reason for consult: Goals of care, s/p CPR, poor prognosis History of present illness: Ms. Hedrick is a 78 year old female with history of recurrent metastatic left breast cancer, status post mastectomy 02/19/2018. Patient had local recurrences of the breast cancer status post re-excision in 10/22/2018 and was started on Herceptin. Patient has been having recurrent pleural effusion requiring thoracentesis on her right side. She also has ESRD on hemodialysis. Patient was admitted on 01/26/2019 for management of chronic wounds and cellulitis on her right leg. She underwent right above-knee amputation on January 30. She had not had a hospital course complicated by respiratory distress, and yesterday she suffered a cardiac arrest at 7:48 PM. ACLS was continued for 22 minutes, she was intubated. Patient is now transferred to ICU, intubated, not sedated, moaning when her chest is touched, no purposeful movements. She is on four pressors all maxed out, blood pressure remains low. Latest labs showed worsening lactic acidosis, and a picture of multi-organ failure. Palliative care consult for goals of care discussion. CC: Aylin Brice MD - Time Spent with Patient Time: Total time spent is greater than 50% in coordination of care (as documented) at patient's floor/unit and/or counseling patient: Past Med Surg Social Fam HX - Past Medical History Medical history: atrial fibrillation, cancer, COPD, dialysis, hypertension Additional medical history: breast CA. one kidney since 89 from CA, dialysis for 6 years Psychiatric history: no psych history - Past Surgical History Surgical History: hysterectomy, other Additional surgical history: kidney removed. breast surgery - Social History Smoking Status: Current every day smoker Smokeless Tobacco Status: No Alcohol use: none Drug use: none - Family History Sister Family Member Ethnicity: Non- Living Status: Still Living Hx Family Cardiac Disorders: Yes (Pig valve) Hx Family Cancer: Yes (colon cancer) Hx Family Endocrine Disorder: Yes (DM) Mother Family Member Ethnicity: Non- Living Status: Hx Family Cardiac Disorders: (angina) Father Family Member Ethnicity: Non- Living Status: Hx Family Respiratory Disorders: (pneumonia) Brother Family Member Ethnicity: Non- Living Status: Hx Family Cancer: Yes Medications and Allergies Aspirin Enteric Coated [Aspirin EC] 81 mg PO DAILY #0 02/29/16 [History] Omeprazole [PriLOSEC] 40 mg PO DAILY capsule. 04/16/17 [Rx] Carvedilol [Coreg] 25 mg PO BID 06/24/17 [History] Furosemide [Lasix] 40 mg PO DAILY 06/24/17 [History] Isosorbide MONOnitrate (24 HR) [Imdur] 30 mg PO DAILY 06/24/17 [History] cloNIDine HCl [CloNIDine HCl] 0.2 mg PO BID 01/30/18 [History] hydrALAZINE [HydrALAZINE] 25 mg PO TID 03/22/18 [History] Cholecalciferol (Vitamin D3) [Vitamin D] 50,000 unit PO QWEEK 12/17/18 [History] Prochlorperazine Maleate [Compazine] 5 mg PO TID PRN 12/17/18 [History] Ranitidine HCl [Heartburn Relief] 150 mg PO HS 01/07/19 [History] Collagenase Oint [Santyl] 1 appl TP DAILY 01/26/19 [History] Diltiazem CD (24hr) [Cardizem CD] 360 mg PO DAILY 01/26/19 [History] Melatonin 10 mg PO HS 01/26/19 [History] Allergy/AdvReac Type Severity Reaction Status Date / Time codeine AdvReac Confusion Verified 01/07/19 09:46 ROS unobtainable: due to endotracheal tube Palliative Care-Exam - Constitutional Vitals: Temp Pulse Resp BP Pulse Ox 97.7 F 68 15 101/56 92 02/06/19 08:44 02/06/19 06:00 02/06/19 10:05 02/06/19 10:05 02/06/19 10:05 Exam: cachetic, moaning in pain - Head Head Exam: Present: atraumatic - Neck Additional comments: Orally intubated - Respiratory Respiratory exam: Present: chest wall tenderness, rales Additional comments: mechanical breath sounds - Cardiovascular Cardiovascular exam: Present: +S1, +S2 - GI/Abdominal Exam GI/Abdominal exam: Present: soft - Catheter Type: Urethral (Wu) - Extremities Exam Additional comments: Anasarca - Neurological Exam Additional comments: unresponsive, moaning to pain Internal Medicine - CN: Reslt - Labs CBC & Chem 7: 02/06/19 04:00 02/06/19 04:00 Labs: Short CBC 02/05/19 02/06/19 Range/Units 20:30 04:00 WBC 11.3 H 13.8 H (4.3-11.1) K/mcL Hgb 7.4 L 8.2 L (11.5-15.4) g/dL Hct 24.0 L 26.1 L (35.3-44.9) % Plt Count 135 L 149 (140-400) K/mcL Neutrophils # 9.2 H 12.1 H (1.6-8.9) K/mcL BMP 02/05/19 02/06/19 20:30 04:00 Sodium 134 L 134 L Potassium 4.5 4.1 Chloride 102 99 Carbon Dioxide 24 20 L BUN 30 H 32 H Creatinine 1.90 H 2.01 H Glucose 209 H 133 H Calcium 8.3 L 7.7 L Cardiac Enzymes 02/05/19 02/06/19 Range/Units 20:30 04:00 Troponin I 0.06 H* 0.11 H* (< 0.04) ng/mL Liver Function 02/05/19 02/06/19 Range/Units 20:30 04:00 Total Bilirubin 0.5 1.0 (0.3-1.0) mg/dL AST 1101 H 2600 H (13-39) Units/L ALT 299 H 774 H (7-52) Units/L Alkaline Phosphatase 70 92 (34-104) Units/L Albumin 1.6 L 1.6 L (3.5-5.7) g/dL - ABG Interpretation ABG results: ABG ABG pH 7.19 pH Units (7.32-7.45) L* 02/06/19 05:48 ABG pCO2 46 mmHg (35-45) H 02/06/19 05:48 ABG pO2 84 mmHg (85-104) L 02/06/19 05:48 ABG O2 Saturation 93 % (95-98) L 02/06/19 05:48 PT/INR, D-dimer PT 21.5 Seconds (9.4-12.1) H 02/06/19 04:00 - Impressions Impressions Chest X-Ray 02/05/19 21:28 IMPRESSION: Endotracheal tube terminates at the upper limits of normal, 7 cm superior to the flavio. Proximal esophagogastric tube positioning. Recommend advancing 10 cm. Moderate volume right and small volume left pleural effusions with background of moderate interstitial edema. Additional right basilar opacities favored to represent atelectasis although superimposed airspace disease suspected given recent CT abdomen pelvis findings. Bilateral rib fractures. D/ / Junior Horvath / Junior Horvath Interpreting Provider: Junior Horvath Consult Discharge Plan - Plan Referrals: Eileen House CNP [Primary Care Provider] - Desmond Zuniga MD [Partnered Physician] - 03/05/19 10:30 am Palliative Quality Palliative Quality: Screen for Code Status: Yes, Screen for Goals of Care: Yes, Screen for Pain: Yes, If Pain Regimen Started, Initiate Bowel Regimen: Yes, Screen for Nausea/Vomitting: NA Code Status: 01/26/19 21:38 Resuscitation Status: Active [RES] Routine Comment: Resuscitation Status: Full Code Resuscitation Status: Active [RES] Routine Comment: Resuscitation Status: DNR-Comfort Care-Arrest
[2019-02-06] MEDS ORDERED: Pantoprazole 40 MG VIAL IVP SCH (12:00)
[2019-02-06] MEDS ORDERED: Sod Bicarb 150mEq/D5W 150 MEQ/1,000 ML IV.SOLN IVC SCH (13:00)
[2019-02-06] MEDS ORDERED: Sodium Bicarbonate 150 MEQ in D5% in Water 1,000 ML IVC SCH (13:30)
[2019-02-06] MEDS ORDERED: Norepinephrine 8 MG in D5% in Water 250 ML IVC SCH (14:15)
--- NOTE | 2019-02-06 14:21 | Oncology Inp Progress Note ---
<Emre Paulson - Last Filed: 02/06/19 17:36> Date of Encounter: 02/06/19 Oncology: Obj Data - Labs CBC & Chem 7: 02/06/19 04:00 02/06/19 04:00 Consult Discharge Plan - Plan Referrals: Eileen House CNP [Primary Care Provider] - Desmond Zuniga MD [Partnered Physician] - 03/05/19 10:30 am Inpatient Charges Provider: Dr. Yen Paulson Follow up - Inpatient: [id number] - Attending Attestation I examined this patient and my medical decision-making was reviewed with the Advanced Practice Nurse. I agree with the documented findings, disposition and treatment plan as described except to the extent set forth below. -Patient now in the ICU after coding last night. She is intubated and on pressors. -We had a long discussion with her family, and we agree that compassionate withdrawal of care is appropriate at this time. They are currently awaiting other family members to arrive to say their last goodbyes. -We will sign off at this time, please call us with any further questions. <Cahndrika Sharpe - Last Filed: 02/06/19 17:40> Date of Encounter: 02/06/19 Time of Encounter: 14:00 (1) Breast cancer, left breast Current Visit: No Status: Acute Assessment and plan: Left breast IDC ER/DE negative and HER-2/sultana positive by IHC at 3+. PET/CT 12/05/2017 was negative for metastasis. S/P mastectomy 02/19/2018 under the care of Dr. Alvarez c/w [id number] disease. Planned to start Herceptin with Taxol 01/10/2019, however, taxol was held due to her worsening right foot cellulitis. Concerns regarding how well she may tolerate treatment moving forward were di scussed at prior appointment however patient was persistent on continuing to pursue treatment. CT of the abdomen/pelvis reveals bilateral pleural effusions R>L with consolidation of the RLL and multiple liver lesions concerning for metastatic disease Plan: Following discussion with patient and family yesterday, decision was made to discuss options with palliative care team today for transition to comfort care and hospice Patients condition declined last evening, she underwent intubation and 22 minutes of ACLS She is currently maxed out on pressor support with down trending BP Palliative care team working with patient and family to establish goals of care, awaiting for arrival of family members to discuss compassionate extubation Qualifiers: Breast location: unspecified site of breast Estrogen receptor status: unspecified Patient sex: female Qualified Code(s): C50.912 - Malignant neoplasm of unspecified site of left female breast (2) Counseling regarding advanced care planning and goals of care Current Visit: No Status: Acute Assessment and plan: As above Met with patient and family alongside Dr. Herr with palliative care At this time, we would look to palliative care team and Dr. Giles with the ICU team for further direction on goals of care in discussion for compassionate extubation Verbal support was provided, we will otherwise plan to sign off, if we could be of further assistance please do not hesitate to reach out Oncology: Subj Interval history: Ms. Hedrick is intubated and sedated. She does not respond to stimuli. Multiple family members are at bedside including patients daughter and son. They are awaiting arrival of 2 other siblings however, they have not been able to reach one sibling and the other sibling wishes not to come. Siblings were hoping to have all in place to discuss compassionate extubation. I met with patient and family alongside Dr. Herr who discussed goals of care. I provided family with our thoughts and prayers and encouraged them to continue to work with Dr. Herr during this difficult transition to compassionately remove care, we would agree with the palliative cares team decisions during this time. - Constitutional Exam: intubated and sedated, does not respond to verbal or tactile stimuli, very thin/cachectic - ENT Additional comments: mechanically intubated - Respiratory Respiratory exam: Present: decreased breath sounds Additional comments: mechanical breath sounds - Cardiovascular Cardiovascular exam: Present: bradycardia, RRR - Extremities Exam Additional comments: s/p Right AKA - Neurological Exam Neurological exam: Present: altered - Psychiatric Additional comments: unable to assess - Skin Skin exam: Present: dry, pallor Oncology: Obj Data - Labs CBC & Chem 7: 02/06/19 04:00 02/06/19 04:00 Inpatient Charges Provider: Dr. Yen Paulson
--- NOTE | 2019-02-06 15:17 | Nephrology Progress Note ---
Date of Encounter: 02/06/19 Time of Encounter: 15:17 - Assessment and Plan (1) ESRD (end stage renal disease) on dialysis Current Visit: No Status: Chronic HD MWF. Renal vitamins. Renal dose medications. Renal diet. Additional dialysis and ultrafiltration as needed. No acute need for dialysis today. If the patient does need dialysis and will have to be with continuous dialysis as her blood pressure would not tolerate intermittent hemodialysis. She will To be placed prior to receiving dialysis if this is warranted. Patient is critically ill with a very poor prognosis. Per review of the palliative care notes it appears that the family does not wish to escalate care in the event of a cardiac arrest. (2) Cardiac arrest Current Visit: Yes Status: Acute (3) Acute and chronic respiratory failure Current Visit: No Status: Acute Patient is currently intubated and sedated Qualifiers: Respiratory failure complication: hypoxia Qualified Code(s): J96.21 - Acute and chronic respiratory failure with hypoxia (4) COPD exacerbation Current Visit: No Status: Acute (5) Sepsis Current Visit: No Status: Acute Qualifiers: Sepsis type: sepsis due to unspecified organism Qualified Code(s): A41.9 - Sepsis, unspecified organism (6) Anemia in chronic kidney disease (CKD) Current Visit: No Status: Chronic Qualifiers: Chronic kidney disease stage: on chronic dialysis Qualified Code(s): N18.6 - End stage renal disease; D63.1 - Anemia in chronic kidney disease; Z99.2 - Dependence on renal dialysis (7) CAD (coronary artery disease) Current Visit: No Status: Chronic Qualifiers: Coronary Disease-Associated Artery/Lesion type: [place] artery [place] vs. transplanted heart: [place] heart Associated angina: without angina Qualified Code(s): I25.10 - Atherosclerotic heart disease of [place] coronary artery without angina pectoris (8) Lactic acidosis Current Visit: Yes Status: Acute (9) Breast cancer Current Visit: Yes Status: Acute Qualifiers: Breast location: upper outer quadrant of breast Estrogen receptor status: negative Patient sex: female Laterality: left Qualified Code(s): C50.412 - Malignant neoplasm of upper-outer quadrant of left female breast; Z17.1 - Estrogen receptor negative status [ER-] Subjective Principal diagnosis: ESRD Interval history: The patient was seen and evaluated. Overnight events were noted. The patient is critically ill and currently intubated and sedated on multiple vasopressors with persistent hypotension. Her review of systems is unobtainable. . Objective - Vital Signs Vital signs: Vital Signs Temp Pulse Resp BP Pulse Ox Pulse Ox 02/06/19 12:00 66 24 83/50 91 02/06/19 11:00 57 14 84/50 90 02/06/19 10:05 15 101/56 92 02/06/19 10:00 56 14 101/56 90 02/06/19 09:00 57 14 97/54 90 02/06/19 08:44 97.7 F 02/06/19 08:00 63 22 102/56 92 02/06/19 07:38 22 129/70 99 02/06/19 06:00 68 25 79/49 95 02/06/19 05:52 21 51/33 95 02/06/19 05:30 65 26 51/33 95 02/06/19 05:00 63 24 88/59 96 02/06/19 04:00 98.0 F 75 33 96/40 96 02/06/19 03:48 26 110/53 98 02/06/19 03:30 83 26 112/61 100 02/06/19 03:00 80 29 53/40 95 02/06/19 02:00 75 28 55/39 96 02/06/19 01:45 27 89/56 96 02/06/19 01:00 83 23 96/57 98 02/06/19 00:30 79 20 96/65 99 02/06/19 00:29 19 100 02/06/19 00:00 94.1 F L 84 20 109/62 100 02/05/19 23:00 82 25 119/68 100 02/05/19 22:30 75 27 56/47 100 02/05/19 22:15 97.0 F L 70 25 75/46 55 02/05/19 22:00 75 14 80/50 98 02/05/19 21:57 21 100 02/05/19 21:30 60 14 72/38 93 02/05/19 21:00 97.0 F L 45 21 86/41 100 99 02/05/19 18:50 98.4 F 69 15 103/53 86 02/05/19 16:17 97.9 F 73 18 119/60 92 Intake and Output 02/05/19 02/06/19 02/06/19 23:59 07:59 15:59 Intake Total 683 / 683 2435 / 2435 1109 / 1109 Output Total 700 / 700 150 / 150 Balance 683 / 683 1735 / 1735 959 / 959 Intake: IV Fluids 683 / 683 2435 / 2435 1109 / 1109 0.9 % Sodium Chloride 250 ML @ 250 / 250 937.5 mls/hr IVC .Q16M ONE Rx#: [id number] 0.9 % Sodium Chloride 500 ML @ 500 / 500 500 / 500 999 mls/hr IVC .Q31M ONE Rx#: [id number] DOPamine Premix 400mg/250mL 400 20 / 20 230 / 230 250 / 250 mg In 250 ml @ 2.5 MCG/KG/MIN 4.809 mls/hr IVC .Q24H [facility] Rx#: [id number] EPINEPHrine 1 MG In Dextrose 5% 38 / 38 464 / 464 251 / 251 250 ML @ 2 MCG/MIN 30.12 mls/ hr IVC CONT [facility] Rx#:[id number] Levophed 4 MG In Dextrose 5% / 991 / 991 508 / 508 250 ML @ 8 MCG/MIN 30.48 mls/hr IVC CONT [facility] Rx#:[id number] Zosyn 3.375 GM In 0.9 % Sodium 100 / 100 100 / 100 Chloride (Mini-Bag +) 100 ML @ 25 mls/hr IVPB Q12HR [facility] Rx#: [id number] Output: Urine 0 / 0 Gastric Drainage 700 / 700 150 / 150 Other: # Urine Diapers 0 Weight 45.9 kg 45.9 kg Blood Glucose* 152 130 119 Patient Weight 02/06/19 23:59 Weight 45.9 kg - General Appearance General appearance: Present: well-developed, well-nourished, chronically ill, sedated on ventilator, intubated, frail EENT: Present: ATNC Respiratory: Present: course breath sounds Cardiology: Present: no edema Additional Comments: Bradycardic Dialysis Vascular Access: Arteriovenous Fistula Gastrointestinal: Present: no tenderness Integumentary: Present: warm and dry Additional Comments: Unobtainable as the patient is intubated and sedated Musculoskeletal: Present: no cyanosis Additional Comments: Unobtainable as the patient is intubated and sedated - Lab 02/06/19 04:00 02/06/19 04:00 Most recent lab results ABG pH 7.19 pH Units (7.32-7.45) L* 02/06/19 05:48 ABG pCO2 46 mmHg (35-45) H 02/06/19 05:48 ABG pO2 84 mmHg (85-104) L 02/06/19 05:48 ABG HCO3 17 mEq/L (21-27) L 02/06/19 05:48 ABG O2 Saturation 93 % (95-98) L 02/06/19 05:48 Calcium 7.7 mg/dL (8.6-10.3) L 02/06/19 04:00 Phosphorus 4.9 mg/dL (2.7-4.5) H 02/05/19 20:30 Magnesium 2.0 mg/dL (1.6-2.6) 02/05/19 20:30 Consult Discharge Plan - Plan Referrals: Eileen House CNP [Primary Care Provider] - Desmond Zuniga MD [Partnered Physician] - 03/05/19 10:30 am
[2019-02-06] MEDS: *HR* OxyCODONE Immed Rel 5 MG TABLET PO PRN (16:00)
[2019-02-06 17:28] VITALS: BP 98/57
--- NOTE | 2019-02-06 18:48 | Event Note ---
Date of Encounter: 02/06/19 Time of Encounter: 18:30 Due the patient's medical condition and the patient having a poor prognosis the patient's family elected to withdraw care. At 1831 the patient's IV pressors were discontinued and the patient was extubated. The family was in agreement with this plan. The patient's daughter, son, son-in-law and grandchildren were at bedside. Respiratory therapy as well as nursing staff were present in the room. Once the pressors have been discontinued the patient's blood pressure dropped to a systolic of 50s and heart rate dropped into the 30s.
--- NOTE | 2019-02-06 19:03 | Death Note ---
<Angel Zaragoza - Last Filed: 02/06/19 19:15> Discharge Sum: Summary - Date and Time Date of admission: 01/28/19 13:32 Date of : 02/06/19 Time of : 18:56 - Summary Details: Patient was a 78-year-old female that had had a cardiac arrest on the floor the night prior to . Patient had been intubated and brought to the ICU after obtaining loss. The patient was then on multiple pressors throughout her stay in the emergency department today. Patient's family was at bedside last night into today. There is multiple discussions with the family and palliative care was involved. Ultimately the patient's prognosis was very poor and the family elected twist truck care. Family was at bedside including the son, daughter, son-in-law as well as the patient's grandchildren. At 1831 the respiratory therapist and myself and nursing staff were present in the room and the patient's pressors were discontinued and the patient was extubated. At 1856 the patient had no breathing, blood pressure was unable to be obtained there was asystole on the monitor the patient had no palpable pulse and no heartbeat was able to be auscultated. The patient had no breath sounds. At 1856 the patient was pronounced. Family and electronic engineering technician were at bedside at the time of the patient's passing. The attending Dr. Giles had been notified that the family was withdrawing care and that the patient's pressors and endotracheal tube were going to be removed. Dr. Giles was notified at 1905 that the patient had been pronounced. - Additional Data Confirmation of as documented by pronouncing clinician: no pulse, no respirations, no heart sounds, pupils fixed and dilated Family: at bedside Additional persons at bedside: hay Attending/PCP notified?: Yes Attending physician: Dr. Giles Was code activated?: No Autopsy requested?: No silk examiner notified?: No Organ bank notified?: No Advance directives: No Hospice patient?: No Discharge Sum: Diag - PCOD Probable Cause of : Cardiac arrest Discharge Sum: Prov - Provider Primary care physician: Eileen House CNP Admitting clinician: Omari Lagunas Consults: 01/26/19 21:38 Consult to Wound Care [CONS] Routine Reason for Consult: right leg ulcers causing increasing pain and drainage Call Completed: No 01/26/19 21:46 Consult to Nephrology [CONS] Routine Consulting Provider: [facility]/JAQUELINE/[facility]Y/JP Reason for Consult: ESRD patient on M/W/F dialysis Call Completed: No 01/27/19 07:00 Consult to Dialysis [CONS] QMWF 01/27/19 10:35 Consult to Podiatry [CONS] Routine Consulting Provider: [facility] Reason for Consult: Right foot wound Call Completed: Yes Consult to Vascular Surgery [CONS] Routine Consulting Provider: [facility] Reason for Consult: PVD with wound Call Completed: Yes 01/27/19 14:18 Consult to Nurse Navigator [CONS] Routine Comment: hd 01/29/19 07:00 Consult to Dialysis [CONS] QMWF 01/30/19 19:41 Consult to Sales Administrator [CONS] Routine Reason for SW Consult: post op amputation 01/31/19 07:00 Consult to Dialysis [CONS] QMWF 01/31/19 15:58 Consult to Occupational Therapy [CONS] Routine Comment: Evaluate, develop and implement POC Reason for Consult: 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 Does patient have active BEDREST order?: No Is patient medically & hemodynamically stable?: Yes 02/03/19 08:15 Consult to Dialysis [CONS] ONCE 02/05/19 07:12 Consult to Pulmonology [CONS] Routine Consulting Provider: [facility] Reason for Consult: Right side lung consolidation/pleural effusion Call Completed: No 02/05/19 08:15 Consult to Dialysis [CONS] ONCE 02/05/19 10:36 Consult to Oncology [CONS] Routine Consulting Provider: [facility] Reason for Consult: Breast cancer, possibly liver metastesis Call Completed: Yes 02/05/19 21:45 Consult to Pulmonology [CONS] Routine Consulting Provider: [facility] Reason for Consult: s/p cardiac arrest with 22 min of ACLS Call Completed: No 02/06/19 09:56 Consult to Palliative Care [CONS] Routine Comment: Consulting Provider: Palliative [facility] Reason for Consult: end of life goals of care Call Completed: No Pronouncing clinician: Angel Zaragoza <eZke Giles W - Last Filed: 02/07/19 06:49> Discharge Sum: Summary - Date and Time Date of admission: 01/28/19 13:32 - Additional Data Attending physician: Aylin Brice MD Discharge Sum: Prov - Provider Primary care physician: Eileen House CNP Consults: 01/26/19 21:38 Consult to Wound Care [CONS] Routine Reason for Consult: right leg ulcers causing increasing pain and drainage Call Completed: No 01/26/19 21:46 Consult to Nephrology [CONS] Routine Consulting Provider: [facility]/JAQUELINE/COY/JP Reason for Consult: ESRD patient on M/W/F dialysis Call Completed: No 01/27/19 07:00 Consult to Dialysis [CONS] QMWF 01/27/19 10:35 Consult to Podiatry [CONS] Routine Consulting Provider: [facility] Reason for Consult: Right foot wound Call Completed: Yes Consult to Vascular Surgery [CONS] Routine Consulting Provider: Vascular [facility] Reason for Consult: PVD with wound Call Completed: Yes 01/27/19 14:18 Consult to Nurse Navigator [CONS] Routine Comment: hd 01/29/19 07:00 Consult to Dialysis [CONS] QMWF 01/30/19 19:41 Consult to Sales Administrator [CONS] Routine Reason for SW Consult: post op amputation 01/31/19 07:00 Consult to Dialysis [CONS] QMWF 01/31/19 15:58 Consult to Occupational Therapy [CONS] Routine Comment: Evaluate, develop and implement POC Reason for Consult: 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 Does patient have active BEDREST order?: No Is patient medically & hemodynamically stable?: Yes 02/03/19 08:15 Consult to Dialysis [CONS] ONCE 02/05/19 07:12 Consult to Pulmonology [CONS] Routine Consulting Provider: [facility] Reason for Consult: Right side lung consolidation/pleural effusion Call Completed: No 02/05/19 08:15 Consult to Dialysis [CONS] ONCE 02/05/19 10:36 Consult to Oncology [CONS] Routine Consulting Provider: [facility] Reason for Consult: Breast cancer, possibly liver metastesis Call Completed: Yes 02/05/19 21:45 Consult to Pulmonology [CONS] Routine Consulting Provider: [facility] Reason for Consult: s/p cardiac arrest with 22 min of ACLS Call Completed: No 02/06/19 09:56 Consult to Palliative Care [CONS] Routine Comment: Consulting Provider: [facility] Reason for Consult: end of life goals of care Call Completed: No - Attending Attestation I examined this patient and my medical decision-making was reviewed with the Resident Physician. I agree with the documented findings, disposition and treatment plan as described except to the extent set forth below. We independently had [id number] contact with the patient
[2019-02-06] MEDS ORDERED: Chlorhexidine Rinse 15 ML MOUTHWASH MM SCH (21:00)
--- NOTE | 2019-02-06 23:34 | Electrocardiograph Report ---
[address] [address] Test Date: 2019-02-06 Pat Name: Hilary Hedrick Department: [id number] Room: 10 Gender: F Pals Specialist: [id number] : 1940 Requested By: Karen Polk Order Number: [id number] Reading MD: Margarito Smith Measurements Intervals [place] Rate: 72 P: NE: 0 QRS: 83 QRSD: 94 T: 45 QT: 374 QTc: 399 Interpretive Statements ATRIAL FIBRILLATION WITH ABERRANT CONDUCTION OR VENTRICULAR PREMATURE COMPLEXES ANTEROSEPTAL MYOCARDIAL INFARCTION, PROBABLY OLD Electronically Signed On 02-06-2019 23:32:47 EDT by Margarito Smith
== END 2019-02-06 18:56 | disposition expired | DRG 239 ==
LOC: EMEROOARM 15:30 → 2ANU 15:30 → ICNU 02-05 21:23
PROVIDERS: ADMIT Internal Medicine; ATTEND Internal Medicine